=== PATIENT | female | born 1980 | race Caucasian/White ===

== ENCOUNTER 2017-03-10 15:05 | Emergency (ER) | payer OTHER ==
[~2017-03-10] VITALS: Ht 160 cm; Wt 50.1 kg
[~2017-03-10 15:05] MED LIST: BCPILLS PO; CLON0.5T3 PO; LMC100 PO; PRED20TA PO; PRLSR20 PO; VENL150C56 PO
[2017-03-10 15:12] VITALS: TEMP 36.8; Ht 160 cm; Wt 50.1 kg
[2017-03-10] MEDS ORDERED: SODIUM CHLORIDE 0.9% 1000ML 1,000 ML IV STA ×2 (15:46)
[2017-03-10 16:16] LABS: BASO % 0.8 %; BASO ABS # 0.05 K/uL (0-0.2); COMPLETE YES; EOS % 1.6 %; HEMATOCRIT 38.5 % (37-47); IG% 0.2 %; LYMPH % 46.5 %; LYMPH ABS # 2.97 K/uL (1.2-3.4); MEAN CELL VOLUME 86.3 fL (80-100); MEAN CORPUSCULAR HEMOGLOBIN 28.5 pg (25-34); MEAN PLATELET VOLUME 8.8 fL (7.4-10.4); MONO % 5.9 %; PLATELET COUNT 280 K/uL (130-400); RED BLOOD COUNT 4.46 M/uL (4.2-5.4); WHITE BLOOD COUNT 6.39 K/uL (4.8-10.8)
[2017-03-10 16:26] LABS: PARTIAL THROMBOPLASTIN RATIO 1.1; PROTHROMBIN TIME (PATIENT) 10.8 SECONDS (9.0-12.0)
--- NOTE | 2017-03-10 16:27 | DIAGNOSTIC IMAGING REPORT ---
CT HEAD WITHOUT CONTRAST (CT) CLINICAL HISTORY: SYNCOPAL EPISODE, DIZZY COMPARISON STUDY: 05/25/2015 TECHNIQUE: Axial CT of the brain is performed from the vertex to the skull base. IV contrast was not administered for this examination. CT DOSE: 788.63 mGycm FINDINGS: No intra or extra-axial mass lesions are visualized. There is no CT evidence of acute cortical infarction. There is no evidence of midline shift. There is no acute hemorrhage. No calvarial fractures are visualized. There is no evidence of pathologic ventricular dilatation. There is no evidence of acute sinusitis IMPRESSION: No acute intracranial findings Electronically signed by: Alex Velázquez M.D. 03/10/2017 4:26 PM Dictated Date/Time: 03/10/2017 4:25 PM
[2017-03-10 16:35] LABS: CALCIUM 8.6 mg/dl (8.5-10.1); CREATININE 0.76 mg/dl (0.60-1.20); MAGNESIUM 2.4 mg/dl (1.8-2.4); POTASSIUM 3.7 mmol/L (3.5-5.1)
[2017-03-10 16:46] LABS: ALB/GLOB RATIO 1.4 (0.9-2); THYROID STIMULATING HORMONE 1.62 uIu/ml (0.300-4.500)
--- NOTE | 2017-03-10 16:46 | DIAGNOSTIC IMAGING REPORT ---
CHEST 2 VIEWS ROUTINE CLINICAL HISTORY: SYNCOPE mental status change COMPARISON STUDY: 01/28/2014 FINDINGS: The bones soft tissues and hemidiaphragms are normal. The cardiomediastinal silhouette is normal. The lungs are clear. The pulmonary vasculature is normal. IMPRESSION: Negative chest. Electronically signed by: Johnny Riggins M.D. 03/10/2017 4:45 PM Dictated Date/Time: 03/10/2017 4:44 PM
[2017-03-10 17:05] VITALS: BP 106/70; PULSE 86; O2SAT 97
--- NOTE | 2017-03-10 17:07 | EMERGENCY ROOM VISIT NOTE ---
History First contact with patient: 15:18 Chief Complaint: SYNCOPE (NEAR SYNCOPE) Stated Complaint: PASSED OUT YESTERDAY, LINGERING SX, DIZZY History of Present Illness Patient is a 36-year-old white female who presents emergency department for evaluation of a syncopal episode yesterday. Patient reports that she has been feeling well and in her usual state of health. She woke up yesterday morning like she normally does to get ready for work. She did eat breakfast. She was driving to work around 0515 in the morning, when she acutely became very fatigued. She pulled the car over and put it in park. She apparently passed out. There is no tongue biting or incontinence. She states that she missed multiple phone calls from her employer, and states that she was "out of it" for about 30 minutes. She then proceeded to drive herself to work. She arrived late, reports she was fatigued and unable to perform her full duties as a [employer], so she left early. When she came home, she ate, rested and felt "okay." She states currently little "foggy" and "slow." She felt a little dizzy with head movements. She denied any headache. She continued to note dark spots and tunnel vision, and states that she was "zoning out." She states that she went to bed and woke up with the same symptoms. She again drove herself to work today. She called to see if she could get in with her primary care provider, and they directed her to the emergency department. She denies any chest pain, palpitations or shortness of breath. She is eating and drinking normally. She denies any nausea or vomiting. She reports normal bowel movements, no diarrhea , melena or hematochezia. She denies any urinary symptoms. She is on a continuous low dose oral contraceptive and does not menstruate. She denies that she could be . No other medication changes have been made recently. She denies any tobacco, alcohol or illicit drug use. Review of Systems Review of systems as per HPI. All other systems reviewed were negative. 10 systems reviewed. Past Medical/Surgical History Medical Problems: (1) Anxiety (2) Bipolar disorder (3) Chest pain (4) Depression (5) Depression (6) Dyslipidemia (7) Esophageal Reflux (8) Headache (9) HTN (hypertension) (10) Neck pain Surgical Problems: (1) Status post appendectomy (2) Status post delivery (3) Status post cholecystectomy (4) Status post LEEP (loop electrosurgical excision procedure) of cervix Electronic medical records are reviewed and summarized as above/below. See Problem List. Family History FH: hyperlipidemia MOTHER FH: hypertension MOTHER FH: lung cancer GRANDFATHER FH: stroke GRANDMOTHER Social History Smoking Status: Never Smoker Alcohol Use: none Marital Status: Housing Status: lives with family Occupation Status: employed Current/Historical Medications Scheduled Control Pills ( Control Pills), 1 TAB PO DAILY Lamotrigine (Lamotrigine), 150 MG PO QAM Omeprazole (Prilosec), 20 MG PO DAILY Venlafaxine Hcl (Effexor Extended Rel), 150 MG PO DAILY Scheduled PRN Clonazepam (Klonopin), 0.5 MG PO DAILY PRN for Anxiety/Agitation Allergies Coded Allergies: No Known Allergies (Verified , *, 03/10/17) Physical Exam Vital Signs Date Time Temp Pulse Resp B/P (MAP) Pulse Ox O2 Delivery O2 Flow Rate FiO2 03/10/17 17:05 86 18 106/70 97 Room Air 03/10/17 16:26 92 03/10/17 16:25 94 18 113/68 100 Room Air 03/10/17 15:20 86 127/67 92 115/78 100 110/81 03/10/17 15:12 36.8 93 16 119/74 100 Room Air Physical Exam CONSTITUTIONAL: Patient is a well-appearing 36-year-old white female who is awake and alert and in no acute distress. HEENT: Normocephalic, atraumatic. Pupils equal, round, reactive to light and accommodation. EOMs intact without nystagmus. Sclera are anicteric. Tympanic membranes intact, with normal landmarks. External canals are clear. Oral and nasopharynx are clear. No CSF rhinorrhea. Mucous membranes are moist. NECK: Supple, nontender, no lymphadenopathy. Full range of motion. HEART: Regular rate and rhythm, with normal S1 and S2, no murmur or gallop or rub is heard. LUNGS: Breath sounds equal and clear to auscultation without wheezes, rales, or rhonchi heard. ABDOMEN: Soft, non-tender, no organs or masses felt. Bowel sounds normo- active. No bruits. SKIN: No lesions or rash, normal skin turgor. EXTREMITIES: No cyanosis, edema, joint tenderness or swelling. No deformity. NEUROLOGICAL: Alert and oriented x4. Cranial nerves 2 through 12, sensation and strength grossly intact. Gait is normal. Negative Romberg, and pronator drift. Finger to nose, finger to finger and rapid alternating movements are intact. Immediate, recent and remote memories are intact. Concentration is normal. Medical Decision & Procedures ER Provider Diagnostic Interpretation: CT HEAD WITHOUT CONTRAST (CT) CLINICAL HISTORY: SYNCOPAL EPISODE, DIZZY COMPARISON STUDY: 05/25/2015 TECHNIQUE: Axial CT of the brain is performed from the vertex to the skull base. IV contrast was not administered for this examination. CT DOSE: 788.63 mGycm FINDINGS: No intra or extra-axial mass lesions are visualized. There is no CT evidence of acute cortical infarction. There is no evidence of midline shift. There is no acute hemorrhage. No calvarial fractures are visualized. There is no evidence of pathologic ventricular dilatation. There is no evidence of acute sinusitis IMPRESSION: No acute intracranial findings CHEST 2 VIEWS ROUTINE CLINICAL HISTORY: SYNCOPE mental status change COMPARISON STUDY: 01/28/2014 FINDINGS: The bones soft tissues and hemidiaphragms are normal. The cardiomediastinal silhouette is normal. The lungs are clear. The pulmonary vasculature is normal. IMPRESSION: Negative chest Laboratory Results 03/10/17 16:00 Red Blood Count 4.46, Mean Corpuscular Volume 86.3, Mean Corpuscular Hemoglobin 28.5, Mean Corpuscular Hemoglobin Concent 33.0, Mean Platelet Volume 8.8, Neutrophils (%) (Auto) 45.0, Lymphocytes (%) (Auto) 46.5, Monocytes (%) (Auto) 5.9, Eosinophils (%) (Auto) 1.6, Basophils (%) (Auto) 0.8, Neutrophils # (Auto) 2.88, Lymphocytes # (Auto) 2.97, Monocytes # (Auto) 0.38, Eosinophils # (Auto) 0.10, Basophils # (Auto) 0.05 03/10/17 16:00 Test 03/10/17 16:00 03/10/17 16:05 White Blood Count 6.39 K/uL (4.8-10.8) Red Blood Count 4.46 M/uL (4.2-5.4) Hemoglobin 12.7 g/dL (12.0-16.0) Hematocrit 38.5 % (37-47) Mean Corpuscular Volume 86.3 fL (80-100) Mean Corpuscular Hemoglobin 28.5 pg (25-34) Mean Corpuscular Hemoglobin Concent 33.0 g/dl (32-36) Platelet Count 280 K/uL (130-400) Mean Platelet Volume 8.8 fL (7.4-10.4) Neutrophils (%) (Auto) 45.0 % Lymphocytes (%) (Auto) 46.5 % Monocytes (%) (Auto) 5.9 % Eosinophils (%) (Auto) 1.6 % Basophils (%) (Auto) 0.8 % Neutrophils # (Auto) 2.88 K/uL (1.4-6.5) Lymphocytes # (Auto) 2.97 K/uL (1.2-3.4) Monocytes # (Auto) 0.38 K/uL (0.11-0.59) Eosinophils # (Auto) 0.10 K/uL (0-0.5) Basophils # (Auto) 0.05 K/uL (0-0.2) RDW Standard Deviation 42.0 fL (36.4-46.3) RDW Coefficient of Variation 13.2 % (11.5-14.5) Immature Granulocyte % (Auto) 0.2 % Immature Granulocyte # (Auto) 0.01 K/uL (0.00-0.02) Prothrombin Time 10.8 SECONDS (9.0-12.0) Prothromb Time International Ratio 1.0 (0.9-1.1) Activated Partial Thromboplast Time 27.8 SECONDS (21.0-31.0) Partial Thromboplastin Ratio 1.1 Anion Gap 9.0 mmol/L (3-11) Est Creatinine Clear Calc Drug Dose 79.4 ml/min Estimated GFR () 115.3 Estimated GFR (Non- 99.5 BUN/Creatinine Ratio 24.0 (10-20) Calcium Level 8.6 mg/dl (8.5-10.1) Magnesium Level 2.4 mg/dl (1.8-2.4) Total Bilirubin 0.7 mg/dl (0.2-1) Aspartate Amino Transf (AST/SGOT) 13 U/L (15-37) Alanine Aminotransferase (ALT/SGPT) 17 U/L (12-78) Alkaline Phosphatase 74 U/L (45-117) Total Protein 7.6 gm/dl (6.4-8.2) Albumin 4.4 gm/dl (3.4-5.0) Globulin 3.2 gm/dl (2.5-4.0) Albumin/Globulin Ratio 1.4 (0.9-2) Thyroid Stimulating Hormone (TSH) 1.620 uIu/ml (0.300-4.500) Urine Test NEG (NEG) Medications Administered Medications (Trade) Dose Ordered Sig/Kate Route Start Time Stop Time Status Last Admin Dose Admin Sodium Chloride 1,000 ml @ 999 mls/hr Q1H1M STAT IV 03/10/17 15:46 03/10/17 16:46 DC 03/10/17 16:11 999 MLS/HR Sodium Chloride 1,000 ml @ 250 mls/hr Q4H STAT IV 03/10/17 15:46 03/10/17 17:28 DC 03/10/17 16:12 250 MLS/HR ECG Indication: syncope Rate (beats per minute): 89 Rhythm: sinus with SA Findings: no acute ischemic change, no ectopy Change: no significant change ED Course The patient was seen and assessed as above. Her old records were reviewed. She was slightly orthostatic with vital signs, and was symptomatic with position changes. IV lock was initiated and she was hydrated with normal saline solution. Laboratory studies were collected including CBC with differential, CMP, coags, TSH, urine dip and urine test. Lamictal level was ordered and is pending. Laboratory studies noted a normal white count. H&H is normal. Coags and platelets are within normal limits. Electrolytes are without significant abnormality. Renal functions are normal. Liver functions are not elevated. TSH is indicative of a euthyroid state. Urine test was negative. Urine dip noted moderate ketones, otherwise no other indicators for infection. Chest x-ray was unremarkable, and head CT was negative. All laboratory and diagnostic imaging studies were reviewed with the patient. Differential includes acute coronary syndrome, seizure, syncope, arrhythmia, orthostasis, dehydration, electrolyte abnormalities, anemia, hypoglycemia, among others. Patient was initially tachycardic, this improved with the IV hydration. The patient was encouraged to rest and stay well hydrated, eat small , frequent meals, and to follow closely with her primary care provider for further care and evaluation of her symptoms. She was given a note to keep her out of work until she can be screened and cleared to return by her physician. The patient was discharged to home in stable condition. Medication reconciliation: I attest that I have personally reviewed the patient' s current medication list. Blood pressure screening : Patient was found to have normal blood pressure on screening and does not require follow-up. Medical Decision See emergency Department course. Impression Primary Impression: Syncope Departure Information Referrals Dom Lo M.D. (PCP) Patient Instructions My [facility] Additional Instructions DO NOT drive, drink alcohol, operate machinery, or perform dangerous activities today. Rest and drink plenty of fluids as tolerated. Continue current medications. Return to the ER immediately for passing out, headache, rapid heart rates, chest pains, difficulty breathing, black or bloody stools, slurred speech, numbness, weakness, visual changes, worsening of your condition, or as needed. Refrain from dangerous activities, operating machinery, drinking alcohol, and such until you are rechecked at a follow up appointment. No driving until cleared by your primary care physician. Follow up with your primary physician in 2-3 days for a recheck of your current condition.
== END 2017-03-10 17:14 | disposition home or self-care (01) ==
LOC: C.EDB 15:08 → C.EDA 17:14
DX: R55 Syncope and collapse (principal); F41.9 Anxiety disorder, unspecified; F31.9 Bipolar disorder, unspecified; F32.9 Major depressive disorder, single episode, unspecified; E78.5 Hyperlipidemia, unspecified; K21.9 Gastro-esophageal reflux disease without esophagitis; I10 Essential (primary) hypertension; Z82.49 Family history of ischemic heart disease and other diseases of the circulatory system; Z80.9 Family history of malignant neoplasm, unspecified; Z79.3 Long term (current) use of hormonal contraceptives; Z79.899 Other long term (current) drug therapy

== ENCOUNTER 2017-07-21 17:17 | Emergency (ER) | payer OTHER ==
[~2017-07-21] VITALS: Ht 160 cm; Wt 50.7 kg
[~2017-07-21 17:17] MED LIST changes: -PRED20TA PO
[2017-07-21 17:19] VITALS: TEMP 36.9; Ht 160 cm; Wt 50.7 kg
--- NOTE | 2017-07-21 18:40 | DIAGNOSTIC IMAGING REPORT ---
LEFT SHOULDER 3 VIEWS HISTORY: left shoulder pain COMPARISON: None. FINDINGS: There is no fracture or dislocation. Soft tissues are unremarkable. The left clavicle is intact. The AC joint is well aligned. IMPRESSION: No fracture or dislocation within the left shoulder. Electronically signed by: Justen Calvo M.D. 07/21/2017 6:39 PM Dictated Date/Time: 07/21/2017 6:38 PM
--- NOTE | 2017-07-21 18:43 | DIAGNOSTIC IMAGING REPORT ---
CERVICAL SPINE 5 VIEWS HISTORY: left sided neck pain COMPARISON: Cervical spine 11/18/2014. FINDINGS: The cervical spine is visualized from C1 through the superior endplate of T1. There is no fracture. No subluxation. Disc spaces are preserved. Prevertebral soft tissues and the atlantodens interval are intact. Straightening of the cervical spine. This remains unchanged. IMPRESSION: No fracture or subluxation within the cervical spine. Straightening of the cervical spine. Electronically signed by: Justen Calvo M.D. 07/21/2017 6:42 PM Dictated Date/Time: 07/21/2017 6:39 PM
[2017-07-21] MEDS ORDERED: IBUPROFEN 600 MG TAB PO STA (18:45)
--- NOTE | 2017-07-21 19:11 | EMERGENCY ROOM VISIT NOTE ---
History First contact with patient: 17:26 Chief Complaint: NECK PAIN Stated Complaint: LEFT SHOULDER/ARM PAIN, TINGLING, NECK PAIN History of Present Illness The patient is a 36 year old female who presents to the Emergency Room with complaints of left-sided neck/shoulder pain. 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 She has had pain from her left neck down into the left shoulder and arm and since then. She also reports some tingling into the left arm and hands. She rates her overall discomfort a 7/10. She states that the pain feels like a tightness. She reports a history of left shoulder problems and has had issues with her rotator cuff in the past. She states the pain is worsened with range of motion. She has taken Advil without relief. The patient denies any chest pain or shortness of breath. She denies any other injuries. Review of Systems A complete 10 point review of systems was reviewed with the patient with pertinent positives and negatives as per history of present illness. All else were negative. Past Medical/Surgical History Medical Problems: (1) Anxiety (2) Bipolar disorder (3) Chest pain (4) Depression (5) Depression (6) Dyslipidemia (7) Esophageal Reflux (8) Headache (9) HTN (hypertension) (10) Neck pain Surgical Problems: (1) Status post appendectomy (2) Status post delivery (3) Status post cholecystectomy (4) Status post LEEP (loop electrosurgical excision procedure) of cervix Family History FH: hyperlipidemia MOTHER FH: hypertension MOTHER FH: lung cancer GRANDFATHER FH: stroke GRANDMOTHER Social History Smoking Status: Never Smoker Alcohol Use: none Marital Status: Housing Status: lives with family Occupation Status: employed Current/Historical Medications Scheduled Control Pills ( Control Pills), 1 TAB PO DAILY Lamotrigine (Lamotrigine), 150 MG PO QAM Omeprazole (Prilosec), 20 MG PO DAILY Venlafaxine Hcl (Effexor Extended Rel), 150 MG PO DAILY Scheduled PRN Clonazepam (Klonopin), 0.5 MG PO DAILY PRN for Anxiety/Agitation Physical Exam Vital Signs Date Time Temp Pulse Resp B/P (MAP) Pulse Ox O2 Delivery O2 Flow Rate FiO2 07/21/17 19:19 79 17 118/81 98 07/21/17 18:46 78 18 108/68 99 Room Air 07/21/17 17:19 36.9 89 18 118/81 100 Physical Exam VITALS: Vitals are noted on the nurse's note and reviewed by myself. Vital signs stable. GENERAL: This is a 36-year-old female, in no acute distress, nondiaphoretic, well-developed well-nourished. HEART: Regular rate and rhythm without murmurs gallops or rubs. LUNGS: Clear to auscultation bilaterally without wheezes, rales or rhonchi. MUSCULOSKELETAL: There is tenderness to palpation over the left paraspinous muscles and left trapezius muscle. Full range of motion of bilateral upper extremities. Strength 5/5 in bilateral upper extremities. NEURO: Patient was alert and oriented to person place and time. Normal sensation to light and sharp touch. Medical Decision & Procedures ER Provider Diagnostic Interpretation: CERVICAL SPINE 5 VIEWS FINDINGS: The cervical spine is visualized from C1 through the superior endplate of T1. There is no fracture. No subluxation. Disc spaces are preserved. Prevertebral soft tissues and the atlantodens interval are intact. Straightening of the cervical spine. This remains unchanged. IMPRESSION: No fracture or subluxation within the cervical spine. Straightening of the cervical spine. LEFT SHOULDER 3 VIEWS FINDINGS: There is no fracture or dislocation. Soft tissues are unremarkable. The left clavicle is intact. The AC joint is well aligned. IMPRESSION: No fracture or dislocation within the left shoulder. Medications Administered Medications (Trade) Dose Ordered Sig/Kate Route Start Time Stop Time Status Last Admin Dose Admin Ibuprofen (Motrin Tab) 600 mg NOW STAT PO 07/21/17 18:45 07/21/17 18:46 DC 07/21/17 19:02 600 MG Medical Decision Differential diagnosis includes fracture, contusion, sprain, subluxation, dislocation, muscle spasm, among others. The patient was evaluated as above. X-rays of the cervical spine and left shoulder were obtained and read by radiology with no acute findings. She likely has a muscle strain. Patient was offered muscle relaxers, but declined as she states these have made her very drowsy in the past. Conservative measures were discussed with the patient and she will follow-up with her primary care provider as needed. She verbalized understanding of my assessment and treatment plan and was discharged home in good condition. Medication Reconcilliation Current Medication List: was personally reviewed by me Blood Pressure Screening Patient's blood pressure: Normal blood pressure Impression Primary Impression: Cervical muscle strain Departure Information Dispostion Home / Self-Care Condition GOOD Referrals No Doctor, Assigned (PCP) Patient Instructions My [facility] Additional Instructions You have been treated in the Emergency Department for Neck Pain. For pain control, you can use the following [id number] medicines (if >12 yo): - Regular strength (325mg/tab) Tylenol (acetaminophen) 2 tabs every 4-6 hours as needed. Do not exceed 12 tablets in a 24 hour period. Avoid taking more than 4 grams (4000 mg) of Tylenol per day. This includes any other sources of acetaminophen you may take on a regular basis. - Regular strength (200 mg/tab) Advil (ibuprofen) 1-2 tabs every 4-6 hours as needed. Do not exceed a dose of 3200 mg per day. A heating pad can be used over the area for soothing relief. Follow-up with Workmen's Compensation if you have persistent or worsening symptoms. Return to the Emergency Department if your current symptoms worsen despite treatment course outlined above or for any new/concerning symptoms. Problem Qualifiers Primary Impression: Cervical muscle strain Encounter type: initial encounter Qualified Codes: S16.1XXA - Strain of muscle, fascia and tendon at neck level, initial encounter
[2017-07-21 19:19] VITALS: BP 118/81; PULSE 79; O2SAT 98
== END 2017-07-21 19:19 | disposition home or self-care (01) ==
LOC: C.EDB 17:18 → C.EDD 19:19
DX: S16.1XXA Strain of muscle, fascia and tendon at neck level, initial encounter (principal); M25.512 Pain in left shoulder; F41.9 Anxiety disorder, unspecified; F31.9 Bipolar disorder, unspecified; E78.5 Hyperlipidemia, unspecified; K21.9 Gastro-esophageal reflux disease without esophagitis; I10 Essential (primary) hypertension; X58.XXXA Exposure to other specified factors, initial encounter; Z82.49 Family history of ischemic heart disease and other diseases of the circulatory system; Z80.1 Family history of malignant neoplasm of trachea, bronchus and lung; Z82.3 Family history of stroke

== ENCOUNTER → 2017-08-03 | Outpatient (CLI) | payer OTHER ==
--- NOTE | 2017-08-03 15:02 | DIAGNOSTIC IMAGING REPORT ---
MRI OF THE LEFT SHOULDER CLINICAL HISTORY: Fall with left shoulder pain. COMPARISON STUDY: Radiographs of the left shoulder dated 07/21/2017. TECHNIQUE: MRI of the left shoulder was performed utilizing various T1 and T2 weighted sequences in the axial, sagittal, coronal planes. IV contrast was not administered for this examination. FINDINGS: Rotator cuff: There is moderate tendinopathy of the supraspinatous tendon. There is partial thickness tearing seen along the bursal surface at the musculotendinous junction and also within 1.5 cm leading edge. The infraspinatus tendon is normal in appearance. The teres minor and subscapular tendons are preserved. There is no subacromial or subdeltoid bursal fluid. The acromioclavicular joint is unremarkable. Biceps tendon: The long head of the biceps tendon is normal in signal intensity and located within the bicipital groove. The anchor is maintained. Labrum: Grossly intact. Shoulder joint: There is no joint effusion. The articular cartilage over the glenoid is well maintained. Normal marrow signal intensity is preserved of the visualized osseous structures. Musculature and soft tissues: The musculature of the shoulder is normal in bulk and signal intensity. No atrophy is seen. IMPRESSION: 1. There is tendinopathy with partial-thickness tearing of the supraspinatous tendon as above. 2. The rotator cuff is otherwise intact, as is the long head of the biceps tendon. 3. There is no MRI evidence of occult fracture. Electronically signed by: Charlie Melgar M.D. 08/03/2017 3:00 PM Dictated Date/Time: 08/03/2017 2:51 PM
== END | disposition home or self-care (01) ==
LOC: C.MRI 14:08
PROVIDERS: ATTEND Nurse Practitioner Family
DX: M75.102 Unspecified rotator cuff tear or rupture of left shoulder, not specified as traumatic (principal); M75.92 Shoulder lesion, unspecified, left shoulder; W19.XXXA Unspecified fall, initial encounter; Y99.0 Civilian activity done for income or pay

== ENCOUNTER → 2017-08-06 | Outpatient (CLI) | payer OTHER | END | disposition home or self-care (01) | LOC: C.RDSM 10:14 | PROVIDERS: ATTEND Orthopaedic Surgery | DX: M25.512 Pain in left shoulder (principal) ==

== ENCOUNTER → 2017-09-16 | Day surgery (SDC) | payer OTHER ==
[2017-09-10 14:36] VITALS: Ht 160 cm; Wt 52.3 kg
[~2017-09-16] VITALS: Ht 160 cm; Wt 52.3 kg
[~2017-09-16] MED LIST changes: +BUPIVACAINE/EPINEPHRINE 0.5% MPF 1:200,000 30 ML VIAL ONE; +CEFAZOLIN 1000MG IV PUSH 5 ML IV SCH; +DEXAMETHASONE SOD INJ 4 MG/ML VIAL ONE; +LACTATED RINGER'S 1000ML 1,000 ML IV SCH; +LAMO150T PO; -LMC100 PO
== END | disposition home or self-care (01) ==
LOC: C.PAT 07:13 → EDSTATUS 14:30
PROVIDERS: ATTEND Orthopaedic Surgery
DX: M75.02 Adhesive capsulitis of left shoulder (principal)

== ENCOUNTER 2023-08-11 04:12 | Inpatient (IN) ==
[2023-08-11] MEDS ORDERED: ONDANSETRON INJ 2 MG/ML 2 ML VIAL IV STA ×2 (04:25→05:52)
[2023-08-11] MEDS ORDERED: KETOROLAC TROMETHAMINE 15 MG/ML VIAL IV ONE (04:43)
--- NOTE | 2023-08-11 04:43 | Emergency Department Note ---
Impression & Plan Abdominal pain, Small bowel obstruction ED Provider Note NAME: VICTORINO NAVAS AGE: 42 SEX: F : 1980 ARRIVES VIA: Walk-In INFORMANT: Patient ED PROVIDER(S): Chris Flores DO CHIEF COMPLAINT: abdominal pain HPI: Patient is a 42-year-old female with a past medical history of appendectomy, cholecystectomy and hysterectomy who presents to the ER for supraumbilical abdominal pain. She notes it has been present since yesterday. It comes and goes in waves if intensity. She admits to vomiting x2. She does have nausea. Does not change much with eating or drinking. Denies any headache or change in vision. No chest pain or shortness of breath. No dysuria, urgency, or frequency. Does not remember her last menstrual cycle as she had a hysterectomy. No fevers. ADDITIONAL HISTORY OBTAINED: Per HPI Chronic Medical/Social Conditions Affecting Care: Per HPI PAST MEDICAL HISTORY:See Below PAST SURGICAL HISTORY:See Below FAMILY HISTORY:See Below SOCIAL HISTORY:See Below HOME MEDICATIONS:See Below ALLERGIES:See Below VITALS:See Below PHYSICAL EXAMINATION: GENERAL: Sitting up in bed, alert, mild distress holding abdomen EYE EXAM: normal conjunctiva. OROPHARYNX:mucous membranes are moist NECK: supple, no nuchal rigidity, no adenopathy, non-tender LUNGS: Clear to auscultation. Normal chest wall mechanics HEART: no murmurs, S1 normal and S2 normal ABDOMEN: abdomen soft, mild tenderness in epigastric region, normo-active bowel sounds, no masses, no rebound or guarding. UPPER EXTREMITIES: upper extremities are grossly normal. LOWER EXTREMITIES: No pitting edema. NEURO EXAM: Normal sensorium, cranial nerves II-XII grossly intact, normal speech, no gross weakness of arms, no gross weakness of legs. MEDICAL DECISION MAKING: Patient is a 42-year-old female who presents ER for above-stated complaint. IV was established blood work was obtained. External records reviewed as described below. Patient has a history of cholecystectomy, appendectomy and complete hysterectomy. Labs show mild leukocytosis of 15,000. No significant anemia. BMP along with LFTs bilirubin was unremarkable. Lipase was normal. UA was clean. was negative. CT abdomen pelvis suggest ileus versus early small bowel obstruction. With the presentation, previous surgeries, leukocytosis did discuss with the hospitalist for further evaluation management treatment. Discussed the case with Dr. Burgos who for further evaluation management and treatment. External Records Reviewed: 02/2022 sleep study reviewed shows mild obstructive sleep apnea Consults/Care Managements Discussions: Per MDM Triage Nursing notes reviewed. Limited review of prior medical records performed Vital Signs: reviewed and remarkable for tachy Differential diagnosis: Differential diagnoses includes but is not limited to gastritis, peptic ulcer disease, GERD, gallbladder disease, pancreatitis, small bowel obstruction, appendicitis, diverticulitis, hernia, urinary tract infection, torsion, /ectopic (if female), perforation, trauma, infectious. ER treatment provided: See below Diagnostics interpreted by me include EKG and cardiac monitoring as listed below: -Cardiac Monitoring: An order was placed for continuous cardiac monitoring. The monitor shows a rate of 100 with sinus rhythm. -ECG: none -Laboratory studies:Interpreted by me as stated above in MDM and shown below. Imaging studies: Xrays: As interpreted by me:none CTs show: CT abdomen pelvis showed dilation of small bowel per my read CT abdomen pelvis per radiology showed questionable ileus versus early small bowel obstruction Procedures:none Critical Care: None Past Med/Surg History Medical History (Updated 08/11/23 @ 06:19 by Chris Flores DO) HTN (hypertension) Surgical History Hx of breast biopsy Family History Other Breast cancer Social History Smoking Status: Former smoker Hx Alcohol Use: No Preferred Language: Albanian marital status: Current Living Situation: Spouse current occupational status: employed Feels Safe at Home: Yes Allergies Allergies Allergy/AdvReac Type Severity Reaction Status Date / Time No Known Allergies Allergy Verified 10/11/21 20:25 Home Meds Home Medications Medication Instructions Recorded Confirmed lamotrigine 100 mg tablet 100 mg PO QAM 07/31/19 10/11/21 norethindrone (contraceptive) 0.35 0.35 mg PO QAM 07/31/19 10/11/21 mg tablet albuterol sulfate 90 mcg/actuation 1 - 2 puff inhalation DIRECTED 01/30/21 10/11/21 aerosol inhaler PRN Shortness Of Breath fluticasone furoate 200 1 inh inhalation QAM 01/30/21 10/11/21 mcg-vilanterol 25 mcg/dose inhalation powder (Breo Ellipta) lorazepam 0.5 mg tablet 0.5 mg PO DIRECTED PRN Anxiety 01/30/21 10/11/21 venlafaxine 225 mg tablet,extended 225 mg PO QAM 01/30/21 10/11/21 release 24 hr Results & Data (ED) Vital Signs Vital Signs - 24 hr 08/11/23 04:21 08/11/23 04:40 Temperature 36.6 C Temperature Source Temporal Artery Scan Pulse Rate 101 H Respiratory Rate 20 Blood Pressure 117/78 Blood Pressure Mean 91 Pulse Oximetry 99 99 Oxygen Delivery Method Room Air Room Air Sepsis Recent Fever Within 48 Hours No Sepsis New/Unexplained Change in Mental Status No Sepsis Action Taken by Nursing No Action Required Laboratory Data 08/11/23 04:36 08/11/23 04:36 Lab Results 08/11/23 08/11/23 Range/Units 04:30 04:36 WBC 15.63 H (4.8-10.8) K/ul RBC 5.26 (4.20-5.40) M/uL Hgb 15.3 (12.0-16.0) g/dl Hct 46.4 (37.0-47.0) % MCV 88.2 (80.0-100.0) fL MCH 29.1 (25.0-34.0) pg MCHC 33.0 (32.0-36.0) g/dL RDW Std Deviation 41.8 (36.4-46.3) fL RDW Coeff of Nils 12.8 (11.5-14.5) % Plt Count 417 H (130-400) K/uL MPV 9.0 L (9.4-12.4) fL Immature Gran % (Auto) 0.4 % Neut % (Auto) 75.4 % Lymph % (Auto) 17.1 % [place] % (Auto) 6.0 % Eos % (Auto) 0.5 % Baso % (Auto) 0.6 % Neut # (Auto) 11.78 H (1.40-6.50) K/uL Lymph # (Auto) 2.68 (1.20-3.40) K/uL [place] # (Auto) 0.94 H (0.11-0.59) K/uL Eos # (Auto) 0.08 (0.00-0.50) K/uL Baso # (Auto) 0.09 (0.00-0.20) K/uL Immature Gran # (Auto) 0.06 (0.01-0.20) K/uL Sodium 138 (136-145) mmol/L Potassium 3.5 (3.5-5.1) mmol/L Chloride 99 (98-107) mmol/L Carbon Dioxide 33 H (21-32) mmol/L Anion Gap 6 (3-11) BUN 17 (6-23) mg/dl Creatinine 0.83 (0.6-1.2) mg/dl Est Cr Clr Drug Dosing 71.5 ml/min Est GFR ( Amer) 99.4 ml/min Est GFR (Non-Af Amer) 85.8 ml/min BUN/Creatinine Ratio 20.5 H (10-20) Glucose 101 H (70-99(Fasting)) mg/dl Calcium 10.7 H (8.6-10.3) mg/dl Total Bilirubin 0.6 (0.2-1.0) mg/dl AST 19 (13-39) U/L ALT 20 (7-52) U/L Alkaline Phosphatase 86 (34-104) U/L Total Protein 8.3 (6.0-8.3) gm/dl Albumin 5.1 H (3.4-5.0) gm/dl Globulin 3.2 (2.5-4.0) gm/dl Albumin/Globulin Ratio 1.6 (0.9-2) Lipase 8 L (11-82) U/L Urine Color Yellow Urine Appearance Clear (Clear) Urine pH 6.0 (4.5-7.5) Ur Specific [place] 1.024 (1.000-1.030) Urine Protein Negative (Negative) Urine Glucose (UA) Negative (Negative) Urine Ketones 1+ H (Negative) Urine Blood Negative (Negative) Urine Nitrite Negative (Negative) Urine Bilirubin Negative (Negative) Urine Urobilinogen Negative (Negative) Ur Leukocyte Esterase Negative (Negative) POC Ur Test NEG (NEG) Administered Medications Sodium Chloride (Nss) 1,000 mls @ 999 mls/hr IV .Q1H1M DUSTIN Stop: 08/11/23 06:30 Last Admin: 11/15/23 05:25 Dose: 999 mls/hr Documented By: Infusion: 08/11/23 05:25 Dose: Infused Documented By: Admin: 08/11/23 04:44 Dose: 999 mls/hr Documented By: GAETANO Discontinued Medications Ioversol (Optiray 320 100ml) 100 ml IV ONCE ONE Stop: 08/11/23 04:55 Last Admin: 08/11/23 04:54 Dose: 91 ml Documented By: JESSICA Ketorolac Tromethamine (Ketorolac Tromethamine 15 Mg/Ml Vial) 15 mg IV NOW ONE Stop: 08/11/23 04:44 Last Admin: 08/11/23 05:25 Dose: 15 mg Documented By: GAETANO Ondansetron HCl (Ondansetron Inj 2 Mg/Ml 2 Ml Vial) 4 mg IV NOW STA Stop: 08/11/23 04:26 Last Admin: 08/11/23 04:43 Dose: 4 mg Documented By: GAETANO Imaging Data Radiologist's Impression: Abdomen/Pelvis CT 08/11/23 04:33 Exam(s): CT ABDOMEN + PELVIS With Contrast IV Amt: 91 ml optiray 320 EXAM: CT Abdomen and Pelvis With Intravenous Contrast CLINICAL HISTORY: Reason for exam: abd pain w/ jay and appy. TECHNIQUE: Axial computed tomography images of the abdomen and pelvis with intravenous contrast. Automated exposure control was utilized for the study. A dose lowering technique was utilized adhering to the principles of ALARA. CONTRAST: Patient received 91 ml optiray 320 of IV contrast COMPARISON: No relevant prior studies available. FINDINGS: Lung bases: Unremarkable. No mass. No consolidation. ABDOMEN: Liver: Unremarkable. No mass. Gallbladder and bile ducts: Cholecystectomy. No ductal dilation. Pancreas: Unremarkable. No mass. No ductal dilation. Spleen: Unremarkable. No splenomegaly. Adrenals: Unremarkable. No mass. Kidneys and ureters: Unremarkable. No solid mass. No hydronephrosis. Stomach and bowel: Generous amount of fluid seen in the small bowel loops seen in the abdomen, the caliber of which measures up to 2.6 cm in diameter. Moderate amount of fecal matter seen in the colonic lumen. No obstruction. No mucosal thickening. PELVIS: Appendix: No findings to suggest acute appendicitis. Bladder: Unremarkable. No mass. Reproductive: Unremarkable as visualized. ABDOMEN and PELVIS: Intraperitoneal space: Small volume of abdominal and pelvic ascites. No free air. Bones/joints: No acute fracture. No dislocation. Soft tissues: Unremarkable. Vasculature: Unremarkable. No abdominal aortic aneurysm. Lymph nodes: Unremarkable. No enlarged lymph nodes. IMPRESSION: 1. Generous amount of fluid in small bowel loops without any definite transition point. This could be due to ileus are could be related to low- grade bowel obstruction 2. Moderate amount of fecal matter in the colon can be correlated with history of constipation. 3. Small ascites Electronically signed by: Faizan Maria MD 08/11/23 05:50 AM Discharge Plan Visit Data Chief Complaint: Abdominal Pain Stated Complaint: ABD PAIN, N/V ED Provider: Chris Flores Discharge Problem: Abdominal pain, Small bowel obstruction Forms Stand Alone Forms: [facility] [place] [facility] Prescriptions Prescriptions: No Action norethindrone (contraceptive) 0.35 mg tablet 0.35 mg PO QAM lamotrigine 100 mg tablet 100 mg PO QAM lorazepam 0.5 mg tablet 0.5 mg PO DIRECTED PRN (Reason: Anxiety) albuterol sulfate 90 mcg/actuation HFA aerosol inhaler 1 - 2 puff INHALATION DIRECTED PRN (Reason: Shortness Of Breath) venlafaxine 225 mg tablet extended release 24hr 225 mg PO QAM Breo Ellipta 200-25 mcg/dose blister with device 1 inh INHALATION QAM Referrals Referrals: Dom Lo MD [Outside Practitioners] - Discharge Problem: Abdominal pain Qualifiers: Abdominal location: unspecified location Qualified Code(s): R10.9 - Unspecified abdominal pain
[2023-08-11] MEDS: SODIUM CHLORIDE 0.9% 1,000 ML IV SCH ×4 (04:44→21:53)
[2023-08-11 04:52] LABS: Appearance Urine Clear (Clear); Bilirubin Urine Negative (Negative); Blood Urine Negative (Negative); Color Urine Yellow; Glucose Urine UA Negative (Negative); Ketones Urine 1+ (Negative); Leukocyte Esterase Urine Negative (Negative); Nitrite Urine Negative (Negative); Protein Urine Negative (Negative); Specific Gravity Urine 1.024 (1.000-1.030); Urobilinogen Urine Negative (Negative)
[2023-08-11] MEDS ORDERED: OPTIRAY 320 100ml IV ONE (04:54)
[2023-08-11 05:09] LABS: Basophils # (auto) 0.09 K/uL (0.00-0.20); Basophils % (auto) 0.6 %; Eosinophils # (auto) 0.08 K/uL (0.00-0.50); Eosinophils % (auto) 0.5 %; Hematocrit (blood only) 46.4 % (37.0-47.0); Hemoglobin 15.3 g/dl (12.0-16.0); Immature Granulocytes # (auto) 0.06 K/uL (0.01-0.20); Immature Granulocytes % (auto) 0.4 %; Lymphocytes # (auto) 2.68 K/uL (1.20-3.40); Lymphocytes % (auto) 17.1 %; Mean Corpuscular Hemoglobin 29.1 pg (25.0-34.0); Mean Corpuscular Volume 88.2 fL (80.0-100.0); Monocytes # (auto) 0.94 K/uL (0.11-0.59); Neutrophils # (auto) 11.78 K/uL (1.40-6.50); Neutrophils % (auto) 75.4 %; Platelet Count 417 K/uL (130-400); RDW Coefficient of Variation 12.8 % (11.5-14.5); RDW Standard Deviation 41.8 fL (36.4-46.3); Red Blood Count 5.26 M/uL (4.20-5.40); White Blood Count 15.63 K/ul (4.8-10.8)
[2023-08-11 05:10] LABS: Albumin Globulin Ratio 1.6 (0.9-2); Albumin Level 5.1 gm/dl (3.4-5.0); BUN Creatinine Ratio 20.5 (10-20); Bilirubin,Total 0.6 mg/dl (0.2-1.0); Calcium 10.7 mg/dl (8.6-10.3); Creatinine Clr Calc Pharmacy 71.5 ml/min; Est GFR (African American) 99.4 ml/min; Est GFR (Non-African American) 85.8 ml/min; Globulin 3.2 gm/dl (2.5-4.0); Potassium 3.5 mmol/L (3.5-5.1); Total Protein 8.3 gm/dl (6.0-8.3)
--- NOTE | 2023-08-11 05:51 | CT Scan Report ---
Exam(s): CT ABDOMEN + PELVIS With Contrast IV Amt: 91 ml optiray 320 EXAM: CT Abdomen and Pelvis With Intravenous Contrast CLINICAL HISTORY: Reason for exam: abd pain w/ jay and appy. TECHNIQUE: Axial computed tomography images of the abdomen and pelvis with intravenous contrast. Automated exposure control was utilized for the study. A dose lowering technique was utilized adhering to the principles of ALARA. CONTRAST: Patient received 91 ml optiray 320 of IV contrast COMPARISON: No relevant prior studies available. FINDINGS: Lung bases: Unremarkable. No mass. No consolidation. ABDOMEN: Liver: Unremarkable. No mass. Gallbladder and bile ducts: Cholecystectomy. No ductal dilation. Pancreas: Unremarkable. No mass. No ductal dilation. Spleen: Unremarkable. No splenomegaly. Adrenals: Unremarkable. No mass. Kidneys and ureters: Unremarkable. No solid mass. No hydronephrosis. Stomach and bowel: Generous amount of fluid seen in the small bowel loops seen in the abdomen, the caliber of which measures up to 2.6 cm in diameter. Moderate amount of fecal matter seen in the colonic lumen. No obstruction. No mucosal thickening. PELVIS: Appendix: No findings to suggest acute appendicitis. Bladder: Unremarkable. No mass. Reproductive: Unremarkable as visualized. ABDOMEN and PELVIS: Intraperitoneal space: Small volume of abdominal and pelvic ascites. No free air. Bones/joints: No acute fracture. No dislocation. Soft tissues: Unremarkable. Vasculature: Unremarkable. No abdominal aortic aneurysm. Lymph nodes: Unremarkable. No enlarged lymph nodes. IMPRESSION: 1. Generous amount of fluid in small bowel loops without any definite transition point. This could be due to ileus are could be related to low- grade bowel obstruction 2. Moderate amount of fecal matter in the colon can be correlated with history of constipation. 3. Small ascites Electronically signed by: Faizan Maria MD 08/11/23 05:50 AM
[2023-08-11] MEDS ORDERED: MoRPHine SULFATE 4 MG/ML 1 ML CARP\\VIAL IV STA (05:52)
--- NOTE | 2023-08-11 06:28 | History & Physical Report ---
Date of Service August 11, 2023 Assessment & Plan (1) Small bowel obstruction: Plan: 42-year-old female past med significant for COPD, mild obstructive sleep apnea, patent foramen ovale, atrial septal defect, GERD, endometriosis of uterus, polymyalgia, peripheral neuropathy, bipolar 1 disorder, COVID-19 long-hauler, mild cognitive impairment presents with abdominal pain 7/10 in severity and found to have small bowel obstruction. Small bowel obstruction Abdominal pain History of bowel surgeries CAT scan showing ileus versus low-grade small bowel obstruction We will keep her n.p.o. IV fluids IV Dilaudid as needed IV Zofran as needed Consult surgery History of COPD Continue home inhalers History of bipolar disorder and depression Continue home medications DVT prophylaxis Lovenox Disposition Medical floor Full code History of Present Illness Chief Complaint: Abdominal pain Primary Care Provider: AARON Walker 42-year-old female past med history significant for COPD, mild obstructive sleep apnea, patent foramen ovale, atrial septal defect, GERD, endometriosis of uterus, polymyalgia, peripheral neuropathy, bipolar 1 disorder, COVID-19 long- hauler, mild cognitive impairment presents with abdominal pain 7/10 in severity and found to have small bowel obstruction. Patient states pain currently is 4/10 in severity. Had episodes of nausea and vomiting. Last bowel movement was yesterday. Denies any fevers. Currently no headache. Currently no earache or runny nose or sore throat. No cough. No chest pain or shortness of breath. Normal bladder movements. Resting comfortably. Hemodynamic stable. Past medical history. As mentioned above Past surgical history. induced by D&E. Left breast lesion excision, , colposcopy, cystoscopy, laparoscopic hysteroscopy, laparoscopic cholecystectomy, appendectomy, removal of cervix cone With loop electrode. Social history. Quit smoking in 2009. Smoked 1 pack a day for 10 years. Quit alcohol in 2000. No drug use. Family history. Mother had triple negative breast cancer. Hypertension. Depression. Father had cancer. Allergies Allergy/AdvReac Type Severity Reaction Status Date / Time No Known Allergies Allergy Verified 10/11/21 20:25 Home Medications Medication Instructions Recorded Confirmed Type lamotrigine 100 mg tablet 100 mg PO QAM 07/31/19 10/11/21 History norethindrone (contraceptive) 0.35 0.35 mg PO QAM 07/31/19 10/11/21 History mg tablet albuterol sulfate 90 mcg/actuation 1 - 2 puff inhalation DIRECTED 01/30/21 10/11/21 History aerosol inhaler PRN Shortness Of Breath fluticasone furoate 200 1 inh inhalation QAM 01/30/21 10/11/21 History mcg-vilanterol 25 mcg/dose inhalation powder (Breo Ellipta) lorazepam 0.5 mg tablet 0.5 mg PO DIRECTED PRN Anxiety 01/30/21 10/11/21 History venlafaxine 225 mg tablet,extended 225 mg PO QAM 01/30/21 10/11/21 History release 24 hr Past Med/Surg History Medical History HTN (hypertension) Surgical History Hx of breast biopsy Family History Other Breast cancer Social History Smoking Status: Former smoker Hx Alcohol Use: No Preferred Language: Romanian marital status: Current Living Situation: Spouse current occupational status: employed Feels Safe at Home: Yes Review of Systems Review of Systems: All systems reviewed & are unremarkable except as noted in HPI & below Physical Exam Physical Exam: General- Not in distress. Head- atraumatic Eyes- PERRL. ENT- oropharynx clear Neck- supple, no JVD. Lungs- clear to auscultation no wheezing or crackles. Heart- regular rhythm; no murmur, no gallop. Abdomen- sluggish bowel sounds, soft, nontender, no distension. Extremities- no pretibial edema, no erythema. Neuro- alert, oriented x 3; PERRL, no facial palsy; no dysarthria; moves extremities. Skin- warm & dry Results & Data Results & Data Vital Signs (Past 12 Hours) Vital Signs Temp Pulse Resp BP Pulse Ox O2 Del Method 08/11/23 04:40 99 Room Air 08/11/23 04:21 36.6 C 101 H 20 117/78 99 Room Air Diagnostic Findings Laboratory Results WBC 15.63 K/ul (4.8-10.8) H 08/11/23 04:36 RBC 5.26 M/uL (4.20-5.40) 08/11/23 04:36 Hgb 15.3 g/dl (12.0-16.0) 08/11/23 04:36 Hct 46.4 % (37.0-47.0) 08/11/23 04:36 MCV 88.2 fL (80.0-100.0) 08/11/23 04:36 MCH 29.1 pg (25.0-34.0) 08/11/23 04:36 MCHC 33.0 g/dL (32.0-36.0) 08/11/23 04:36 RDW Std Deviation 41.8 fL (36.4-46.3) 08/11/23 04:36 RDW Coeff of Nils 12.8 % (11.5-14.5) 08/11/23 04:36 Plt Count 417 K/uL (130-400) H 08/11/23 04:36 MPV 9.0 fL (9.4-12.4) L 08/11/23 04:36 Immature Gran % (Auto) 0.4 % 08/11/23 04:36 Neut % (Auto) 75.4 % 08/11/23 04:36 Lymph % (Auto) 17.1 % 08/11/23 04:36 [place] % (Auto) 6.0 % 08/11/23 04:36 Eos % (Auto) 0.5 % 08/11/23 04:36 Baso % (Auto) 0.6 % 08/11/23 04:36 Neut # (Auto) 11.78 K/uL (1.40-6.50) H 08/11/23 04:36 Lymph # (Auto) 2.68 K/uL (1.20-3.40) 08/11/23 04:36 [place] # (Auto) 0.94 K/uL (0.11-0.59) H 08/11/23 04:36 Eos # (Auto) 0.08 K/uL (0.00-0.50) 08/11/23 04:36 Baso # (Auto) 0.09 K/uL (0.00-0.20) 08/11/23 04:36 Immature Gran # (Auto) 0.06 K/uL (0.01-0.20) 08/11/23 04:36 Sodium 138 mmol/L (136-145) 08/11/23 04:36 Potassium 3.5 mmol/L (3.5-5.1) 08/11/23 04:36 Chloride 99 mmol/L (98-107) 08/11/23 04:36 Carbon Dioxide 33 mmol/L (21-32) H 08/11/23 04:36 Anion Gap 6 (3-11) 08/11/23 04:36 BUN 17 mg/dl (6-23) 08/11/23 04:36 Creatinine 0.83 mg/dl (0.6-1.2) 08/11/23 04:36 Est Cr Clr Drug Dosing 71.5 ml/min 08/11/23 04:36 Est GFR ( Amer) 99.4 ml/min 08/11/23 04:36 Est GFR (Non-Af Amer) 85.8 ml/min 08/11/23 04:36 BUN/Creatinine Ratio 20.5 (10-20) H 08/11/23 04:36 Glucose 101 mg/dl (70-99(Fasting)) H 08/11/23 04:36 Calcium 10.7 mg/dl (8.6-10.3) H 08/11/23 04:36 Total Bilirubin 0.6 mg/dl (0.2-1.0) 08/11/23 04:36 AST 19 U/L (13-39) 08/11/23 04:36 ALT 20 U/L (7-52) 08/11/23 04:36 Alkaline Phosphatase 86 U/L (34-104) 08/11/23 04:36 Total Protein 8.3 gm/dl (6.0-8.3) 08/11/23 04:36 Albumin 5.1 gm/dl (3.4-5.0) H 08/11/23 04:36 Globulin 3.2 gm/dl (2.5-4.0) 08/11/23 04:36 Albumin/Globulin Ratio 1.6 (0.9-2) 08/11/23 04:36 Lipase 8 U/L (11-82) L 08/11/23 04:36 Urine Color Yellow 08/11/23 04:30 Urine Appearance Clear (Clear) 08/11/23 04:30 Urine pH 6.0 (4.5-7.5) 08/11/23 04:30 Ur Specific [place] 1.024 (1.000-1.030) 08/11/23 04:30 Urine Protein Negative (Negative) 08/11/23 04:30 Urine Glucose (UA) Negative (Negative) 08/11/23 04:30 Urine Ketones 1+ (Negative) H 08/11/23 04:30 Urine Blood Negative (Negative) 08/11/23 04:30 Urine Nitrite Negative (Negative) 08/11/23 04:30 Urine Bilirubin Negative (Negative) 08/11/23 04:30 Urine Urobilinogen Negative (Negative) 08/11/23 04:30 Ur Leukocyte Esterase Negative (Negative) 08/11/23 04:30 POC Ur Test NEG (NEG) 08/11/23 04:30 Impressions Abdomen/Pelvis CT 08/11/23 04:33 Exam(s): CT ABDOMEN + PELVIS With Contrast IV Amt: 91 ml optiray 320 EXAM: CT Abdomen and Pelvis With Intravenous Contrast CLINICAL HISTORY: Reason for exam: abd pain w/ jay and appy. TECHNIQUE: Axial computed tomography images of the abdomen and pelvis with intravenous contrast. Automated exposure control was utilized for the study. A dose lowering technique was utilized adhering to the principles of ALARA. CONTRAST: Patient received 91 ml optiray 320 of IV contrast COMPARISON: No relevant prior studies available. FINDINGS: Lung bases: Unremarkable. No mass. No consolidation. ABDOMEN: Liver: Unremarkable. No mass. Gallbladder and bile ducts: Cholecystectomy. No ductal dilation. Pancreas: Unremarkable. No mass. No ductal dilation. Spleen: Unremarkable. No splenomegaly. Adrenals: Unremarkable. No mass. Kidneys and ureters: Unremarkable. No solid mass. No hydronephrosis. Stomach and bowel: Generous amount of fluid seen in the small bowel loops seen in the abdomen, the caliber of which measures up to 2.6 cm in diameter. Moderate amount of fecal matter seen in the colonic lumen. No obstruction. No mucosal thickening. PELVIS: Appendix: No findings to suggest acute appendicitis. Bladder: Unremarkable. No mass. Reproductive: Unremarkable as visualized. ABDOMEN and PELVIS: Intraperitoneal space: Small volume of abdominal and pelvic ascites. No free air. Bones/joints: No acute fracture. No dislocation. Soft tissues: Unremarkable. Vasculature: Unremarkable. No abdominal aortic aneurysm. Lymph nodes: Unremarkable. No enlarged lymph nodes. IMPRESSION: 1. Generous amount of fluid in small bowel loops without any definite transition point. This could be due to ileus are could be related to low- grade bowel obstruction 2. Moderate amount of fecal matter in the colon can be correlated with history of constipation. 3. Small ascites Electronically signed by: Faizan Maria MD 08/11/23 05:50 AM Code Status & VTE Plan VTE Prophylaxis Plan VTE Prophylaxis will be ordered: Yes
--- NOTE | 2023-08-11 06:34 | Surgery Consultation ---
Date of Consultation August 11, 2023 Assessment & Plan (1) Small bowel obstruction: I discussed with the treating emergency room physician and the patient is being admitted on the hospitalist service. From a surgical perspective we recommend the following: Provide analgesics Provide antiemetics Provide IV fluid for hydration Implement n.p.o. status Follow serial labs I discussed with the patient the possibility of utilizing the NG tube for gastric decompression. Currently the patient is resting comfortably in bed and she has not had any emesis in nearly 4 hours. I therefore feel it is reasonable to withhold on this modality but I did discuss with the patient that if her abdomen becomes more distended or if she has any further nausea or vomiting we will need to rethink the use of this modality. I did discuss with the patient that if she has a small bowel obstruction may be on the basis of adhesions due to her multiple previous abdominal surgeries. I discussed with her the conservative treatment plan outlined above and she expressed her understanding. I also did discuss with the patient that sometimes patients do require surgery if her small bowel obstruction does not open up within a reasonable time and this is yet to be determined if this will be needed. Additional recommendations be forthcoming based on her clinical course as unfolds As above. Patient seen. Currently feeling much better than yesterday. She did have a bowel movement couple hours ago. Currently no nausea. She does have some mild abdominal discomfort. Minimal distention. She does have bowel sounds. We will continue to monitor her and keep her n.p.o. for now. Repeat KUB tomorrow. If no clinical or radiographic improvement may consider small bowel follow-through tomorrow. Currently. no urgent indication for surgical intervention History of Present Illness Reason for Consultation: Small bowel obstruction History of Present Illness There is a 42-year-old female who presented to [facility] emergency department secondary to abdominal pain along with nausea and vomiting. The patient notes that she was feeling fine last evening when was in her usual state of health. She was able to eat her evening meal without difficulty. She does note the evening of 08/10/2023 she developed abdominal pain along with nausea and vomiting. She does not identify any mitigating factors to her radiation to her discomfort. She does note that she had a normal bowel movement yesterday which preceded her symptomatology beginning. Since her symptoms began she has not been passing any flatus. She does note that she has not had any emesis in approximately 4 hours. She does report she has had prior abdominal surgeries in the form of an appendectomy, cholecystectomy, and hysterectomy. She denies any fevers, shakes, or chills. Since arrival to the hospital the patient has had labs and imaging which independent reviewed. CT scan of the abdomen pelvis showed the patient had a large amount of fluid in the small bowel loops. There was no definitive transition point noted so the interpreting radiologist felt this could represent either an ileus or low-grade small bowel obstruction. There is a small amount of abdominal pelvic ascites but there is no intraperitoneal free air. Labs include a CBC her white blood cell count was elevated 15.6. Hemoglobin and hematocrit were normal. Platelet counts 4 and 17,000. Chemistry profile showed sodium and potassium, along with the BUN and creatinine were normal. There is no elevation of patient's LFTs or lipase. Urinalysis was not indicative of infection. test was negative. At the time of my interview the patient was not noted to be in any distress. Allergies Allergy/AdvReac Type Severity Reaction Status Date / Time No Known Allergies Allergy Verified 10/11/21 20:25 Home Medications Medication Instructions Recorded Confirmed Type lamotrigine 100 mg tablet 100 mg PO QAM 07/31/19 08/11/23 History albuterol sulfate 90 mcg/actuation 1 - 2 puff inhalation DIRECTED 01/30/21 08/11/23 History aerosol inhaler PRN Shortness Of Breath lorazepam 0.5 mg tablet 0.5 mg PO DIRECTED PRN Anxiety 01/30/21 08/11/23 History venlafaxine 225 mg tablet,extended 225 mg PO QAM 01/30/21 08/11/23 History release 24 hr Culturelle Women's 4-In-1 1 cap PO QAM 08/11/23 08/11/23 History Vitafusion Women's Multivitamin 2 ea PO QAM 08/11/23 08/11/23 History Gummies cholecalciferol (vitamin D3) 1,250 50,000 unit PO WK 08/11/23 08/11/23 History mcg (50,000 unit) capsule fluticasone fur. 200 mcg-umeclid 1 inh inhalation QAM 08/11/23 08/11/23 History 62.5 mcg-vilant 25 mcg inhalat.powder (Trelegy Ellipta) iron,carbonyl 65 mg-vitamin C 125 1 tab PO DAILY 08/11/23 08/11/23 History mg tablet,delayed release (Vitron-C) pregabalin 50 mg capsule 50 mg PO BID 08/11/23 08/11/23 History Patient History Medical History HTN (hypertension) Surgical History Hx of breast biopsy Family History Other Breast cancer Social History Smoking Status: Never smoker Hx Alcohol Use: No Hx Substance Use: No Preferred Language: Japanese Coverer Required: No marital status: Current Living Situation: Significant Other current occupational status: employed Feels Safe at Home: Yes Assistive Devices: None Review of Systems Constitutional: no fever and no chills Ear, Nose, Mouth, Throat: no ear pain Respiratory: no cough and no dyspnea Cardiovascular: no chest pain Gastrointestinal: as per Subjective / HPI Genitourinary: no dysuria Musculoskeletal: no back pain Integumentary: no rash Neurologic: no localized weakness Physical Exam Constitutional: WD/WN, vitals as above Eyes: no conjunctival abnormality ENMT: Ears: no hearing impairment and no external ear abnormality Mouth: no oropharynx abnormality Neck: trachea midline Respiratory: normal respiratory effort; no respiratory distress and no labored breathing Cardiovascular: Rate/Rhythm: regular rate and regular rhythm Vessels: dorsalis pedis pulses present and radial pulses present Gastrointestinal (Abdomen): Abdomen has mild to moderate distention but is overall not tympanic to percussion. Her abdomen is nonrigid. There is no rebound tenderness or guarding. The patient was noted to have some minor pain with palpation which appear to be greatest in the periumbilical region. Musculoskeletal: No calf tenderness Skin: no rashes Neurologic: moves all extremities Psychiatric: Orientation: alert and oriented x 3 Affect: + flat affect Results & Data Vital Signs (Past 12 Hours) Vital Signs Temp Pulse Resp BP Pulse Ox O2 Del Method 08/11/23 04:40 99 Room Air 08/11/23 04:21 36.6 C 101 H 20 117/78 99 Room Air PG Care Time/CCT Total # of Minutes Spent Total Time Spent with Patient: Total time spent is greater than 50% in coordination of care (as documented) at patient's floor/unit and/or counseling patient: Coding Level of Care Code 12104 IN/OBS CONSULT LVL 5,80M Diagnoses Small bowel obstruction K56.609
[2023-08-11] MEDS ORDERED: ONDANSETRON INJ 2 MG/ML 2 ML VIAL IV PRN (09:09)
[2023-08-11] MEDS ORDERED: HYDROmorphone INJ 0.5 MG/0.5 ML SYR IV PRN (09:09)
[2023-08-11] MEDS ORDERED: D5W AND 1/2NSS 1,000 ML IV SCH (09:09)
[2023-08-11] MEDS: ENOXAPARIN INJ 40 MG/0.4 ML SYR SQ SCH (10:52)
[2023-08-11] MEDS ORDERED: LORazepam 0.5 MG TAB PO PRN (14:15)
[2023-08-11] MEDS: lamoTRIgine 100 MG TAB PO SCH (14:51)
[2023-08-11] MEDS: VENLAFAXINE HCL XR 75 MG CAPXR PO SCH (14:51)
[2023-08-11] MEDS: PREGABALIN 50 MG CAP PO SCH ×2 (14:53→21:53)
--- NOTE | 2023-08-11 15:37 | Communication Note ---
Date of Service: August 11, 2023 Pt noted that she was having a small bowel movement in the AM, was in the bathroom. Requesting her home medications especially her Effexor. Continue IV fluids, antiemetics as needed Continue to monitor symptoms and advance diet as tolerated per surgery recs.
[2023-08-11] MEDS: ACETAMINOPHEN 500 MG TAB PO PRN (16:23)
[2023-08-12] MEDS: SODIUM CHLORIDE 0.9% 1,000 ML IV SCH (04:51)
[2023-08-12 07:22] LABS: Basophils # (auto) 0.06 K/uL (0.00-0.20); Basophils % (auto) 0.8 %; Eosinophils # (auto) 0.09 K/uL (0.00-0.50); Eosinophils % (auto) 1.2 %; Hematocrit (blood only) 39.4 % (37.0-47.0); Hemoglobin 12.6 g/dl (12.0-16.0); Immature Granulocytes # (auto) 0.02 K/uL (0.01-0.20); Immature Granulocytes % (auto) 0.3 %; Lymphocytes # (auto) 2.54 K/uL (1.20-3.40); Lymphocytes % (auto) 34.6 %; Mean Corpuscular Volume 90.8 fL (80.0-100.0); Mean Platelet Volume 8.9 fL (9.4-12.4); Monocytes # (auto) 0.54 K/uL (0.11-0.59); Monocytes % (auto) 7.4 %; Neutrophils # (auto) 4.09 K/uL (1.40-6.50); Neutrophils % (auto) 55.7 %; Platelet Count 322 K/uL (130-400); RDW Coefficient of Variation 12.8 % (11.5-14.5); RDW Standard Deviation 42.6 fL (36.4-46.3); Red Blood Count 4.34 M/uL (4.20-5.40); White Blood Count 7.34 K/ul (4.8-10.8)
[2023-08-12 07:37] LABS: Albumin Globulin Ratio 1.6 (0.9-2); Albumin Level 4.1 gm/dl (3.4-5.0); BUN Creatinine Ratio 9.8 (10-20); Bilirubin,Total 0.7 mg/dl (0.2-1.0); Calcium 8.5 mg/dl (8.6-10.3); Creatinine Clr Calc Pharmacy 97.4 ml/min; Est GFR (African American) 127.8 ml/min; Est GFR (Non-African American) 110.3 ml/min; Globulin 2.6 gm/dl (2.5-4.0); Magnesium 1.8 mg/dl (1.7-2.4); Phosphorus 2.8 mg/dl (2.5-4.9); Potassium 3.6 mmol/L (3.5-5.1); Total Protein 6.7 gm/dl (6.0-8.3)
[2023-08-12] MEDS: D5W AND NSS 1,000 ML IV SCH ×2 (09:06→19:42)
[2023-08-12] MEDS: PREGABALIN 50 MG CAP PO SCH ×2 (09:39→20:08)
[2023-08-12] MEDS: ENOXAPARIN INJ 40 MG/0.4 ML SYR SQ SCH (09:40)
[2023-08-12] MEDS: lamoTRIgine 100 MG TAB PO SCH (09:40)
[2023-08-12] MEDS: VENLAFAXINE HCL XR 75 MG CAPXR PO SCH (09:40)
[2023-08-12] MEDS: ACETAMINOPHEN 500 MG TAB PO PRN (09:42)
[2023-08-12] MEDS ORDERED: ALBUTEROL HFA 8 GM INHALER INH PRN ×2 (13:29→13:34)
[2023-08-12] MEDS ORDERED: ALBUTEROL HFA 8 GM INHALER INH SCH (13:30)
--- NOTE | 2023-08-12 13:34 | Surgery Progress Note ---
Date of Service August 12, 2023 Assessment & Plan (1) Small bowel obstruction: Plan: Patient seen at bedside diet was advanced per hospitalist to clears, tolerating so far Had some nausea early today but has not vomited reports feeling bloated and some abdominal discomfort Passing flatus abdomen mildly distended, and TTP in bilateral lower quadrants Encouraged ambulation Patient requested albuterol inhaler- order placed VSS WBC 7.34 KUB ordered for today Will continue to monitor Admission and Anticipated Discharge Date Admission Date: August 11, 2023 Subjective Patient seen at bedside Tolerating clear liquids Had some nausea early today but has not vomited reports feeling bloated and some abdominal discomfort Passing flatus Review of Systems Constitutional: no fever and no chills Respiratory: no dyspnea Cardiovascular: no chest pain Gastrointestinal: + abdominal pain, + bloating and + nause a; no vomiting Genitourinary: no problem reported Physical Exam Physical Exam: alert oriented Constitutional: well developed, cooperative and comfortable; no acute distress Respiratory: normal respiratory effort and able to speak in complete sentences; no respiratory distress Cardiovascular: Rate/Rhythm: regular rate Gastrointestinal (Abdomen): Inspection/Auscultation: + abdomen distended (mildly ) Percussion/Palpation: + abdomen tender Results & Data Vital Signs (Past 12 Hours) Vital Signs Temp Pulse Resp BP Pulse Ox O2 Del Method 08/12/23 07:14 98.4 F 89 19 108/70 100 Room Air PG Care Time/CCT Total # of Minutes Spent Total Time Spent with Patient: Total time spent is greater than 50% in coordination of care (as documented) at patient's floor/unit and/or counseling patient: Coding Diagnoses Small bowel obstruction K56.609
--- NOTE | 2023-08-12 15:42 | Hospitalist Progress Note ---
Date of Service August 12, 2023 Assessment & Plan (1) Small bowel obstruction: Plan: 42-year-old female past med significant for COPD, mild obstructive sleep apnea, patent foramen ovale, atrial septal defect, GERD, endometriosis of uterus, polymyalgia, peripheral neuropathy, bipolar 1 disorder, COVID-19 long-hauler, mild cognitive impairment presents with abdominal pain 7/10 in severity and found to have small bowel obstruction. Small bowel obstruction Abdominal pain History of bowel surgeries CT scan showing ileus versus low-grade small bowel obstruction IV fluids with dextrose IV Dilaudid as needed IV Zofran as needed Pt would like to try to eat- advanced to clears on 08/12 general surgery consulted- appreciate recs History of COPD Continue home inhalers History of bipolar disorder and depression Continue home medications CODE STATUS: Full code DVT prophylaxis: Lovenox Diet: Advanced to clears Dispo: Home once symptoms improve Admission and Anticipated Discharge Date Admission Date: August 11, 2023 Subjective Pt seen in the AM. States that she has been passing gas but physically has to open up her buttock cheeks for it to pass Notes she had a small BM yesterday. Would like to try to start eating clears. Review of Systems Review of Systems: All systems reviewed & are unremarkable except as noted in Subjective Physical Exam Physical Exam: General: Alert, oriented. No acute distress Skin: No noted rashes or bruises Psych: Appropriate mood and affect Neuro: No gross deficits HEENT: NC/AT Chest: Nontender to palpation. CV: RRR, Normal s1, s2. No murmurs appreciated Resp: Breath sounds clear bilaterally, no increased effort of breathing. Abdomen: BS present, Soft, tender Extremities: No edema in lower extremities bilaterally. Results & Data Results & Data Vital Signs (Past 12 Hours) Vital Signs Temp Pulse Resp BP Pulse Ox O2 Del Method 08/12/23 15:20 36.5 C 100 H 18 121/66 100 Room Air 08/12/23 07:14 36.9 C 89 19 108/70 100 Room Air
--- NOTE | 2023-08-12 16:04 | XRay Report ---
XR KUB/Abdomen 1 view CLINICAL HISTORY: sbo TECHNIQUE: 1 view of the abdomen was obtained. Comparison: Comparison is made to CT abdomen pelvis 08/11/2023 FINDINGS: Cholecystomy clips are seen in the right upper quadrant. The osseous structures are grossly unremarka ble. There is a paucity of bowel gas limiting evaluation for obstruction. Small stool burden is seen. IMPRESSION: Limited evaluation due to a paucity of small bowel gas, small bowel obstruction cannot be. ACT 112: Negative or not required by law. Electronically signed by: Deven Gabriel M.D. 08/12/2023 4:02 PM
[2023-08-12] MEDS ORDERED: POLYETHYLENE (MIRALAX) 17 GM PACK PO PRN (19:45)
[2023-08-12] MEDS: DOCUSATE SODIUM 100 MG CAP PO SCH (20:08)
--- OUTSIDE RECORDS SUMMARY | 2023-08-13 00:36 | External Medical Summary | Summary of Care ---
Author Name Unknown Organization [facility] Address [address] [facility] [place] [address] Phone [phone] Care Team Providers Care Ambulance Attendant Name Role Phone Elysia Hutchins Primary Care Provider Reason for Visit * Reason Onset Date Comments Test Results 06/22/2023 Encounter Details Date Type Department Care Team Description 06/22/[address] [facility] [address] [place] [id number] Elysia Hutchins CRNP [address] [place] [id number] Test Results Allergies No known active allergiesdocumented as of this encounter (statuses as of 06/22/2023) Medications Medication Sig Dispensed Refills Start Date End Date Status lamoTRIgine (LAMICTAL) 100 MG TabletIndications: Major depressive disorder, recurrent episode, moderate (HCC),SILVANO (generalized anxiety disorder),Bipolar disorder, unspecified (HCC) Take 1 Tablet by mouth in the morning. 0 03/16/2017 Active LORazepam 0.5 MG Oral Tablet (ATIVAN) Take 1 Tablet by mouth every 6 hours as needed. 0 Active Pregabalin 50 MG Oral Capsule (Lyrica) 2 times a day . 0 10/15/2021 Active Albuterol Sulfate HFA 108 (90 Base) MCG/ACT Inhalation Aerosol SolutionIndication s:Pneumonia due to COVID-19 virus,SOB (shortness of breath) Inhale by mouth 2 Puffs every 6 hours as needed for Cough, Shortness of Breath or Wheezing. 18 g 4 03/06/2022 Active Vitron-C 65-125 MG Oral Tablet (Iron-Vitamin C) Take 1 Tablet by mouth in the morning and 1 Tablet before bedtime. 60 Tablet 11 08/04/2022 Active Additional Information Patient taking differently:1 Tablet OralDaily(AM), Reported on 03/01/2023 Acetaminophen 325 MG Oral Tablet (Tylenol) Take 3 Tablets by mouth every 6 hours. 170 Tablet 0 10/26/2022 Active Ibuprofen 600 MG Oral Tablet (Motrin) Take 1 Tablet by mouth every 6 hours. With food. 55 Tablet 0 10/26/2022 Active Culturelle Digestive Health Oral Tablet Chewable Take 1 Tablet by mouth in the morning. 0 Active Venlafaxine HCl ER 225 MG Oral Tablet Extended Release 24 Hour Take 1 Tablet by mouth in the morning. 0 01/22/2023 Active Trelegy Ellipta 200-62.5-25 MCG/ACT Aerosol Powder Breath Activated (Fluticasone-Umecl idinium-Vilanterol ) Inhale 1 Puff by mouth daily. 180 Each 1 04/28/2023 Active predniSONE 20 MG Oral Tablet (Deltasone) Take 1 Tablet by mouth daily for 5 days, THEN 0.5 Tablets daily for 5 days. 8 Tablet 0 06/18/2023 06/28/2023 Active Levalbuterol Tartrate 45 MCG/ACT Inhalation Aerosol (Xopenex HFA) Inhale 2 Puffs by mouth every 4 hours as needed for Wheezing. 15 g 12 06/18/2023 Active Vitamin D3 1.25 MG (13706 UT) Oral Capsule Take 1 Capsule by mouth once a week. 12 Capsule 0 06/22/2023 09/20/2023 Active documented as of this encounter (statuses as of 06/22/2023) Active Problems Patient Care Coordination No te Formatting of this note migh t be different from the original. Cervical length 4.7cms with no funneling noted on US 09/15/10 Problem Noted Date Peripheral polyneuropathy 06/18/2023 ETD (Eustachian tube dysfunction), bilat eral 06/18/2023 Flu vaccine need 06/18/2023 COPD, group B, by GOLD 2017 classificati on 05/10/2023 Overview: Per COPD GOLD Classification Vaginal discharge 02/11/2023 Mild cognitive impairment 12/16/2022 Skin lesion 09/29/2022 Atrial septal defect 09/29/2022 Gastroesophageal reflux disease without esophagitis 09/29/2022 Endometriosis of uterus 09/29/2022 COPD exacerbation 09/07/2022 Overview: Per COPD GOLD Classification COVID-19 long hauler 08/25/2022 Bipolar 1 disorder 08/25/2022 TON (obstructive sleep apnea) 08/24/2022 Polymyalgia 06/25/2022 Patent foramen ovale 12/17/2021 Persistent insomnia 10/22/2021 Centrilobular emphysema 02/05/2021 documented as of this encounter (statuses as of 06/22/2023) Resolved Problems Problem Noted Date Resolved Date Bilateral hand pain 06/25/2022 08/24/2022 Chronic respiratory failure with hypoxia 021 08/25/2022 History of 2019 novel coronavirus disease (COVID -19) 02/05/2021 08/24/2022 SILVANO (generalized anxiety disorder) 03/16/2017 08/24/2022 Chronic rhinitis 03/16/2017 03/17/2017 Headache 03/16/2017 03/17/2017 Bipolar 2 disorder 03/16/2017 08/25/2022 Overview: ICD-10 update of inactive term Left shoulder pain 10/18/2014 03/16/2017 Spasm of muscle 10/18/2014 03/16/2017 Cervicalgia 10/18/2014 03/16/2017 Tendonitis of shoulder, left 10/18/2014 History of tobacco use 12/02/2011 7 Endolymphatic hydrops 12/02/2011 03/22/2013 Hearing loss 12/02/2011 03/22/2013 Objective tinnitus 12/02/2011 03/22/2013 Vertigo 12/02/2011 03/22/2013 Deviated nasal septum 12/02/2011 03/17/2017 History of section complicating pregnan cy 11/17/2011 03/16/2017 Overview: Desires repeat c/s Abdominal pain, epigastric 06/02/201103/16 Nausea 06/02/2011 03/22/2013 Overview: ICD-10 update of inactive term Dyslipidemia, goal LDL below 100 06/02/2011 03/22/2013 ADVANCE DIRECTIVE INFORMATION 12/22/2010 Overview: No, Advance Directive brochure offered , patient declined. Hx LEEP 12/22/2010 08/24/2022 Overview: Term since LEEP, but incompetent cervix prior to LEEP Supervision of other high-risk 011 11/17/2011 Overview: MFM 12/22: The growth is symmetric and concordant with the working KENY, placing the baby in the 76th EFW percentile for this gestational age. No further US f/u is necessary at this time. ICD-10 update of inactive term Encounter for supervision of other normal pregna ncy 07/09/2010 12/22/2010 Overview: Patient defers due to illness flu vaccine. 07/09/2010 Maria G Olson RN ICD-10 update of inactive term Dyslipidemia, goal to be determined 07/09/2010 03/22/2013 Overview: Taking Simvastatin at NOB visit-Cat X-pt to stop this med and restart PP Baseline EKG 07/09: normal with poor reproductive history 010 03/22/2013 Overview: 1999: delivered at 38w GA after being on bedrest due to "incompetent cervix" 09/2003: LEEP 11/2003: SAB <10wks 03/07- term , competent cervix. LTCS for prolapsed cord 07/07- SAB ICD-10 update of inactive term Major depressive disorder, recurrent episode, mo derate 04/22/2010 08/24/2022 Overview: Taking Effexor XR 225mg daily-pt desires to stay on this med Otogenic pain 08/05/2004 11/17/2011 DYSFUNCT EUSTACHIAN TUBE 08/05/2004 012 Chronic rhinitis 08/05/2004 12/22/2010 SPRAINS AND STRAINS, WRIST, UNSPECIFIED SITE 06/200211/17/2011 Major depressive disorder 02/15/20012000 Overview: ICD-10 update of inactive term ABN PAP SMEAR-CERVIX 10/25/2000 12/22/2010 Overview: LGSIL STREP SORE THROAT 09/28/2000 05/10/2001 ACUTE URI NOS 09/28/2000 05/10/2001 PREMENSTRUAL TENSION 05/06/2000 12/22/2010 Encounter for supervision of other normal pregna ncy 08/19/1999 05/10/2001 Overview: ICD-10 update of inactive term GENERALIZED ANXIETY DIS 07/31/1999 03/16/20 17 HISTORY OF TOBACCO USE 1 Overview: 1/2 ppd at NOB visit-desires to quit CONTRACEPTIVE MANGMT NOS 010 TEMPOROMANDIBULAR JOINT DISORDERS, UNSPECIFIED 08/24/2022 ADJ DISORDER W/DEPRES MOOD 07/09 ALCOHOL ABUSE-UNSPEC 08/24/2022 Major depressive disorder, s joyce episode, in partial remission 03/16/2017 documented as of this encounter (statuses as of 06/22/2023) Immunizations Name Administration Dates Next Due COVID-19 mRNA, LNP-s, No Pre serve, 2-Dose Series (Moderna) 12/11/2020,11/15/2020 PPD 06/24/2016,06/15/2016,07/30/2008 06/22/2016 Pneumococcal Conjugate Vacci ne, 20-valent ([id number]) 06/25/2022 Pneumococcal Polysaccharide PPV23 (Pneumovax) 05/21/2009 Seasonal Influenza, PF, 6 mo ns & Above, IM , (Flulaval) 06/18/2023,06/25/2022,07/17/2021,1002/2020,10/28/2018,08/09/2017 Seasonal Influenza, QUAD, wi th Preserv, 6 mons & Above, 0.5 mL, IM 07/11/2019 Seasonal Influenza, Quadriva lent, No Preserve, IM 11/09/2016 Seasonal Influenza, Split, I IV3, With Preserve, Inj 09/08/2012,06/16/2011,06/11/2009 TDAP (age 10 and older)(Boostrix) 12/26/2018 12/26/2028 documented as of this encounter Social History Tobacco Use Types Packs/Day Years Used Date Smoking Tobacco: Former Cigarettes 1 10 Q uit: 11/20/2009 Smokeless Tobacco: Never Alcohol Use Standard Drinks/Week Comments Not Currently 0 (1 standard drink = 0.6 oz pure alcohol) none- problems in past- quit 2000 Food Insecurity Answer Date Recorded Within the past 12 months, y ou worried that your food would run out before you got money to buy more. Never true 07/29/2020 Within the past 12 months, t he food you bought just didn't last and you didn't have money to get more. Never true 07/29/2020 Sex Assigned at Date Recorded Female 02/02/2022 8:35 AM E DT Job Start Date Occupation Industry Not on file Not on file Not on file documented as of this encounter Miscellaneous Notes * Telephone Encounter - AARON Barnes - 06/22/2023 1:01 PM EDT Patient aware of result showing the following: Vitamin D level is deficient Recommend vitamin D 50,000 units once weekly LFT borderline elevated- recommend recheck in 8 weeks. Rajesh, MSN, [facility] documented in this encounter Plan of Treatment Upcoming Encounters Date Type Specialty Care Team Description 07/22/2023 Imaging Cardiac Studies 07/26/2023 Office Visit Cardiology Kandace Villanueva PA-C [address] [place] [id number] 09/17/2023 Office Visit Family Medicine Elysia Hutchins CRNP [address] [place] [id number] Scheduled Orders Name Type Priority Associated Diagnoses Orde r Schedule HEPATIC FUNCTION PANEL Lab Routine Elevated LFTs Expected: 08/24/2023 (Approximate), Expires: 06/21/2024 Health Maintenance Due Date Last Done Comments Hepatitis B (1 of 3 - 3-dose series) 1980 COVID-19 Vaccine (3 - Moderna series) 02/05/2021 12/11/2020, 11/15/2020 Depression Screening 02/02/2023 02/02/2022 O2 ASSESSMENT COMPLETED IN PAST YEAR FOR COPD 10/26/2023 10/26/2022 Mammogram 12/24/2023 12/23/2022, 11/26, 12/18/2020, Additional history exists Lipid Panel 12/27/2023 12/26/2018, 10/28, 06/03/2011, Additional history exists PAP SMEAR-EVERY 3 YRS,AGES 18-100 02/02/2025 02/02/2022, 12/26/2018, 12/03/2014, Additional history exists DTaP,Tdap,and Td Vaccines (2 - Td or Tdap) 12/26/2028 12/26/2018, 07/21/2005 Hepatitis C Screening Completed 02/12/2012 Alpha-1 Antitrypsin Completed 10/22/2021, Pneumococcal Vaccine: Pediatrics (0 to 5 Years) and At-Risk Patients (6 to 64 Years) Completed 06/25/2022, 05/21/2009 Influenza Vaccine (FLU shot) Completed , 06/25/2022, 07/17/2021, Additional history exists GARDASIL-HPV IMMUNIZATION SERIES Aged Out No longer eligible based on patient's age to complete this topic MENINGOCOCCAL (MENACTRA/MENVEO) Aged Out No longer eligible based on patient's age to complete this topic documented as of this encounter Medical Devices Not on filedocumented as of this encounter Visit Diagnoses Diagnosis Elevated LFTs- Primary Other abnormal blood chemistry documented in this encounter Advance Directives Latest Code Status on File Code Status Date Activated Date Inactivated Comments Full Code 10/26/2022 2:09 PM 10/26/2022 7:54 PM This order reflects the patients wishes and were consensually agreed upon. Question Answer Comments Discussion of Advance Directives occurred with: Not Discussed due to patient's condition Code Status History Code Status Date Activated Date Inactivated Comments Full Code 02/28/2019 10:54 AM 02/28/2019 5:39 PM This o rder reflects the patients wishes and were consensually agreed upon. Full Code 01/19/2012 3:01 PM 01/19/2012 10:52 PM This order reflects the patients wishes and were consensually agreed upon. Care Teams Ambulance Attendant Relationship Specialty Start Date End Date Elysia Hutchins CRNP [address] [place] [id number] PCP - General Nurse Practitioner 06/25/22 documented as of this encounter
--- OUTSIDE RECORDS SUMMARY | 2023-08-13 00:37 | External Medical Summary ---
Author Name Unknown Address Unknown Organization [id number]:[facility] [place] - [address] [facility] [place] [address] Laboratory Report Ordering Provider Test Date Status FATEMEH HOLGUIN 06/18/2023 14:26:58 Final Observation Date Value Abnormality Reference (Units ) Status TSH 06/18/2023 14:26:58 1.55 0.27-4.20 (uIU/mL) Final Performing Location [facility] [place] - [address] [facility] [place] [id number]
--- OUTSIDE RECORDS SUMMARY | 2023-08-13 00:37 | External Medical Summary ---
Author Name Unknown Address Unknown Organization K0G:[facility] - [address] [place] [address] Laboratory Report Ordering Provider Test Date Status FATEMEH HOLGUIN 06/18/2023 14:26:58 Final Observation Date Value Abnormality Reference (Units ) Status BUN 06/18/2023 14:26:58 14 6-20 (mg/dL) Final Creatinine 06/18/2023 14:26:58 0.7 0.5-1.0 (mg/dL) Final Glomerular filtration rate/1.73 sq M.predicted [Volume Rate/Area] in Serum, Plasma or Blood by Creatinine-based formula (CKD-EPI) 06/18/2023 14:26:58 >90 >=60 (mL/min) Final eGFR is calculated based on the CKD-EPI 2020 equation SODIUM 06/18/2023 14:26:58 140 135-146 (m mol/L) Final Potassium 06/18/2023 14:26:58 4.3 3.5-5.1 (m mol/L) Final Cl 06/18/2023 14:26:58 102 98-107 (mm ol/L) Final CO2 06/18/2023 14:26:58 25 22-32 (mmo l/L) Final Anion gap 06/18/2023 14:26:58 13 7-15 (mmol /L) Final Glucose 06/18/2023 14:26:58 83 70-120 (mg /dL) Final Albumin 06/18/2023 14:26:58 4.8 3.8-5.0 (g /dL) Final AST (Aspartate aminotransferase) 06/18/2023 14:26:58 44 Above high normal 10-35 (U/L) Final Alk Phos 06/18/2023 14:26:58 80 35-130 (U/ L) Final Bilirubin, Total 06/18/2023 14:26:58 0.2 <=1 .2 (mg/dL) Final Calcium 06/18/2023 14:26:58 9.5 8.4-10.2 ( mg/dL) Final Protein 06/18/2023 14:26:58 7.2 6.0-8.3 (g /dL) Final ALT (Alanine aminotransferase) 06/18/2023 14:26:58 60 Above high normal 10-35 (U/L) Final Performing Location [facility] - [address] [facility] [address]
--- OUTSIDE RECORDS SUMMARY | 2023-08-13 00:37 | External Medical Summary ---
Author Name Unknown Address Unknown Organization K01:[facility] [place] - [address] [place] [address] Laboratory Report Ordering Provider Test Date Status FATEMEH HOLGUIN 06/18/2023 14:26:58 Final Deficient: <20 ng/mL
Ins ufficient: 20-29 ng/mL
Recommended/Optimum:30-50 ng/mL

Vitamin D intoxication is rare. If suspicious of Vitamin D toxicity, evaluation of serum Calcium and PTH is recommended. Observation Date Value Abnormality Reference (Units ) Status 25-OH Vitamin D total 06/18/2023 14:26:58 19 Below low normal >19 (ng/mL) Final Performing Location [facility] [place] - [address] [place] [address]
--- OUTSIDE RECORDS SUMMARY | 2023-08-13 00:37 | External Medical Summary | Summary of Care ---
Author Name Unknown Organization [facility] Address [address] [place] [address] Phone [phone] Care Team Providers Care Audience Development Manager Name Role Phone Elysia Hutchins Primary Care Provider Encounter Details Date Type Department Care Team Description 05/18/2023 Orders Only Outcomes Research Department [address] [place] [address] Darlin Daly CHRA [employer] Research Other*[id number] Allergies No known active allergiesdocumented as of this encounter (statuses as of 05/18/2023) Medications Medication Sig Dispensed Refills Start Date End Date Status lamoTRIgine (LAMICTAL) 100 MG TabletIndications:M ajor depressive disorder, recurrent episode, moderate (HCC),SILVANO (generalized [...] HFA 108 (90 Base) MCG/ACT Inhalation Aerosol SolutionIndications :Pneumonia due to COVID-19 virus,SOB (shortness of breath) [...] Ellipta 200-62.5-25 MCG/ACT Aerosol Powder Breath Activated (Fluticasone-Umecli dinium-Vilanterol) Inhale 1 Puff by mouth daily. 180 Each 1 04/28/2023 Active documented as of this encounter (statuses as of 05/18/2023) Active Problems Patient Care Coordination No te Formatting of this note migh t be different from the original. Cervical length 4.7cms with no funneling noted on US 09/15/10 Problem Noted Date COPD, group B, by GOLD 2017 classificati [...] as of this encounter (statuses as of 05/18/2023) Resolved Problems Problem Noted Date Resolved Date [...] 17 HISTORY OF TOBACCO USE 1 Overview: / ppd at [facility] visit-desires to quit CONTRACEPTIVE MANGMT NOS 010 TEMPOROMANDIBULAR JOINT DISORDERS, UNSPECIFIED 08/24/2022 ADJ DISORDER W/DEPRES MOOD 07/09 ALCOHOL ABUSE-UNSPEC 08/24/2022 Major depressive disorder, s joyce episode, in partial remission 03/16/2017 documented as of this encounter (statuses as of 05/18/2023) Immunizations Name Administration Dates Next Due COVID-19 mRNA, LNP-s, No Pre serve, 2-Dose Series (Moderna) 12/11/2020,11/15/2020 PPD 06/24/2016,06/15/2016,07/30/2008 06/22/2016 Pneumococcal Conjugate Vacci ne, 20-valent ([id number]) 06/25/2022 Pneumococcal Polysaccharide PPV23 (Pneumovax) 05/21/2009 Seasonal Influenza, PF, 6 mo ns & Above, IM , (Flulaval) 06/25/2022,07/17/2021,07/02/2020,02/09/2018,08/09/2017 Seasonal Influenza, QUAD, wi th Preserv, 6 [...] on file documented as of this encounter Plan of Treatment Upcoming Encounters Date Type Specialty Care Team Description 06/18/2023 Office Visit Family Medicine Elysia Hutchins CRNP [address] [place] [address] 07/22/2023 Imaging Cardiac Studies 07/26/2023 Office Visit Cardiology Kandace Villanueva PA-C [address] [place] [address] Scheduled Orders Name Type Priority Associated Diagnoses Orde r Schedule MYCODE SUBSEQUENT ADULT Lab Routine MyCode Research Other*[id number] Every 6 Months for 2 Occurrences starting 05/18/2023 until 06/06/2024 Health Maintenance Due Date Last Done Comments Hepatitis B (1 of 3 - 3-dose series) 1980 COVID-19 Vaccine (3 - Moderna series) 02/05/2021 12/11/2020, 11/15/2020 Depression Screening, Annual for Pts 12 and Over 02/02/2023 02/02/2022 Influenza Vaccine (FLU shot) (#1) 2023 06/25/2022, 07/17/2021, 07/02/2020, Additional history exists O2 ASSESSMENT COMPLETED IN PAST YEAR FOR [...] (6 to 64 Years) Completed 06/25/2022, 05/21/2009 GARDASIL-HPV IMMUNIZATION SERIES Aged Out No longer eligible based on patient's age to complete this topic MENINGOCOCCAL (MENACTRA/MENVEO) Aged Out No longer eligible based on patient's age to complete this topic documented as of this encounter Medical Devices Not on filedocumented as of this encounter Visit Diagnoses Diagnosis MyCode Research Other*[id number] documented in this encounter Advance Directives Latest [...] and were consensually agreed upon. Care Teams Audience Development Manager Relationship Specialty Start Date End Date Elysia Hutchins CRNP [address] [place] [address] PCP - General Nurse Practitioner 06/25/22 documented as of this encounter
--- OUTSIDE RECORDS SUMMARY | 2023-08-13 00:37 | External Medical Summary | Summary of Care ---
Author Name Unknown Organization [facility] Address [address] [facility] [place] [address] Phone [phone] Care Team Providers Care Hot Dip Plating Supervisor Name Role Phone Elysia Hutchins Primary Care Provider Reason for Visit * Reason Comments Follow Up Patient presents in office today for a 6m follow-up visit -- would like to discuss some things going on with her breathing, pain/tingling in extremities (ongoing a while, lately has been worse), and B/L ear pain -- mostly R side (ongoing past 3 weeks) Encounter Details Date Type Department Care Team Description 06/18/2023 Office Visit Family [facility] [address] [facility] [place] [address] Elysia Hutchins CRNP [address] [facility] [place] [id number] COPD exacerbation (HCC)*; COPD, group B, by GOLD 2017 classification (HCC); ETD (Eustachian tube dysfunction), bilateral; Polymyalgia (HCC); Peripheral polyneuropathy; Flu vaccine need Allergies No known active allergiesdocumented as of this encounter (statuses as of 06/18/2023) Medications Medication Sig Dispensed Refills Start Date [...] for Wheezing. 15 g 12 06/18/2023 Active documented as of this encounter (statuses as of 06/18/2023) Active Problems Patient Care Coordination No te [...] as of this encounter (statuses as of 06/18/2023) Resolved Problems Problem Noted Date Resolved Date [...] as of this encounter (statuses as of 06/18/2023) Immunizations Name Administration Dates Next Due COVID-19 mRNA, LNP-s, No Pre serve, 2-Dose Series (Moderna) 12/11/2020,11/15/2020 PPD 06/24/2016,06/15/2016,07/30/2008 06/22/2016 Pneumococcal Conjugate Vacci ne, 20-valent ([id number]) 06/25/2022 Pneumococcal Polysaccharide PPV23 (Pneumovax) 05/21/2009 Seasonal Influenza, PF, 6 mo ns & Above, IM , (Flulaval) 06/18/2023,06/25/2022,07/17/2021,10/0 02/2020,10/28/2018,08/09/2017 Seasonal Influenza, QUAD, wi th Preserv, 6 [...] on file documented as of this encounter Last Filed Vital Signs Vital Sign Reading Time Taken Comments Blood Pressure 106/70 06/18/2023 1:36 PM EDT Pulse 122 06/18/2023 1:36 PM EDT Temperature - - Respiratory Rate 20 06/18/2023 1:36 PM EDT Oxygen Saturation 99% 06/18/2023 1:36 PM EDT Inhaled Oxygen Concentration - - Weight 53.1 kg (117 lb) 06/18/2023 1:36 PM EDT Height 160 cm (5' 3") 06/18/2023 1:36 PM EDT Body Mass Index 20.73 06/18/2023 1:36 PM EDT documented in this encounter Progress Notes * Elsy Berrios, MED ASSIST - 06/18/2023 2:17 PM EDT Pre-Administration Time Out Procedure Performed: Yes Patient Identified (Ask Name/Date of ): Yes Does the patient have a fever greater than 101 degrees today? No Patient allergic to latex? No Has the patient ever fainted after receiving an injection? No VFC Stock: No Immunization(s) verified: Yes, Immunization Name: Flu, VIS Sheet(s) given: Yes Verified Side and Site: Yes Verified Shot(s) with Parent(s)/Patient: Yes * AARON Barnes - 06/18/2023 1:39 PM EDT FOLLOW UP NOTE History of Present Illness: Ana Hollingsworth is a 42 year old female presenting for follow up of copd. She feels like she is having more difficulty breathing the last 3-4 weeks. Complaints of pain that is kindof like squeezing/burning. This is of all extremities and feet. Worse the last month. She also feels numbness. Tried tylenol with minimal improvement. On lyrica. Interim History: Using rescue inhaler about 2 times daily On trelegy Respiratory Symptoms: Cough: increased the last 3-4 weeks Sputum: denies Dyspnea:increased Hemoptysis: denies Wheeze: denies Triggers: fall season Orthopnea: denies Oxygen: last use was 2 years ago CPAP/BIPAP use:DENIES GERD symptoms DENIES Sinus Symptoms: EAR PAIN-both sides, worse on right. Denies congestion. Denies pnd. Mild sore throat Tobacco use: Social History Tobacco Use Smoking Status Former Packs/day: 1.00 Years: 10.00 Pack years: 10.00 Types: Cigarettes Quit date: 11/20/2009 Years since quittin.5 Smokeless Tobacco Never PMH: Patient Active Problem List Diagnosis Code Centrilobular emphysema (HCC) J43.2 Persistent insomnia G47.00 Patent foramen ovale Q21.12 Polymyalgia ([facility]) M35.3 TON (obstructive sleep apnea) G47.33 COVID-19 long hauler U09.9 Bipolar 1 disorder ([facility]) F31.9 COPD exacerbation ([facility]) J44.1 Skin lesion L98.9 Atrial septal defect Q21.10 Gastroesophageal reflux disease without esophagitis K21.9 Endometriosis of uterus N80.00 Mild cognitive impairment G31.84 Vaginal discharge N89.8 COPD, group B, by GOLD 2017 classification ([facility]) J44.9 Current Outpatient Medications Medication Sig Dispense Refill lamoTRIgine (LAMICTAL) 100 MG Tablet Take 1 Tablet by mouth in the morning. LORazepam 0.5 MG Oral Tablet (ATIVAN) Take 1 Tablet by mouth every 6 hours as needed. Pregabalin 50 MG Oral Capsule (Lyrica) 2 times a day . Albuterol Sulfate HFA 108 (90 Base) MCG/ACT Inhalation Aerosol Solution Inhale by mouth 2 Puffs every 6 hours as needed for Cough, Shortness of Breath or Wheezing. 18 g 4 Vitron-C 65-125 MG Oral Tablet (Iron-Vitamin C) Take 1 Tablet by mouth in the morning and 1 Tablet before bedtime. (Patient taking differently: Take 1 Tablet by mouth in the morning.) 60 Tablet 11 Acetaminophen 325 MG Oral Tablet (Tylenol) Take 3 Tablets by mouth every 6 hours. 170 Tablet 0 Ibuprofen 600 MG Oral Tablet (Motrin) Take 1 Tablet by mouth every 6 hours. With food. 55 Tablet 0 [facility] Oral Tablet Chewable Take 1 Tablet by mouth in the morning. Venlafaxine HCl ER 225 MG Oral Tablet Extended Release 24 Hour Take 1 Tablet by mouth in the morning. Trelegy Ellipta 200-62.5-25 MCG/ACT Aerosol Powder Breath Activated (Oyxfxissfuq-Tjbuhayxgysd-Zlxzxfzwyh) Inhale 1 Puff by mouth daily. 180 Each 1 No current facility-administered medications for this visit. 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 DELIVERY 2010 COLPOSCPY CERVIX W/BX AND EC 08/27 CYSTOSCOPY N/A 10/26/2022 CYSTOURETHROSCOPY performed by Shawna Cerna MD at OR [facility] EXC BREAST LESION RADMARK Left 02/28/2019 EXCISION OF BREAST LESION RADIOLOGICAL MARKER performed by Johnny Arias MD at OR [facility] INCISION OF EARDRUM Tubes in ears at [employer] ([facility] LAPAROSCOPY TOTAL HYSTX, UTERUS 250GM OR LESS TUBE/OVARY Bilateral 10/26/2022 LAPAROSCOPIC HYSTERECTOMY REMOVAL TUBES AND/OR OVARIES FOR UTERUS 250GM OR LESS performed by Shawna Cerna MD at OR [facility] LAPAROSCOPY;GUIDE TRANSHEPATIC 08/17/09 laparoscopic cholecystectomy 08/17/09, [facility], Dr. Arias REMOVAL OF APPENDIX 1991 REMOVE CERVIX CONE W/LOOP ELECTRODE 10/08/03 Dr. Riley, HSIL free margins on LEEP, colpo with HGSIL Review of Systems: Review of Systems Constitutional: Positive for fatigue. Negative for diaphoresis and fever. Respiratory: Positive for cough, chest tightness, shortness of breath and wheezing. Cardiovascular: Negative for chest pain and leg swelling. Musculoskeletal: Positive for myalgias. Psychiatric/Behavioral: Positive for dysphoric mood. The patient is nervous/anxious. Feels mood is stable Physical Exam: BP 106/70 | Pulse 122 | Resp 20 | Ht 1.6 m (5' 3") | Wt 53.1 kg (117 lb) | LMP 09/07/2022 (Approximate) | SpO2 99% | BMI 20.73 kg/m | BSA 1.54 m Physical Exam HENT: Head: Normocephalic. Cardiovascular: Rate and Rhythm: Normal rate and regular rhythm. Pulmonary: Effort: Pulmonary effort is normal. Breath sounds: Decreased breath sounds present. Neurological: General: No focal deficit present. Mental Status: She is alert and oriented to person, place, and time. Psychiatric: Mood and Affect: Mood is anxious. Behavior: Behavior normal. Thought Content: Thought content normal. Judgment: Judgment normal. Assessment and Plan: 1. COPD exacerbation (HCC) Acute on chronic Flares with fall season Add prednisone taper Add xopenex 2 puffs every 4 hours 2. COPD, group B, by GOLD 2017 classification (HCC) Continue trelegy 3. ETD (Eustachian tube dysfunction), bilateral Right greater than left Suspected AR trigger Add claritin Add nasocort 4. Polymyalgia (HCC) Increased over the last several months Consider moving lyrica to bedtime and taking 100 mg once daily - CBC WITH WBC DIFFERENTIAL; Future - TSH WITH FREE T4 IF INDICATED; Future - VITAMIN B12; Future - VITAMIN B1 (THIAMINE), BLOOD, LC/MS/MS; Future - FOLIC ACID; Future - COMPREHENSIVE METABOLIC PANEL; Future - 25-HYDROXY VITAMIN D; Future - LYME DISEASE ANTIBODY SCREEN WITH REFLEX TO CONFIRMATION; Future 5. Peripheral polyneuropathy - CBC WITH WBC DIFFERENTIAL; Future - TSH WITH FREE T4 IF INDICATED; Future - VITAMIN B12; Future - VITAMIN B1 (THIAMINE), BLOOD, LC/MS/MS; Future - FOLIC ACID; Future - COMPREHENSIVE METABOLIC PANEL; Future - 25-HYDROXY VITAMIN D; Future 6. Flu vaccine need - INFLUENZA VACC, QUAD, PF, 6 MONTHS & UP, 0.5 ML, IM I have advised the patient to call our office incase of any worsening or new symptoms. I spent a total of 30-39 minutes (exact time 30 mins) on the date of service in preparation, delivery, and documentation of the care provided to Ana Hollingsworth excluding any time spent in the performance of separately billed services. Rajesh, ESTEE, AARON [facility] Pulmonary and Sleep Medicine documented in this encounter Nursing Notes * GILBERT Bae - 06/18/2023 1:35 PM EDT The patient has been properly identified by confirmation of name and date of . Chief Complaint Patient presents with Follow Up Patient presents in office today for a 6m follow-up visit -- would like to discuss some things going on with her breathing, pain/tingling in extremities (ongoing a while, lately has been worse), and B/L ear pain -- mostly R side (ongoing past 3 weeks) documented in this encounter Plan of Treatment Upcoming Encounters Date Type Specialty Care Team Description 07/22/2023 Imaging Cardiac Studies 07/26/2023 Office Visit Cardiology Kandace Villanueva PA-C [address] [facility] [place] [address] 09/17/2023 Office Visit Family Medicine Cuong, Elysia Song, AARON [address] [place] [phone] Pending Results Name Type Priority Associated Diagnoses Date /Time TSH WITH FREE T4 IF INDICATED Lab Routine Polymyalgia (HCC) Peripheral polyneuropathy 06/18/2023 2:26 PM EDT VITAMIN B12 Lab Routine Polymyalgia (HCC) Peripheral polyneuropathy 06/18/2023 2:26 PM EDT VITAMIN B1 (THIAMINE), BLOOD, LC/MS/MS Lab Routine Polymyalgia (HCC) Peripheral polyneuropathy 06/18/2023 2:26 PM EDT FOLIC ACID Lab Routine Polymyalgia (HCC) Peripheral polyneuropathy 06/18/2023 2:26 PM EDT 25-HYDROXY VITAMIN D Lab Routine Polymyalgia (HCC) Peripheral polyneuropathy 06/18/2023 2:26 PM EDT LYME DISEASE ANTIBODY SCREEN WITH REFLEX TO CONFIRMATION Lab Routine Polymyalgia (HCC) 06/18/2023 2:26 PM EDT Scheduled Orders Name Type Priority Associated Diagnoses Orde r Schedule TSH WITH FREE T4 IF INDICATED Lab Routine Polymyalgia (HCC) Peripheral polyneuropathy Expected: 06/18/2023 (Approximate), Expires: 06/17/2024 VITAMIN B12 Lab Routine Polymyalgia (HCC) Peripheral polyneuropathy Expected: 06/18/2023 (Approximate), Expires: 06/17/2024 VITAMIN B1 (THIAMINE), BLOOD, LC/MS/MS Lab Routine Polymyalgia (HCC) Peripheral polyneuropathy Expected: 06/18/2023, Expires: 06/18/2024 FOLIC ACID Lab Routine Polymyalgia (HCC) Peripheral polyneuropathy Expected: 06/18/2023 (Approximate), Expires: 06/17/2024 25-HYDROXY VITAMIN D Lab Routine Polymyalgia (HCC) Peripheral polyneuropathy Expected: 06/18/2023 (Approximate), Expires: 06/17/2024 LYME DISEASE ANTIBODY SCREEN WITH REFLEX TO CONFIRMATION Lab Routine Polymyalgia (HCC) Expected: 06/18/2023 (Approximate), Expires: 06/17/2024 Health Maintenance Due Date Last Done Comments [...] Not on filedocumented as of this encounter Results * (ABNORMAL) COMPREHENSIVE METABOLIC PANEL (06/18/2023 2:26 PM EDT) BUN 14 6 - 20 mg/dL 06/18/2023 3:47 PM EDT [facility] Creatinine 0.7 0.5 - 1.0 mg/dL 06/18/2023 3:47 PM EDT [facility] Estimated Glomerular Filtration Rate >90 >=60 mL/min 06/18/2023 3:47 PM EDT [facility] Comment:eGFR is calculated b ased on the CKD-EPI 2020 equation Sodium 140 135 - 146 mmol/L 06/18/2023 3:47 PM EDT [facility] Potassium 4.3 3.5 - 5.1 mmol/L 06/18/2023 3:47 PM EDT [facility] Chloride 102 98 - 107 mmol/L 06/18/2023 3:47 PM EDT [facility] CO2 25 22 - 32 mmol/L 06/18/2023 3:47 PM EDT [facility] Anion Gap 13 7 - 15 mmol/L 06/18/2023 3:47 PM EDT [facility] Glucose 83 70 - 120 mg/dL 06/18/2023 3:47 PM EDT [facility] Albumin 4.8 3.8 - 5.0 g/dL 06/18/2023 3:47 PM EDT [facility] AST 44(H) 10 - 35 U/L 06/18/2023 3:47 PM EDT [facility] Alkaline Phosphatase 80 35 - 130 U/L 06/18/2023 3:47 PM EDT [facility] Bilirubin, Total 0.2 <=1.2 mg/dL 06/18/2023 3:47 PM EDT [facility] Calcium 9.5 8.4 - 10.2 mg/dL 06/18/2023 3:47 PM EDT [facility] Protein 7.2 6.0 - 8.3 g/dL 06/18/2023 3:47 PM EDT [facility] ALT 60(H) 10 - 35 U/L 06/18/2023 3:47 PM EDT [facility] Blood Venous blood specimen / Unknown Venipuncture / Unknown 06/18/2023 2:26 PM EDT 06/18/2023 2:26 PM EDT Elysia [facility] BLOOD OR[facility] [place] [id number] documented in this encounter Visit Diagnoses Diagnosis COPD exacerbation (HCC)- Primary Obstructive chronic bronchitis with exacerbation COPD, group B, by GOLD 2017 classification (HCC) ETD (Eustachian tube dysfunction), bilateral Polymyalgia (HCC) Polymyalgia rheumatica Peripheral polyneuropathy Unspecified hereditary and idiopathic peripheral neuropathy Flu vaccine need Need for prophylactic vaccination and inoculation against influenza documented in this encounter Advance Directives Latest [...] and were consensually agreed upon. Care Teams Hot Dip Plating Supervisor Relationship Specialty Start Date End Date Elysia Hutchins CRNP [address] [place] [phone] PCP - General Nurse Practitioner 06/25/22 documented as of this encounter
--- OUTSIDE RECORDS SUMMARY | 2023-08-13 00:37 | External Medical Summary ---
Author Name Unknown Address Unknown Organization K0G:[facility] - [address] [place] [address] Laboratory Report Ordering Provider Test Date Status FATEMEH HOLGUIN 06/18/2023 14:26:58 Final Observation Date Value Abnormality Reference (Units ) Status WBC, Total 06/18/2023 14:26:58 8.14 4.00-10.8 0 (K/uL) Final RBC 06/18/2023 14:26:58 4.39 3.85-5.15 (M/uL) Final Hemoglobin 06/18/2023 14:26:58 12.7 12.0-15.3 (g/dL) Final HCT 06/18/2023 14:26:58 39.7 36.0-45.2 (%) Final MCV 06/18/2023 14:26:58 90.4 81.5-97.5 (fL) Final MCH 06/18/2023 14:26:58 28.9 27.0-34.0 (pg) Final MCHC 06/18/2023 14:26:58 32.0 32.0-36.0 (g/dL) Final RDW 06/18/2023 14:26:58 13.9 11.5-15.5 (%) Final Platelets 06/18/2023 14:26:58 373 140-400 (K /uL) Final MPV 06/18/2023 14:26:58 9.0 6.6-11.1 ( fL) Final Performing Location [facility] - [address] [place] [address]
--- OUTSIDE RECORDS SUMMARY | 2023-08-13 00:37 | External Medical Summary | Summary of Care ---
Author Name Unknown Organization [facility] Address [address] [facility] [address] Phone [phone] Care Team Providers Care Shipping Lead Person Name Role Phone Elysia Hutchins Primary Care Provider Reason for Visit * Reason Comments Outpatient Testing Encounter Details Date Type Department Care Team Description 06/18/2023 Laboratory Laboratory, [facility] [address] [facility] [place] [id number] [facility] [address] [facility] [place] [address] Polymyalgia (HCC); Peripheral polyneuropathy Allergies No known active allergiesdocumented as of [...] pain 08/05/2004 11/17/2011 DYSFUNCT EUSTACHIAN TUBE 08/05/2004 02/21/2 012 Chronic rhinitis 08/05/2004 12/22/2010 SPRAINS AND [...] 06/24/2016,06/15/2016,07/30/2008 06/22/2016 Pneumococcal Conjugate Vacci ne, 20-valent ([id number]) 06/25/2022 Pneumococcal Polysaccharide PPV23 (Pneumovax) 05/21/2009 Seasonal Influenza, PF, 6 mo ns & Above, IM , (Flulaval) 06/18/2023,06/25/2022,07/17/2021,10/02/2020,10/28/2018,08/09/2017 Seasonal Influenza, QUAD, wi th Preserv, 6 [...] Cardiology Kandace Villanueva PA-C [address] [place] [id number] 09/17/2023 Office Visit Family Medicine Elysia Hutchins CRNP [address] [place] [id number] Pending Results Name Type Priority Associated Diagnoses Date /Time CBC WITH WBC DIFFERENTIAL Lab Routine Polymyalgia (HCC) Peripheral polyneuropathy 06/18/2023 2:26 PM EDT TSH WITH FREE T4 IF INDICATED Lab Routine Polymyalgia (HCC) Peripheral polyneuropathy 06/18/2023 2:26 PM EDT VITAMIN B12 Lab Routine Polymyalgia (HCC) Peripheral polyneuropathy 06/18/2023 2:26 PM EDT VITAMIN B1 (THIAMINE), BLOOD, LC/MS/MS Lab Routine Polymyalgia (HCC) Peripheral polyneuropathy 06/18/2023 2:26 PM EDT FOLIC ACID Lab Routine Polymyalgia (HCC) Peripheral polyneuropathy 06/18/2023 2:26 PM EDT COMPREHENSIVE METABOLIC PANEL Lab Routine Polymyalgia (HCC) Peripheral polyneuropathy 06/18/2023 2:26 PM EDT 25-HYDROXY VITAMIN D Lab Routine Polymyalgia (HCC) Peripheral polyneuropathy 06/18/2023 2:26 PM EDT LYME DISEASE ANTIBODY SCREEN WITH REFLEX TO CONFIRMATION Lab Routine Polymyalgia (HCC) 06/18/2023 2:26 PM EDT CBC Lab Routine Polymyalgia (HCC) Peripheral polyneuropathy 06/18/2023 2:26 PM EDT DIFFERENTIAL, AUTOMATED Lab Routine Polymyalgia (HCC) Peripheral polyneuropathy 06/18/2023 2:26 PM EDT LYME DISEASE ANTIBODY SCREEN Lab Routine Polymyalgia (HCC) 06/18/2023 2:26 PM EDT Health Maintenance Due Date Last Done Comments [...] as of this encounter Visit Diagnoses Diagnosis Polymyalgia (HCC) Polymyalgia rheumatica Peripheral polyneuropathy Unspecified hereditary and idiopathic peripheral neuropathy documented in this encounter Advance Directives Latest [...] and were consensually agreed upon. Care Teams Shipping Lead Person Relationship Specialty Start Date End Date Elysia Hutchins CRNP [address] [place] [address] PCP - General Nurse Practitioner 06/25/22 documented as of this encounter
--- OUTSIDE RECORDS SUMMARY | 2023-08-13 00:37 | External Medical Summary ---
Author Name Unknown Address Unknown Organization [id number]:[facility] - [address] [place] [address] Laboratory Report Ordering Provider Test Date Status AFTEMEH HOLGUIN 06/18/2023 14:26:58 Final Observation Date Value Abnormality Reference (Units ) Status SYNC LEUKOCYTES IN BLOOD BY AUTOMATED COUNT 06/18/2023 14:26:58 8.14 4.00-10.80 (K/uL) Final Segs 06/18/2023 14:26:58 55.9 40.0-75.0 (%) Final Lymphs % 06/18/2023 14:26:58 35.5 18.0-42.0 (%) Final Monos 06/18/2023 14:26:58 7.4 1.0-11.0 (%) Final Eosinophils 06/18/2023 14:26:58 0.7 0.0-6.0 (%) Final Basos 06/18/2023 14:26:58 0.5 0.0-2.0 (%) Final Absolute Segs 06/18/2023 14:26:58 4.55 1.80-7.70 (K/uL) Final Lymphs, absolute 06/18/2023 14:26:58 2.89 1.00-4.80 (K/ul) Final Monos, Abs 06/18/2023 14:26:58 0.60 0.00-1.10 (K/uL) Final Eos, Abs 06/18/2023 14:26:58 0.06 0.00-0.70 (K/uL) Final Basos, Abs 06/18/2023 14:26:58 0.04 0.00-0.20 (K/uL) Final Performing Location [facility] - [address] [place] [address]
--- OUTSIDE RECORDS SUMMARY | 2023-08-13 00:37 | External Medical Summary ---
Author Name Unknown Address Unknown Organization [id number]:[facility] - [address] [place] [address] Laboratory Report Ordering Provider Test Date Status FATEMEH HOLGUIN 06/18/2023 14:26:58 Final Observation Date Value Abnormality Reference (Units ) Status Vitamin B12 06/18/2023 14:26:58 [id number] (pg/mL) Final Performing Location [facility] - [address] [place] [id number]
--- OUTSIDE RECORDS SUMMARY | 2023-08-13 00:37 | External Medical Summary | Summary of Care ---
Author Name Unknown Organization [facility] Address [address] [facility] [address] Phone [phone] Care Team Providers Care Duplicating Machine Servicer Name Role Phone Elysia Hutchins Primary Care Provider Encounter Details Date Type Department Care Team Description 02/12/2023 Telephone Family Practice [facility] [address] [place] [address] Elysia Hutchins CRNP [address] [place] [address] Allergies No known active allergiesdocumented as of this encounter (statuses as of 02/12/2023) Medications Medication Sig Dispensed Refills Start Date End Date Status lamoTRIgine (LAMICTAL) 100 MG TabletIndications: Major depressive disorder, recurrent episode, moderate (HCC),SILVANO (generalized anxiety disorder),Bipolar disorder, unspecified (HCC) Take 1 Tablet by mouth in the morning. 0 03/16/2017 Active venlafaxine XR (EFFEXOR XR) 150 MG [id number]:Ma eve depressive disorder, recurrent episode, moderate (HCC),SILVANO (generalized anxiety disorder),Bipolar disorder, unspecified (HCC) Take 225 mg by mouth daily. 0 03/16/2017 Active LORazepam 0.5 MG Oral [...] before bedtime. 60 Tablet 11 08/04/2022 Active Acetaminophen 325 MG Oral Tablet (Tylenol) Take 3 Tablets by mouth every 6 hours. 170 Tablet 0 10/26/2022 Active Ibuprofen 600 MG Oral Tablet (Motrin) Take 1 Tablet by mouth every 6 hours. With food. 55 Tablet 0 10/26/2022 Active Trelegy Ellipta 200-62.5-25 MCG/ACT Aerosol Powder Breath Activated (Fluticasone-Umecl idinium-Vilanterol ) Inhale 1 Puff by mouth daily. 180 Each 1 12/16/2022 Active metroNIDAZOLE 0.75 % Vaginal Gel (Metrogel-Vaginal) Administer 1 Applicator into the vagina at bedtime for 5 days. For 5 days. 70 g 0 02/12/2023 02/17/2023 Active documented as of this encounter (statuses as of 02/12/2023) Active Problems Patient Care Coordination No te Formatting of this note migh t be different from the original. Cervical length 4.7cms with no funneling noted on US 09/15/10 Problem Noted Date Vaginal discharge 02/11/2023 Mild cognitive impairment 12/16/2022 Skin lesion 09/29/2022 Atrial septal defect 09/29/2022 Gastroesophageal reflux disease without esophagitis 09/29/2022 Endometriosis of uterus 09/29/2022 COPD, group B, by GOLD 2017 classificati on 09/07/2022 Overview: Per COPD GOLD Classification COVID-19 long hauler 08/25/2022 Bipolar 1 disorder 08/25/2022 TON (obstructive sleep apnea) 08/24/2022 Polymyalgia 06/25/2022 Patent foramen ovale 12/17/2021 Persistent insomnia 10/22/2021 Centrilobular emphysema 02/05/2021 documented as of this encounter (statuses as of 02/12/2023) Resolved Problems Problem Noted Date Resolved Date [...] as of this encounter (statuses as of 02/12/2023) Immunizations Name Administration Dates Next Due COVID-19 mRNA, LNP-s, No Pre serve, 2-Dose Series (Moderna) 12/11/2020,11/15/2020 PPD 06/24/2016,06/15/2016,07/30/2008 06/22/2016 Pneumococcal Conjugate Vacci ne, 20-valent ([id number]) 06/25/2022 Pneumococcal Polysaccharide PPV23 (Pneumovax) 05/21/2009 Seasonal Influenza, QUAD, wi th Preserv, 6 mons & Above, 0.5 mL, IM 07/11/2019 Seasonal Influenza, Quadriva lent, No Preserve, 6 Mons & Above, IM 06/25/2022,07/17/2021,07/02/2020,02/0 09/2018,08/09/2017 Seasonal Influenza, Quadriva lent, No Preserve, IM [...] Encounters Date Type Specialty Care Team Description 03/01/2023 Office Visit Cardiology Kandace Villanueva PA-C [address] [place] [id number] 06/18/2023 Office Visit Family Medicine Elysia Hutchins CRNP [address] [place] [id number] Health Maintenance Due Date Last Done Comments Hepatitis B (1 of 3 - 3-dose series) 1980 COVID-19 Vaccine (3 - Booster for Moderna series) 02/05/2021 12/11/2020, 11/15/2020 Depression Screening, Annual for Pts 12 and Over 02/02/2023 02/02/2022 O2 ASSESSMENT COMPLETED IN PAST YEAR FOR COPD 10/26/2023 10/26/2022 Mammogram 12/24/2023 12/23/2022, 11/26, 12/18/2020, Additional history exists Lipid Panel 12/27/2023 12/26/2018, 10/28, 06/03/2011, Additional history exists PAP SMEAR-EVERY 3 YRS,AGES 18-100 02/02/2025 02/02/2022, 12/26/2018, 12/03/2014, Additional history exists DTaP,Tdap,and Td Vaccines (2 - Td or Tdap) 12/26/2028 12/26/2018, 07/21/2005 Hepatitis C Screening Completed 02/12/2012 Alpha-1 Antitrypsin Completed 10/22/2021, Influenza Vaccine (FLU shot) Completed , 07/17/2021, 07/02/2020, Additional history exists Pneumococcal Vaccine: Pediatrics (0 to 5 Years) and At-Risk Patients (6 to 64 Years) Completed 06/25/2022, 05/21/2009 GARDASIL-HPV IMMUNIZATION SERIES Aged Out No longer eligible based on patient's age to complete this topic MENINGOCOCCAL (MENACTRA/MENVEO) Aged Out No longer eligible based on patient's age to complete this topic documented as of this encounter Medical Devices Not on filedocumented as of this encounter Advance Directives Latest Code Status [...] and were consensually agreed upon. Care Teams Duplicating Machine Servicer Relationship Specialty Start Date End Date Elysia Hutchins CRNP [address] [place] [id number] PCP - General Nurse Practitioner 06/25/22 documented as of this encounter
--- OUTSIDE RECORDS SUMMARY | 2023-08-13 00:37 | External Medical Summary | Summary of Care ---
Author Name Unknown Organization [facility] Address [address] [facility] [place] [address] Phone [phone] Care Team Providers Care Cheese Sprayer Name Role Phone Elysia Hutchins Primary Care Provider Reason for Referral * Precert (Within 10 days (routine)) - Pending Review Specialty Diagnoses / Procedures Referred By Lydia orosco Referred To Contact Cardiac Studies Diagnoses Patent foramen ovale Heart palpitations Family history of premature CAD Chest pain, unspecified type Shortness of breath Decreased functional residual capacity Procedures ECHO, STRESS (EXERCISE) W/ PHYSICIAN Kandace Villanueva PA-C [address] [place] [address] Referral ID Status Reason Start Date Expiration Date Visits Requested Visits Authorized [id number] Pending Review Precert 03/01/2023 999 999 Reason for Visit * Reason Comments Follow Up Over year follow up. Elevated HR with any minor exertion. Flutter/skipped beats- once a week or so. Chest heaviness with exertion- has COPD. Rare dizziness. SOB with exertion. Denies chest pain and edema. Encounter Details Date Type Department Care Team Description 03/01/2023 Office Visit Cardiology, [facility] [address] [place] [place] [id number] Kandace Villanueva PA-C [address] [place] [address] Heart palpitations*; Patent foramen ovale; Family history of premature CAD; Chest pain, unspecified type; Shortness of breath; Decreased functional residual capacity Allergies No known active allergiesdocumented as of this encounter (statuses as of 03/02/2023) Medications Medication Sig Dispensed Refills Start Date End Date Status lamoTRIgine (LAMICTAL) 100 MG TabletIndications :Major depressive disorder, recurrent episode, moderate (HCC),SILVANO (generalized [...] HFA 108 (90 Base) MCG/ACT Inhalation Aerosol SolutionIndicatio ns:Pneumonia due to COVID-19 virus,SOB (shortness of breath) [...] Ellipta 200-62.5-25 MCG/ACT Aerosol Powder Breath Activated (Fluticasone-Umec lidinium-Vilanter ol) Inhale 1 Puff by mouth daily. 180 Each 1 12/16/2022 Active Culturelle Digestive Health Oral Tablet Chewable Take 1 Tablet by mouth in the morning. 0 Active Venlafaxine HCl ER 225 MG Oral Tablet Extended Release 24 Hour Take 1 Tablet by mouth in the morning. 0 01/22/2023 Active venlafaxine XR (EFFEXOR XR) 150 MG [id number]:M ajor depressive disorder, recurrent episode, moderate (HCC),SILVANO (generalized anxiety disorder),Bipolar disorder, unspecified (HCC) Take 225 mg by mouth daily. 0 03/16/2017 3 Discontinue d(Medicatio n/Dose Changed) documented as of this encounter (statuses as of 03/02/2023) Active Problems Patient Care Coordination No te [...] as of this encounter (statuses as of 03/02/2023) Resolved Problems Problem Noted Date Resolved Date [...] reproductive history 010 03/22/2013 Overview: 2001: delivered infant at 38w [place] after being on bedrest [...] as of this encounter (statuses as of 03/02/2023) Immunizations Name Administration Dates Next Due COVID-19 mRNA, LNP-s, No Pre serve, 2-Dose Series (Moderna) 12/11/2020,11/15/2020 PPD 06/24/2016,06/15/2016,07/30/2008 06/22/2016 Pneumococcal Conjugate Vacci ne, 20-valent (Kahctgn19) 06/25/2022 Pneumococcal Polysaccharide PPV23 (Pneumovax) 05/21/2009 Seasonal [...] Sign Reading Time Taken Comments Blood Pressure 106/72 03/01/2023 10:34 AM EDT Pulse 96 03/01/2023 10:34 AM EDT Temperature - - Respiratory Rate 16 03/01/2023 10:34 AM EDT Oxygen Saturation - - Inhaled Oxygen Concentration - - Weight 52.6 kg (116 lb) 03/01/2023 10:34 AM EDT Height - - Body Mass Index 20.55 10/26/2022 8:55 AM EST documented in this encounter Progress Notes * Kandace Villanueva PA-C - 03/01/2023 4:33 PM EDT 03/01/2023 Cardiology F/U: History of Present Illness: 42 year old female who presents today for routine cardiology follow-up.Last clinic evaluation approximately [address] Goodman. History includes: 1. Anxiety/bipolar on multiple psychiatric medications, follows with mental health 2. Palpitations 3. History of incidental PFO Patient presents today with multitude of complaints. She reports intermittent chest tightness at rest and with exertion. Last several minutes to an hourat a time. No radiation. She notes worsening shortness of breath with activity as well. This has been ongoing for several months. Increasing in frequency. Causing her anxiety. She feels her heart rate is chronically elevated. Heart rate increases with minimal activity. No syncope or near syncope No orthopnea, PND, or increased lower extremity edema. No fever, chills, cough, hematochezia, melena, or hemoptysis. Review of Systems: See HPI for pertinent positives. All others negative, other than those noted in HPI. Cardiac studies/labs: EKG performed today and reviewed personally: Sinus rhythm with short OK Otherwise normal ECG When compared with ECG of 14-OCT-2022 12:25, No significant change was found Limited 2D echo (images personally reviewed) December 26, 2021: Limited echocardiogram ordered therefore limited relevant views were obtained per physician request. There is small right to left shunt through the patent foramen ovale at rest by saline contrast injection. 2D echocardiogram report November 14, 2021: The left ventricular cavity size is normal. The LV wall thickness is normal. The left ventricular wall motion is normal. The qualitative LV ejection fraction is 55-59% (normal). The left ventricular diastolic function is normal. The left atrium is normal sized (< 35 ml/m^2). There is a possible patent foramen ovale. There is suggestion of djsq-xu-imfvx flow through the atrial septum by color flow Doppler. If clinically indicated, a limited focused study with micro cavitation injection could be performed. Normal IVC size and collapsability with inspiration indicates a normal right atrial pressure of 3 mmHg. The estimated pulmonary artery systolic pressure is 30 mm Hg. Exercise stress echo report October 03, 2020: STRESS STUDY: The stress echo is negative for inducible ischemia. There is no echocardiographic or EKG evidence of inducible ischemia. The patient's symptoms of exertional shortness of breath and chest tightness however were reproduced with exercise. Exercise capacity is below average for patient's age. Results suggest underlying etiology other than coronary heart disease. RESTING STUDY: The qualitative LV ejection fraction is 55-59% (normal). The right ventricular chamber size and systolic function are qualitatively normal. There is no significant valvular heart disease. No pericardial effusion is noted. There is no evidence of pulmonary hypertension. 7 Day ZIO monitor report February 19, 2021: Patient had a min HR of 59 bpm, max HR of 169 bpm, and avg HR of 99 bpm. Predominant underlying rhythm was Sinus Rhythm. Isolated SVEs were rare (<1.0%), SVE Couplets were rare (<1.0%), and no SVE Triplets were present. Isolated VEs were rare (<1.0%), and no VE Couplets or VE Triplets werepresent. Past Medical History: Patient Active Problem List Diagnosis Code Centrilobular emphysema ([facility]) J43.2 Persistent insomnia G47.00 Patent foramen ovale Q21.12 Polymyalgia ([facility]) M35.3 TON (obstructive sleep apnea) G47.33 COVID-19 long hauler U09.9 Bipolar 1 disorder ([facility]) F31.9 COPD, group B, by GOLD 2017 classification ([facility]) J44.9 Skin lesion L98.9 Atrial septal defect Q21.10 Gastroesophageal reflux disease without esophagitis K21.9 Endometriosis of uterus N80.00 Mild cognitive impairment G31.84 Vaginal discharge N89.8 Past Surgical History: Procedure Laterality Date , INDUCED BY D&E 01/19/2012 INDUCED BY DILATION AND EVACUATION performed by FREDDIE CROWLEY at OR [facility] [place] BREAST LESION,OTHER,EXCISION Left 06/13/2018 Fragments of Fibroadenoma BREAST LESION,OTHER,EXCISION Left 02/28/2019 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 DELIVERY 2010 COLPOSCPY CERVIX W/BX AND EC 08/27 CYSTOSCOPY N/A 10/26/2022 CYSTOURETHROSCOPY performed by Shawna Cerna MD at OR [facility] EXC BREAST LESION RADMARK Left 02/28/2019 EXCISION OF BREAST LESION RADIOLOGICAL MARKER performed by Johnny Arias MD at OR [facility] INCISION OF EARDRUM Tubes in ears at [facility] ([facility] LAPAROSCOPY TOTAL HYSTX, UTERUS 250GM OR LESS TUBE/OVARY Bilateral 10/26/2022 LAPAROSCOPIC HYSTERECTOMY REMOVAL TUBES AND/OR OVARIES FOR UTERUS 250GM OR LESS performed by Shawna Cerna MD at OR [facility] LAPAROSCOPY;GUIDE TRANSHEPATIC 08/17/09 laparoscopic cholecystectomy 08/17/09, [facility], Dr. Arias REMOVAL OF APPENDIX 1990 REMOVE CERVIX CONE W/LOOP ELECTRODE 10/08/03 Dr. Riley, HSIL free margins on LEEP, colpo with HGSIL Family History: Denies family history of premature coronary disease or sudden cardiac . Family History Problem Relation Age of Onset Hypertension Mother Mental Disorder Mother depression/anxiety Breast Cancer Mother 64 triple negative Cancer Father 64years when he No Known Problems Sister Hypertension Grandmother (Maternal) Mental Disorder Grandmother (Maternal) Stroke Grandmother (Maternal) Cancer Grandfather (Maternal) Lung Hypertension Grandfather (Maternal) Mental Disorder Grandfather (Maternal) Neurological Disorder Aunt (Unspecified) No Past Hx Aunt (Unspecified) breast/urogynecology physician/colon Heart Disorder Uncle (Unspecified) arrhythmia (maternal) Ovarian cancer Great-grandmother (Maternal) Social History: Former tobacco abuse Social History Socioeconomic History Marital status: Spouse name: Vince Number of children: 1 Years of education: Not on file Highest education level: Not on file Occupational History Comment: unemployed Occupation: unemployed Tobacco Use Smoking status: Former Packs/day: 1.00 Years: 10.00 Pack years: 10.00 Types: Cigarettes Quit date: 11/20/2009 Years since quittin.2 Smokeless tobacco: Never Vaping Use Vaping Use: Never used Substance and Sexual Activity Alcohol use: Not Currently Comment: none- problems in past- quit 2000 Drug use: No Sexual activity: Not on file Comment: pt's spouse had vasectomy Other Topics Concern Service Not Asked Blood Transfusions Not Asked Caffeine Concern Yes Comment: 2-3 sodas a day Occupational Exposure Not Asked Hobby Hazards Not Asked Sleep Concern Not Asked Stress Concern Not Asked Weight Concern Not Asked Special Diet Not Asked Back Care Not Asked Exercise Not Asked Bike Helmet Not Asked Seat Belt Not Asked Self-Exams Not Asked Social History Narrative Cat No mold Social Determinants of Health Financial Resource Strain: Not on file Food Insecurity: Not on file Transportation Needs: Not on file Physical Activity: Not on file Stress: Not on file Social Connections: Not on file Intimate Partner Violence: Not on file Housing Stability: Not on file Social History Social History Narrative Cat No mold Review of patient's allergies indicates: No Known Allergies Current Outpatient Medications Medication Sig Dispense Refill lamoTRIgine (LAMICTAL) 100 MG Tablet Take 1 Tablet by mouth in the morning. Pregabalin 50 MG Oral Capsule (Lyrica) 2 times a day . Albuterol Sulfate HFA 108 (90 Base) MCG/ACT Inhalation Aerosol Solution Inhale by mouth 2 Puffsevery 6 hours as needed for Cough, Shortness [...] mouth every 6 hours. 170 Tablet 0 Trelegy Ellipta 200-62.5-25 MCG/ACT Aerosol Powder Breath Activated (Ipubqnqcfqz-Rqrulmifhgnf-Gblpjoabqp) Inhale 1 Puff by mouth daily. 180 Each 1 Culturelle Digestive Health Oral Tablet Chewable Take 1 Tablet by mouth in the morning. Venlafaxine HCl ER 225 MG Oral Tablet Extended Release 24 Hour Take 1 Tablet by mouth in the morning. LORazepam 0.5 MG Oral Tablet (ATIVAN) Take 1 Tablet by mouth every 6 hours as needed. Ibuprofen 600 MG Oral Tablet (Motrin) Take 1 Tablet by mouth every 6 hours. With food. 55 Tablet 0 No current facility-administered medications for this visit. OBJECTIVE/PHYSICAL EXAMINATION: BP 106/72 | Pulse 96 | Resp 16 | Wt 52.6 kg (116 lb) | LMP 09/07/2022 (Approximate) | BMI 20.55 kg/m | BSA 1.53 m General: NAD, AAO x3, well nourished. HEENT: Normocephalic. Atraumatic. Conjunctiva pink, no scleral icterus. No carotid bruits, the carotid upstrokes are brisk. No JVD. No HJR Heart: Regular normal S-1 and S-2 no S-3 or S-4 gallop. No murmurs or rubs appreciated. PMI is not displaced. No RV heave.Lungs: Clear bilateral without rales , rhonchi, or wheeze. Abdomen: Normal bowel sounds. Soft. Nontender. No masses or organomegaly. No abdominal bruits. Extremities: No clubbing, cyanosis, or edema.Pulses: radial=2/4, Dorsalis pedis =2/4, posterior tibial=2/4. Neuro: No focal deficits. IMPRESSION: 42 year old female 1. Palpitations, tachypalpitations - currently NSR on EKG. 2. History of asymptomatic small PFO 3. Chest pain and dyspnea 4. History of anxiety RECOMMENDATIONS/PLAN: We reviewed her recent symptoms of CP/SOB, tachypalpitations. Etiology uncertain. Recommend proceeding with exercise stress echo to evaluate structural heart disease and R/O inducible ischemia. Will also be able to evaluate HR/BP response to activities/exercise. In regards to palpitations, recommend 7 ay ZIO monitor to assess arrhythmias. Could consider initiation of beta dipak based on results. I spent a total of 30 minutes on the date of service in preparation, delivery, and documentation ofthe care provided to Ana Hollingsworth excluding any time spent in the performance of separately billed services. The patient agrees to the above plan and will call with additional questions or concerns. ER with all emergencies advised. Follow-up: Return in about 8 weeks (around 04/26/2023). | Check-out note: 7 day ZIO placed today Schedule exercise stress echo > 7 days, after ZIO will be removed 8 week f/u (after testing is completed) Kandace Villanueva PA-C Department of Cardiology This chart was completed in part utilizing [employer] Speech Voice Recognition Software. Grammatical errors, random word insertions, prounoun errors, and incomplete sentences are an occasional consequence of this system due to software limitations, ambient noise, and hardware issues. Any formal questions or concerns about the content, text, or information contained within the body of this dictation should be directly addressed to the provider for clarification. documented in this encounter Procedure Notes * Jeremiah Morales DO - 03/01/2023 10:44 AM EDTAssociated Order(s): EKG COMPLETE (TRACING AND INTERP) REASON FOR STUDY: palpitations CONCLUSIONS: Sinus rhythm with short OK Otherwise normal ECG When compared with ECG of 14-OCT-2022 12:25, No significant change was found Ventricular Rate: 92 Atrial Rate: 92 OK Interval: 102 QRS Duration: 76 QT/QTc: 340/420 ms P-R-T [place]: 42 : 62 : 65 degrees documented in this encounter Nursing Notes * Virgil Montgomery LPN - 03/01/2023 10:34 AM EDT Patient identified by full name and date of Chief Complaint Patient presents with Follow Up Over year follow up. Elevated HR with any minor exertion. Flutter/skipped beats- once a week or so.Chest heaviness with exertion- has COPD. Rare dizziness. SOB with exertion. Denies chest pain and edema. Examination Room: 6 Name: Ana Hollingsworth Date of : (1980). Reason for Visit: Over year follow up Interim Hospitalization(s): Denies Problems/Concerns: See chief complaint Chest Pain/SOB: See chief complaint [facility] Discussed: Yes [facility] is a way you can talk to your provider online through e-mail. Would you like to sign up? I can activate it for you? ALREADY ACTIVE Patient was instructed to not get up on the exam table until directed and assisted by their provider; patient is to remain seated in the chair/ wheelchair/ exam table for fall prevention and safety reasons. Patient is aware to have assistance to step down off exam table with personnel. Patient voiced full comprehension of instructions. documented in this encounter Plan of Treatment Upcoming Encounters Date Type Specialty Care Team Description 05/12/2023 Imaging Cardiac Studies 05/25/2023 Office Visit Cardiology Kandace Villanueva PA-C [address] [place] [address] 06/18/2023 Office Visit Family Medicine Cu[place], Elysia Song, AARON [address] [place] [address] Scheduled Orders Name Type Priority Associated Diagnoses Orde r Schedule EXTERNAL EKG 2 TO 7 DAYS Holter Routine Patent foramen ovale Heart palpitations Family history of premature CAD Chest pain, unspecified type Expected: 03/01/2023 (Approximate), Expires: 03/01/2024 ECHO, STRESS (EXERCISE) W/ PHYSICIAN Echocardiology Routine Patent foramen ovale Heart palpitations Family history of premature CAD Chest pain, unspecified type Shortness of breath Decreased functional residual capacity Expected: 03/01/2023, Expires: 03/01/2024 Health Maintenance Due Date Last Done Comments [...] Not on filedocumented as of this encounter Procedures Procedure Name Priority Date/Time Associated Diagnosis Comments OK ECG ROUTINE ECG W/LEAST 12 LDS W/I&R Routine 03/01/2023 10:44 AM EDT Patent foramen ovale Heart palpitations documented in this encounter Results * EKG COMPLETE (TRACING AND INTERP) (03/01/2023 10:44 AM EDT) 03/01/2023 10:4 4 AM EDT Procedure Note Jeremiah Morales, - 03/01/2023 10:44 AM EDT REASON FOR STUDY: palpitations CONCLUSIONS: Sinus rhythm with short OK Otherwise normal ECG When compared with ECG of 14-OCT-2022 12:25, No significant change was found Ventricular Rate: 92 Atrial Rate: 92 OK Interval: 102 QRS Duration: 76 QT/QTc: 340/420 ms P-R-T [place]: 42 : 62 : 65 degrees Kandace Villanueva PA-C EKG Performing Organization Address City/State/ZIP Co me Phone Number [facility] documented in this encounter Visit Diagnoses Diagnosis Heart palpitations- Primary Palpitations Patent foramen ovale Ostium secundum type atrial septal defect Family history of premature CAD Family history of ischemic heart disease Chest pain, unspecified type Shortness of breath Decreased functional residual capacity documented in this encounter Advance Directives Latest [...] and were consensually agreed upon. Care Teams Cheese Sprayer Relationship Specialty Start Date End Date Elysia Hutchins CRNP [address] [place] [address] PCP - General Nurse Practitioner 06/25/22 documented as of this encounter
--- OUTSIDE RECORDS SUMMARY | 2023-08-13 00:37 | External Medical Summary ---
Author Name Unknown Address Unknown Organization [id number]:[facility] - [facility] [address] [place] [address] Laboratory Report Ordering Provider Test Date Status FATEMEH HOLGUIN 06/18/2023 14:26:58 Final Observation Date Value Abnormality Reference (Units ) Status Borrelia burgdorferi IgG and IgM [Interpretation] in Serum by Immunoassay 06/18/2023 14:26:58 Negative Negative Final Performing Location [facility] - [address] [place] [address]
--- OUTSIDE RECORDS SUMMARY | 2023-08-13 00:37 | External Medical Summary | Summary of Care ---
Author Name Unknown Organization [facility] Address [address] [address] Phone [phone] Care Team Providers Care Casino Investigator Name Role Phone Elysia Hutchins Primary Care Provider Reason for Visit * Reason Comments Follow Up COPD Emphysema Encounter Details Date Type Department Care Team Description 04/05/2023 Office Visit Pulmonary Medicine, [facility] [address] [place] [address] Elysia Hutchins CRNP [address] [place] [id number] COPD exacerbation (HCC)*; COPD, group B, by GOLD 2017 classification (HCC); Centrilobular emphysema (HCC) Allergies No known active allergiesdocumented as of this encounter (statuses as of 04/05/2023) Medications Medication Sig Dispensed Refills Start Date [...] mouth daily. 180 Each 1 12/16/2022 Active Culturee Digestive Health Oral Tablet Chewable Take 1 Tablet by mouth in the morning. 0 Active Venlafaxine HCl ER 225 MG Oral Tablet Extended Release 24 Hour Take 1 Tablet by mouth in the morning. 0 01/22/2023 Active predniSONE 20 MG Oral Tablet (Deltasone) Take 1 Tablet by mouth daily for 5 days, THEN 0.5 Tablets daily for 5 days. every morning with food, as instructed.. 8 Tablet 0 04/05/2023 04/15/2023 Active guaiFENesin ER 600 MG Oral Tablet Extended Release 12 Hour (Mucinex) Take 1 Tablet by mouth in the morning and 1 Tablet before bedtime. 60 Tablet 3 04/05/2023 05/05/2023 Active documented as of this encounter (statuses as of 04/05/2023) Active Problems Patient Care Coordination No te [...] as of this encounter (statuses as of 04/05/2023) Resolved Problems Problem Noted Date Resolved Date [...] with poor reproductive history 010 03/22/2013 Overview: 2000: delivered infant at 38w [place] after being [...] as of this encounter (statuses as of 04/05/2023) Immunizations Name Administration Dates Next Due COVID-19 mRNA, LNP-s, No Pre serve, 2-Dose Series (Moderna) 12/11/2020,11/15/2020 PPD 06/24/2016,06/15/2016,07/30/2008 06/22/2016 Pneumococcal Conjugate Vacci ne, 20-valent ([id number]) 06/25/2022 Pneumococcal Polysaccharide PPV23 (Pneumovax) 05/21/2009 Seasonal [...] 10 Q uit: 11/20/2009 Smokeless Tobacco: Never Tobacco Cessation:Counseling Given: Not Answered Alcohol Use Standard Drinks/Week Comments Not Currently [...] Sign Reading Time Taken Comments Blood Pressure 108/60 04/05/2023 1:11 PM EDT Pulse 116 04/05/2023 1:11 PM EDT Temperature 35.9 C (96.7 F) 04/05/2023 1:11 PM ED T Respiratory Rate 16 04/05/2023 1:11 PM EDT Oxygen Saturation 99% 04/05/2023 1:11 PM EDT Inhaled Oxygen Concentration - - Weight 51.3 kg (113 lb) 04/05/2023 1:11 PM EDT Height 160 cm (5' 3") 04/05/2023 1:11 PM EDT Body Mass Index 20.02 04/05/2023 1:11 PM EDT documented in this encounter Progress Notes * AARON Barnes - 04/05/2023 1:27 PM EDT FOLLOW UP PULMONARY OUTPATIENT CONSULTATION NOTE History of Present Illness: Ana Hollingsworth is a 42 year old female presenting for follow up of COPD. Interim History: Feels worse the last 2-3 weeks due to humidity. Got a migraine on Wednesday- feels tired. No recent Flares of lung disease. Can be ok fatigue and lung-feels ok for 2-3 days then crashes. Feels head is not right. Using albuterol 2-3 times Respiratory Symptoms: Cough: denies Sputum: denies Dyspnea:increased from baseline, Air quality trigger Hemoptysis: denies Wheeze: denies Triggers: humidity Orthopnea: denies Oxygen: denies CPAP/BIPAP use:denies GERD symptoms: denies Sinus Symptoms: denies Cat- Mmrc- Act- Tobacco use: Social History Tobacco Use Smoking Status Former Packs/day: 1.00 Years: 10.00 Pack years: 10.00 Types: Cigarettes Quit date: 11/20/2009 Years since quittin.3 Smokeless Tobacco Never PMH: Patient Active Problem List Diagnosis Code Centrilobular emphysema ([facility]) J43.2 Persistent insomnia G47.00 Patent foramen ovale Q21.12 Polymyalgia ([facility]) M35.3 TON (obstructive sleep apnea) G47.33 COVID-19 long hauler U09.9 Bipolar 1 disorder ([facility]) F31.9 COPD, group B, by GOLD 2017 classification ([facility]) J44.9 Skin lesion L98.9 Atrial septal defect Q21.10 Gastroesophageal reflux disease without esophagitis K21.9 Endometriosis of uterus N80.00 Mild cognitive impairment G31.84 Vaginal discharge N89.8 Current Outpatient Medications Medication Sig Dispense Refill [...] 6 hours. With food. 55 Tablet 0 Trelegy Ellipta 200-62.5-25 MCG/ACT Aerosol Powder Breath Activated (Pcjqfbwuyzq-Jopxjqwtzxcg-Utqibaadkw) Inhale 1 Puff by mouth daily. 180 Each 1 [employer]lle [employer] Oral Tablet Chewable Take 1 Tablet by mouth in the morning. Venlafaxine HCl ER 225 MG Oral Tablet Extended Release 24 Hour Take 1 Tablet by mouth in the morning. No current facility-administered medications for this visit. 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 DELIVERY 2010 COLPOSCPY CERVIX W/BX AND EC 08/27 CYSTOSCOPY N/A 10/26/2022 CYSTOURETHROSCOPY performed by Shawna Cerna MD at [facility] EXC BREAST LESION RADMARK Left 02/28/2019 EXCISION OF BREAST LESION RADIOLOGICAL MARKER performed by Johnny Arias MD at [facility] INCISION OF EARDRUM Tubes in ears at [facility] ([facility] LAPAROSCOPY TOTAL HYSTX, UTERUS 250GM OR LESS TUBE/OVARY Bilateral 10/26/2022 LAPAROSCOPIC HYSTERECTOMY REMOVAL TUBES AND/OR OVARIES FOR UTERUS 250GM OR LESS performed by Shawna Cerna MD at OR [facility] LAPAROSCOPY;GUIDE TRANSHEPATIC 08/17/09 laparoscopic cholecystectomy 08/17/09, [facility], Dr. Arias REMOVAL OF APPENDIX 1990 REMOVE CERVIX CONE W/LOOP ELECTRODE 10/08/03 Dr. Riley, HSIL free margins on LEEP, colpo with HGSIL Review of Systems: Review of Systems Constitutional: Positive for unexpected weight change. Respiratory: Positive for chest tightness and shortness of breath. Negative for cough and wheezing. Cardiovascular: Positive for palpitations. Negative for leg swelling. Gastrointestinal: Negative for abdominal pain. Neurological: Negative for dizziness. Feels increased brain fog Psychiatric/Behavioral: Positive for dysphoric mood. Negative for sleep disturbance. The patient isnervous/anxious. Mood is down lately, tries to be possible Physical Exam: BP 108/60 | Pulse 116 | Temp 35.9 C (96.7 F) (Tympanic) | Resp 16 | Ht 1.6 m (5' 3") | Wt 51.3 kg (113 lb) | LMP 09/07/2022 (Approximate) | SpO2 99% | BMI 20.02 kg/m | BSA 1.51 m Physical Exam HENT: Head: Normocephalic. Nose: Nose normal. Eyes: Conjunctiva/sclera: Conjunctivae normal. Pupils: Pupils are equal, round, and reactive to light. Cardiovascular: Rate and Rhythm: Normal rate and regular rhythm. Pulmonary: Effort: Pulmonary effort is normal. Breath sounds: Decreased breath sounds present. Musculoskeletal: General: Normal range of motion. Cervical back: Normal range of motion. Skin: General: Skin is warm and dry. Nails: There is no clubbing. Neurological: General: No focal deficit present. Mental Status: She is alert and oriented to person, place, and time. Psychiatric: Mood and Affect: Mood is anxious. Behavior: Behavior normal. Thought Content: Thought content normal. Judgment: Judgment normal. Assessment and Plan: 1. COPD exacerbation (HCC) Acute on chronic due to air quality and humidity Add prednisone taper 20 mg x 5 days --->10 mg Add mucinex 600 mg po bid 2. COPD, group B, by GOLD 2017 classification (HCC) Continue trelegy Continue albuterol Consider PFT if not improved Handicap temp placard for now Continue to remain active 3. Centrilobular emphysema (HCC) I have advised the patient to call our office incase of any worsening or new symptoms. I spent a total of 20-29 minutes (exact time 25 mins) on the date of service in preparation, delivery, and documentation of the care provided to Ana Hollingsworth excluding any time spent in the performance of separately billed services. Rajesh, ESTEE, AARON [facility] Pulmonary and Sleep Medicine documented in this encounter Nursing Notes * Hiral Santoro LPN - 04/05/2023 1:15 PM EDT Chief Complaint Patient presents with Follow Up COPD Emphysema Interm History/Respiratory Symptoms Cough: no Hemoptysis: no Sinus Symptoms: no Hospitalizations: no ED Trips: no Triggers: exertion Nocturnal: no CPAP/BiPAP/O2: no Travel Screening Question 04/05/2023 1:07 PM EDT - Filed by Patient Do you have any of the following new or worsening symptoms? None of these Have you recently been in contact with someone who was sick? No / Unsure Myc Visit Accident Related Question Question 04/05/2023 1:07 PM EDT - Filed by Patient Is this visit related to an accident? (i.e work, motor vehicle) No Mmrc Cat Question 04/05/2023 1:15 PM EDT - Filed by Hiral Santoro LPN When do you become breathless? (3) I stop for breath after walking about 100 yards or after a few minutes on level ground How frequently do you cough? (1) Do you have phlegm in your chest? (1) Is your chest tight? (2) How breathless do you become when walking up a hill or steps? (5) - When I walk up a hill or one flight of stairs I am very breathless How limited are you doing activities at home? (5) - I am very limited doing activities at home How confident are you leaving home with your lung condition? (4) How soundly do you sleep? (0) - I sleep soundly How much energy do you have? (3) Total MMRC Score (range: 0 - 4) 3 Total CAT Score (range: 0 - 40) 21 documented in this encounter Plan of Treatment Upcoming Encounters Date Type Specialty Care Team Description 05/12/2023 Imaging Cardiac Studies 05/25/2023 Office Visit Cardiology Kandace Villanueva PA-C [address] [place] [id number] 06/18/2023 Office Visit Family Medicine Elysia Hutchins CRNP [address] [place] [id number] Health Maintenance Due Date Last Done Comments [...] as of this encounter Visit Diagnoses Diagnosis COPD exacerbation (HCC)- Primary Obstructive chronic bronchitis with exacerbation COPD, group B, by GOLD 2017 classification (HCC) Centrilobular emphysema (HCC) Other emphysema documented in this encounter Advance Directives Latest [...] and were consensually agreed upon. Care Teams Casino Investigator Relationship Specialty Start Date End Date Elysia Hutchins CRNP [address] [place] [address] PCP - General Nurse Practitioner 06/25/22 documented as of this encounter
--- OUTSIDE RECORDS SUMMARY | 2023-08-13 00:37 | External Medical Summary ---
Author Name Unknown Address Unknown Organization : Laboratory Report Ordering Provider Test Date Status FATEMEH HOLGUIN 06/18/2023 14:26:58 Final Observation Date Value Abnormality Reference (Units ) Status Thiamine [Moles/volume] in Blood 06/18/2023 14:26:58 126 78-185 (nmol/L) Final Vitamin supplementation with in 24 hours prior to
blood draw may affect the accuracy of the results.
This test was developed and its analytical performance
characteristics have been determined by [facility] [place], [place]. It has
not been cleared or approved by the U.S. Food and Drug
Administration. This assay has been validated pursuant
to the CLIA regulations and is used for clinical
purposes.

Test Performed at:
[facility]
[address]
[place] [address]
Justen Day M.D., Ph.D.,Director of Laboratories Performing Location
--- OUTSIDE RECORDS SUMMARY | 2023-08-13 00:37 | External Medical Summary ---
Author Name Unknown Address Unknown Organization [id number]:[facility]ATORY [facility] - [address] [place] [address] Laboratory Report Ordering Provider Test Date Status FATEMEH HOLGUIN 06/18/2023 14:26:58 Final Observation Date Value Abnormality Reference (Units ) Status Folic Acid 06/18/2023 14:26:58 18.5 >4.5 (ng/ mL) Final Performing Location [facility]AT[facility] - [address] [place] [address]
--- OUTSIDE RECORDS SUMMARY | 2023-08-13 00:37 | External Medical Summary | Summary of Care ---
Author Name Unknown Organization [facility] Address [address] [place] [address] Phone [phone] Care Team Providers Care Information Writer Name Role Phone Elysia Weldon Primary Care Provider Reason for Visit * Reason Onset Date Comments Medication Refill 04/27/2023 Encounter Details Date Type Department Care Team Description 04/27/[address] [facility] [address] [place] [address] Elyisa Weldon CRNP [address] [place] [address] Allergies No known active allergiesdocumented as of this encounter (statuses as of 04/28/2023) Medications Medication Sig Dispensed Refills Start Date [...] mouth in the morning. 0 01/22/2023 Active guaiFENesin ER 600 MG Oral Tablet Extended Release 12 Hour (Mucinex) Take 1 Tablet by mouth in the morning and 1 Tablet before bedtime. 60 Tablet 3 04/05/2023 3 Active Trelegy Ellipta 200-62.5-25 MCG/ACT Aerosol Powder Breath Activated (Fluticasone-Umec lidinium-Vilanter ol) Inhale 1 Puff by mouth daily. 180 Each 1 04/28/2023 Active Trelegy Ellipta 200-62.5-25 MCG/ACT Aerosol Powder Breath Activated (Fluticasone-Umec lidinium-Vilanter ol) Inhale 1 Puff by mouth daily. 180 Each 1 12/16/2022 3 Discontinue d(Refill) documented as of this encounter (statuses as of 04/28/2023) Active Problems Patient Care Coordination No te [...] as of this encounter (statuses as of 04/28/2023) Resolved Problems Problem Noted Date Resolved Date [...] as of this encounter (statuses as of 04/28/2023) Immunizations Name Administration Dates Next Due COVID-19 mRNA, LNP-s, No Pre serve, 2-Dose Series (Moderna) 12/11/2020,11/15/2020 PPD 06/24/2016,06/15/2016,07/30/2008 06/22/2016 Pneumococcal Conjugate Vacci ne, 20-valent ([id number]) 06/25/2022 Pneumococcal Polysaccharide PPV23 (Pneumovax) 05/21/2009 Seasonal [...] encounter Miscellaneous Notes * Telephone Encounter - Saleem Moise RPh - 04/28/2023 3:00 PM EDTSigned Prescriptions: Disp Refills Trelegy Ellipta 200-62.5-25 MCG/ACT Aeroso*180 Ea*1 Sig: Inhale 1 Puff by mouth daily.Authorizing Provider: ELYSIA WELDON User: SALEEM MOISE--- documented in this encounter Plan of Treatment Upcoming Encounters Date Type Specialty Care Team Description 05/12/2023 Imaging Cardiac Studies 05/25/2023 Office Visit Cardiology Kandace Villanueva PA-C [address] [place] [address] 06/18/2023 Office Visit Family Medicine Elysia Weldon CRNP [address] [place] [address] Health Maintenance Due Date Last Done Comments [...] and were consensually agreed upon. Care Teams Information Writer Relationship Specialty Start Date End Date Elysia Weldon CRNP [address] [place] [address] PCP - General Nurse Practitioner 06/25/22 documented as of this encounter
[2023-08-13] MEDS: D5W AND NSS 1,000 ML IV SCH ×2 (05:33→17:35)
[2023-08-13] MEDS: PREGABALIN 50 MG CAP PO SCH ×2 (07:29→20:11)
[2023-08-13] MEDS: VENLAFAXINE HCL XR 75 MG CAPXR PO SCH (07:30)
[2023-08-13] MEDS: lamoTRIgine 100 MG TAB PO SCH (07:30)
[2023-08-13] MEDS: DOCUSATE SODIUM 100 MG CAP PO SCH ×2 (07:30→19:19)
[2023-08-13 08:06] LABS: Basophils # (auto) 0.05 K/uL (0.00-0.20); Hematocrit (blood only) 38.2 % (37.0-47.0); Immature Granulocytes # (auto) 0.01 K/uL (0.01-0.20); Immature Granulocytes % (auto) 0.2 %; Lymphocytes # (auto) 1.96 K/uL (1.20-3.40); Lymphocytes % (auto) 39.4 %; Mean Corpuscular Hemoglobin 28.4 pg (25.0-34.0); Mean Corpuscular Hgb Conc 31.4 g/dL (32.0-36.0); Mean Corpuscular Volume 90.3 fL (80.0-100.0); Mean Platelet Volume 9.1 fL (9.4-12.4); Monocytes # (auto) 0.47 K/uL (0.11-0.59); Monocytes % (auto) 9.4 %; Neutrophils # (auto) 2.39 K/uL (1.40-6.50); Platelet Count 315 K/uL (130-400); RDW Coefficient of Variation 12.9 % (11.5-14.5); RDW Standard Deviation 42.6 fL (36.4-46.3); Red Blood Count 4.23 M/uL (4.20-5.40); White Blood Count 4.98 K/ul (4.8-10.8)
[2023-08-13 08:28] LABS: Albumin Globulin Ratio 1.6 (0.9-2); BUN Creatinine Ratio 6.1 (10-20); Bilirubin,Total 0.5 mg/dl (0.2-1.0); Calcium 8.7 mg/dl (8.6-10.3); Est GFR (African American) 124.5 ml/min; Est GFR (Non-African American) 107.4 ml/min; Globulin 2.5 gm/dl (2.5-4.0); Magnesium 1.9 mg/dl (1.7-2.4); Phosphorus 2.8 mg/dl (2.5-4.9); Potassium 3.8 mmol/L (3.5-5.1); Total Protein 6.5 gm/dl (6.0-8.3)
--- NOTE | 2023-08-13 08:58 | Surgery Progress Note ---
Date of Service August 13, 2023 Assessment & Plan (1) Small bowel obstruction: Plan: Pt tolerating clears ,advance to full liquids, CRISTINA Denies n/v, fever, chills, CP passing flatus and had BM yesterday abdomen soft, nontender, nondistended, denies abdominal pain VSS CBC and BMP WNL From a surgical perspective if patient continues to have BMs, pass flatus and tolerate a diet she may be d/c home, will defer this to the hospitalist. At this point No need for pt to f/u with general surgery unless she has concerns, we will sign off at this time. call with questions Thank you for allowing us to participated in the care of the patient. Admission and Anticipated Discharge Date Admission Date: August 11, 2023 Subjective Pt tolerating clears Denies n/v, fever, chills, CP passing flatus and had BM yesterday Review of Systems Constitutional: no fever and no chills Cardiovascular: no chest pain Gastrointestinal: no abdominal pain, no bloating, no nausea and no vomiting Genitourinary: no problem reported Musculoskeletal: no muscle weakness Physical Exam Physical Exam: alert oriented, pleasant Constitutional: well developed, cooperative and comfortable; no acute distress Respiratory: normal respiratory effort and able to speak in complete sentences; no respiratory distress Cardiovascular: Rate/Rhythm: regular rate Gastrointestinal (Abdomen): Inspection/Auscultation: abdomen normal to inspection; abdomen not distended Percussion/Palpation: abdomen soft; abdomen nontender, no guarding and abdomen not rigid Psychiatric: A+Ox3, euthymic affect Results & Data Vital Signs (Past 12 Hours) Vital Signs Temp Pulse Resp BP BP Pulse Ox O2 Del Method 08/13/23 07:24 98.4 F 89 16 108/70 100 Room Air 08/12/23 22:31 98.6 F 90 18 112/71 98 Room Air PG Care Time/CCT Total # of Minutes Spent Total Time Spent with Patient: Total time spent is greater than 50% in coordination of care (as documented) at patient's floor/unit and/or counseling patient: Coding Level of Care Code 27986 SUB INP/OBS CARE 1/25MIN Diagnoses Small bowel obstruction K56.609
[2023-08-13] MEDS: ENOXAPARIN INJ 40 MG/0.4 ML SYR SQ SCH (09:32)
--- NOTE | 2023-08-13 11:49 | Hospitalist Progress Note ---
Date of Service August 13, 2023 Assessment & Plan (1) Small bowel obstruction: Plan: 42-year-old female past med significant for COPD, mild obstructive sleep apnea, patent foramen ovale, atrial septal defect, GERD, endometriosis of uterus, polymyalgia, peripheral neuropathy, bipolar 1 disorder, COVID-19 long-hauler, mild cognitive impairment presents with abdominal pain 7/10 in severity and found to have small bowel obstruction. Small bowel obstruction Abdominal pain History of bowel surgeries CT scan showing ileus versus low-grade small bowel obstruction IV fluids with dextrose IV Dilaudid as needed IV Zofran as needed Pt would like to try to eat- advanced to full liquids on 08/13 general surgery consulted- appreciate recs History of COPD Continue home inhalers History of bipolar disorder and depression Continue home medications CODE STATUS: Full code DVT prophylaxis: Lovenox Diet: Advanced to clears Dispo: Home once symptoms improve Admission and Anticipated Discharge Date Admission Date: August 11, 2023 Subjective Seen in AM. Requesting Rachel abbott. States abd pain less and tolerating the clears she is on. Passing gas and now having watery stools. Review of Systems Review of Systems: All systems reviewed & are unremarkable except as noted in Subjective Physical Exam Physical Exam: General: Alert, oriented. No acute distress Skin: No noted rashes or bruises Psych: Appropriate mood and affect Neuro: No gross deficits HEENT: NC/AT Chest: Nontender to palpation. CV: RRR, Normal s1, s2. No murmurs appreciated Resp: Breath sounds clear bilaterally, no increased effort of breathing. Abdomen: BS present, Soft, not as tender Extremities: No edema in lower extremities bilaterally. Results & Data Results & Data Vital Signs (Past 12 Hours) Vital Signs Temp Pulse Resp BP Pulse Ox O2 Del Method 08/13/23 07:24 36.9 C 89 16 108/70 100 Room Air
[2023-08-13] MEDS: UMECLIDINIUM/VILANTEROL 62.5/25MCG 7 PUFFS/INHALER INH SCH (15:07)
[2023-08-13] MEDS: FLUTICASONE FUROATE 200MCG 14 PUFFS/INHALER INH SCH (15:07)
[2023-08-14] MEDS: D5W AND NSS 1,000 ML IV SCH ×2 (05:07→19:26)
[2023-08-14 07:48] LABS: Basophils # (auto) 0.05 K/uL (0.00-0.20); Basophils % (auto) 0.9 %; Eosinophils # (auto) 0.12 K/uL (0.00-0.50); Eosinophils % (auto) 2.2 %; Hematocrit (blood only) 37.4 % (37.0-47.0); Hemoglobin 12.4 g/dl (12.0-16.0); Immature Granulocytes # (auto) 0.01 K/uL (0.01-0.20); Immature Granulocytes % (auto) 0.2 %; Lymphocytes # (auto) 1.99 K/uL (1.20-3.40); Lymphocytes % (auto) 36.5 %; Mean Corpuscular Hemoglobin 29.2 pg (25.0-34.0); Mean Corpuscular Hgb Conc 33.2 g/dL (32.0-36.0); Mean Platelet Volume 9.3 fL (9.4-12.4); Monocytes # (auto) 0.58 K/uL (0.11-0.59); Monocytes % (auto) 10.6 %; Neutrophils % (auto) 49.6 %; Platelet Count 313 K/uL (130-400); RDW Coefficient of Variation 13.2 % (11.5-14.5); RDW Standard Deviation 42.4 fL (36.4-46.3); Red Blood Count 4.25 M/uL (4.20-5.40); White Blood Count 5.45 K/ul (4.8-10.8)
[2023-08-14] MEDS: PREGABALIN 50 MG CAP PO SCH ×2 (08:17→20:00)
[2023-08-14] MEDS: VENLAFAXINE HCL XR 75 MG CAPXR PO SCH (08:18)
[2023-08-14] MEDS: lamoTRIgine 100 MG TAB PO SCH (08:19)
[2023-08-14] MEDS: DOCUSATE SODIUM 100 MG CAP PO SCH ×2 (08:19→19:26)
[2023-08-14] MEDS: UMECLIDINIUM/VILANTEROL 62.5/25MCG 7 PUFFS/INHALER INH SCH (08:20)
[2023-08-14] MEDS: FLUTICASONE FUROATE 200MCG 14 PUFFS/INHALER INH SCH (08:21)
[2023-08-14 08:27] LABS: Albumin Level 4.1 gm/dl (3.4-5.0); Bilirubin,Total 0.4 mg/dl (0.2-1.0)
[2023-08-14 08:33] LABS: Albumin Globulin Ratio 1.6 (0.9-2); BUN Creatinine Ratio 5.6 (10-20); Creatinine Clr Calc Pharmacy 83.6 ml/min; Est GFR (African American) 120.1 ml/min; Est GFR (Non-African American) 103.6 ml/min; Globulin 2.6 gm/dl (2.5-4.0); Phosphorus 3.4 mg/dl (2.5-4.9); Total Protein 6.7 gm/dl (6.0-8.3)
[2023-08-14] MEDS: ENOXAPARIN INJ 40 MG/0.4 ML SYR SQ SCH (11:33)
--- NOTE | 2023-08-14 14:49 | Hospitalist Progress Note ---
Date of Service August 14, 2023 Assessment & Plan (1) Small bowel obstruction: Plan: 42-year-old female past med significant for COPD, mild obstructive sleep apnea, patent foramen ovale, atrial septal defect, GERD, endometriosis of uterus, polymyalgia, peripheral neuropathy, bipolar 1 disorder, COVID-19 long-hauler, mild cognitive impairment presents with abdominal pain 7/10 in severity and found to have small bowel obstruction. Small bowel obstruction Abdominal pain History of bowel surgeries CT scan showing ileus versus low-grade small bowel obstruction IV fluids with dextrose IV Dilaudid as needed IV Zofran as needed Pt advanced to full liquids on 08/13- notes she is scared to advance to solids due to pain general surgery consulted- appreciate recs History of COPD Continue home inhalers History of bipolar disorder and depression Continue home medications CODE STATUS: Full code DVT prophylaxis: Lovenox Diet: Advanced to clears Dispo: Home once symptoms improve Admission and Anticipated Discharge Date Admission Date: August 11, 2023 Subjective Seen in AM. States that she feels like her symptoms are improving but is scared to advance her diet. No BM yet today but passing gas. Tolerating the full liquid diet. Review of Systems Review of Systems: All systems reviewed & are unremarkable except as noted in Subjective Physical Exam Physical Exam: General: Alert, oriented. No acute distress Skin: No noted rashes or bruises Psych: Appropriate mood and affect Neuro: No gross deficits HEENT: NC/AT Chest: Nontender to palpation. CV: RRR, Normal s1, s2. No murmurs appreciated Resp: Breath sounds clear bilaterally, no increased effort of breathing. Abdomen: BS present, Soft, not as tender Extremities: No edema in lower extremities bilaterally. Results & Data Results & Data Vital Signs (Past 12 Hours) Vital Signs Temp Pulse Resp BP Pulse Ox O2 Del Method 08/14/23 08:00 Room Air 08/14/23 07:22 36.7 C 85 16 107/70 100 Room Air
[2023-08-15] MEDS: D5W AND NSS 1,000 ML IV SCH (05:03)
[2023-08-15] MEDS: VENLAFAXINE HCL XR 75 MG CAPXR PO SCH (08:01)
[2023-08-15] MEDS: lamoTRIgine 100 MG TAB PO SCH (08:01)
[2023-08-15] MEDS: UMECLIDINIUM/VILANTEROL 62.5/25MCG 7 PUFFS/INHALER INH SCH (08:02)
[2023-08-15] MEDS: FLUTICASONE FUROATE 200MCG 14 PUFFS/INHALER INH SCH (08:03)
[2023-08-15] MEDS: ACETAMINOPHEN 500 MG TAB PO PRN (08:04)
[2023-08-15] MEDS: PREGABALIN 50 MG CAP PO SCH (08:05)
[2023-08-15] MEDS: DOCUSATE SODIUM 100 MG CAP PO SCH (08:06)
[2023-08-15 08:21] LABS: Basophils # (auto) 0.05 K/uL (0.00-0.20); Basophils % (auto) 0.5 %; Eosinophils # (auto) 0.13 K/uL (0.00-0.50); Eosinophils % (auto) 1.3 %; Hematocrit (blood only) 41.3 % (37.0-47.0); Immature Granulocytes # (auto) 0.03 K/uL (0.01-0.20); Immature Granulocytes % (auto) 0.3 %; Lymphocytes # (auto) 1.85 K/uL (1.20-3.40); Lymphocytes % (auto) 18.6 %; Mean Corpuscular Hemoglobin 28.4 pg (25.0-34.0); Mean Corpuscular Hgb Conc 31.5 g/dL (32.0-36.0); Mean Corpuscular Volume 90.2 fL (80.0-100.0); Mean Platelet Volume 9.4 fL (9.4-12.4); Monocytes # (auto) 0.86 K/uL (0.11-0.59); Monocytes % (auto) 8.6 %; Neutrophils # (auto) 7.03 K/uL (1.40-6.50); Neutrophils % (auto) 70.7 %; Platelet Count 361 K/uL (130-400); RDW Coefficient of Variation 12.9 % (11.5-14.5); RDW Standard Deviation 42.5 fL (36.4-46.3); Red Blood Count 4.58 M/uL (4.20-5.40); White Blood Count 9.95 K/ul (4.8-10.8)
[2023-08-15 08:31] LABS: Albumin Globulin Ratio 1.5 (0.9-2); Albumin Level 4.3 gm/dl (3.4-5.0); BUN Creatinine Ratio 6.1 (10-20); Bilirubin,Total 0.4 mg/dl (0.2-1.0); Calcium 9.3 mg/dl (8.6-10.3); Est GFR (African American) 124.5 ml/min; Est GFR (Non-African American) 107.4 ml/min; Globulin 2.9 gm/dl (2.5-4.0); Magnesium 1.9 mg/dl (1.7-2.4); Phosphorus 3.7 mg/dl (2.5-4.9); Potassium 4.1 mmol/L (3.5-5.1); Total Protein 7.2 gm/dl (6.0-8.3)
--- NOTE | 2023-08-15 09:47 | XRay Report ---
KUB HISTORY: Generalized abdominal pain. COMPARISON: KUB 08/12/2023. Abdomen and pelvis CT 08/11/2023. FINDINGS: No dilated loops of small bowel identified. There is mild fecal retention. Surgical clips w ithin the right upper quadrant and left side the abdomen again noted. The lung bases are clear. No r enal calculi. No ureteral calculi. No pneumoperitoneum or pneumatosis. IMPRESSION: No dilated loops of small bowel identified. ACT 112: Negative or not required by law. Electronically signed by: Justen Calvo M.D. 08/15/2023 9:46 AM
[2023-08-15] MEDS: ENOXAPARIN INJ 40 MG/0.4 ML SYR SQ SCH (11:05)
--- NOTE | 2023-08-15 13:09 | Discharge Summary ---
Discharge Summary Date of Service August 15, 2023 Notes For Next Care Provider Close follow up of abdominal symptoms Medication Changes From Visit None Admission HPI Per Admitting Provider 42-year-old female past med history significant for COPD, mild obstructive sleep apnea, patent foramen ovale, atrial septal defect, GERD, endometriosis of uterus, polymyalgia, peripheral neuropathy, bipolar 1 disorder, COVID-19 long- hauler, mild cognitive impairment presents with abdominal pain 7/10 in severity and found to have small bowel obstruction. Patient states pain currently is 4/10 in severity. Had episodes of nausea and vomiting. Last bowel movement was yesterday. Denies any fevers. Currently no headache. Currently no earache or runny nose or sore throat. No cough. No chest pain or shortness of breath. Normal bladder movements. Resting comfortably. Hemodynamic stable. Past medical history. As mentioned above Past surgical history. induced by D&E. Left breast lesion excision, , colposcopy, cystoscopy, laparoscopic hysteroscopy, laparoscopic cholecystectomy, appendectomy, removal of cervix cone With loop electrode. Social history. Quit smoking in 2009. Smoked 1 pack a day for 10 years. Quit alcohol in 2000. No drug use. Family history. Mother had triple negative breast cancer. Hypertension. Depre ssion. Father had cancer. Admission Exam Per Admitting Provider General- Not in distress. Head- atraumatic Eyes- PERRL. ENT- oropharynx clear Neck- supple, no JVD. Lungs- clear to auscultation no wheezing or crackles. Heart- regular rhythm; no murmur, no gallop. Abdomen- sluggish bowel sounds, soft, nontender, no distension. Extremities- no pretibial edema, no erythema. Neuro- alert, oriented x 3; PERRL, no facial palsy; no dysarthria; moves extremities. Skin- warm & dry Principal Dx & Hospital Course #1 = Principal Diagnosis (1) Small bowel obstruction: 42-year-old female with past med Hx significant for COPD, mild obstructive sleep apnea, patent foramen ovale, atrial septal defect, GERD, endometriosis of uterus, polymyalgia, peripheral neuropathy, bipolar 1 disorder, COVID-19 long- hauler, mild cognitive impairment who presented with abdominal pain and found to have a small bowel obstruction. Small bowel obstruction Presented with abdominal pain History of bowel surgeries CT scan showing ileus versus low-grade small bowel obstruction IV fluids with dextrose until diet was advanced IV Dilaudid as needed IV Zofran as needed Diet advanced, tolerating soft solids on discharge without pain, was having BMs and passing flatus general surgery consulted- appreciate recs recommending discharge since pt passing flatus, having BMs and tolerating diet. KUB on day of discharge with no noted SBO Close pcp follow up after discharge. History of COPD Continue home inhalers History of bipolar disorder and depression Continue home medications Discharge Exam General: Alert, oriented. No acute distress Skin: No noted rashes or bruises Psych: Appropriate mood and affect Neuro: No gross deficits HEENT: NC/AT Chest: Nontender to palpation. CV: RRR, Normal s1, s2. No murmurs appreciated Resp: Breath sounds clear bilaterally, no increased effort of breathing. Abdomen: BS present, Soft, nontender Extremities: No edema in lower extremities bilaterally. Updated Medication List Medication Instructions Recorded Confirmed Type lamotrigine 100 mg tablet 100 mg PO QAM 07/31/19 08/11/23 History albuterol sulfate 90 mcg/actuation 1 - 2 puff inhalation DIRECTED 01/30/21 08/11/23 History aerosol inhaler PRN Shortness Of Breath lorazepam 0.5 mg tablet 0.5 mg PO DIRECTED PRN Anxiety 01/30/21 08/11/23 History venlafaxine 225 mg tablet,extended 225 mg PO QAM 01/30/21 08/11/23 History release 24 hr Culturelle Women's 4-In-1 1 cap PO QAM 08/11/23 08/11/23 History Vitafusion Women's Multivitamin 2 ea PO QAM 08/11/23 08/11/23 History Gummies cholecalciferol (vitamin D3) 1,250 50,000 unit PO WK 08/11/23 08/11/23 History mcg (50,000 unit) capsule fluticasone fur. 200 mcg-umeclid 1 inh inhalation QAM 08/11/23 08/11/23 History 62.5 mcg-vilant 25 mcg inhalat.powder (Trelegy Ellipta) iron,carbonyl 65 mg-vitamin C 125 1 tab PO DAILY 08/11/23 08/11/23 History mg tablet,delayed release (Vitron-C) pregabalin 50 mg capsule 50 mg PO BID 08/11/23 08/11/23 History Hospital Stay Data Consultations 08/11/23 05:52 ED Decision to Admit Stat 08/11/23 06:19 Consult General Surgery Stat 08/11/23 09:09 Consult General Surgery Routine Diagnostic Imagining Performed 08/11/23 04:33 CT abd pelvis IV con only Stat Abdomen/Pelvis CT 08/11/23 04:33 Exam(s): CT ABDOMEN + PELVIS With Contrast IV Amt: 91 ml optiray 320 EXAM: CT Abdomen and Pelvis With Intravenous Contrast CLINICAL HISTORY: Reason for exam: abd pain w/ jay and appy. TECHNIQUE: Axial computed tomography images of the abdomen and pelvis with intravenous contrast. Automated exposure control was utilized for the study. A dose lowering technique was utilized adhering to the principles of ALARA. CONTRAST: Patient received 91 ml optiray 320 of IV contrast COMPARISON: No relevant prior studies available. FINDINGS: Lung bases: Unremarkable. No mass. No consolidation. ABDOMEN: Liver: Unremarkable. No mass. Gallbladder and bile ducts: Cholecystectomy. No ductal dilation. Pancreas: Unremarkable. No mass. No ductal dilation. Spleen: Unremarkable. No splenomegaly. Adrenals: Unremarkable. No mass. Kidneys and ureters: Unremarkable. No solid mass. No hydronephrosis. Stomach and bowel: Generous amount of fluid seen in the small bowel loops seen in the abdomen, the caliber of which measures up to 2.6 cm in diameter. Moderate amount of fecal matter seen in the colonic lumen. No obstruction. No mucosal thickening. PELVIS: Appendix: No findings to suggest acute appendicitis. Bladder: Unremarkable. No mass. Reproductive: Unremarkable as visualized. ABDOMEN and PELVIS: Intraperitoneal space: Small volume of abdominal and pelvic ascites. No free air. Bones/joints: No acute fracture. No dislocation. Soft tissues: Unremarkable. Vasculature: Unremarkable. No abdominal aortic aneurysm. Lymph nodes: Unremarkable. No enlarged lymph nodes. IMPRESSION: 1. Generous amount of fluid in small bowel loops without any definite transition point. This could be due to ileus are could be related to low- grade bowel obstruction 2. Moderate amount of fecal matter in the colon can be correlated with history of constipation. 3. Small ascites Electronically signed by: Faizan Maria MD 08/11/23 05:50 AM KUB X-Ray 08/12/23 13:30 XR KUB/Abdomen 1 view CLINICAL HISTORY: sbo TECHNIQUE: 1 view of the abdomen was obtained. Comparison: Comparison is made to CT abdomen pelvis 08/11/2023 FINDINGS: Cholecystomy clips are seen in the right upper quadrant. The osseous structures are grossly unremarkable. There is a paucity of bowel gas limiting evaluation for obstruction. Small stool burden is seen. IMPRESSION: Limited evaluation due to a paucity of small bowel gas, small bowel obstruction cannot be. ACT 112: Negative or not required by law. Electronically signed by: Deven Gabriel M.D. 08/12/2023 4:02 PM KUB X-Ray 08/15/23 08:34 KUB HISTORY: Generalized abdominal pain. COMPARISON: KUB 08/12/2023. Abdomen and pelvis CT 08/11/2023. FINDINGS: No dilated loops of small bowel identified. There is mild fecal retention. Surgical clips within the right upper quadrant and left side the abdomen again noted. The lung bases are clear. No renal calculi. No ureteral calculi. No pneumoperitoneum or pneumatosis. IMPRESSION: No dilated loops of small bowel identified. ACT 112: Negative or not required by law. Electronically signed by: Justen Calvo M.D. 08/15/2023 9:46 AM Discharge Instructions Given to Patient (Per Discharging Provider) Crystal, You were admitted with abdominal pain especially when you ate and there was some concern that you might have had a small bowel obstruction. Your symptoms gradually improved and we advanced your diet slowly which you seemed to tolerate well. You are passing gas and having bowel movements which are good signs that things are moving in your bowels. Please keep close follow up with your primary care provider after discharge for continued monitoring of your symptoms. Should your symptoms worsen or return, please do not hesitate to return to the emergency room. Total Time Total Time Spent Total Time Spent (In Minutes): > 30 minutes
== END 2023-08-15 14:33 | disposition home or self-care (01) | DRG 390 ==
LOC: ED 04:12 → 3E 06:19

== ENCOUNTER 2024-08-22 14:47 | Inpatient (IN) ==
--- NOTE | 2024-08-22 15:06 | Emergency Department Note ---
Impression & Plan Abdominal pain, Elevated AST (SGOT), S/P cholecystectomy ED Provider Note NAME: VICTORINO NAVAS AGE: 43 SEX: F : 1980 ARRIVES VIA: Ambulance INFORMANT: Patient ED PROVIDER(S): Osmar Latham MD CHIEF COMPLAINT: Abdominal pain PLAN: Disposition: Admit MEDICAL DECISION MAKING: The patient is a pleasant 43-year-old woman with a past medical history of partial small bowel obstruction in the past, history of cholecystectomy, history of appendectomy, anxiety, COVID-19 who presents emergency department via EMS for evaluation of acute onset upper abdominal pain that occurred approximately 2 hours prior to arrival. The patient reports that she was sitting in a chair when symptoms happened. She reports she had eaten over 2 hours prior to that. She reports feeling in her normal state of health this morning and denies any recent cough congestion, fevers. She has any shortness of breath. She reports she did move her bowels when the pain came on and this was formed but only a small amount. She has any urinary symptoms. On evaluation the patient is uncomfortable but no acute distress, with heart rate in the 110s and blood pressure 130s to 100s and vital signs otherwise stable. She appears clinically dry. She has mild epigastric discomfort without discrete tenderness. EKG without overt acute ischemia. CXR negative for acute cardiopulmonary process per my personal preliminary review/interpretation. WBC, H/H and platelets. Chemistry without metabolic acidosis. Potassium 3.4 and electrolytes otherwise unremarkable. AST is mildly elevated and is approximate 2 prior and LFTs are otherwise normal including normal total and direct bilirubin and alk phos. High senstivity troponin 2.5, within normal limits. Lipase is normal. hCG is negative. CT of the abd pelvis was performed and demonstrates status postcholecystectomy with description of choledocholithiasis with intra and extrahepatic biliary and pancreatic ductal dilatation the CBD is reported to be dilated to 1.5 cm and contains debris and small stones. Additional description is made of scattered stool throughout the colon without obstruction. Given the patient's unremarkable LFTs unclear if CBD findings are acute and related to the patient's symptoms at this time. However due to persistence of the patient's symptoms she does agree plan for admission for further management. Patient was treated with IV fluid hydration, IV APAP, famotidine and morphine. She did experience some improvement in the interval but then pain returned. Additional treatment with dicyclomine and Carafate provided. Case was discussed with Dr. Ryan, [facility] hospitalist, who will evaluate the patient for admission. Triage Nursing notes reviewed and agree them. Prior/external medical records reviewed Vital Signs: reviewed Differential diagnosis: Gastroenteritis, food borne illness, infections, appendicitis, diverticulitis, inflammatory bowel disease, obstruction, GI bleed, biliary pathology, volvulus, as well as other pathologies. ER treatment provided: See below. Diagnostics interpreted by me: ECG: None Cardiac Monitoring: An order for continuous cardiac monitoring was placed and demonstrated Laboratory studies: See below Imaging studies: See below Consultation(s): Case was discussed with Dr. Ryan, [facility] hospitalist, who will evaluate the patient for admission. HPI: The patient is a pleasant 43-year-old woman with a past medical history of partial small bowel obstruction in the past, history of cholecystectomy, history of appendectomy, anxiety, COVID-19 who presents emergency department via EMS for evaluation of acute onset upper abdominal pain that occurred approximately 2 hours prior to arrival. The patient reports that she was sitting in a chair when symptoms happened. She reports she had eaten over 2 hours prior to that. She reports feeling in her normal state of health this morning and denies any recent cough congestion, fevers. She has any shortness of breath. She reports she did move her bowels when the pain came on and this was formed but only a small amount. She has any urinary symptoms. ROS: See above HPI for pertinent positives & negatives. A total of 10 systems reviewed and were otherwise negative. VITALS:See Below PHYSICAL EXAMINATION: GENERAL: Awake, alert, well-appearing, in no distress HENT: Normocephalic, atraumatic. Oropharynx unremarkable. EYES: Normal conjunctiva. Sclera non-icteric. NECK: Supple. No nuchal rigidity. FROM. No JVD. RESPIRATORY: Clear to auscultation. CARDIAC: Regular rate, normal rhythm. Extremities warm and well perfused. Pulses equal. ABDOMEN: Soft, non-distended. No tenderness to palpation. No rebound or guarding. No masses. RECTAL: Deferred. MUSCULOSKELETAL: Chest examination reveals no tenderness. The back is symmetrical on inspection without obvious abnormality. There is no CVA tenderness to palpation. No joint edema. LOWER EXTREMITIES: Calves are equal size bilaterally and non-tender. No edema. No discoloration. NEURO: Normal sensorium. No sensory or motor deficits noted. SKIN: No rash or jaundice noted. ED COURSE: Times/Reassessments: Procedures: None PDMP: Reviewed and no issues Critical Care: None Osmar Latham MD Past Med/Surg History Problem List (Updated 08/22/24 @ 22:52 by Osmar Latham MD) S/P cholecystectomy (Acute) Elevated AST (SGOT) (Acute) Abdominal pain (Acute) Small bowel obstruction (Acute) Abdominal pain (Acute) Cervical muscle strain (Acute) Surgical History (Updated 08/22/24 @ 22:52 by Osmar Latham MD) Hx of breast biopsy Family History Other Breast cancer Social History Smoking Status: Never smoker Hx Alcohol Use: No Hx Substance Use: No Preferred Language: Sami Communication Ability: Effective Launch Steward Required: No Beliefs That Will Affect Care: None marital status: Current Living Situation: Significant Other current occupational status: employed Other Information That Helps Us Care for You: No Feels Safe at Home: Yes Safety Concerns: Feels Safe At This Time Assistive Devices: None Allergies Allergies Allergy/AdvReac Type Severity Reaction Status Date / Time No Known Allergies Allergy Verified 10/11/21 20:25 Home Meds Home Medications Medication Instructions Recorded Confirmed lamotrigine 100 mg tablet 150 mg PO QAM 07/31/19 08/22/24 albuterol sulfate 90 mcg/actuation 1 - 2 puff inhalation DIRECTED 01/30/21 08/22/24 aerosol inhaler PRN Shortness Of Breath venlafaxine 225 mg tablet,extended 225 mg PO QAM 01/30/21 08/22/24 release 24 hr Culturelle Women's 4-In-1 1 cap PO QAM 08/11/23 08/22/24 Vitafusion Women's Multivitamin 2 ea PO QAM 08/11/23 08/22/24 Gummies cholecalciferol (vitamin D3) 1,250 50,000 unit PO UD 08/11/23 08/22/24 mcg (50,000 unit) capsule iron,carbonyl 65 mg-vitamin C 125 1 tab PO DAILY 08/11/23 08/22/24 mg tablet,delayed release (Vitron-C) pregabalin 50 mg capsule 100 mg PO DAILY 08/11/23 08/22/24 rosuvastatin 20 mg tablet 20 mg PO DAILY 08/22/24 08/22/24 Results & Data (ED) Vital Signs Vital Signs - 24 hr 08/22/24 14:46 08/22/24 14:59 08/22/24 15:03 Temperature 36.5 C Temperature Source Oral Pulse Rate 112 H Pulse Rate [Finger] Pulse Rate from SpO2 Sensor Pulse Rhythm [Finger] Pulse Strength [Finger] Respiratory Rate 20 Respiratory Effort / Characteristics Non-Labored Spontaneous Respiratory Depth Normal Blood Pressure 135/108 H Blood Pressure [Left Arm] Blood Pressure Mean 117 Blood Pressure Mean [Left Arm] Pulse Oximetry 97 Oxygen Delivery Method Room Air Room Air Room Air Sepsis Recent Fever Within 48 Hours No Sepsis New/Unexplained Change in Mental Status No Sepsis Action Taken by Nursing No Action Required 08/22/24 15:12 08/22/24 16:00 08/22/24 16:21 Temperature Temperature Source Pulse Rate 107 H 100 H 103 H Pulse Rate [Finger] Pulse Rate from SpO2 Sensor 106 H 101 H 107 H Pulse Rhythm [Finger] Pulse Strength [Finger] Respiratory Rate 24 40 H 21 Respiratory Effort / Characteristics Respiratory Depth Blood Pressure 135/108 H 115/83 119/76 Blood Pressure [Left Arm] Blood Pressure Mean 117 93 90 Blood Pressure Mean [Left Arm] Pulse Oximetry 97 96 98 Oxygen Delivery Method Sepsis Recent Fever Within 48 Hours Sepsis New/Unexplained Change in Mental Status Sepsis Action Taken by Nursing 08/22/24 16:41 08/22/24 17:00 08/22/24 17:30 Temperature Temperature Source Pulse Rate 106 H 99 H 105 H Pulse Rate [Finger] Pulse Rate from SpO2 Sensor 98 H Pulse Rhythm [Finger] Pulse Strength [Finger] Respiratory Rate 22 16 Respiratory Effort / Characteristics Respiratory Depth Blood Pressure 120/72 108/68 Blood Pressure [Left Arm] Blood Pressure Mean 87 81 Blood Pressure Mean [Left Arm] Pulse Oximetry 95 98 Oxygen Delivery Method Sepsis Recent Fever Within 48 Hours Sepsis New/Unexplained Change in Mental Status Sepsis Action Taken by Nursing 08/22/24 18:00 08/22/24 18:33 08/22/24 19:00 Temperature Temperature Source Pulse Rate 93 H 83 86 Pulse Rate [Finger] Pulse Rate from SpO2 Sensor 95 H 84 89 Pulse Rhythm [Finger] Pulse Strength [Finger] Respiratory Rate 17 17 17 Respiratory Effort / Characteristics Respiratory Depth Blood Pressure 117/78 119/79 110/80 Blood Pressure [Left Arm] Blood Pressure Mean 91 92 90 Blood Pressure Mean [Left Arm] Pulse Oximetry 92 98 97 Oxygen Delivery Method Sepsis Recent Fever Within 48 Hours Sepsis New/Unexplained Change in Mental Status Sepsis Action Taken by Nursing 08/22/24 19:21 08/22/24 20:00 08/22/24 20:00 Temperature Temperature Source Pulse Rate 79 87 Pulse Rate [Finger] 89 Pulse Rate from SpO2 Sensor 79 86 Pulse Rhythm [Finger] Regular Pulse Strength [Finger] Normal Respiratory Rate 20 18 14 Respiratory Effort / Characteristics Non-Labored Spontaneous Respiratory Depth Normal Blood Pressure 109/73 109/75 Blood Pressure [Left Arm] 109/75 Blood Pressure Mean 85 86 Blood Pressure Mean [Left Arm] 86 Pulse Oximetry 99 97 95 Oxygen Delivery Method Room Air Sepsis Recent Fever Within 48 Hours Sepsis New/Unexplained Change in Mental Status Sepsis Action Taken by Nursing 08/22/24 20:30 08/22/24 20:37 08/22/24 21:00 Temperature Temperature Source Pulse Rate 77 77 82 Pulse Rate [Finger] Pulse Rate from SpO2 Sensor 78 81 Pulse Rhythm [Finger] Pulse Strength [Finger] Respiratory Rate 19 17 Respiratory Effort / Characteristics Respiratory Depth Blood Pressure 105/76 108/65 Blood Pressure [Left Arm] Blood Pressure Mean 85 79 Blood Pressure Mean [Left Arm] Pulse Oximetry 96 97 Oxygen Delivery Method Sepsis Recent Fever Within 48 Hours Sepsis New/Unexplained Change in Mental Status Sepsis Action Taken by Nursing 08/22/24 22:06 08/22/24 22:26 08/22/24 22:27 Temperature Temperature Source Pulse Rate 88 86 Pulse Rate [Finger] 84 Pulse Rate from SpO2 Sensor 84 88 Pulse Rhythm [Finger] Pulse Strength [Finger] Respiratory Rate 21 18 16 Respiratory Effort / Characteristics Respiratory Depth Blood Pressure 104/69 117/62 Blood Pressure [Left Arm] 117/62 Blood Pressure Mean 80 80 Blood Pressure Mean [Left Arm] 80 Pulse Oximetry 98 97 92 Oxygen Delivery Method Room Air Sepsis Recent Fever Within 48 Hours Sepsis New/Unexplained Change in Mental Status Sepsis Action Taken by Nursing Laboratory Data Attestation: I reviewed the patient's lab results. 08/22/24 14:53 08/22/24 14:53 Lab Results 08/22/24 Range/Units 14:53 WBC 5.99 (4.8-10.8) K/ul RBC 4.42 (4.20-5.40) M/uL Hgb 12.6 (12.0-16.0) g/dl Hct 38.5 (37.0-47.0) % MCV 87.1 (80.0-100.0) fL MCH 28.5 (25.0-34.0) pg MCHC 32.7 (32.0-36.0) g/dL RDW Std Deviation 42.9 (36.4-46.3) fL RDW Coeff of Nils 13.4 (11.5-14.5) % Plt Count 279 (130-400) K/uL MPV 9.4 (9.4-12.4) fL Immature Gran % (Auto) 0.3 % Neut % (Auto) 48.2 % Lymph % (Auto) 40.9 % [place] % (Auto) 8.3 % Eos % (Auto) 1.5 % Baso % (Auto) 0.8 % Neut # (Auto) 2.88 (1.40-6.50) K/uL Lymph # (Auto) 2.45 (1.20-3.40) K/uL [place] # (Auto) 0.50 (0.11-0.59) K/uL Eos # (Auto) 0.09 (0.00-0.50) K/uL Baso # (Auto) 0.05 (0.00-0.20) K/uL Immature Gran # (Auto) 0.02 (0.01-0.20) K/uL Sodium 139 (136-145) mmol/L Potassium 3.4 L (3.5-5.1) mmol/L Chloride 106 (98-107) mmol/L Carbon Dioxide 28 (21-32) mmol/L Anion Gap 5 (3-11) BUN 12 (6-23) mg/dl Creatinine 0.68 (0.6-1.2) mg/dl Est Cr Clr Drug Dosing 96.0 ml/min eGFR 109.38 BUN/Creatinine Ratio 17.6 (10-20) Glucose 95 (70-99(Fasting)) mg/dl Calcium 9.1 (8.6-10.3) mg/dl Total Bilirubin 0.5 (0.2-1.0) mg/dl Direct Bilirubin 0.1 (0-0.2) mg/dl AST 108 H (13-39) U/L ALT 43 (7-52) U/L Alkaline Phosphatase 77 (34-104) U/L Troponin I High Sens 2.5 (0-14) pg/ml Total Protein 7.1 (6.0-8.3) gm/dl Albumin 4.4 (3.4-5.0) gm/dl Globulin 2.7 (2.5-4.0) gm/dl Albumin/Globulin Ratio 1.6 (0.9-2) Lipase 58 (11-82) U/L HCG, Qual Negative (Negative) Administered Medications Discontinued Medications Dicyclomine HCl (Dicyclomine Hcl 10 Mg/Ml 2 Ml Amp/Vial) 20 mg IM NOW ONE Stop: 08/22/24 19:48 Last Admin: 08/22/24 20:19 Dose: 20 mg Documented By: GERONIMO Sodium Chloride (Nss) 1,000 mls @ 999 mls/hr IV .Q1H1M ONE Stop: 08/22/24 15:59 Last Infusion: 08/22/24 16:34 Dose: Infused Documented By: Admin: 08/22/24 15:15 Dose: 999 mls/hr Documented By: ALVA Famotidine (Pepcid 20mg Iv Push) 20 mg in 5 mls @ 2.5 mls/min IV NOW STA Stop: 08/22/24 15:00 Last Admin: 08/22/24 15:16 Dose: 2.5 mls/min Documented By: ALVA Acetaminophen (Ofirmev) 1,000 mg in 100 mls @ 400 mls/hr IV NOW STA Stop: 08/22/24 15:14 Last Infusion: 08/22/24 16:53 Dose: Infused Documented By: Admin: 08/22/24 15:16 Dose: 400 mls/hr Documented By: ALVA Ioversol (Optiray 320 100ml) 93 ml IV ONCE ONE Stop: 08/22/24 15:50 Last Admin: 08/22/24 15:50 Dose: 93 ml Documented By: BYRON Morphine Sulfate (Morphine Sulfate 4 Mg/Ml 1 Ml Carp\Vial) 4 mg IV NOW STA Stop: 08/22/24 15:01 Last Admin: 08/22/24 15:16 Dose: 4 mg Documented By: ALVA Ondansetron HCl (Ondansetron Inj 2 Mg/Ml 2 Ml Vial) 4 mg IV NOW STA Stop: 08/22/24 15:00 Last Admin: 08/22/24 15:16 Dose: 4 mg Documented By: ALVA Sucralfate (Sucralfate 1 Gm/10 Ml Udc) 1 gm PO NOW STA Stop: 08/22/24 19:26 Last Admin: 08/22/24 19:33 Dose: 1 gm Documented By: ALVA Imaging Data Radiologist's Impression: Chest X-Ray 08/22/24 14:59 XR chest 1V portable CLINICAL HISTORY: Chest pain, nonspecific COMPARISON STUDY: Chest CT January 30, 2021. Chest radiograph October 11, 2021. FINDINGS: Lung volumes are normal. Lungs are clear. There is no pneumothorax or pleural effusion. Cardiac size is normal. Mediastinal contours are normal. There is no evidence for pulmonary edema. IMPRESSION: No acute cardiopulmonary findings. ACT 112: Negative or not required by law. Electronically signed by: Gustabo Ramírez M.D. 08/22/2024 4:07 PM Abdomen/Pelvis CT 08/22/24 15:03 EXAM: CT Abdomen and Pelvis With Intravenous Contrast INDICATION: Sudden onset midepigastric pain. TECHNIQUE: Axial computed tomography images of the abdomen and pelvis with intravenous contrast. Sagittal and coronal reformatted images were created and reviewed. This CT exam was performed using one or more of the following dose reduction techniques: automated exposure control, adjustment of the mA and/or kV according to patient size, and/or use of iterative reconstruction technique. CONTRAST: 93ml of Optiray 320 was administered intravenously. COMPARISON: 08/11/2023 FINDINGS: Limitations: None. Lung bases: No abnormality noted. Pleural space: No visualized pleural effusion or pneumothorax. Heart: No abnormality noted. Mediastinum: No abnormality noted. ABDOMEN: Liver: There is now mild intrahepatic biliary dilatation. Smooth hepatic contour. No evident mass. Gallbladder and bile ducts: Cholecystectomy. The common bile duct is dilated to 1.5 cm and contains debris and small stones. Pancreas: There is mild pancreatic ductal dilatation. No surrounding inflammation. No enhancing pancreatic mass, gas or evident calcification. Spleen: No significant abnormality noted. Adrenals: No significant abnormality noted. Kidneys and ureters: Normal enhancement. No mass, hydronephrosis or visualized stone. Stomach and bowel: Scattered stool throughout the colon without obstruction. No intestinal thickening or inflammation. PELVIS: Appendix: Well seen and appears normal. Bladder: No filling defects to suggest mass or large stone. No inflammation. Reproductive: 3.2 x 2.6 x 3.7 cm benign-appearing left ovarian cyst noted. No further assessment required. Hysterectomy. Stable prominent cervix without evident mass. ABDOMEN and PELVIS: Intraperitoneal space: No free air. No significant fluid collection. Bones/joints: No acute changes. Soft tissues: Umbilical hernia containing fat. Vasculature: No abdominal aortic aneurysm. Lymph nodes: No pathologically enlarged lymph nodes. IMPRESSION: Choledocholithiasis with intra and extrahepatic biliary and pancreatic ductal dilatation. Electronically signed by Bessy Cuevas 08-22-2024 4:15 PM Discharge Plan Visit Data Chief Complaint: Chest Pain Stated Complaint: CHEST PAIN ED Provider: Osmar Latham Discharge Problem: Abdominal pain, Elevated AST (SGOT), S/P cholecystectomy Patient Disposition: Admitted As Inpatient Discharge Instructions Interventions: ED Discharge Assessment Last Done: 08/22/24 22:51 Forms Stand Alone Forms: My [facility] [place] [employer] Prescriptions Prescriptions: No Action lamotrigine 100 mg tablet 150 mg PO QAM albuterol sulfate 90 mcg/actuation HFA aerosol inhaler 1 - 2 puff INHALATION DIRECTED PRN (Reason: Shortness Of Breath) venlafaxine 225 mg tablet extended release 24hr 225 mg PO QAM pregabalin 50 mg capsule 100 mg PO DAILY cholecalciferol (vitamin D3) 1,250 mcg (50,000 unit) capsule 50,000 unit PO UD Rx Instructions: 2 chewables daily, pt is unsure of dose. Vitron-C 65 mg iron- 125 mg tablet,delayed release (DR/EC) 1 tab PO DAILY Culturelle Women's 4-In-1 1 cap PO QAM Vitafusion Women's Multivitamin Gummies 2 ea PO QAM rosuvastatin 20 mg tablet 20 mg PO DAILY Referrals Referrals: Elysia Hutchins CRNP [Primary Care Provider] - Discharge Problem: Abdominal pain Qualifiers: Abdominal location: epigastric Qualified Code(s): R10.13 - Epigastric pain
[2024-08-22] MEDS: SODIUM CHLORIDE 0.9% 1,000 ML IV ONE (15:15)
[2024-08-22 15:16] LABS: Basophils # (auto) 0.05 K/uL (0.00-0.20); Basophils % (auto) 0.8 %; Eosinophils # (auto) 0.09 K/uL (0.00-0.50); Eosinophils % (auto) 1.5 %; Hematocrit (blood only) 38.5 % (37.0-47.0); Hemoglobin 12.6 g/dl (12.0-16.0); Immature Granulocytes # (auto) 0.02 K/uL (0.01-0.20); Immature Granulocytes % (auto) 0.3 %; Lymphocytes # (auto) 2.45 K/uL (1.20-3.40); Lymphocytes % (auto) 40.9 %; Mean Corpuscular Hemoglobin 28.5 pg (25.0-34.0); Mean Corpuscular Hgb Conc 32.7 g/dL (32.0-36.0); Mean Corpuscular Volume 87.1 fL (80.0-100.0); Mean Platelet Volume 9.4 fL (9.4-12.4); Monocytes % (auto) 8.3 %; Neutrophils # (auto) 2.88 K/uL (1.40-6.50); Neutrophils % (auto) 48.2 %; Platelet Count 279 K/uL (130-400); RDW Coefficient of Variation 13.4 % (11.5-14.5); RDW Standard Deviation 42.9 fL (36.4-46.3); Red Blood Count 4.42 M/uL (4.20-5.40); White Blood Count 5.99 K/ul (4.8-10.8)
[2024-08-22] MEDS: ONDANSETRON INJ 2 MG/ML 2 ML VIAL IV STA (15:16)
[2024-08-22] MEDS: FAMOTIDINE 20MG IV PUSH 20 MG/5 ML SYR IV STA (15:16)
[2024-08-22] MEDS: MoRPHine SULFATE 4 MG/ML 1 ML CARP\\VIAL IV STA (15:16)
[2024-08-22] MEDS: ACETAMINOPHEN 1,000 MG/100 ML VIAL IV STA (15:16)
[2024-08-22 15:28] LABS: Pregnancy Test, Serum Negative (Negative)
[2024-08-22 15:32] LABS: Albumin Globulin Ratio 1.6 (0.9-2); Albumin Level 4.4 gm/dl (3.4-5.0); BUN Creatinine Ratio 17.6 (10-20); Bilirubin Direct 0.1 mg/dl (0-0.2); Bilirubin,Total 0.5 mg/dl (0.2-1.0); Calcium 9.1 mg/dl (8.6-10.3); Globulin 2.7 gm/dl (2.5-4.0); Potassium 3.4 mmol/L (3.5-5.1); Total Protein 7.1 gm/dl (6.0-8.3)
[2024-08-22 15:37] LABS: Troponin I High Sensitivity 2.5 pg/ml (0-14)
[2024-08-22] MEDS: OPTIRAY 320 100ml IV ONE (15:50)
--- NOTE | 2024-08-22 16:08 | XRay Report ---
XR chest 1V portable CLINICAL HISTORY: Chest pain, nonspecific COMPARISON STUDY: Chest CT January 30, 2021. Chest radiograph October 11, 2021. FINDINGS: Lung volumes are normal. Lungs are clear. There is no pneumothorax or pleural effusion. Car diac size is normal. Mediastinal contours are normal. There is no evidence for pulmonary edema. IMPRESSION: No acute cardiopulmonary findings. ACT 112: Negative or not required by law. Electronically signed by: Gustabo Ramírez M.D. 08/22/2024 4:07 PM
--- NOTE | 2024-08-22 16:29 | CT Scan Report ---
EXAM: CT Abdomen and Pelvis With Intravenous Contrast INDICATION: Sudden onset midepigastric pain. TECHNIQUE: Axial computed tomography images of the abdomen and pelvis with intravenous contrast. Sagittal and coronal reformatted images were created and reviewed. This CT exam was performed using one or more of the following dose reduction techniques: automated exposure control, adjustment of the mA and/or kV according to patient size, and/or use of iterative reconstruction technique. CONTRAST: 93ml of Optiray 320 was administered intravenously. COMPARISON: 08/11/2023 FINDINGS: Limitations: None. Lung bases: No abnormality noted. Pleural space: No visualized pleural effusion or pneumothorax. Heart: No abnormality noted. Mediastinum: No abnormality noted. ABDOMEN: Liver: There is now mild intrahepatic biliary dilatation. Smooth hepatic contour. No evident mass. Gallbladder and bile ducts: Cholecystectomy. The common bile duct is dilated to 1.5 cm and contains debris and small stones. Pancreas: There is mild pancreatic ductal dilatation. No surrounding inflammation. No enhancing pancreatic mass, gas or evident calcification. Spleen: No significant abnormality noted. Adrenals: No significant abnormality noted. Kidneys and ureters: Normal enhancement. No mass, hydronephrosis or visualized stone. Stomach and bowel: Scattered stool throughout the colon without obstruction. No intestinal thickening or inflammation. PELVIS: Appendix: Well seen and appears normal. Bladder: No filling defects to suggest mass or large stone. No inflammation. Reproductive: 3.2 x 2.6 x 3.7 cm benign-appearing left ovarian cyst noted. No further assessment required. Hysterectomy. Stable prominent cervix without evident mass. ABDOMEN and PELVIS: Intraperitoneal space: No free air. No significant fluid collection. Bones/joints: No acute changes. Soft tissues: Umbilical hernia containing fat. Vasculature: No abdominal aortic aneurysm. Lymph nodes: No pathologically enlarged lymph nodes. IMPRESSION: Choledocholithiasis with intra and extrahepatic biliary and pancreatic ductal dilatation. Electronically signed by Bessy Cuevas 08-22-2024 4:15 PM
--- NOTE | 2024-08-22 18:35 | Electrocardiogram Report ---
Test Reason : Blood Pressure : */* mmHG Vent. Rate : 91 BPM Atrial Rate : 91 BPM P-R Int : 124 ms QRS Dur : 64 ms QT Int : 346 ms P-R-T Axes : 71 61 64 degrees QTcB Int : 425 ms Normal sinus rhythm Nonspecific ST abnormality Confirmed by Eduardo Conway ([id number]) on 08/22/2024 6:35:11 PM Referred By: Confirmed By: Eduardo Conway
[2024-08-22] MEDS: SUCRALFATE 1 GM/10 ML UDC PO STA (19:33)
[2024-08-22] MEDS: DICYCLOMINE HCL 10 MG/ML 2 ML AMP/VIAL IM ONE (20:19)
--- NOTE | 2024-08-22 22:28 | History & Physical Report ---
Date of Service August 22, 2024 Assessment & Plan (1) Abdominal pain: Plan: 43-year-old female with past medical history significant for patent keenan ovale, atrial septal defect, small bowel obstruction due to adhesions, GERD, polymyalgia, peripheral neuropathy, bipolar 1 disorder, persistent insomnia, COVID-19 long-hauler, low ferritin, anxiety hyperventilation comes because of abdominal pain. Patient says around 1:30 PM she noticed severe pain in her epigastric region radiating to the lower chest and across the upper abdomen. With pain medicine currently pain is improved. Denies any nausea. No diarrhea or constipation. No blood in the stools. No fevers. No shortness of breath. No headache. No runny nose or sore throat. Has mild cough. No swelling the legs. Currently resting comfortably and hemodynamically stable. Abdominal pain CT scan showing:Choledocholithiasis with intra and extrahepatic biliary and pancreatic ductal dilatation. History of cholecystectomy LFTs okay Will keep her n.p.o. IV fluids, IV antiemetics as needed, IV pain meds as needed Empiric Zosyn Will follow MRCP Consult GI in a.m. Close monitor Hyperlipidemia On statin Anxiety Bipolar 1 disorder On Lamictal and venlafaxine DVT prophylaxis SCDs for now Disposition Medical floor Full code. History of Present Illness Chief Complaint: Abdominal pain Primary Care Provider: AARON Walker 43-year-old female with past medical history significant for patent keenan ovale, atrial septal defect, small bowel obstruction due to adhesions, GERD, polymyalgia, peripheral neuropathy, bipolar 1 disorder, persistent insomnia, COVID-19 long-hauler, low ferritin, anxiety hyperventilation comes because of abdominal pain. Patient says around 1:30 PM she noticed severe pain in her epigastric region radiating to the lower chest and across the upper abdomen. With pain medicine currently pain is improved. Denies any nausea. No diarrhea or constipation. No blood in the stools. No fevers. No shortness of breath. No headache. No runny nose or sore throat. Has mild cough. No swelling the legs. Currently resting comfortably and hemodynamically stable. Past medical history. As mentioned above Past surgical history. induced by TAD left breast lesion excision. . Colonoscopy. Cystoscopy. Colposcopy. Laparoscopic hysterectomy 1 of tubes laparoscopic cholecystectomy. Appendectomy. Removal of cervix cone. Social history. . Quit smoking 2009. Smoked 1 pack a day for 10 years. Quit alcohol in 2000. No drug use. Family history. Mother had triple negative breast cancer. Hypertension. Depression anxiety. Father had cancer. Maternal grandfather had lung cancer. Hypertension. Mental disorder. Maternal grandmother had hypertension. Stroke. Maternal great grandmother had ovarian cancer. Allergies Allergy/AdvReac Type Severity Reaction Status Date / Time No Known Allergies Allergy Verified 10/11/21 20:25 Home Medications Medication Instructions Recorded Confirmed Type lamotrigine 100 mg tablet 150 mg PO QAM 07/31/19 08/22/24 History albuterol sulfate 90 mcg/actuation 1 - 2 puff inhalation DIRECTED 01/30/21 08/22/24 History aerosol inhaler PRN Shortness Of Breath venlafaxine 225 mg tablet,extended 225 mg PO QAM 01/30/21 08/22/24 History release 24 hr Culturelle Women's 4-In-1 1 cap PO QAM 08/11/23 08/22/24 History Vitafusion Women's Multivitamin 2 ea PO QAM 08/11/23 08/22/24 History Gummies cholecalciferol (vitamin D3) 1,250 50,000 unit PO UD 08/11/23 08/22/24 History mcg (50,000 unit) capsule iron,carbonyl 65 mg-vitamin C 125 1 tab PO DAILY 08/11/23 08/22/24 History mg tablet,delayed release (Vitron-C) pregabalin 50 mg capsule 100 mg PO DAILY 08/11/23 08/22/24 History rosuvastatin 20 mg tablet 20 mg PO DAILY 08/22/24 08/22/24 History Past Med/Surg History Problem List (Updated 08/22/24 @ 22:52 by Osmar Latham MD) S/P cholecystectomy (Acute) Elevated AST (SGOT) (Acute) Abdominal pain (Acute) Small bowel obstruction (Acute) Abdominal pain (Acute) Cervical muscle strain (Acute) Surgical History (Updated 08/22/24 @ 22:52 by Osmar Latham MD) Hx of breast biopsy Family History Other Breast cancer Social History Smoking Status: Never smoker Hx Alcohol Use: No Hx Substance Use: No Preferred Language: [place] Communication Ability: Effective Pier Worker Required: No Beliefs That Will Affect Care: None marital status: Current Living Situation: Significant Other current occupational status: employed Other Information That Helps Us Care for You: No Feels Safe at Home: Yes Safety Concerns: Feels Safe At This Time Assistive Devices: None Review of Systems Review of Systems: All systems reviewed & are unremarkable except as noted in HPI & below Physical Exam Physical Exam: General- Not in distress Head- atraumatic Eyes- PERRL. ENT- oropharynx clear Neck- supple, no JVD. Lungs- clear to auscultation no wheezing or crackles. Heart- regular rate and rhythm; no murmur, no gallop. Abdomen- normal bowel sounds, soft, nontender, no distension. Extremities- no pretibial edema, no erythema seen Neuro- alert, oriented PERRL, no facial palsy; no dysarthria; moves extremities Results & Data Results & Data Vital Signs (Past 12 Hours) Vital Signs Temp Pulse Pulse Resp BP BP Pulse Ox 08/22/24 20:37 77 08/22/24 20:30 77 19 105/76 96 08/22/24 20:00 87 14 109/75 95 08/22/24 20:00 89 18 109/75 97 08/22/24 19:21 79 20 109/73 99 08/22/24 19:00 86 17 110/80 97 08/22/24 18:33 83 17 119/79 98 08/22/24 18:00 93 H 17 117/78 92 08/22/24 17:30 105 H 16 108/68 98 08/22/24 17:00 99 H 22 120/72 95 08/22/24 16:41 106 H 08/22/24 16:21 103 H 21 119/76 98 08/22/24 16:00 100 H 40 H 115/83 96 08/22/24 15:12 107 H 24 135/108 H 97 08/22/24 15:03 08/22/24 14:59 08/22/24 14:46 36.5 C 112 H 20 135/108 H 97 O2 Del Method 08/22/24 20:37 08/22/24 20:30 08/22/24 20:00 08/22/24 20:00 Room Air 08/22/24 19:21 08/22/24 19:00 08/22/24 18:33 08/22/24 18:00 08/22/24 17:30 08/22/24 17:00 08/22/24 16:41 08/22/24 16:21 08/22/24 16:00 08/22/24 15:12 08/22/24 15:03 Room Air 08/22/24 14:59 Room Air 08/22/24 14:46 Room Air Diagnostic Findings Laboratory Results WBC 5.99 K/ul (4.8-10.8) 08/22/24 14:53 RBC 4.42 M/uL (4.20-5.40) 08/22/24 14:53 Hgb 12.6 g/dl (12.0-16.0) 08/22/24 14:53 Hct 38.5 % (37.0-47.0) 08/22/24 14:53 MCV 87.1 fL (80.0-100.0) 08/22/24 14:53 MCH 28.5 pg (25.0-34.0) 08/22/24 14:53 MCHC 32.7 g/dL (32.0-36.0) 08/22/24 14:53 RDW Std Deviation 42.9 fL (36.4-46.3) 08/22/24 14:53 RDW Coeff of Nils 13.4 % (11.5-14.5) 08/22/24 14:53 Plt Count 279 K/uL (130-400) 08/22/24 14:53 MPV 9.4 fL (9.4-12.4) 08/22/24 14:53 Immature Gran % (Auto) 0.3 % 08/22/24 14:53 Neut % (Auto) 48.2 % 08/22/24 14:53 Lymph % (Auto) 40.9 % 08/22/24 14:53 Rabun % (Auto) 8.3 % 08/22/24 14:53 Eos % (Auto) 1.5 % 08/22/24 14:53 Baso % (Auto) 0.8 % 08/22/24 14:53 Neut # (Auto) 2.88 K/uL (1.40-6.50) 08/22/24 14:53 Lymph # (Auto) 2.45 K/uL (1.20-3.40) 08/22/24 14:53 Rabun # (Auto) 0.50 K/uL (0.11-0.59) 08/22/24 14:53 Eos # (Auto) 0.09 K/uL (0.00-0.50) 08/22/24 14:53 Baso # (Auto) 0.05 K/uL (0.00-0.20) 08/22/24 14:53 Immature Gran # (Auto) 0.02 K/uL (0.01-0.20) 08/22/24 14:53 Sodium 139 mmol/L (136-145) 08/22/24 14:53 Potassium 3.4 mmol/L (3.5-5.1) L 08/22/24 14:53 Chloride 106 mmol/L (98-107) 08/22/24 14:53 Carbon Dioxide 28 mmol/L (21-32) 08/22/24 14:53 Anion Gap 5 (3-11) 08/22/24 14:53 BUN 12 mg/dl (6-23) 08/22/24 14:53 Creatinine 0.68 mg/dl (0.6-1.2) 08/22/24 14:53 Est Cr Clr Drug Dosing 96.0 ml/min 08/22/24 14:53 eGFR 109.38 08/22/24 14:53 BUN/Creatinine Ratio 17.6 (10-20) 08/22/24 14:53 Glucose 95 mg/dl (70-99(Fasting)) 08/22/24 14:53 Calcium 9.1 mg/dl (8.6-10.3) 08/22/24 14:53 Total Bilirubin 0.5 mg/dl (0.2-1.0) 08/22/24 14:53 Direct Bilirubin 0.1 mg/dl (0-0.2) 08/22/24 14:53 AST 108 U/L (13-39) H 08/22/24 14:53 ALT 43 U/L (7-52) 08/22/24 14:53 Alkaline Phosphatase 77 U/L (34-104) 08/22/24 14:53 Troponin I High Sens 2.5 pg/ml (0-14) 08/22/24 14:53 Total Protein 7.1 gm/dl (6.0-8.3) 08/22/24 14:53 Albumin 4.4 gm/dl (3.4-5.0) 08/22/24 14:53 Globulin 2.7 gm/dl (2.5-4.0) 08/22/24 14:53 Albumin/Globulin Ratio 1.6 (0.9-2) 08/22/24 14:53 Lipase 58 U/L (11-82) 08/22/24 14:53 HCG, Qual Negative (Negative) 08/22/24 14:53 Impressions Chest X-Ray 08/22/24 14:59 XR chest 1V portable CLINICAL HISTORY: Chest pain, nonspecific COMPARISON STUDY: Chest CT January 30, 2021. Chest radiograph October 11, 2021. FINDINGS: Lung volumes are normal. Lungs are clear. There is no pneumothorax or pleural effusion. Cardiac size is normal. Mediastinal contours are normal. There is no evidence for pulmonary edema. IMPRESSION: No acute cardiopulmonary findings. ACT 112: Negative or not required by law. Electronically signed by: Gustabo Ramírez M.D. 08/22/2024 4:07 PM Abdomen/Pelvis CT 08/22/24 15:03 EXAM: CT Abdomen and Pelvis With Intravenous Contrast INDICATION: Sudden onset midepigastric pain. TECHNIQUE: Axial computed tomography images of the abdomen and pelvis with intravenous contrast. Sagittal and coronal reformatted images were created and reviewed. This CT exam was performed using one or more of the following dose reduction techniques: automated exposure control, adjustment of the mA and/or kV according to patient size, and/or use of iterative reconstruction technique. CONTRAST: 93ml of Optiray 320 was administered intravenously. COMPARISON: 08/11/2023 FINDINGS: Limitations: None. Lung bases: No abnormality noted. Pleural space: No visualized pleural effusion or pneumothorax. Heart: No abnormality noted. Mediastinum: No abnormality noted. ABDOMEN: Liver: There is now mild intrahepatic biliary dilatation. Smooth hepatic contour. No evident mass. Gallbladder and bile ducts: Cholecystectomy. The common bile duct is dilated to 1.5 cm and contains debris and small stones. Pancreas: There is mild pancreatic ductal dilatation. No surrounding inflammation. No enhancing pancreatic mass, gas or evident calcification. Spleen: No significant abnormality noted. Adrenals: No significant abnormality noted. Kidneys and ureters: Normal enhancement. No mass, hydronephrosis or visualized stone. Stomach and bowel: Scattered stool throughout the colon without obstruction. No intestinal thickening or inflammation. PELVIS: Appendix: Well seen and appears normal. Bladder: No filling defects to suggest mass or large stone. No inflammation. Reproductive: 3.2 x 2.6 x 3.7 cm benign-appearing left ovarian cyst noted. No further assessment required. Hysterectomy. Stable prominent cervix without evident mass. ABDOMEN and PELVIS: Intraperitoneal space: No free air. No significant fluid collection. Bones/joints: No acute changes. Soft tissues: Umbilical hernia containing fat. Vasculature: No abdominal aortic aneurysm. Lymph nodes: No pathologically enlarged lymph nodes. IMPRESSION: Choledocholithiasis with intra and extrahepatic biliary and pancreatic ductal dilatation. Electronically signed by Bessy Cuevas 08-22-2024 4:15 PM ECG Additional Comments: ECG. Normal sinus rhythm rate 91. Nonspecific ST abnormality. QTc 425 Code Status & VTE Plan VTE Prophylaxis Plan VTE Prophylaxis will be ordered: Yes
[2024-08-22] MEDS ORDERED: ALBUTEROL HFA 8 GM INHALER INH PRN (23:17)
[2024-08-22] MEDS ORDERED: HYDROmorphone INJ 0.5 MG/0.5 ML SYR IV PRN (23:17)
[2024-08-22] MEDS: D5W AND NSS 1,000 ML IV SCH (23:19)
[2024-08-23] MEDS: PIPERACILLIN/TAZOBACTAM 4.5 GM/100 ML BAG IV STA (00:20)
--- NOTE | 2024-08-23 01:06 | Magnetic Resonance Report ---
EXAM: MR MRCP CLINICAL HISTORY: sudden onset of abdomen pain radiating into chest. same symptoms on 08/11 and 08/15. CT abdomen and pelvis on 08/22 and 08/11. cholecystectomy years ago. room 356-1. 1014 images. TECHNIQUE: Multiplanar/multisequence magnetic resonance Cholangio-pancreaticography was performed without use of gadolinium. COMPARISON: CT scan dated 22 August 2024. FINDINGS: The liver is of normal signal intensity without evidence of a hepatic mass. Gallbladder is not visualized, cholecystectomy status. Multiple (approximately 4-6 in number) small calculi are noted within the common bile duct, average size measuring 3-6 mm. Mild dilatation of the common bile duct, common hepatic duct, central and few of the peripheral intrahepatic biliary radicals is noted. Smooth distal tapering of common bile duct is noted. Limited evaluation of the bowel secondary to peristalsis, however, demonstrates no definitive abnormality. The adrenal glands demonstrate no gross mass. The pancreas is unremarkable. The kidneys demonstrate no evidence of contour-deforming mass lesion. No evidence of upper abdominal ascites or mesenteric mass. IMPRESSION: 1. Choledocholithiasis as described above. Resultant mild dilatation of the intra and extrahepatic biliary system is noted. 2. Gallbladder is not visualized, cholecystectomy status. 3. Pancreatic parenchyma and peripancreatic fat planes appear normal. Electronically signed by Layo Hernandez 08-23-2024 01:06 AM
[2024-08-23] MEDS: HYDROmorphone INJ 0.5 MG/0.5 ML SYR IV PRN (02:46)
[2024-08-23] MEDS: PIPERACILLIN/TAZOBACTAM 4.5 GM/100 ML BAG IV SCH (05:21)
[2024-08-23 07:28] LABS: Basophils # (auto) 0.05 K/uL (0.00-0.20); Basophils % (auto) 0.6 %; Eosinophils # (auto) 0.11 K/uL (0.00-0.50); Eosinophils % (auto) 1.4 %; Hemoglobin 10.9 g/dl (12.0-16.0); Immature Granulocytes # (auto) 0.02 K/uL (0.01-0.20); Immature Granulocytes % (auto) 0.3 %; Lymphocytes % (auto) 28.3 %; Mean Corpuscular Hemoglobin 28.6 pg (25.0-34.0); Mean Corpuscular Hgb Conc 32.1 g/dL (32.0-36.0); Mean Corpuscular Volume 89.2 fL (80.0-100.0); Mean Platelet Volume 9.4 fL (9.4-12.4); Monocytes # (auto) 0.86 K/uL (0.11-0.59); Monocytes % (auto) 11.1 %; Neutrophils # (auto) 4.53 K/uL (1.40-6.50); Neutrophils % (auto) 58.3 %; Platelet Count 226 K/uL (130-400); RDW Coefficient of Variation 13.6 % (11.5-14.5); RDW Standard Deviation 44.5 fL (36.4-46.3); Red Blood Count 3.81 M/uL (4.20-5.40); White Blood Count 7.77 K/ul (4.8-10.8)
[2024-08-23 07:41] LABS: Albumin Level 3.6 gm/dl (3.4-5.0); BUN Creatinine Ratio 11.9 (10-20); Bilirubin Direct 0.1 mg/dl (0-0.2); Bilirubin,Total 0.6 mg/dl (0.2-1.0); Calcium 7.7 mg/dl (8.6-10.3); Creatinine Clr Calc Pharmacy 87.7 ml/min; Magnesium 1.9 mg/dl (1.7-2.4); Potassium 4.3 mmol/L (3.5-5.1); Total Protein 5.6 gm/dl (6.0-8.3)
[2024-08-23 07:43] VITALS: RESP 16; O2SAT 98
[2024-08-23 08:05] LABS: Troponin I High Sensitivity 2.4 pg/ml (0-14)
[2024-08-23] MEDS: VENLAFAXINE HCL XR 75 MG CAPXR PO SCH (08:05)
[2024-08-23] MEDS: lamoTRIgine 100 MG TAB PO SCH (08:06)
[2024-08-23] MEDS: ROSUVASTATIN CALCIUM 20 MG TAB PO SCH (08:06)
[2024-08-23] MEDS: FAMOTIDINE 20MG IV PUSH 20 MG/5 ML SYR IV SCH (08:10)
[2024-08-23] MEDS: PREGABALIN 100 MG CAP PO SCH (08:15)
--- NOTE | 2024-08-23 09:52 | Gastrointestinal Consultation ---
Date of Consultation August 23, 2024 I examined the patient and reviewed the medical record, laboratory data and imaging studies. I agree with the assessment and plan of care as suggested by the advanced practice provider. Patient with abdominal pain and multiple CBD stones she will require an ERCP she is already had her gallbladder removed there are plans to transfer her for an ERCP which should be done at the earliest possible time we will follow her with you if she till she gets transferred Assessment & Plan (1) Choledocholithiasis: 43 year old female s/p CCY years ago admitted through the ED w/ upper abd pain/discomfort, CT and MR imaging concerning for biliary dilation and retained stones. She is afebrile w/o leukocytosis w/ normal Tbili. As we do not have EUS/ERCP coverage, recommend transfer for biliary evaluation. Discussed procedures in details, reviewed risks/benefit/alternatives. She is in agreement with transfer for evaluation. Agree w/ ABX w/ biliary coverage - no current s/s for cholangitis. Maintain NPO status. IV anti-emetics PRN. IV analgesia PRN. Trend LFTs. CT raised the concern for PD dilation, however this was not appreciated on MR. Recommend EUS to evaluate for double duct sign. I spent a total of 60 minutes on the date of service in review of patient's rec ord, and previously obtained information in person and appropriate medical visit, discussion and education of plan, with patient and/or caregiver, placing orders for tests/referral/procedures as medically necessary and documentation of pertinent clinical information in patient's medical records for their visit today.Thank you for allowing us to participate in the care of this patient. Please call with any acute changes, questions or concerns. Please see addendum below with additional recommendation from my supervising physician. History of Present Illness Reason for Consultation: abdominal pain. dilated cbd. Requesting Physician: Carlyle Amos MD Attending Physician: Carlyle Amos MD History of Present Illness 43 year old male with history of HTN, patent keenan ovale, atrial septal defect, small bowel obstruction due to adhesions, GERD, polymyalgia, peripheral neuropathy, bipolar 1 disorder, persistent insomnia, COVID-19 long-hauler, low ferritin, anxiety and others below admitted through the ED w/ abd pain - GI was asked to evaluate for abd pain and dilated CBP. Endorses on Wednesday, had attack of upper abd pain, sharp/severe and resolved without intervention. Similar pain returned yesterday nad persisted prompting ED evaluation. Suggests pain was sharp, severe and midline radiating down her chest. No associated nausea/vomiting but has been having issues with abd fullness/bloating. Denies change in bowel habits. No fever, chills, CP, SOB. S/P CCY many years ago She tells me she had a recent breast MRI which showed abnormalities within the liver and was to have an outpatient liver ultrasound today. She is unsure of what the breast MRI findings revealed. WBC 7 TB 0.6 AST 60 ALT 46 ALKP 65 CTAP 2023: Liver: There is now mild intrahepatic biliary dilatation. Smooth hepatic contour. No evident mass. Gallbladder and bile ducts: Cholecystectomy. The common bile duct is dilated to 1.5 cm and contains debris and small stones. Pancreas: There is mild pancreatic ductal dilatation. No surrounding inflammation. No enhancing pancreatic mass, gas or evident calcification. MRCP 2023: Choledocholithiasis as described above. Resultant mild dilatation of the intra and extrahepatic biliary system is noted. . Gallbladder is not visualized, cholecystectomy status. Pancreatic parenchyma and peripancreatic fat planes appear normal. Allergies Allergy/AdvReac Type Severity Reaction Status Date / Time No Known Allergies Allergy Verified 10/11/21 20:25 Home Medications Medication Instructions Recorded Confirmed Type lamotrigine 100 mg tablet 150 mg PO QAM 07/31/19 08/22/24 History albuterol sulfate 90 mcg/actuation 1 - 2 puff inhalation DIRECTED 01/30/21 08/22/24 History aerosol inhaler PRN Shortness Of Breath venlafaxine 225 mg tablet,extended 225 mg PO QAM 01/30/21 08/22/24 History release 24 hr Culturelle Women's 4-In-1 1 cap PO QAM 08/11/23 08/22/24 History Vitafusion Women's Multivitamin 2 ea PO QAM 08/11/23 08/22/24 History Gummies cholecalciferol (vitamin D3) 1,250 50,000 unit PO UD 08/11/23 08/22/24 History mcg (50,000 unit) capsule iron,carbonyl 65 mg-vitamin C 125 1 tab PO DAILY 08/11/23 08/22/24 History mg tablet,delayed release (Vitron-C) pregabalin 50 mg capsule 100 mg PO DAILY 08/11/23 08/22/24 History rosuvastatin 20 mg tablet 20 mg PO DAILY 08/22/24 08/22/24 History Patient History Surgical History (Updated 08/22/24 @ 22:52 by Osmar Latham MD) Hx of breast biopsy Family History Other Breast cancer Social History Smoking Status: Never smoker Hx Alcohol Use: No Hx Substance Use: No Preferred Language: Urdu Communication Ability: Effective Glove Machine Operator Required: No Beliefs That Will Affect Care: None marital status: Current Living Situation: Significant Other current occupational status: employed Other Information That Helps Us Care for You: No Feels Safe at Home: Yes Safety Concerns: Feels Safe At This Time Assistive Devices: None Review of Systems Review of Systems: All other findings negative except as noted in HPI. Physical Exam Constitutional: WD/WN, vitals as above Respiratory: normal respiratory effort Cardiovascular: RRR, no murmur, no edema Gastrointestinal (Abdomen): Inspection/Auscultation: normal bowel sounds Percussion/Palpation: + abdomen tender and abdomen soft; no guarding and abdomen not rigid Skin: no rashes, warm and dry Results & Data Vital Signs (Past 12 Hours) Vital Signs Temp Pulse Pulse Resp BP BP Pulse Ox 08/23/24 07:41 36.5 C 87 16 92/55 L 98 08/22/24 23:17 36.4 C L 82 18 115/77 97 08/22/24 22:27 86 16 117/62 92 08/22/24 22:26 84 18 117/62 97 08/22/24 22:06 88 21 104/69 98 O2 Del Method 08/23/24 07:41 Room Air 08/22/24 23:17 Room Air 08/22/24 22:27 08/22/24 22:26 Room Air 08/22/24 22:06 Laboratory Results 08/23/24 08/22/24 Range/Units 06:40 14:53 WBC 7.77 5.99 (4.8-10.8) K/ul RBC 3.81 L 4.42 (4.20-5.40) M/uL Hgb 10.9 L 12.6 (12.0-16.0) g/dl Hct 34.0 L 38.5 (37.0-47.0) % MCV 89.2 87.1 (80.0-100.0) fL MCH 28.6 28.5 (25.0-34.0) pg MCHC 32.1 32.7 (32.0-36.0) g/dL RDW Std Deviation 44.5 42.9 (36.4-46.3) fL RDW Coeff of Nils 13.6 13.4 (11.5-14.5) % Plt Count 226 279 (130-400) K/uL MPV 9.4 9.4 (9.4-12.4) fL Immature Gran % (Auto) 0.3 0.3 % Neut % (Auto) 58.3 48.2 % Lymph % (Auto) 28.3 40.9 % Hitchcock % (Auto) 11.1 8.3 % Eos % (Auto) 1.4 1.5 % Baso % (Auto) 0.6 0.8 % Neut # (Auto) 4.53 2.88 (1.40-6.50) K/uL Lymph # (Auto) 2.20 2.45 (1.20-3.40) K/uL Hitchcock # (Auto) 0.86 H 0.50 (0.11-0.59) K/uL Eos # (Auto) 0.11 0.09 (0.00-0.50) K/uL Baso # (Auto) 0.05 0.05 (0.00-0.20) K/uL Immature Gran # (Auto) 0.02 0.02 (0.01-0.20) K/uL Sodium 145 139 (136-145) mmol/L Potassium 4.3 D 3.4 L (3.5-5.1) mmol/L Chloride 114 H 106 (98-107) mmol/L Carbon Dioxide 28 28 (21-32) mmol/L Anion Gap 3 5 (3-11) BUN 8 12 (6-23) mg/dl Creatinine 0.67 0.68 (0.6-1.2) mg/dl Est Cr Clr Drug Dosing 87.7 96.0 ml/min eGFR 109.78 109.38 BUN/Creatinine Ratio 11.9 17.6 (10-20) Glucose 107 H 95 (70-99(Fasting)) mg/dl Calcium 7.7 L 9.1 (8.6-10.3) mg/dl Magnesium 1.9 (1.7-2.4) mg/dl Total Bilirubin 0.6 0.5 (0.2-1.0) mg/dl Direct Bilirubin 0.1 0.1 (0-0.2) mg/dl AST 60 H 108 H (13-39) U/L ALT 46 43 (7-52) U/L Alkaline Phosphatase 65 77 (34-104) U/L Troponin I High Sens 2.4 2.5 (0-14) pg/ml Total Protein 5.6 L D 7.1 (6.0-8.3) gm/dl Albumin 3.6 4.4 (3.4-5.0) gm/dl Globulin 2.7 (2.5-4.0) gm/dl Albumin/Globulin Ratio 1.6 (0.9-2) Lipase 58 (11-82) U/L HCG, Qual Negative (Negative) PG Care Time/CCT Total # of Minutes Spent Total Time Spent with Patient: Total time spent is greater than 50% in coordination of care (as documented) at patient's floor/unit and/or counseling patient: Coding Level of Care Code 52828 INT INP/OBS CARE MIN Diagnoses Choledocholithiasis K80.50
[2024-08-23] MEDS: ONDANSETRON INJ 2 MG/ML 2 ML VIAL IV PRN (10:04)
--- NOTE | 2024-08-23 11:20 | Electrocardiogram Report ---
Test Reason : Blood Pressure : */* mmHG Vent. Rate : 81 BPM Atrial Rate : 81 BPM P-R Int : 130 ms QRS Dur : 70 ms QT Int : 346 ms P-R-T Axes : 65 42 51 degrees QTcB Int : 401 ms Normal sinus rhythm with sinus arrhythmia Normal ECG When compared with ECG of 22-Aug-2024 14:51, Nonspecific T wave abnormality now evident in Inferior leads Confirmed by Eduardo Conway ([id number]) on 08/23/2024 11:19:59 AM Referred By: REFERRED SELF Confirmed By: Eduardo Conway
--- NOTE | 2024-08-23 11:47 | Hospitalist Progress Note ---
Date of Service August 23, 2024 Assessment & Plan (1) Abdominal pain: Plan: per admitting service notes with addendum: 43-year-old female with past medical history significant for patent keenan ovale, atrial septal defect, small bowel obstruction due to adhesions, GERD, polymyalgia, peripheral neuropathy, bipolar 1 disorder, persistent insomnia, COVID-19 long-hauler, low ferritin, anxiety hyperventilation comes because of abdominal pain. Patient says around 1:30 PM she noticed severe pain in her epigastric region radiating to the lower chest and across the upper abdomen. With pain medicine currently pain is improved. Denies any nausea. No diarrhea or constipation. No blood in the stools. No fevers. No shortness of breath. No headache. No runny nose or sore throat. Has mild cough. No swelling the legs. Currently resting comfortably and hemodynamically stable. Abdominal pain, Choledocholithiasis CT scan showing:Choledocholithiasis with intra and extrahepatic biliary and pancreatic ductal dilatation. History of cholecystectomy LFTs okay MRCP: The liver is of normal signal intensity without evidence of a hepatic mass. Gallbladder is not visualized, cholecystectomy status. Multiple (approximately 4-6 in number) small calculi are noted within the common bile duct, average size measuring 3-6 mm. Mild dilatation of the common bile duct, common hepatic duct, central and few of the peripheral intrahepatic biliary radicals is noted. Smooth distal tapering of common bile duct is noted. Limited evaluation of the bowel secondary to peristalsis, however, demonstrates no definitive abnormality. The adrenal glands demonstrate no gross mass. The pancreas is unremarkable. The kidneys demonstrate no evidence of contour-deforming mass lesion. No evidence of upper abdominal ascites or mesenteric mass. IV Zosyn NPO IV fluids evaluated by GI- recommend transfer for ERCP discussed with [facility] Triage- Dr. Baig he will discuss with Emeterio Mendoza and will get back to us Hyperlipidemia On statin Anxiety Bipolar 1 disorder On Lamictal and venlafaxine DVT prophylaxis SCDs for now Disposition Medical floor Full code. Admission and Anticipated Discharge Date Admission Date: August 22, 2024 Subjective ff up for biliary stones, etc seen resting in bed, not in distress states abdominal pain is better, PRN Dilaudid relieving the pain no nausea/vomiting, fever/chills no other symptoms Review of Systems Review of Systems: all noted and negative except for above Physical Exam 2 Physical Exam: General- oriented x 3, not in distress, speaks in sentences with no effort or accessory muscle use Eyes- anicteric Neck- no JVD Lungs- clear breath sounds bilaterally, no rales/wheezes Heart- normal rate, regular rhythm; no murmurs Abdomen- normal bowel sounds, nondistended, soft, mild r quadrant tenderness Extremities- no pretibial edema, no calf tenderness Neuro- alert, oriented x 3; no gross focal neurologic deficits Skin- warm & dry Results & Data Results & Data Vital Signs (Past 12 Hours) Vital Signs Temp Pulse Resp BP Pulse Ox O2 Del Method 08/23/24 07:41 36.5 C 87 16 92/55 L 98 Room Air all noted and reviewed including below (1) Abdominal pain Abdominal location: epigastric Qualified Code(s): R10.13 - Epigastric pain
[2024-08-23] MEDS ORDERED: PROMETHAZINE 12.5 MG/50.5 ML BAG IV PRN (12:21)
[2024-08-23] MEDS ORDERED: LORazepam 2 MG/1 ML VIAL IV PRN (12:22)
[2024-08-23] MEDS: PROMETHAZINE 12.5 MG/50.5 ML BAG IV ONE (12:52)
--- OUTSIDE RECORDS SUMMARY | 2024-08-23 13:36 | External Medical Summary | Summary of Care ---
Author Name Unknown Organization [facility] Address [address] [facility] [place] [address] Phone [phone] Care Team Providers Care Perinatal Educator Name Role Phone Elysia Hutchins Primary Care Provider Reason for Referral * Precert (Within 10 days (routine)) - Pending Review Specialty Diagnoses / Procedures Referred By Lydia orosco Referred To Contact Radiology Diagnoses Increased risk of breast cancer Family history of breast cancer in mother Dense breasts Procedures MRI BREAST BILATERAL W WO CONTRAST Maria G Hui PA-C [address] [place] [id number] Referral ID Status Reason Start Date Expiration Date V isits Requested Visits Authorized [id number] Pending Review 07/28/2024 999 999 Reason for Visit * Reason Comments Follow Up Encounter Details Date Type Department Care Team (Late st Contact Info) Description 07/27/2024 1:15 PM EDT Office Visit General Surgery, [facility] [address] [place] [id number] Maria G Hui PA-C [address] [place] [id number] Increased risk of breast cancer*; Family history of breast cancer in mother; Dense breasts; Encounter for screening mammogram for malignant neoplasm of breast Allergies No known active allergiesdocumented as of this encounter (statuses as of 07/27/2024) Medications Medication Sig Dispensed Refills Start Date End Date Status lamoTRIgine (LAMICTAL) 100 MG TabletIndications:Cristine kat depressive disorder, recurrent episode, moderate (HCC),SILVANO (generalized anxiety disorder),Bipolar disorder, unspecified (HCC) Take 1 Tablet by mouth in the morning. 03/16/2017 Active Pregabalin 50 MG Oral Capsule (Lyrica) Take 2 Capsules by mouth in the morning. 10/15/2021 Active Albuterol Sulfate HFA 108 (90 [...] by mouth every 6 hours. 170 Tablet 10/26/2022 Active Ibuprofen 600 MG Oral Tablet (Motrin) Take 1 Tablet by mouth every 6 hours. With food. 55 Tablet 10/26/2022 Active Culturelle Digestive Health Oral Tablet Chewable Take 1 Tablet by mouth in the morning. Active Venlafaxine HCl ER 225 MG Oral Tablet Extended Release 24 Hour Take 1 Tablet by mouth in the morning. 01/22/2023 Active Rosuvastatin Calcium 20 MG Oral Tablet (Crestor) Take 1 Tablet by mouth daily. 90 Tablet 3 03/03/2024 Active Additional Information Patient taking differently:20 mg OralHS, Reported on 07/14/2024 Multi Vitamin Oral Tablet Take by mouth. Active Vitamin D 50 MCG (2000 UT) Oral Capsule Take 2,000 Units by mouth in the morning. Active Culturelle Womens 4 in 1 Oral Capsule Take by mouth. Act arpita documented as of this encounter (statuses as of 07/27/2024) Active Problems Patient Care Coordination No te Formatting of this note migh t be different from the original. Cervical length 4.7cms with no funneling noted on US 09/15/10 Problem Noted Date Diagnosed Date Heart palpitations 05/31/2024 Pelvic pressure in female 05/31/2024 Anxiety hyperventilation 04/05/2024 Air hunger 04/05/2024 Low ferritin 02/29/2024 Small bowel obstruction due to adhesions 023 Peripheral polyneuropathy 06/18/2023 Need for prophylactic vaccin ation and inoculation against influenza 06/18/2023 Vaginal discharge 02/11/2023 Brain fog 12/16/2022 Skin lesion 09/29/2022 Atrial septal defect 09/29/2022 Gastroesophageal reflux disease without esophagi tis 09/29/2022 COVID-19 long hauler 08/25/2022 Bipolar 1 disorder 08/25/2022 Polymyalgia 06/25/2022 Patent foramen ovale 12/17/2021 Persistent insomnia 10/22/2021 Screening for colon cancer documented as of this encounter (statuses as of 07/27/2024) Resolved Problems Problem Noted Date Diagnosed Date Resolved Date Essential (primary) hypertension 11/26/2023 02/29/2024 Hospital discharge follow-up 08/27/2023 11/26/2023 ETD (Eustachian tube dysfunction), bilateral 3 11/26/2023 Endometriosis of uterus 09/29/2022 12/0 09/2022 Bilateral hand pain 06/25/2022 08/24/20 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 (COVID-19) 02/05/2021 08/24/2022 SILVANO (generalized anxiety disorder) 03/16/2017 08/24/2022 Headache 03/16/2017 03/17/2017 Bipolar 2 disorder 03/16/2017 Overview: ICD-10 update of inactive term Left shoulder pain 10/18/2014 7 Spasm of muscle 10/18/2014 03/16/2017 Cervicalgia 10/18/2014 03/16/2017 Tendonitis of shoulder, left 10/18/2014 03/16/2017 History of tobacco use 12/02/201103/17 Endolymphatic hydrops 12/02/20112012 Hearing loss 12/02/2011 03/22/2013 Objective tinnitus 12/02/2011 3 Vertigo 12/02/2011 03/22/2013 History of section complicating 11/17/2011 03/16/2017 Overview: Desires repeat c/s Abdominal pain, epigastric 06/02/2011 0 03/16/2017 Nausea 06/02/2011 03/22/2013 Overview: ICD-10 update of inactive term Dyslipidemia, goal LDL below 100 06/02/2011 03/22/2013 ADVANCE DIRECTIVE INFORMATION 12/22/2010 12/22/2010 Overview: No, Advance Directive brochure offered , patient declined. Hx LEEP 12/22/2010 08/24/2022 Overview: Term since LEEP, but incompetent cervix prior to LEEP Supervision of other high-risk 12/22/2010 11/17/2011 Overview: MFM 12/22: The growth is symmetric and concordant with the working KENY, placing the baby in the 76th EFW percentile for this gestational age. No further US f/u is necessary at this time. ICD-10 update of inactive term Encounter for supervision of other normal 07/09/2010 12/22/2010 Overview: Patient defers due to illness flu vaccine. 07/09/2010 Maria G Olson RN ICD-10 update of inactive term Dyslipidemia, goal to be determined 07/09/2010 03/22/2013 Overview: Taking Simvastatin at NOB visit-Cat X-pt to stop this med and restart PP Baseline EKG 07/09: normal with poor reproductive history 07/09/2010 03/22/2013 Overview: 1999: delivered infant at 38w GA after being on bedrest due to "incompetent cervix" 09/2003: LEEP 11/2003: SAB <10wks 03/07- term , competent cervix. LTCS for prolapsed cord 07/07- SAB ICD-10 update of inactive term Major depressive disorder, r ecurrent episode, moderate 04/22/2010 08/24/2022 Overview: Taking Effexor XR 225mg daily-pt desires to stay on this med Otogenic pain 08/05/2004 11/17/2011 DYSFUNCT EUSTACHIAN TUBE 08/05/2004 SPRAINS AND STRAINS, WRIST, UNSPECIFIED SITE 2 11/17/2011 Major depressive disorder 02/15/2001 Overview: ICD-10 update of inactive term ABN PAP SMEAR-CERVIX 10/25/2000 011 Overview: LGSIL PREMENSTRUAL TENSION 05/06/2000 011 Encounter for supervision of other normal 08/19/1999 05/10/2001 Overview: ICD-10 update of inactive term GENERALIZED ANXIETY DIS 07/31/199902/26 HISTORY OF TOBACCO USE 12/22 Overview: 1/2 ppd at NOB visit-desires to quit TEMPOROMANDIBULAR JOINT DISO RDERS, UNSPECIFIED 08/24/2022 ADJ DISORDER W/DEPRES MOOD 1 ALCOHOL ABUSE-UNSPEC 022 Major depressive disorder, s joyce episode, in partial remission 03/16/2017 documented as of this encounter (statuses as of 07/27/2024) Immunizations Name Administration Dates Next Due COVID-19 mRNA, LNP-s, No Pre serve, 2-Dose Series (Moderna) 12/11/2020,11/15/2020 PPD 06/24/2016,06/15/2016,07/30/2008 06/22/2016 Pneumococcal Conjugate Vacci ne, 20-valent ([id number]) 06/25/2022 Pneumococcal Polysaccharide PPV23 (Pneumovax) 05/21/2009 Seasonal Influenza Vac., MDV , IM, 0.5 mL (Fluzone) 09/08/2012,06/16/2011,06/11/2009 Seasonal Influenza, PF, 6 M & above, IM , (FluLaval or Fluzone) 06/18/2023,06/25/2022,07/17/2021,10/0 02/2020,10/28/2018,08/09/2017 Seasonal Influenza, QUAD, wi th Preserv, 6 mons & Above, 0.5 mL, IM 07/11/2019 Seasonal Influenza, Quadriva lent, No Preserve, IM 11/09/2016 Seasonal Influenza, Trivalen t, (IIV3), PF, (Fluzone) 05/31/2024 TDAP (age 10 and older)(Boostrix) 12/26/2018 12/26/2028 documented as of this encounter Social History Tobacco Use Types Packs/Day Years Used Date Smoking Tobacco: Former Cigarettes 1 10 0 11/20/1999 - 11/20/2009 Smokeless Tobacco: Never Alcohol Use Standard Drinks/Week Comments Not Currently 0 (1 standard drink = 0.6 oz pure alcohol) none- problems in past- quit 2000 PHQ-2 Answer Date Recorded PHQ Adult Total Score 0 02/02/2022 Hunger Vital Sign Answer Date Recorded Worried About Running Out of Food in the Last Ye ar Never true 07/29/2020 Ran Out of Food in the Last Year Never true 07/29/2020 Sex and Gender Information Value Date Recorded Sex Assigned at Female 02/02/2022 8:35 AM EDT Gender Identity Female 02/02/2022 8:35 AM EDT Sexual Orientation Straight 07/29/2020 9: 12 AM EST Job Start Date Occupation Industry Not on file Not on file Not on file documented as of this encounter Last Filed Vital Signs Vital Sign Reading Time Taken Comments Blood Pressure 118/56 07/27/2024 1:29 PM EDT Pulse 105 07/27/2024 1:29 PM EDT Temperature 36.8 C (98.2 F) 07/27/2024 1:29 PM ED T Respiratory Rate - - Oxygen Saturation - - Inhaled Oxygen Concentration - - Weight 54.2 kg (119 lb 6.4 oz) 07/27/2024 1:29 P M EDT Height - - Body Mass Index 21.16 07/19/2024 2:00 PM EDT documented in this encounter Progress Notes * Maria G Hui PA-C - 07/27/2024 1:28 PM EDT [facility] GENERAL SURGERY BREAST EXAM CLINIC NOTES Chief Complaint Patient presents with Follow Up HISTORY: Ana Hollingsworth is a 43 year old female who is here for annual follow- up for an increasedrisk of breast cancer based on the following factors: Last office visit: 07/2022 RISK FACTORS FOR BREAST CANCER: Family history of breast cancer: Yes, Mother postmenopausal with triple negative breast cancer diagnosed age 63 Known or suspected genetic mutation: No Previous suspicious breast biopsies: No. left breast excisional biopsy with pathology showing Fibroadenoma with PASH. NO atypia Food Safety Field Specialist factors: Hysterectomy 09/2022 Other: extremely dense tissue on mammography Genetic Testing Completed 10/23/2022: Test Results: Negative Type of test: Stringer-cancer panel -- 84 genes Genes Included: AIP, ALK, APC, TRUDY, AXIN2, BAP1, BARD1, BLM, BMPR1A, BRCA1, BRCA2, BRIP1, CASR, CDC73, CDH1, CDK4, CDKN1B, CDKN1C, CDKN2A (p14ARF), CDKN2A ([id number]), CEBPA, CHEK2, CTNNA1, DICER1, DIS3L2, EGFR, EPCAM, FH, FLCN, GATA2, GPC3, GREM1, HOXB13, HRAS, KIT, MAX, MEN1, MET, MITF, MLH1, MSH2, MSH3, MSH6, MUTYH, NBN, NF1, NF2, NTHL1, PALB2, PDGFRA, PHOX2B, PMS2, POLD1, POLE, POT1, LMSZS0A, PTCH1, PTEN, RAD50, RAD51C, RAD51D, RB1, RECQL4, RET, RUNX1, SDHA, SDHAF2, SDHB, SDHC, SDHD, SMAD4, SMARCA4, SMARCB1, SMARCE1, STK11, SUFU, TERC, TERT, VAUX824, TP53, TSC1, TSC2, VHL, WRN, WT1 Laboratory: [facility] BREAST ROS: No new breast lumps or masses, No severe breast pain, No nipple discharge, No recent change in shape/color, Performs self breast exam. Bilateral breast pain and engorgement in last 2.5 weeks. No other breast changes. Possible some nipple discharge noticed on clothes but unsure of color . NO bloody nipple discharge. GYNECOLOGIC HISTORY: Menarche at age: 12 Menopause at age: n/a, currently on control for dysfunctional uterine bleeding Number of children: Patient's age at first live : 19 : No Oral Contraceptive Use: Yes; Currently, +5 Years of use Estrogen Use: No RADIOLOGIC INTERPRETATION: Bilateral screening mammogram 01/28/2024 Findings The breasts are extremely dense, which lowers the sensitivity of mammography. There is no evidence of suspicious masses, calcifications, or other abnormal findings. Impression Bilateral No mammographic evidence of malignancy. BI-RADS Category: 1 - Negative. Recommendation Screening mammogram in 1 year is recommended for both breasts. Bilateral breast MRI 08/10/2022 Findings There is extreme fibroglandular tissue and mild and symmetric background parenchymal enhancement, bilaterally. Left: No suspicious enhancing mass or non mass enhancement. No axillary or internal mammary lymphadenopathy. Right: No suspicious enhancing mass or non-mass enhancement. No axillary or internal mammary lymphadenopathy. Extramammary findings: None. Impression: Left: No MRI evidence of malignancy. BI-RADS 2. Right: No MRI evidence of malignancy. BI-RADS 2. BIRADS: Overall BI-RADS: 2. Recommendation: The patient will be due for annual mammography November 2022. Screening breast MRI in 1 year is recommended for both breasts. FAMILY HISTORY: Family history of breast cancer: Yes; mother: unilateral; postmenopausal, triple negative, diagnosed age 63. Lumpectomy, Chemo, and radiation treatment completed Family history of ovarian cancer: Maternal great grandmother Family history of other cancer: Maternal grandfather: Lung Family History Problem Relation Name Age of Onset Hypertension Mother Mental Disorder Mother depression/anxiety Breast Cancer Mother 64 triple negative Cancer Father 64years when he No Known Problems Sister maria g Hypertension Grandmother (Maternal) Mental Disorder Grandmother (Maternal) Stroke Grandmother (Maternal) Cancer Grandfather (Maternal) Lung Hypertension Grandfather (Maternal) Mental Disorder Grandfather (Maternal) Neurological Disorder Aunt (Unspecified) No Past Hx Aunt (Unspecified) breast/site safety representative/colon Heart Disorder Uncle (Unspecified) arrhythmia (maternal) Ovarian cancer Great-grandmother (Maternal) PAST MEDICAL HISTORY: Past Medical History: Diagnosis Date Abnormal Papanicolaou smear of cervix and cervical HPV LEEP Adjustment disorder with depressed mood Anxiety and depression Bipolar 1 disorder (HCC) 08/25/2022 Bipolar I disorder, most recent episode mixed, mild (HCC) Chronic headaches COVID-19 long hauler 08/25/2022 Dyslipidemia, goal LDL below 160 Hypercholesterolemia, does not require medication History of tobacco use Hx LEEP 12/22/2010 Term since LEEP, but incompetent cervix prior to LEEP Temporomandibular joint disorders, unspecified PAST SURGICAL HISTORY: Past Surgical History: Procedure Laterality Date , INDUCED BY D&E 01/19/2012 INDUCED BY DILATION AND EVACUATION performed by FREDDIE CROWLEY at OR [facility] BREAST LESION,OTHER,EXCISION Left 06/13/2018 Fragments of Fibroadenoma BREAST LESION,OTHER,EXCISION Left 02/28/2019 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 DELIVERY 2010 COLONOSCOPY, DIAGNOSTIC (RECTUM) 07/19/2024 COLONOSCOPY FLEXIBLE PROXIMAL DIAGNOSTIC performed by Batsheva Cohen DO at [facility] COLPOSCPY CERVIX W/BX AND EC 08/2001 CYSTOSCOPY N/A 10/26/2022 CYSTOURETHROSCOPY performed by Shawna Cerna MD at OR [facility] EXC BREAST LESION RADMARK Left 02/28/2019 EXCISION OF BREAST LESION RADIOLOGICAL MARKER performed by Johnny Arias MD at OR [facility] INCISION OF EARDRUM Tubes in ears at [facility] ([facility] LAPAROSCOPY TOTAL HYSTX, UTERUS 250GM OR LESS TUBE/OVARY Bilateral 10/26/2022 LAPAROSCOPIC HYSTERECTOMY REMOVAL TUBES AND/OR OVARIES FOR UTERUS 250GM OR LESS performed by Shawna Cerna MD at OR [facility] LAPAROSCOPY;GUIDE TRANSHEPATIC 08/17/2009 laparoscopic cholecystectomy 08/17/09, [facility], Dr. Arias REMOVAL OF APPENDIX 1990 REMOVE CERVIX CONE W/LOOP ELECTRODE 10/08/2003 Dr. Riley, HSIL free margins on LEEP, colpo with HGSIL CURRENT OUTPATIENT PRESCRIPTIONS: Current Outpatient Medications Medication Sig Dispense Refill lamoTRIgine (LAMICTAL) 100 MG Tablet Take 1 Tablet by mouth in the morning. Pregabalin 50 MG Oral Capsule (Lyrica) Take 2 Capsules by mouth in the morning. Albuterol Sulfate HFA 108 (90 Base) MCG/ACT [...] 6 hours. With food. 55 Tablet 0 Culturelle Digestive Health Oral Tablet Chewable Take 1 Tablet by mouth in the morning. (Patient not taking: Reported on 07/14/2024) Venlafaxine HCl ER 225 MG Oral Tablet Extended Release 24 Hour Take 1 Tablet by mouth in the morning. Rosuvastatin Calcium 20 MG Oral Tablet (Crestor) Take 1 Tablet by mouth daily. (Patient taking differently: Take 1 Tablet by mouth at bedtime.) 90 Tablet 3 Multi Vitamin Oral Tablet Take by mouth. Vitamin D 50 MCG (2000 UT) Oral Capsule Take 2,000 Units by mouth in the morning. Culturelle Womens 4 in 1 Oral Capsule Take by mouth. No current facility-administered medications for this visit. ALLERGIES: Patient has no known allergies. SOCIAL HISTORY: Social History Tobacco Use Smoking status: Former Smoker Years: 12.00 Types: Cigarettes Last attempt to quit: 11/20/2010 Years since quittin.9 Smokeless tobacco: Never Used Substance Use Topics Alcohol use: No Comment: none- problems in past- quit 2000 REVIEW OF SYSTEMS: CONSTITUTIONAL: No change in weight, No weakness, No fatigue and No fevers, sweats, or chills PULMONARY: No shortness of breath and No recent change in breathing CARDIOVASCULAR: No chest pain, No shortness of breath FEMALE: No dysuria, No frequency, No incontinence, No urgency and No vaginal discharge. + vaginal spotting almost daily. EXTREMITIES: No pain, redness or swelling on the joints SKIN/INTEGUMENTARY: No edema, No rash and No itching SLEEP: No sleep disorders PHYSICAL EXAMINATION: Last menstrual period 09/07/2022, not currently . Constitutional: alert, healthy, well nourished Head: normocephalic, atraumatic Eyes: conjunctiva non-injected, sclera white Neck: supple, no adenopathy Lungs: clear to auscultation, breath sounds are equal and symmetric Heart: regular rate & rhythm and no murmur, gallops or rubs Abdomen: soft, non-tender Back: normal curvature, normal ROM Extremities: no joint deformities, effusion, or inflammation, no edema, no skin discoloration Neuro: alert, gait normal, motor normal Skin: no obvious rashes or significant lesions BREAST EXAMINATION: Right Breast: Right Breast: Masses noted: No Post XRT edema: No Post XRT erythema: No Other palpable abnormality: No Skin: Skin retraction: No Peau d'orange: No Telangectasia: No Scar(s) present: No Other changes: No Right Nipple: Nipple inversion: No Pagets: No Nipple discharge: No Right Lymph Nodes: Arm edema: No Palpable axillary adenopathy: No Palpable supraclavicular adenopathy: No Previous axillary incision: No Left Breast: Left Breast: Masses noted: No Post XRT edema: No Post XRT erythema: No Other palpable abnormality: No Skin: Skin retraction: No Peau d'orange: No Telangectasia: No Scar(s) present: Yes, lower outer quadrant Other changes: No Left Nipple: Nipple inversion: No Pagets: No Nipple discharge: No Left Lymph Nodes: Arm edema: No Palpable axillary adenopathy: No Palpable supraclavicular adenopathy: No Previous axillary incision: No ASSESSMENT: 43 year-old female with increased risk of breast cancer based on family history (mother) and extremely dense breast tissue. Excisional biopsy of left breast with fibroadenoma and PASH without atypia. Patient doing well with no evidence of disease. Last imaging and current physical exam are negative. GROCERY STORE ASSOCIATE assessment completed (see results below) PLAN: Genetics: Negative testing Screening: Patient's lifetime risk is up to 33% factoring in breast density. Continue yearly breastMRI She just qualifies for chemoprevention however she is currently taking control pill for abnormal uterine bleeding. Hysterectomy planned in September. I would not recommend chemoprevention at thistime. In conclusion, our recommendation for this patient is: 1. Continue yearly screening mammography with tomosynthesis, due January 2025 2. Continue Supplemental breast MRI, due now, order placed 3. Continue self breast examination and breast awareness 4. F/u high risk clinic yearly for clinical breast examination 5. Conservative treatment for cyclical breast pain advised Maria G Hui PA-C 07/27/2024 1:47 PM documented in this encounter Nursing Notes * Lulu Quintanilla LPN - 07/27/2024 1:26 PM EDT Pt presents in office for follow up of HRBC C/o- bilateral breast sensation of engorgement, and sensitivity to touch-ongoing for 2.5 weeks. Comes and goes in waves Denied/n/v/f/c/fatigue documented in this encounter Plan of Treatment Upcoming Encounters Date Type Department Care Team (Late st Contact Info) Description 08/10/2024 1:00 PM EST Imaging Radiology [address] [place] [id number] 08/21/2024 3:40 PM EST Office Visit Pulmonary Medicine, [address] [place] [id number] Chau Proctor MD [address] [facility] [address] 08/30/2024 3:00 PM EST Office Visit Family Practice [facility] [address] [facility] [place] [id number] Elysia Hutchins CRNP [address] [facility] [place] [id number] 01/29/2025 12:30 PM EDT Imaging Radiology [address] [place] [id number] Scheduled Orders Name Type Priority Associated Diagnoses Orde r Schedule MRI BREAST BILATERAL W WO CONTRAST Medical Imaging Routine Increased risk of breast cancer Family history of breast cancer in mother Dense breasts Expected: 07/28/2024, Expires: 08/26/2025 MAMMOGRAM SCREENING PRAVIN BILATERAL Medical Imaging Routine Encounter for screening mammogram for malignant neoplasm of breast Expected: 01/28/2025, Expires: 08/26/2025 Health Maintenance Due Date Last Done Comments Hepatitis B Vaccine (1 of 3 - 19+ 3-dose series) 1997 Cologuard 2023 Fecal Occult Blood Test 2023 Sigmoidoscopy 2023 COVID-19 Vaccine ( season) 2024 12/11/2020, 11/15/2020 Mammogram 01/27/2025 01/28/2024, 11/26, 12/23/2021, Additional history exists PAP SMEAR-EVERY 3 YRS,AGES 18-100 02/02/2025 02/02/2022, 12/26/2018, 12/03/2014, Additional history exists DTap/Tdap Vaccines (2 - Td or Tdap) 12/26/2028 12/26/2018, 07/21/2005 Lipid Panel 04/19/2029 04/19/2024, 06/0 12/2023, 12/26/2018, Additional history exists Colonoscopy 07/19/2034 07/19/2024, 07/19/2024 Colorectal Cancer Screening 07/19/2034 Pneumococcal Vaccine: Pediatrics (0 to 5 Years) and At-Risk Patients (6 to 64 Years) Completed 06/25/2022, 05/21/2009 Influenza Vaccine (FLU shot) Completed 12/2023, 06/18/2023, 06/25/2022, Additional history exists HPV (Gardasil) Vaccine Aged Out No lo nger eligible based on patient's age to complete this topic MENINGOCOCCAL (MENACTRA/MENVEO) Aged Out No longer eligible based on patient's age to complete this topic documented as of this encounter Medical Devices Not on filedocumented as of this encounter Visit Diagnoses Diagnosis Increased risk of breast cancer- Primary Other specified personal history presenting hazards to health Family history of breast cancer in mother Family history of malignant neoplasm of breast Dense breasts Inconclusive mammogram Encounter for screening mammogram for malignant neoplasm of breast Other screening mammogram documented in this encounter Advance Directives * Full Code (Latest Code Status on File) Date Activated Date Inactivated Comments 10/26/2022 2:09 PM 10/26/2022 7:54 PM This order r eflects the patients wishes and were consensually agreed upon. Question Answer Comments Discussion of Advance Direct betzy occurred with: Not Discussed due to patient's condition * Full Code Date Activated Date Inactivated Comments 02/28/2019 10:54 AM 02/28/2019 5:39 PM This order re flects the patients wishes and were consensually agreed upon. * Full Code Date Activated Date Inactivated Comments 01/19/2012 3:01 PM 01/19/2012 10:52 PM This order reflects the patients wishes and were consensually agreed upon. Care Teams Perinatal Educator Relationship Specialty Start Date End Date Elysia Hutchins CRNP [address] [place] [id number] PCP - General Nurse Practitioner 07/05/24 documented as of this encounter
--- OUTSIDE RECORDS SUMMARY | 2024-08-23 13:36 | External Medical Summary | Summary of Care ---
Author Name Unknown Organization [facility] Address [address] [facility] [place] [address] Phone [phone] Care Team Providers Care Homeworker Name Role Phone Elysia Hutchins Primary Care Provider Reason for Visit * Reason Onset Date Comments Appointment 08/04/2024 Encounter Details Date Type Department Care Team (Late st Contact Info) Description 08/04/2024 Telephone Radiology [address] [facility] [place] [address] Agatha Curran, RT (R) Appointment Allergies No known active allergiesdocumented as of this encounter (statuses as of 08/04/2024) Medications lamoTRIgine (LAMICTAL) 100 MG TabletIndication s:Major depressive disorder, recurrent episode, moderate (HCC),SILVANO (generalized anxiety disorder),Bipola r disorder, unspecified (HCC) Take 1 Tablet by mouth in the morning. 7 Active Pregabalin 50 MG Oral Capsule (Lyrica) Take 2 Capsules by mouth in the morning. 2 Active Albuterol Sulfate HFA 108 (90 Base) MCG/ACT Inhalation Aerosol SolutionIndicati ons:Pneumonia due to COVID-19 virus,SOB (shortness of breath) Inhale by mouth 2 Puffs every 6 hours as needed for Cough, Shortness of Breath or Wheezing. 18 g 4 2 Active Vitron-C 65-125 MG Oral Tablet (Iron-Vitamin C) Take 1 Tablet by mouth in the morning and 1 Tablet before bedtime. 60 Tablet 11 2 Active Additional Information Patient taking differently:1 Tablet OralDaily(AM), Reported on 03/01/2023 Acetaminophen 325 MG Oral Tablet (Tylenol) Take 3 Tablets by mouth every 6 hours. 170 Tablet 10/26/2022 3:44 PM EST 3 Active Ibuprofen 600 MG Oral Tablet (Motrin) Take 1 Tablet by mouth every 6 hours. With food. 55 Tablet 10/26/2022 3:44 PM EST 3 Active Culturelle Digestive Health Oral Tablet Chewable Take 1 Tablet by mouth in the morning. Active Venlafaxine HCl ER 225 MG Oral Tablet Extended Release 24 Hour Take 1 Tablet by mouth in the morning. 3 Active Rosuvastatin Calcium 20 MG Oral Tablet (Crestor) Take 1 Tablet by mouth daily. 90 Tablet 3 4 Active Additional Information Patient taking differently:20 mg OralHS, Reported on 07/14/2024 Multi Vitamin Oral Tablet Take by mouth. Act arpita Vitamin D 50 MCG (1999) Oral Capsule Take 2,000 Units by mouth in the morning. Active Culturelle Womens 4 in 1 Oral Capsule Take by mouth. Ac tive documented as of this encounter (statuses as of 08/04/2024) Active Problems Patient Care Coordination No te [...] as of this encounter (statuses as of 08/04/2024) Resolved Problems Problem Noted Date Diagnosed Date Resolved Date Essential (primary) hypertension 11/26/2023 02/29/2024 Hospital discharge follow-up 08/27/2023 11/26/2023 ETD (Eustachian tube dysfunction), bilateral 3 11/26/2023 Endometriosis of uterus 09/29/2022 12/0 09/2022 Bilateral hand pain 06/25/2022 08/24/20 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 (COVID-19) 02/05/2021 08/24/2022 SILVANO (generalized anxiety disorder) 03/16/2017 08/24/2022 Headache 03/16/2017 03/17/2017 Bipolar 2 disorder 03/16/2017 Overview (06/28/2017): ICD-10 update of inactive term Left shoulder pain 10/18/2014 7 Spasm of muscle 10/18/2014 03/16/2017 Cervicalgia 10/18/2014 03/16/2017 Tendonitis of shoulder, left 10/18/2014 03/16/2017 History of tobacco use 12/02/201103/17 Endolymphatic hydrops 12/02/20112012 Hearing loss 12/02/2011 03/22/2013 Objective tinnitus 12/02/2011 3 Vertigo 12/02/2011 03/22/2013 History of section complicating 11/17/2011 03/16/2017 Overview (11/17/2011): Desires repeat c/s Abdominal pain, epigastric 06/02/2011 0 03/16/2017 Nausea 06/02/2011 03/22/2013 Overview (07/20/2017): ICD-10 update of inactive term Dyslipidemia, goal LDL below 100 06/02/2011 03/22/2013 ADVANCE DIRECTIVE INFORMATION 12/22/2010 12/22/2010 Overview (03/25/2005): No, Advance Directive brochure offered , patient declined. Hx LEEP 12/22/2010 08/24/2022 Overview (11/17/2011): Term since LEEP, but incompetent cervix prior to LEEP Supervision of other high-risk 12/22/2010 11/17/2011 Overview (12/31/2015): MFM 12/22: The growth is symmetric and concordant with the working KENY, placing the baby in the 76th EFW percentile for this gestational age. No further US f/u is necessary at this time. ICD-10 update of inactive term Encounter for supervision of other normal 07/09/2010 12/22/2010 Overview (01/28/2016): Patient defers due to illness flu vaccine. 07/09/2010 Maria G Olson RN ICD-10 update of inactive term Dyslipidemia, goal to be determined 07/09/2010 03/22/2013 Overview (09/01/2010): Taking Simvastatin at NOB visit-Cat X-pt to stop this med and restart PP Baseline EKG 07/09: normal with poor reproductive history 07/09/2010 03/22/2013 Overview (06/29/2019): 1999: delivered infant at 38w GA after being on bedrest due to "incompetent cervix" 09/2003: LEEP 11/2003: SAB <10wks 03/07- term , competent cervix. LTCS for prolapsed cord 07/07- SAB ICD-10 update of inactive term Major depressive disorder, r ecurrent episode, moderate 04/22/2010 08/24/2022 Overview (11/17/2011): Taking Effexor XR 225mg daily-pt desires to stay on this med Otogenic pain 08/05/2004 11/17/2011 DYSFUNCT EUSTACHIAN TUBE 08/05/2004 SPRAINS AND STRAINS, WRIST, UNSPECIFIED SITE 2 11/17/2011 Major depressive disorder 02/15/2001 Overview (07/20/2017): ICD-10 update of inactive term ABN PAP SMEAR-CERVIX 10/25/2000 011 Overview (08/04/2001): LGSIL PREMENSTRUAL TENSION 05/06/2000 011 Encounter for supervision of other normal 08/19/1999 05/10/2001 Overview (01/28/2016): ICD-10 update of inactive term GENERALIZED ANXIETY DIS 07/31/199902/26 HISTORY OF TOBACCO USE 12/22 Overview (07/09/2010): 1/2 ppd at NOB visit-desires to quit TEMPOROMANDIBULAR JOINT DISO RDERS, UNSPECIFIED 08/24/2022 ADJ DISORDER W/DEPRES MOOD 1 ALCOHOL ABUSE-UNSPEC 022 Major depressive disorder, s joyce episode, in partial remission 03/16/2017 documented as of this encounter (statuses as of 08/04/2024) Immunizations Name Administration Dates Next Due COVID-19 mRNA, LNP-s, No Pre serve, 2-Dose Series (Moderna) 12/11/2020,11/15/2020 PPD 06/24/2016,06/15/2016,07/30/2008 06/22/2016 Pneumococcal Conjugate Vacci ne, 20-valent ([id number]) 06/25/2022 Pneumococcal Polysaccharide PPV23 (Pneumovax) 05/21/2009 Seasonal [...] in the Last Year Never true 07/29/2020 Comments No Sex and Gender Information Value Date Recorded Sex Assigned at Female 02/02/2022 8:35 AM EDT Legal Sex Female 7:15 AM EST Gender Identity Female 02/02/2022 8:35 AM EDT Sexual Orientation Straight 07/29/2020 9: 12 AM EST Occupation Industry Job Start Date Job End Date Not on file Not on file Not on file Not on file unemployed Not on file Not on file Not on file documented as of this encounter Plan of Treatment Upcoming Encounters Date Type Department Care Team (Late st Contact Info) Description 08/10/2024 1:00 PM EST Imaging Radiology [facility] 1st Floor, [place] [address] [facility] [place] [id number] 08/21/2024 3:40 PM EST Office Visit Pulmonary Medicine, [facility] [address] [facility] [place] [address] Chau Proctor MD [address] [place] [address] 08/30/2024 3:00 PM EST Office Visit Family Practice [facility] [address] [facility] [place] [address] Elysia Hutchins CRNP [address] [place] [address] 01/29/2025 12:30 PM EDT Imaging Radiology [facility] 1st [facility], [place] [address] [place] [address] Health Maintenance Due Date Last Done Comments Hepatitis B Vaccine (1 of 3 - 19+ 3-dose series) 1997 Cologuard 2023 Fecal Occult Blood Test 2023 Sigmoidoscopy 2023 COVID-19 Vaccine (2023- season) 2024 12/11/2020, 11/15/2020 Mammogram 01/27/2025 01/28/2024, [...] filedocumented as of this encounter Advance Directives * Full Code [...] and were consensually agreed upon. Care Teams Homeworker Relationship Specialty Start Date End Date Elysia Hutchins CRNP [address] [place] [id number] PCP - General Nurse Practitioner 07/05/24 documented as of this encounter
--- OUTSIDE RECORDS SUMMARY | 2024-08-23 13:36 | External Medical Summary | Summary of Care ---
Author Name Unknown Organization [facility] Address [address] [facility] [place] [address] Phone [phone] Care Team Providers Care Pipe Fitter Soft Copper Name Role Phone Elysia Hutchins Primary Care Provider Reason for Visit * Reason Comments Follow Up Air Hunger Encounter Details Date Type Department Care Team (Late st Contact Info) Description 08/21/2024 3:40 PM EST Office Visit Pulmonary Medicine, [facility] [address] [facility] [place] [address] Chau Proctor MD [address] [facility] [place] [address] SILVANO (generalized anxiety disorder)*; Air hunger Allergies No known active allergiesdocumented as of this encounter (statuses as of 08/21/2024) Medications lamoTRIgine (LAMICTAL) 100 MG TabletIndication s:Major [...] Patient taking differently:1 Tablet OralDaily(AM), Reported on 08/21/2024 Acetaminophen 325 MG Oral Tablet (Tylenol) Take [...] Patient taking differently:20 mg OralHS, Reported on 08/21/2024 Multi Vitamin Oral Tablet Take by mouth. Act arpita Vitamin D 50 MCG (1999 [place]) Oral Capsule Take 2,000 Units by mouth in the morning. Active Culturelle Womens 4 in 1 Oral Capsule Take by mouth. Ac tive documented as of this encounter (statuses as of 08/21/2024) Active Problems Patient Care Coordination No te [...] as of this encounter (statuses as of 08/21/2024) Resolved Problems Problem Noted Date Diagnosed Date [...] history 07/09/2010 03/22/2013 Overview (06/29/2019): 1999: delivered at 38w GA after being [...] as of this encounter (statuses as of 08/21/2024) Immunizations Name Administration Dates Next Due COVID-19 mRNA, LNP-s, No Pre serve, 2-Dose Series (Moderna) 12/11/2020,11/15/2020 PPD 06/24/2016,06/15/2016,07/30/2008 06/22/2016 Pneumococcal Conjugate Vacci ne, 20-valent ([id number]) 06/25/2022 Pneumococcal Polysaccharide PPV23 (Pneumovax) 05/21/2009 Seasonal Influenza Vac., MDV , IM, 0.5 mL (Fluzone) 09/08/2012,06/16/2011,06/11/2009 Seasonal Influenza, PF, 6 M & above, IM , (FluLaval or Fluzone) 06/18/2023,06/25/2022,07/17/2021,02/2020,10/28/2018,08/09/2017 Seasonal Influenza, QUAD, wi th Preserv, 6 [...] Sign Reading Time Taken Comments Blood Pressure 118/60 08/21/2024 3:40 PM EST Pulse 105 08/21/2024 3:40 PM EST Temperature 36.4 C (97.6 F) 08/21/2024 3:40 PM ES T Respiratory Rate 16 08/21/2024 3:40 PM EST Oxygen Saturation 97% 08/21/2024 3:40 PM EST Inhaled Oxygen Concentration - - Weight 54 kg (119 lb) 08/21/2024 3:40 PM EST Height 157.5 cm (5' 2") 08/21/2024 3:40 PM EST Body Mass Index 21.77 08/21/2024 3:40 PM EST documented in this encounter Progress Notes * Hitesh, Chau Laureano, MD - 08/21/2024 4:10 PM EST 08/21/2024 Pulmonary Medicine, [facility] [address] [facility] [place] [id number] Ana Hollingsworth 1980 female 43 year old Attending Physician Documentation: 43-year-old female [employer] Ten pack-year smoker quit 14 years ago Depression Generalized anxiety disorder HX of covid viral illness 2019, Severe Homesick PFT within normal limits 06/2022 , except air trapping Chest x-ray 09/2022 WNL NL PFT 06/2022 NL 6 MWT 06/[address] chest 10/2020 Nl A1AT Level 10/22/2021 Physical Examination: Alert, awake, no distress Anxious affect Class 2 throat No JVD Adeq Air entry in all lung odonnell, No Wheezing, no rales no dullness S1, S2, no murmur Soft nontender abdomen No LE Edema Nonlateralizing Neuro Exam No response to Klonopin therapy No evidence of COPD/emphysema noted ? Air hunger secondary to long COVID syndrome without objective ventilatory limitations Trial of increasing Lyrica 50 mg QD to TID was discussed. F/u with Psychiatry/Mood Specialist Maintain Physical Activity status Call with Change in resp Symptoms F/u 12 months Follow Up: Return in about 1 year (around 08/21/2025) for Clinic Visit. | For: Clinic Visit | Check-out note: 43-year-old female [employer] Ten pack-year smoker quit 14 years ago Depression Generalized anxiety disorder PFT within normal limits 06/2022 , except air trapping Chest x-ray 09/2022 WNL NL PFT 06/2022 NL 6 MWT 06/[address] chest 10/2020 Nl A1AT Level 10/22/2021 No response to Klonopin therapy No evidence of COPD/emphysema noted Trial of increasing Lyrica 50 mg QD to TID was discussed. F/u with Psychiatry/Mood Specialist Maintain Physical Activity status F/u 12 months Chau Proctor MD Data review: Following reports, and data as outlined below was personally reviewed and interpreted by myself. PFT within normal limits 06/2022 , except air trapping Chest x-ray 09/2022 WNL NL PFT 06/2022 NL 6 MWT 06/[address] chest 10/2020 Nl A1AT Level 10/22/2021 Subjective CC: Chief Complaint Patient presents with Follow Up Air Hunger HPI: Nursing Notes: Hiral SouzaKATIE 08/21/24 1620 Signed Chief Complaint Patient presents with Follow Up Air Hunger MMRC Dyspnea Scale = 2 (On level ground, I walk slower than people of the same age because of breathlessness or have to stop for breath when walking at my own) Interm History/Respiratory Symptoms Cough: no Hemoptysis: no Sinus Symptoms: no Hospitalizations: no ED Trips: no Triggers: scents,cleaning products,smoke Nocturnal: no CPAP/BiPAP/O2: no Objective Filed Vitals: 08/21/24 1540 BP: 118/60 Pulse: 105 Resp: 16 Temp: 36.4 C (97.6 F) TempSrc: Tympanic SpO2: 97% Weight: 54 kg (119 lb) Height: 1.575 m (5' 2") Exam: Const: No signs of acute distress present. Head/Face: Normal on inspection. Eyes: Conjunctivae clear. Pupils equal round and reactive to light. ENMT: Oropharynx: No erythema, exudate or masses. Posterior pharynx is normal. Neck: Supple and symmetric. Resp: Respiratory examination as outlined above CV: Rate is regular. Rhythm is regular. No heart murmur appreciated. Extremities: No edema of the lower limbs bilaterally. Skin: Skin is warm and dry. Neuro: Coordination normal. No involuntary movement. Psych: Patient's attitude is cooperative. Mood is normal. Affect is normal. Tests reviewed with the patient: No imaging results in the last 6 months Available Radiologic data was reviewed by me in PACS. The images were shown to the patient and findings were discussed with the patient. HOME MEDICATIONS: Multi Vitamin Oral Tablet Vitamin D 50 MCG (1999 UT) Oral Capsule Rosuvastatin Calcium 20 MG Oral Tablet (Crestor) Venlafaxine HCl ER 225 MG Oral Tablet Extended Release 24 Hour Acetaminophen 325 MG Oral Tablet (Tylenol) Vitron-C 65-125 MG Oral Tablet (Iron-Vitamin C) Albuterol Sulfate HFA 108 (90 Base) MCG/ACT Inhalation Aerosol Solution Pregabalin 50 MG Oral Capsule (Lyrica) lamoTRIgine (LAMICTAL) 100 MG Tablet Culturelle Womens 4 in 1 Oral Capsule Culturelle Digestive Health Oral Tablet Chewable Ibuprofen 600 MG Oral Tablet (Motrin) ROS: No reported history of Hemoptysis, Hematemesis, Melena No reported history of Dysuria, Hematuria, Flank Pain No reported history of chronic headache, seizures No reported history of Fall or trauma . No reported history of recent change in weight or appetite. 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 DELIVERY 2010 COLONOSCOPY, DIAGNOSTIC (RECTUM) 07/19/2024 COLONOSCOPY FLEXIBLE PROXIMAL DIAGNOSTIC performed by Batsheva Cohen DO at ENDOSCOPY [facility] COLPOSCPY CERVIX W/BX AND EC 08/2001 CYSTOSCOPY N/A 10/26/2022 CYSTOURETHROSCOPY performed by Shawna Cerna MD at OR [facility] EXC BREAST LESION RADMARK Left 02/28/2019 EXCISION OF BREAST LESION RADIOLOGICAL MARKER performed by Johnny Arias MD at OR [facility] INCISION OF EARDRUM Tubes in ears at [facility] ([facility] LAPAROSCOPY TOTAL HYSTX, UTERUS 250GM OR LESS TUBE/OVARY Bilateral 10/26/2022 LAPAROSCOPIC HYSTERECTOMY REMOVAL TUBES AND/OR OVARIES FOR UTERUS 250GM OR LESS performed by Shawna Cerna MD at OR [facility] LAPAROSCOPY;GUIDE TRANSHEPATIC 08/17/2009 laparoscopic cholecystectomy 08/17/09, [facility], Dr. Arias REMOVAL OF APPENDIX 1990 REMOVE CERVIX CONE W/LOOP ELECTRODE 10/08/2003 Dr. Riley, HSIL free margins on LEEP, colpo with HGSIL Social History Socioeconomic History Marital status: Spouse name: Vince Number of children: 1 Occupational History Comment: unemployed Occupation: unemployed Tobacco Use Smoking status: Former Current packs/day: 0.00 Average packs/day: 1 pack/day for 10.0 years (10.0 ttl pk-yrs) Types: Cigarettes Start date: 11/20/1999 Quit date: 11/20/2009 Years since quittin.7 Smokeless tobacco: Never Vaping Use Vaping status: Never Used Substance and Sexual Activity Alcohol use: Not Currently Comment: none- problems in past- quit 2000 Drug use: No Other Topics Concern Caffeine Concern Yes Comment: 2-3 sodas a day Social History Narrative Cat No mold Social Needs Food Insecurity: No Food Insecurity (07/29/2020) Hunger Vital Sign Worried About Running Out of Food in the Last Year: Never true Ran Out of Food in the Last Year: Never true Family History Problem Relation Name Age of Onset Hypertension Mother Mental Disorder Mother depression/anxiety Breast Cancer Mother 64 triple negative Cancer Father 64years when he No Known Problems Sister maria g Hypertension Grandmother (Maternal) Mental Disorder Grandmother (Maternal) Stroke Grandmother (Maternal) Cancer Grandfather (Maternal) Lung Hypertension Grandfather (Maternal) Mental Disorder Grandfather (Maternal) Neurological Disorder Aunt (Unspecified) No Past Hx Aunt (Unspecified) breast/library serials assistant/colon Heart Disorder Uncle (Unspecified) arrhythmia (maternal) Ovarian cancer Great-grandmother (Maternal) Review of patient's allergies indicates: No Known Allergies documented in this encounter Nursing Notes * Hiral Souza LPN - 08/21/2024 3:43 PM EST Chief Complaint Patient presents with Follow Up Air Hunger MMRC Dyspnea Scale = 2 (On level ground, I walk slower than people of the same age because of breathlessness or have to stop for breath when walking at my own) Interm History/Respiratory Symptoms Cough: no Hemoptysis: no Sinus Symptoms: no Hospitalizations: no ED Trips: no Triggers: scents,cleaning products,smoke Nocturnal: no CPAP/BiPAP/O2: no documented in this encounter Plan of Treatment Upcoming Encounters Date Type Department Care Team (Late st Contact Info) Description 08/23/2024 1:15 PM EST Imaging Radiology [facility] 2nd [facility] [place] [address] [facility] [place] [id number] 08/31/2024 2:40 PM EST Office Visit Family Practice [facility] [address] [facility] [place] [address] Elysia Hutchins CRNP 132 [facility] [place] [address] 01/29/2025 12:30 PM EDT Imaging Radiology [facility] 1st [facility] [place] [address] [facility] [place] [id number] Health Maintenance Due Date Last Done Comments [...] as of this encounter Visit Diagnoses Diagnosis SILVANO (generalized anxiety disorder)- Primary Generalized anxiety disorder Air hunger Other dyspnea and respiratory abnormality documented in this encounter Advance Directives * [...] and were consensually agreed upon. Care Teams Pipe Fitter Soft Copper Relationship Specialty Start Date End Date Elysia Hutchins CRNP [address] [place] [address] PCP - General Nurse Practitioner 07/05/24 documented as of this encounter
--- OUTSIDE RECORDS SUMMARY | 2024-08-23 13:37 | External Medical Summary | Summary of Care ---
Author Name Unknown Organization [facility] Address [address] [facility] [place] [address] Phone [phone] Care Team Providers Care Compound Finisher Name Role Phone Elysia Hutchins Primary Care Provider Reason for Visit * Reason Onset Date Comments Appointment 02/29/2024 colon Encounter Details Date Type Department Care Team (Late st Contact Info) Description 02/29/2024 Telephone Family Practice [facility] [address] [place] [address] Elysia Hutchins CRNP [address] [place] [address] Appointment (colon) Allergies No known active allergiesdocumented as of this encounter (statuses as of 02/29/2024) Medications Medication Sig Dispensed Refills Start Date End Date Status lamoTRIgine (LAMICTAL) 100 MG TabletIndications: Major depressive disorder, recurrent episode, moderate (HCC),SILVANO (generalized anxiety disorder),Bipolar disorder, unspecified (HCC) Take 1 Tablet by mouth in the morning. 03/16/2017 Active LORazepam 0.5 MG Oral Tablet (ATIVAN) Take 1 Tablet by mouth every 6 hours as needed. Active Pregabalin 50 MG Oral Capsule (Lyrica) Take 2 Capsules by mouth in the morning and 2 Capsules before bedtime. Twice to three times a day.. 10/15/2021 Active Albuterol Sulfate HFA 108 (90 [...] by mouth in the morning. 01/22/2023 Active Levalbuterol Tartrate 45 MCG/ACT Inhalation Aerosol (Xopenex HFA) Inhale 2 Puffs by mouth every 4 hours as needed for Wheezing. 15 g 12 06/18/2023 Active Trelegy Ellipta 200-62.5-25 MCG/ACT Aerosol Powder Breath Activated (Fluticasone-Umecl idinium-Vilanterol ) Inhale 1 Puff by mouth every evening. 180 Blister Dosing Unit 1 02/29/2024 Active documented as of this encounter (statuses as of 02/29/2024) Active Problems Patient Care Coordination No te Formatting of this note migh t be different from the original. Cervical length 4.7cms with no funneling noted on US 09/15/10 Problem Noted Date Diagnosed Date Low ferritin 02/29/2024 COPD, group D, by GOLD 2017 classification 12/05 Overview: Per COPD GOLD Classification Small bowel obstruction due to adhesions 023 Peripheral polyneuropathy 06/18/2023 Flu vaccine need 06/18/2023 Vaginal discharge 02/11/2023 Brain fog 12/16/2022 Skin lesion 09/29/2022 Atrial septal defect 09/29/2022 Gastroesophageal reflux disease without esophagi tis 09/29/2022 COVID-19 long hauler 08/25/2022 Bipolar 1 disorder 08/25/2022 TON (obstructive sleep apnea) 08/24/2022 Polymyalgia 06/25/2022 Patent foramen ovale 12/17/2021 Persistent insomnia 10/22/2021 Centrilobular emphysema 02/05/2021 Screening for colon cancer documented as of this encounter (statuses as of 02/29/2024) Resolved Problems Problem Noted Date Diagnosed Date Resolved Date Essential (primary) hypertension 11/26/2023 02/29/2024 COPD, group D, by GOLD 2017 classification 09/06/2023 11/26/2023 Overview: Per COPD GOLD Classification Hospital discharge follow-up 08/27/2023 11/26/2023 ETD (Eustachian tube dysfunction), bilateral 11/26/2023 COPD, group B, by GOLD 2017 classification 05/10/2023 09/09/2023 Overview: Per COPD GOLD Classification Endometriosis of uterus 09/29/2022 12/0 09/2022 COPD exacerbation 09/07/2022 11/26/2023 Overview: Per COPD GOLD Classification Bilateral hand pain 06/25/2022 08/24/20 Chronic respiratory failure with hypoxia 02/05/2021 08/25/2022 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 [...] Objective tinnitus 12/02/2011 3 Vertigo 12/02/2011 03/22/2013 Deviated nasal septum 12/02/20112016 History of section complicating 11/17/2011 03/16/2017 Overview: [...] reproductive history 07/09/2010 03/22/2013 Overview: 1999: delivered at 38w GA [...] pain 08/05/2004 11/17/2011 DYSFUNCT EUSTACHIAN TUBE 08/05/2004 Chronic rhinitis 08/05/2004 12/22/2010 SPRAINS AND STRAINS, WRIST, UNSPECIFIED SITE 2 11/17/2011 Major depressive disorder 02/15/2001 Overview: ICD-10 update of inactive term ABN PAP SMEAR-CERVIX 10/25/2000 011 Overview: LGSIL STREP SORE THROAT 09/28/2000 05/10/2001 ACUTE URI NOS 09/28/2000 05/10/2001 PREMENSTRUAL TENSION 05/06/2000 011 Encounter for supervision [...] as of this encounter (statuses as of 02/29/2024) Immunizations Name Administration Dates Next Due COVID-19 mRNA, LNP-s, No Pre serve, 2-Dose Series (Moderna) 12/11/2020,11/15/2020 PPD 06/24/2016,06/15/2016,07/30/2008 06/22/2016 Pneumococcal Conjugate Vacci ne, 20-valent ([id number]) 06/25/2022 Pneumococcal Polysaccharide PPV23 (Pneumovax) 05/21/2009 Seasonal Influenza, PF, 6 M & above, IM , (FluLaval or Fluzone) 06/18/2023,06/25/2022,07/17/2021,10/0 02/2020,10/28/2018,08/09/2017 Seasonal Influenza, QUAD, wi th Preserv, 6 mons & Above, 0.5 mL, IM 07/11/2019 Seasonal Influenza, Quadriva lent, No Preserve, IM 11/09/2016 Seasonal Influenza, Split, I IV3, With Preserve, Inj 09/08/2012,06/16/2011,06/11/2009 TD - Tetanus/Diptheria (ADULT) 07/21/2005 TDAP (age 10 and older)(Boostrix) 12/26/2018 12/26/2028 [...] encounter Miscellaneous Notes * Telephone Encounter - Una Reid OSA - 02/29/2024 12:48 PM EDT Pt scheduled for 07/19/24 with Vicki * Telephone Encounter - Brittany Veronica OSA - 02/29/2024 10:28 AM EDT Screening colonoscopy documented in this encounter Plan of Treatment Upcoming Encounters Date Type Department Care Team (Latest Contact Info) Description 05/31/2024 3:00 PM EDT Office Visit [facility] ([place], [place]) [address] [place] [address] Elysia Hutchins CRNP [address] [place] [address] 07/19/2024 2:30 PM EDT Hospital Encounter ENDO [facility], Endoscopy Room [facility] [address] [place] [address] Batsheva Cohen DO [address] [place] [address] 07/19/2024 2:30 PM EDT - 07/19/2024 3:00 PM EDT Surgery ENDO [facility], Endoscopy Room [facility] [address] [place] [phone] Batsheva Cohen DO [address] [place] [address] COLONOSCOPY FLEXIBLE PROXIMAL DIAGNOSTIC Scheduled Procedures Name Priority Associated Diagnoses Date/Ti me COLONOSCOPY FLEXIBLE PROXIMAL DIAGNOSTIC Special screening for malignant neoplasms, colon 07/19/2024 2:30 PM EDT Health Maintenance Due Date Last Done Comments Hepatitis B (1 of 3 - 19+ 3-dose series) 1997 COVID-19 Vaccine ( season) 2023 12/11/2020, 11/15/2020 Cologuard 2023 Colonoscopy 2023 Colorectal Cancer Screening 2023 Fecal Occult Blood Test 2023 Sigmoidoscopy 2023 Lipid Panel 12/27/2023 12/26/2018, 10/28, 06/03/2011, Additional history exists O2 ASSESSMENT COMPLETED IN PAST YEAR FOR COPD 11/25/2024 11/26/2023 Mammogram 01/27/2025 01/28/2024, 11/26, 12/23/2022, Additional history exists PAP SMEAR-EVERY 3 YRS,AGES 18-100 02/02/2025 02/02/2022, 12/26/2018, 12/03/2014, Additional history exists DTaP,Tdap,and Td Vaccines (2 - Td or Tdap) 12/26/2028 12/26/2018, 07/21/2005 Alpha-1 Antitrypsin Completed 10/22/2021, Pneumococcal Vaccine: Pediatrics [...] and were consensually agreed upon. Care Teams Compound Finisher Relationship Specialty Start Date End Date Elysia Hutchins CRNP [address] [place] [address] PCP - General Nurse Practitioner 06/25/22 documented as of this encounter
--- OUTSIDE RECORDS SUMMARY | 2024-08-23 13:37 | External Medical Summary | Summary of Care ---
Author Name Unknown Organization [facility] Address [address] [facility] [place] [address] Phone [phone] Care Team Providers Care Head Of Commission Department Name Role Phone Elysia Hutchins Primary Care Provider Encounter Details Date Type Department Care Team (Late st Contact Info) Description 03/07/2024 Telephone Family Practice [facility] [address] [place] [address] Elysia Hutchins CRNP [address] [place] [address] Allergies No known active allergiesdocumented as of this encounter (statuses as of 03/07/2024) Medications Medication Sig Dispensed Refills Start Date [...] 180 Blister Dosing Unit 1 02/29/2024 Active Rosuvastatin Calcium 20 MG Oral Tablet (Crestor) Take 1 Tablet by mouth daily. 90 Tablet 3 03/03/2024 Active documented as of this encounter (statuses as of 03/07/2024) Active Problems Patient Care Coordination No te [...] as of this encounter (statuses as of 03/07/2024) Resolved Problems Problem Noted Date Diagnosed Date [...] with poor reproductive history 07/09/2010 03/22/2013 Overview: 2000: delivered at 38w GA after being on [...] as of this encounter (statuses as of 03/07/2024) Immunizations Name Administration Dates Next Due COVID-19 mRNA, LNP-s, No Pre serve, 2-Dose Series (Moderna) 12/11/2020,11/15/2020 PPD 06/24/2016,06/15/2016,07/30/2008 06/22/2016 Pneumococcal Conjugate Vacci ne, 20-valent ([id number]) 06/25/2022 Pneumococcal Polysaccharide PPV23 (Pneumovax) 05/21/2009 Seasonal Influenza, PF, 6 M & above, IM , (FluLaval or Fluzone) 06/18/2023,06/25/2022,07/17/2021,10/02/2020,10/28/2018,08/09/2017 Seasonal Influenza, QUAD, wi th Preserv, [...] encounter Miscellaneous Notes * Telephone Encounter - Arabella Carr LPN - 03/07/2024 1:58 PM EDT Pt read it today. * Telephone Encounter - Elysia Hutchins CRNP - 03/07/2024 6:57 AM EDT Please call patient with unread connie Mena, MSN, [facility] documented in this encounter Plan of Treatment Upcoming Encounters Date Type Department Care Team (Latest Contact Info) Description 05/31/2024 3:00 PM EDT Office Visit Family Practice [facility] [address] [place] [address] Elysia Hutchins CRNP [address] [place] [address] 07/19/2024 2:30 PM EDT Hospital Encounter ENDO [facility], Endoscopy Room [facility] [address] [place] [phone] Batsheva Cohen DO [address] [place] [address] 07/19/2024 2:30 PM EDT - 07/19/2024 3:00 PM EDT Surgery ENDO [facility], Endoscopy Room [facility] [address] [place] [phone] Batsheva Cohen DO [address] [place] [address] COLONOSCOPY FLEXIBLE PROXIMAL DIAGNOSTIC Scheduled Procedures Name Priority Associated Diagnoses Date/Ti me COLONOSCOPY FLEXIBLE PROXIMAL DIAGNOSTIC Special screening for malignant neoplasms, colon 07/19/2024 2:30 PM EDT Health Maintenance Due Date Last Done Comments Hepatitis B (1 of 3 - 19+ 3-dose series) 1997 COVID-19 Vaccine ( - 2022- season) 2023 12/11/2020, 11/15/2020 Cologuard 2023 Colonoscopy 2023 Colorectal Cancer Screening 2023 Fecal Occult Blood Test 2023 Sigmoidoscopy 2023 O2 ASSESSMENT COMPLETED IN PAST YEAR FOR COPD 11/25/2024 11/26/2023 Mammogram 01/27/2025 01/28/2024, 11/26, 12/23/2021, Additional history exists PAP SMEAR-EVERY 3 YRS,AGES 18-100 02/02/2025 02/02/2022, 12/26/2018, 12/03/2014, Additional history exists DTaP,Tdap,and Td Vaccines (2 - Td or Tdap) 12/26/2028 12/26/2018, 07/21/2005 Lipid Panel 02/28/2029 02/29/2024, 09/2018, 11/07/2012, Additional history exists Alpha-1 Antitrypsin Completed 10/22/2021, Pneumococcal Vaccine: Pediatrics [...] and were consensually agreed upon. Care Teams Head Of Commission Department Relationship Specialty Start Date End Date Elysia Hutchins CRNP [address] [place] [address] PCP - General Nurse Practitioner 06/25/22 documented as of this encounter
--- OUTSIDE RECORDS SUMMARY | 2024-08-23 13:37 | External Medical Summary | Summary of Care ---
Author Name Unknown Organization [facility] Address [address] [facility] [place] [address] Phone [phone] Care Team Providers Care Heater Installer Name Role Phone Elysia Hutchins Primary Care Provider Reason for Visit * Reason Onset Date Comments Test Results 03/03/2024 Encounter Details Date Type Department Care Team (Late st Contact Info) Description 03/03/2024 Telephone Cardiology, [facility] [address] [place] [address] Batsheva Hood CRNP [address] [facility] [address] Test Results Allergies No known active allergiesdocumented as of this encounter (statuses as of 03/06/2024) Medications Medication Sig Dispensed Refills Start Date [...] as of this encounter (statuses as of 03/06/2024) Active Problems Patient Care Coordination No te [...] as of this encounter (statuses as of 03/06/2024) Resolved Problems Problem Noted Date Diagnosed Date [...] reproductive history 07/09/2010 03/22/2013 Overview: 2000: delivered infant at 36w [...] as of this encounter (statuses as of 03/06/2024) Immunizations Name Administration Dates Next Due COVID-19 mRNA, LNP-s, No Pre serve, 2-Dose Series (Moderna) 12/11/2020,11/15/2020 PPD 06/24/2016,06/15/2016,07/30/2008 06/22/2016 Pneumococcal Conjugate Vacci ne, 20-valent ([id number]) 06/25/2022 Pneumococcal Polysaccharide PPV23 (Pneumovax) 05/21/2009 Seasonal [...] encounter Miscellaneous Notes * Telephone Encounter - Shaan Everett RN - 03/03/2024 2:25 PM EDT Pending Prescriptions: Disp Refills Rosuvastatin Calcium 20 MG Oral Tablet (C*90 Tab*3 Sig: Take 1 Tablet by mouth in the morning. Last Visit: 11/17/2023 (in office), Visit date not found (telemedicine) Next Visit: Visit date not found Last medication order date: new Have you choosen a preferred pharm?? yes Patient Active Problem List Diagnosis Screening for colon cancer Centrilobular emphysema (HCC) Persistent insomnia Patent foramen ovale Polymyalgia (HCC) TON (obstructive sleep apnea) COVID-19 long hauler Bipolar 1 disorder (HCC) Skin lesion Atrial septal defect Gastroesophageal reflux disease without esophagitis Brain fog Vaginal discharge Peripheral polyneuropathy Flu vaccine need Small bowel obstruction due to adhesions (HCC) COPD, group D, by GOLD 2017 classification (HCC) Low ferritin Labs: Lab Results Component Value Date/Time CREATININE - [facility] 0.7 06/18/2023 02:26 PM CREATININE - [facility] 0.8 09/30/2020 10:30 AM CREATININE-OUTSIDE LAB 0.76 03/10/2017 12:00 AM Lab Results Component Value Date/Time POTASSIUM - [facility] 4.3 06/18/2023 02:26 PM POTASSIUM - [facility] 4.3 09/30/2020 10:30 AM POTASSIUM-OUTSIDE LAB 3.7 03/10/2017 12:00 AM Lab Results Component Value Date/Time TSH - [facility] 1.33 02/29/2024 10:50 AM TSH - [facility] 1.89 09/30/2020 10:30 AM Lab Results Component Value Date/Time LDL CHOLESTEROL (CALCULATED) - [facility] 197 (H) 02/29/2024 10:50 AM LDL CHOLESTEROL (CALCULATED) - [facility] 127 11/07/2012 10:58 AM LDL CHOLESTEROL (CALCULATED) - [facility] 141 (H) 06/03/2011 11:25 AM LDL CHOLESTEROL (DIRECT MEASURE) - [facility] 124 12/26/2018 09:46 AM Lab Results Component Value Date/Time ALT - [facility] 10 02/29/2024 10:50 AM ALT - [facility] 8 (L) 09/30/2020 10:30 AM Hemoglobin AIC Results: No results found for: "HEMOGLOBIN A1C" * Telephone Encounter - Shaan Everett RN - 03/03/2024 2:21 PM EDT Called and spoke to the patient and reviewed the message with her from Batsheva Hood in regards to the patient's lab work. Patient states he understood. She is willing to start the medication. Scrip pended and lab orders placed. * Telephone Encounter - Shaan Everett RN - 03/03/2024 2:21 PM EDT ----- Message from Batsheva Hood sent at 03/01/2024 1:03 PM EDT ----- Results reviewed in coverage of [place] LDL markedly uncontrolled. Recommend starting rosuvastatin 20 mg daily. Repeat fasting cholesterol panel and LFTs in 4-6 weeks. Consider genetic testing to rule out familial hyperlipidemia. documented in this encounter Plan of Treatment Upcoming Encounters Date Type Department Care Team (Latest Contact Info) Description 05/31/2024 3:00 PM EDT Office Visit Family Practice [facility] [address] [place] [address] Elysia Hutchins CRNP [address] [place] [address] 07/19/2024 2:30 PM EDT Hospital Encounter ENDO [facility], Endoscopy Room [facility] [address] [place] [phone] Batsheva Cohen DO [address] [place] [address] 07/19/2024 2:30 PM EDT - 07/19/2024 3:00 PM EDT Surgery ENDO [facility], Endoscopy Room [facility] [address] [place] [phone] Batsheva Cohen DO [address] [place] [address] COLONOSCOPY FLEXIBLE PROXIMAL DIAGNOSTIC Scheduled Orders Name Type Priority Associated Diagnoses Orde r Schedule LIPID PANEL WITH DIRECT LDL IF TG IS HIGH Lab Routine Dyslipidemia, goal LDL below 70 Expected: 04/14/2024 (Approximate), Expires: 03/03/2025 Scheduled Procedures Name Priority Associated Diagnoses Date/Ti [...] 12/26/2028 12/26/2018, 07/21/2005 Lipid Panel 02/28/2029 02/29/2024, 04/09/2018, 11/07/2012, Additional history exists Alpha-1 Antitrypsin Completed [...] as of this encounter Visit Diagnoses Diagnosis Dyslipidemia, goal LDL below 70- Primary Other and unspecified hyperlipidemia Special screening for malignant neoplasms, colon documented in this encounter Advance Directives * [...] and were consensually agreed upon. Care Teams Heater Installer Relationship Specialty Start Date End Date Elysia Hutchins CRNP [address] [place] [address] PCP - General Nurse Practitioner 06/25/22 documented as of this encounter
--- OUTSIDE RECORDS SUMMARY | 2024-08-23 13:37 | External Medical Summary ---
Author Name Unknown Address Unknown Organization [id number]:[facility] - [address] [facility] [place] [address] Laboratory Report Ordering Provider Test Date Status FATEMEH HOLGUIN 05/31/2024 16:09:30 Final Observation Date Value Abnormality Reference (Units ) Status Color of Urine by Auto 05/31/2024 16:09:30 Yellow Colorless, Light Yellow, Yellow, Dark Yellow Final Clarity, Urine 05/31/2024 16:09:30 Clear Clear Final Glucose [Mass/volume] in Urine by Automated test strip 05/31/2024 16:09:30 Negative Negative (mg/dL) Final Bilirubin.total [Presence] in Urine by Automated test strip 05/31/2024 16:09:30 Negative Negative Final Ketones [Mass/volume] in Urine by Automated test strip 05/31/2024 16:09:30 Negative Negative (mg/dL) Final Specific gravity, Urine 05/31/2024 16:09:30 1.028 1.003-1.030 Final Hemoglobin [Presence] in Urine by Automated test strip 05/31/2024 16:09:30 Negative Negative Final pH, Urine 05/31/2024 16:09:30 6.5 5.0-7.5 (Units) Final Protein [Mass/volume] in Urine by Automated test strip 05/31/2024 16:09:30 Trace Abnormal Negative (mg/dL) Final Urobilinogen [Mass/volume] in Urine by Automated test strip 05/31/2024 16:09:30 Normal Normal (mg/dL) Final Nitrite [Presence] in Urine by Automated test strip 05/31/2024 16:09:30 Negative Negative Final Leukocyte esterase [Presence] in Urine by Automated test strip 05/31/2024 16:09:30 Large Abnormal Negative Final RBC, Urine 05/31/2024 16:09:30 0-2 0-2 (/HPF) Final WBC, Urine 05/31/2024 16:09:30 10-19 Abnormal 0-2 (/HPF) Final Bacteria [#/area] in Urine sediment by Microscopy high power field 05/31/2024 16:09:30 0-25 0-25 (/HPF) Final CULTURE, URINE - LUIS AER 05/31/2024 16:09:30 Final Quantitative urine culture t o be performed Performing Location [facility] - [facility] [address]. [facility] [address]
--- OUTSIDE RECORDS SUMMARY | 2024-08-23 13:37 | External Medical Summary | Summary of Care ---
Author Name Unknown Organization [facility] Address [address] [facility] [place] [address] Phone [phone] Care Team Providers Care Medical And Scientific Illustrator Name Role Phone Elysia Hutchins Primary Care Provider Encounter Details Date Type Department Care Team (Late st Contact Info) Description 06/30/2024 Telephone Gastroenterology, [facility] [address] [place] [address] Batsheva Cohen DO [address] [place] [address] Allergies No known active allergiesdocumented as of this encounter (statuses as of 06/30/2024) Medications Medication Sig Dispensed Refills Start Date [...] mouth daily. 90 Tablet 3 03/03/2024 Active Multi Vitamin Oral Tablet Take by mouth. Active Vitamin D 50 MCG (2000 UT) Oral Capsule Take 2,000 Units by mouth in the morning. Active documented as of this encounter (statuses as of 06/30/2024) Active Problems Patient Care Coordination No te [...] as of this encounter (statuses as of 06/30/2024) Resolved Problems Problem Noted Date Diagnosed Date [...] 07/31/199902/26 HISTORY OF TOBACCO USE 12/22 Overview: / ppd at [facility] visit-desires to quit TEMPOROMANDIBULAR JOINT DISO RDERS, UNSPECIFIED 08/24/2022 ADJ DISORDER W/DEPRES MOOD 1 ALCOHOL ABUSE-UNSPEC 022 Major depressive disorder, s joyce episode, in partial remission 03/16/2017 documented as of this encounter (statuses as of 06/30/2024) Immunizations Name Administration Dates Next Due COVID-19 mRNA, LNP-s, No Pre serve, 2-Dose Series (Moderna) 12/11/2020,11/15/2020 PPD 06/24/2016,06/15/2016,07/30/2008 06/22/2016 Pneumococcal Conjugate Vacci ne, 20-valent ([id number]) 06/25/2022 Pneumococcal Polysaccharide PPV23 (Pneumovax) 05/21/2009 Seasonal Influenza Vac., MDV , IM, 0.5 mL (Fluzone) 09/08/2012,06/16/2011,06/11/2009 Seasonal Influenza, PF, 6 M & above, IM , (FluLaval or Fluzone) 06/18/2023,06/25/2022,07/17/2021,1002/2020,10/28/2018,08/09/2017 Seasonal Influenza, QUAD, wi th Preserv, [...] Department Care Team (Latest Contact Info) Description 07/19/2024 2:30 PM EDT Hospital Encounter ENDO [facility], Endoscopy Room [facility] [address] [place] [phone] Batsheva Cohen DO [address] [place] [address] 07/19/2024 2:30 PM EDT - 07/19/2024 3:00 PM EDT Surgery ENDO [facility], Endoscopy Room [facility] [address] [place] [phone] Batsheva Cohen DO [address] [place] [address] COLONOSCOPY FLEXIBLE PROXIMAL DIAGNOSTIC 08/03/2024 3:40 PM EST Office Visit Pulmonary Medicine, [facility] [address] [place] [address] Chau Proctor MD [address] [place] [address] 08/30/2024 3:00 PM EST Office Visit Family Practice [facility] [address] [place] [address] Elysia Hutchins CRNP [address] [place] [address] Scheduled Procedures Name Priority Associated Diagnoses Date/Ti me COLONOSCOPY FLEXIBLE PROXIMAL DIAGNOSTIC Special screening for malignant neoplasms, colon 07/19/2024 2:30 PM EDT Health Maintenance Due Date Last Done Comments Hepatitis B Vaccine (1 of 3 - 19+ 3-dose series) 1997 Cologuard 2023 Colonoscopy 2023 Colorectal Cancer Screening 2023 Fecal Occult Blood Test 2023 Sigmoidoscopy 2023 COVID-19 Vaccine (2023- season) 2024 12/11/2020, 11/15/2020 Mammogram 01/27/2025 01/28/2024, 11/26, 12/23/2021, Additional history exists PAP SMEAR-EVERY 3 YRS,AGES 18-100 02/02/2025 02/02/2022, 12/26/2018, 12/03/2014, Additional history exists DTap/Tdap Vaccines (2 - Td or Tdap) 12/26/2028 12/26/2018, 07/21/2005 Lipid Panel 04/19/2029 04/19/2024, 06/0 12/2023, 12/26/2018, Additional history exists Pneumococcal Vaccine: Pediatrics (0 [...] and were consensually agreed upon. Care Teams Medical And Scientific Illustrator Relationship Specialty Start Date End Date Elysia Hutchins CRNP [address] [place] [address] PCP - General Nurse Practitioner 06/25/22 documented as of this encounter
--- OUTSIDE RECORDS SUMMARY | 2024-08-23 13:37 | External Medical Summary | Summary of Care ---
Author Name Unknown Organization [facility] Address [address] [place] [address] Phone [phone] Care Team Providers Care Pbx Wire Chief Name Role Phone Elysia Hutchins Primary Care Provider Reason for Visit * Reason Comments Outpatient Testing Encounter Details Date Type Department Care Team (Late st Contact Info) Description 04/19/2024 11:00 AM EDT Laboratory Laboratory, [place] [address] [place] [address] [place] [address] [place] [address] [employer] Other*[id number]; Dyslipidemia, goal LDL below 70 Allergies No known active allergiesdocumented as of this encounter (statuses as of 04/19/2024) Medications Medication Sig Dispensed Refills Start Date [...] lidinium-Vilanter ol) Inhale 1 Puff by mouth every evening. 180 Blister Dosing Unit 1 02/29/2024 Active Rosuvastatin Calcium 20 MG Oral Tablet (Crestor) Take 1 Tablet by mouth daily. 90 Tablet 3 03/03/2024 Active clonazePAM 0.5 MG Oral Tablet (KlonoPIN) Take 1 Tablet by mouth 2 times a day as needed for Anxiety or Other (Air Hunger). 30 to 60 minutes prior to sleep. 60 Tablet 04/05/2024 05/05/2024 Active documented as of this encounter (statuses as of 04/19/2024) Active Problems Patient Care Coordination No te Formatting of this note migh t be different from the original. Cervical length 4.7cms with no funneling noted on US 09/15/10 Problem Noted Date Diagnosed Date Anxiety hyperventilation 04/05/2024 Air hunger 04/05/2024 Low [...] as of this encounter (statuses as of 04/19/2024) Resolved Problems Problem Noted Date Diagnosed Date [...] as of this encounter (statuses as of 04/19/2024) Immunizations Name Administration Dates Next Due COVID-19 mRNA, LNP-s, No Pre serve, 2-Dose Series (Moderna) 12/11/2020,11/15/2020 PPD 06/24/2016,06/15/2016,07/30/2008 06/22/2016 Pneumococcal Conjugate Vacci ne, 20-valent ([id number]) 06/25/2022 Pneumococcal Polysaccharide PPV23 (Pneumovax) 05/21/2009 Seasonal [...] 3:00 PM EDT Office Visit [facility] [address] [place] [address] Elysia Hutchins CRNP [address] [place] [address] 07/19/2024 2:30 PM EDT Hospital Encounter ENDO [facility], Endoscopy Room [facility] [address] [place] [phone] Batsheva Cohen DO [address] [place] [address] 07/19/2024 2:30 PM EDT - 07/19/2024 3:00 PM EDT Surgery ENDO [facility], Endoscopy Room [facility] [address] [place] [phone] Batsheva Cohen DO [address] [place] [address] COLONOSCOPY FLEXIBLE PROXIMAL DIAGNOSTIC 08/03/2024 3:40 PM EST Office Visit Pulmonary Medicine, [facility] [address] [facility] [place] [address] Chau Proctor MD [address] [place] [address] Pending Results Name Type Priority Associated Diagnoses Date /Time MYCODE SUBSEQUENT ADULT Lab Routine [employer] Other*[id number] 04/19/2024 11:03 AM EDT LIPID PANEL WITH DIRECT LDL IF TG IS HIGH Lab Routine Dyslipidemia, goal LDL below 70 04/19/2024 11:03 AM EDT MYCODE SST1 Lab Routine [employer] Other*[id number] 04/19/2024 11:03 AM EDT MYCODE SST2 Lab Routine [employer] Other*[id number] 04/19/2024 11:03 AM EDT Scheduled Procedures Name Priority Associated Diagnoses Date/Ti me COLONOSCOPY FLEXIBLE PROXIMAL DIAGNOSTIC Special screening for malignant neoplasms, colon 07/19/2024 2:30 PM EDT Health Maintenance Due Date Last Done Comments Hepatitis B Vaccine (1 of - 19+ 3-dose series) 1997 COVID-19 Vaccine ( season) 2023 12/11/2020, 11/15/2020 Cologuard 2023 Colonoscopy 2023 Colorectal Cancer Screening 2023 Fecal Occult Blood Test 2023 Sigmoidoscopy 2023 Influenza Vaccine (FLU shot) (#1) 2024 06/18/2023, 06/25/2022, 07/17/2021, Additional history exists Mammogram 01/27/2025 01/28/2024, 11/26, 12/23/2021, Additional history exists PAP SMEAR-EVERY 3 YRS,AGES 18-100 02/02/2025 02/02/2022, 12/26/2018, 12/03/2014, Additional history exists DTaP,Tdap,and Td Vaccines (2 - Td or Tdap) 12/26/2028 12/26/2018, 07/21/2005 Lipid Panel 02/28/2029 02/29/2024, 04/0 09/2018, 11/07/2012, Additional history exists Pneumococcal Vaccine: Pediatrics (0 to 5 Years) and At-Risk Patients (6 to 64 Years) Completed 06/25/2022, 05/21/2009 HPV (Gardasil) Vaccine Aged Out No lo nger eligible based on patient's age to complete this topic MENINGOCOCCAL (MENACTRA/MENVEO) Aged Out No longer eligible based on patient's age to complete this topic documented as of this encounter Medical Devices Not on filedocumented as of this encounter Visit Diagnoses Diagnosis [employer] Other*[id number] Dyslipidemia, goal LDL below 70 Other and unspecified hyperlipidemia Special screening for [...] and were consensually agreed upon. Care Teams Pbx Wire Chief Relationship Specialty Start Date End Date Elysia Hutchins CRNP [address] [place] [id number] PCP - General Nurse Practitioner 06/25/22 documented as of this encounter
--- OUTSIDE RECORDS SUMMARY | 2024-08-23 13:37 | External Medical Summary ---
Author Name Unknown Address Unknown Organization [id number]:[facility] [place] [address] [place] [address] Laboratory Report Ordering Provider Test Date Status FATEMEH HOLGUIN 05/31/2024 16:09:30 Final Observation Date Value Abnormality Reference (Units) Status Bacteria identified in Specimen by Culture 05/31/2024 16:09:30 No significant growth Final Test: Culture, Urine, Quanti tative
Specimen Source: Urine, Clean Catch
Specimen Type: Urine
Specimen Date: 05/31/2024 1609
Result Date: 06/02/2024 0823
Result Status: Final result
Resulting Lab: [facility]
[address]
[place] [address]

CULTURE

No significant growth

null Performing Location [facility] [place] - [address] [facility] [address]
--- OUTSIDE RECORDS SUMMARY | 2024-08-23 13:37 | External Medical Summary ---
Author Name Unknown Address Unknown Organization [id number]:[facility] [place] - [address] [place] [id number] Laboratory Report Ordering Provider Test Date Status BA ARAUJO 04/19/2024 11:03:28 Final Observation Date Value Abnormality Reference (Units ) Status MYCODE SPECIMEN-SST 04/19/2024 11:03:28 Freezing of extracted DNA, whole blood and/or serum. Final Performing Location [facility] [place] - [address] [place] [address]
--- OUTSIDE RECORDS SUMMARY | 2024-08-23 13:37 | External Medical Summary ---
Author Name Unknown Address Unknown Organization K01:[facility] [place] [address] [place] [address] Laboratory Report Ordering Provider Test Date Status BA ARAUJO 04/19/2024 11:03:28 Final Observation Date Value Abnormality Reference (Units ) Status MYCODE SPECIMEN-SST 04/19/2024 11:03:28 Freezing of extracted DNA, whole blood and/or serum. Final Performing Location [facility] [place] [address] [place] [address]
--- OUTSIDE RECORDS SUMMARY | 2024-08-23 13:37 | External Medical Summary | Summary of Care ---
Author Name Unknown Organization [facility] Address [address] [address] Phone [phone] Care Team Providers Care Purifying Plant Operator Name Role Phone Elysia Hutchins Primary Care Provider Reason for Visit * Reason Comments Follow Up Encounter Details Date Type Department Care Team (Late st Contact Info) Description 04/05/2024 3:20 PM EDT Office Visit Pulmonary Medicine, [facility] [address] [facility] [place] [address] Chau Proctor MD [address] [facility] [place] [address] SILVANO (generalized anxiety disorder)*; Air hunger Allergies No known active allergiesdocumented as of this encounter (statuses as of 04/05/2024) Medications Medication Sig Dispensed Refills Start Date [...] minutes prior to sleep. 60 Tablet 04/05/2024 4 Active LORazepam 0.5 MG Oral Tablet (ATIVAN) Take 1 Tablet by mouth every 6 hours as needed. 4 Discontinue d(Medicatio n List Clean Up) documented as of this encounter (statuses as of 04/05/2024) Active Problems Patient Care Coordination No te [...] as of this encounter (statuses as of 04/05/2024) Resolved Problems Problem Noted Date Diagnosed Date [...] as of this encounter (statuses as of 04/05/2024) Immunizations Name Administration Dates Next Due COVID-19 mRNA, LNP-s, No Pre serve, 2-Dose Series (Moderna) 12/11/2020,11/15/2020 PPD 06/24/2016,06/15/2016,07/30/2008 06/22/2016 Pneumococcal Conjugate Vacci ne, 20-valent ([id number]) 06/25/2022 Pneumococcal Polysaccharide PPV23 (Pneumovax) 05/21/2009 Seasonal [...] Sign Reading Time Taken Comments Blood Pressure 118/62 04/05/2024 3:12 PM EDT Pulse 120 04/05/2024 3:12 PM EDT regul ar Temperature 36.9 C (98.4 F) 04/05/2024 3:12 PM ED T Respiratory Rate 20 04/05/2024 3:12 PM EDT Oxygen Saturation 98% 04/05/2024 3:13 PM EDT ra, amb Inhaled Oxygen Concentration - - Weight 49.9 kg (110 lb) 04/05/2024 3:12 PM EDT Height 160 cm (5' 3") 04/05/2024 3:12 PM EDT Body Mass Index 19.49 04/05/2024 3:12 PM EDT documented in this encounter Progress Notes * Chau Proctor MD - 04/05/2024 3:25 PM EDT 04/05/2024 Pulmonary Medicine, [address] [place] [id number] Ana Hollingsworth 1980 female 43 year old Attending Physician Documentation: 42-year-old female, 10 pack-year smoking history quit 14 years ago, significant past medical history of anxiety, depression, anxiety hyperventilation, remote history of home sick COVID viral illness,BMI 19, presenting for pulmonary medicine evaluation. Patient describes air hunger episodes, frequent subjective sensation of shortness of breath withoutwheezing. Maintains anxious affect. Using Trelegy and albuterol rescue inhaler without improvement.Patient has been prescribed Ativan for control of anxiety, but rarely using it for relief of her respiratory/air hunger symptoms. Patient had been historically labeled/diagnosed with COPD and hypoxic respiratory failure in the past. No corroborating data consistent with same diagnosis available at present. Multiple pulmonary function testing including 2021 and 2016 showed essentially normal ventilatory pattern. Normal gas transfer noted. FEV1 more than 90% of predicted. 6 minute walk test showed normal oxygen saturation on room air during ambulation. Chest x-ray September 2022 showed well- preserved lung parenchyma. CT scan chest October 2020 showed well-preserved lung parenchyma without evidence of any emphysema, scarring, effusions or lymphadenopathy. Alpha-1 antitrypsin screening on October 22, 2021 showed normal enzyme levels. Based on above-mentioned diagnostic workup, there is no evidence of COPD or hypoxic respiratory failure. Patient's problem list was updated to reflect the same. Physical examination significant for thin middle aged female, anxious affect, class 1 throat, clearlung odonnell, tachycardia, no murmur, no evidence of volume overload, nonlateralizing Neuro examination. Pulmonary diagnostic workup shows normal ventilatory parameters as outlined above. Clinical impression consistent with central hyperventilation/air hunger. No evidence of parenchymalventilatory limitation noted at present. Role of clonazepam therapy for management of air hunger respiratory symptoms was discussed. Treatment trial with 0.5 mg clonazepam twice daily to be used as ne eded will be initiated. Lorazepam prescription was discontinued. Patient will be followed up in 2 months to reassess respiratory symptoms status and discuss further management plan. Per patient request, and based on available diagnostic workup data, [facility] problem list was cleared to delete COPD, centrilobular emphysema and hypoxic respiratory failure related diagnostic entries. Data review: XR Chest Exam date and time: 10/14/2022 1:01 PM Age: 41 years old FINDINGS: Lungs: Lungs are well aerated without a focal area of consolidation. Pleural spaces: Unremarkable. No pleural effusion. No pneumothorax. Heart/Mediastinum: Unremarkable. No cardiomegaly. Bones/joints: Unremarkable. IMPRESSION IMPRESSION: Lungs are well aerated without a focal area of consolidation. Assessment 43-year-old female Ten pack-year smoker quit 14 years ago Depression Generalized anxiety disorder PFT within normal limits 06/2022 , except air trapping Chest x-ray 09/2022 WNL NL PFT 06/2022 NL 6 MWT 06/[address] chest 10/2020 Nl A1AT Level 10/22/2021 Follow-up: Return in about 2 months (around 06/06/2024). | Check-out note: 43-year-old female Ten pack-year smoker quit 14 years ago Depression Generalized anxiety disorder PFT within normal limits 06/2022 , except air trapping Chest x-ray 09/2022 WNL NL PFT 06/2022 NL 6 MWT 06/[address] chest 10/2020 Nl A1AT Level 10/22/2021 Clonazepam 0.5 BID PRN initiated No evidence of COPD/emphysema noted Epic problem list was cleared F/u 2 months Chau Proctor MD Subjective CC: Chief Complaint Patient presents with Follow Up HPI: Nursing Notes: Briana Burrell LPN 04/05/24 1517 Addendum Pt is here for f/u COPD. Interm History/Respiratory Symptoms Cough: occasional, clear-pale yellow phlegm Hemoptysis: no Sinus Symptoms: no Hospitalizations: no ED Trips: no Triggers: exertion, humidity, scents, smoke, bitter cold weather Nocturnal: no problems CPAP/BiPAP/O2: no DME Supplier: n/a Flu Vaccine: 2022 Pneumovax: 2008 Prevnar: 2021 COVID 19: x2 Mmrc Cat Question 04/05/2024 3:15 PM EDT - Filed by Briana Burrell LPN When do you become breathless? (4) I am too breathless to leave the house or I am breathless when dressing How frequently do you cough? (1) Do you have phlegm in your chest? (1) Is your chest tight? (2) How breathless do you become when walking up a hill or steps? (5) - When I walk up a hill or one flight of stairs I am very breathless How limited are you doing activities at home? (2) How confident are you leaving home with your lung condition? (0) - I am confident leaving my home despite my condition How soundly do you sleep? (0) - I sleep soundly How much energy do you have? (4) Total MMRC Score (range: 0 - 4) 4 Total CAT Score (range: 0 - 40) 15 Objective Filed Vitals: 04/05/24 1512 04/05/24 1513 BP: 118/62 Pulse: 120 Resp: 20 Temp: 36.9 C (98.4 F) TempSrc: Tympanic SpO2: 98% 98% Weight: 49.9 kg (110 lb) Height: 1.6 m (5' 3") Exam: Const: No signs of acute distress [...] were discussed with the patient. HOME MEDICATIONS: clonazePAM 0.5 MG Oral Tablet (KlonoPIN) Rosuvastatin Calcium 20 MG Oral Tablet (Crestor) Trelegy Ellipta 200-62.5-25 MCG/ACT Aerosol Powder Breath Activated (Gtvgafesahe-Vaxkofhzneob-Jisntyadia) Levalbuterol Tartrate 45 MCG/ACT Inhalation Aerosol (Xopenex HFA) [facility] Oral Tablet Chewable Venlafaxine HCl ER 225 MG Oral Tablet Extended Release 24 Hour Acetaminophen 325 MG Oral Tablet (Tylenol) Ibuprofen 600 MG Oral Tablet (Motrin) Vitron-C 65-125 MG Oral Tablet (Iron-Vitamin C) Albuterol Sulfate HFA 108 (90 Base) MCG/ACT Inhalation Aerosol Solution Pregabalin 50 MG Oral Capsule (Lyrica) lamoTRIgine (LAMICTAL) 100 MG Tablet ROS: No reported history of Hemoptysis, Hematemesis, [...] AND EVACUATION performed by FREDDIE CROWLEY at 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 DELIVERY 2010 COLPOSCPY CERVIX W/BX AND EC 08/2001 CYSTOSCOPY N/A 10/26/2022 CYSTOURETHROSCOPY performed by Shawna Cerna MD at OR [facility] EXC BREAST LESION RADMARK Left 02/28/2019 EXCISION OF BREAST LESION RADIOLOGICAL MARKER performed by Johnny Arias MD at OR [facility] INCISION OF EARDRUM Tubes in ears at [facility] LAPAROSCOPY TOTAL HYSTX, UTERUS 250GM OR LESS TUBE/OVARY Bilateral 10/26/2022 LAPAROSCOPIC HYSTERECTOMY REMOVAL TUBES AND/OR OVARIES FOR UTERUS 250GM OR LESS performed by Shawna Cerna MD at OR [facility] LAPAROSCOPY;GUIDE TRANSHEPATIC 08/17/2009 laparoscopic cholecystectomy 08/17/09, [facility], Dr. Arias REMOVAL OF APPENDIX 1990 [...] date: 11/20/1999 Quit date: 11/20/2009 Years since quittin.3 Smokeless tobacco: Never Vaping Use Vaping status: Never Used Substance and Sexual Activity Alcohol use: Not Currently Comment: none- problems in past- quit 2000 Drug use: No Other Topics Concern Caffeine Concern Yes Comment: 2-3 sodas a day Social History Narrative Cat No mold Social Determinants of Health Food Insecurity: No Food Insecurity (07/29/2020) Hunger Vital Sign Worried About Running Out of Food in the Last Year: Never true Ran Out of Food in the Last Year: Never true Social Connections Family History Problem Relation Name Age of Onset Hypertension Mother Mental Disorder Mother depression/anxiety Breast Cancer Mother 64 triple negative Cancer Father 64years when he No Known Problems Sister maria g Hypertension Grandmother (Maternal) Mental Disorder Grandmother (Maternal) Stroke Grandmother (Maternal) Cancer Grandfather (Maternal) Lung Hypertension Grandfather (Maternal) Mental Disorder Grandfather (Maternal) Neurological Disorder Aunt (Unspecified) No Past Hx Aunt (Unspecified) breast/scratcher tender/colon Heart Disorder Uncle (Unspecified) arrhythmia (maternal) Ovarian cancer Great-grandmother (Maternal) Review of patient's allergies indicates: No Known Allergies documented in this encounter Nursing Notes * Briana Burrell LPN - 04/05/2024 3:05 PM EDT Pt is here for f/u COPD. Interm History/Respiratory Symptoms Cough: occasional, clear-pale yellow phlegm Hemoptysis: no Sinus Symptoms: no Hospitalizations: no ED Trips: no Triggers: exertion, humidity, scents, smoke, bitter cold weather Nocturnal: no problems CPAP/BiPAP/O2: no DME Supplier: n/a Flu Vaccine: 2022 Pneumovax: 2008 Prevnar: 2021 COVID 19: x2 Mmrc Cat Question 04/05/2024 3:15 PM EDT - Filed by Briana Burrell LPN When do you become breathless? (4) I am too breathless to leave the house or I am breathless when dressing How frequently do you cough? (1) Do you have phlegm in your chest? (1) Is your chest tight? (2) How breathless do you become when walking up a hill or steps? (5) - When I walk up a hill or one flight of stairs I am very breathless How limited are you doing activities at home? (2) How confident are you leaving home with your lung condition? (0) - I am confident leaving my home despite my condition How soundly do you sleep? (0) - I sleep soundly How much energy do you have? (4) Total MMRC Score (range: 0 - 4) 4 Total CAT Score (range: 0 - 40) 15 documented in this encounter Plan of Treatment Upcoming Encounters Date Type Department Care Team (Latest Contact Info) Description 05/31/2024 3:00 PM EDT Office Visit Family Practice [facility] [address] [place] [address] Elysia Hutchins CRNP [address] [place] [address] 07/19/2024 2:30 PM EDT Hospital Encounter ENDO OSSC, Endoscopy Room [facility] [address] [place] [phone] Batsheva Cohen DO [address] [place] [address] 07/19/2024 2:30 PM EDT - 07/19/2024 3:00 PM EDT Surgery ENDO O[facility], Endoscopy Room [facility] [address] [phone] Batsheva Cohen DO [address] [place] [address] COLONOSCOPY FLEXIBLE PROXIMAL DIAGNOSTIC 08/03/2024 3:40 PM EST Office Visit Pulmonary Medicine, [facility] [address] [place] [address] Chau Proctor MD [address] [place] [address] Scheduled Procedures Name Priority Associated Diagnoses Date/Ti me COLONOSCOPY FLEXIBLE PROXIMAL DIAGNOSTIC Special screening for malignant neoplasms, colon 07/19/2024 2:30 PM EDT Health Maintenance Due Date Last Done Comments Hepatitis B Vaccine (1 of - 19+ 3-dose series) 1997 COVID-19 Vaccine (2022- season) 2023 12/11/2020, 11/15/2020 Cologuard 2023 Colonoscopy [...] Air hunger Other dyspnea and respiratory abnormality Special screening for malignant neoplasms, colon documented [...] and were consensually agreed upon. Care Teams Purifying Plant Operator Relationship Specialty Start Date End Date Elysia Hutchins CRNP [address] [address] PCP - General Nurse Practitioner 06/25/22 documented as of this encounter
--- OUTSIDE RECORDS SUMMARY | 2024-08-23 13:37 | External Medical Summary | Summary of Care ---
Author Name Unknown Organization [facility] Address [address] [facility] [place] [address] Phone [phone] Care Team Providers Care Victim Witness Administrator Name Role Phone Elysia Hutchins Primary Care Provider Reason for Visit * Auth/Cert Specialty Diagnoses / Procedures Referred By Lydia orosco Referred To Contact Diagnoses Special screening for malignant neoplasms, colon Special screening for malignant neoplasms, colon [Z12.11] Procedures COLONOSCOPY, DIAGNOSTIC (RECTUM) COLONOSCOPY FLEXIBLE PROXIMAL DIAGNOSTIC Batsheva Cohen DO [address] [place] [address] End[facility] [id number] [place] [address] Referral ID Status Reason Start Date Expiration Date Visits Re quested Visits Authorized [id number] [phone] Encounter Details Date Type Department Care Team (Latest Contact Info) Description 07/19/2024 1:06 PM EDT - 07/19/2024 3:36 PM EDT Hospital Encounter [facility], Endoscopy Room [facility] [address] [place] [phone] Batsheva Cohen DO [address] [place] [address] Colonoscopy Discharge Disposition: Home - Self Care Allergies No known active allergiesdocumented as of this encounter (statuses as of 07/20/2024) Medications Medication Sig Dispensed Refills Start Date End Date Status lamoTRIgine (LAMICTAL) 100 MG TabletIndications:M ajmendy depressive disorder, recurrent episode, moderate (HCC),SILVANO (generalized [...] as of this encounter (statuses as of 07/20/2024) Active Problems Patient Care Coordination No te [...] as of this encounter (statuses as of 07/20/2024) Resolved Problems Problem Noted Date Diagnosed Date [...] as of this encounter (statuses as of 07/20/2024) Immunizations Name Administration Dates Next Due COVID-19 mRNA, LNP-s, No Pre serve, 2-Dose Series (Moderna) 12/11/2020,11/15/2020 PPD 06/24/2016,06/15/2016,07/30/2008 06/22/2016 Pneumococcal Conjugate Vacci ne, 20-valent ([id number]) 06/25/2022 Pneumococcal Polysaccharide PPV23 (Pneumovax) 05/21/2009 Seasonal [...] Sign Reading Time Taken Comments Blood Pressure 104/57 07/19/2024 3:16 PM EDT Pulse 89 07/19/2024 3:16 PM EDT Temperature 36.2 C (97.2 F) 07/19/2024 3:01 PM ED T Respiratory Rate 14 07/19/2024 3:16 PM EDT Oxygen Saturation 98% 07/19/2024 3:16 PM EDT Inhaled Oxygen Concentration - - Weight 52.3 kg (115 lb 4.8 oz) 07/19/2024 2:00 P M EDT Height 160 cm (5' 2.99") 07/19/2024 2:00 PM EDT Body Mass Index 20.43 07/19/2024 2:00 PM EDT documented in this encounter H&P Notes * Batsheva Cohen, DO - 07/19/2024 2:25 PM EDT Endoscopy Pre-Procedure Assessment Name: Ana Hollingsworth Date: 07/19/2024 Time: 2:25 PM Procedure: Colonoscopy; with Indication(s) of average risk screening Endoscopy Pre-Procedure Assessment: Prior to the procedure, the patient was identified. The patient's history, medications and allergies were reviewed as per the Anesthesia Assessment. The patient is competent. The risks and benefits of the proposed procedure and the planned sedation were discussed with the patient. All questions were answered and informed consent for the procedure was obtained. This patient has undergone a preprocedural evaluation. A determination has been made to proceed with the planned procedure under [facility] procedural guidelines and the [facility] Non-Emergent, Elective Medical Services and Treatment Recommendations (published on 01-02-20). The community and hospital prevalence of COVID-19 has been discussed as well as this patient's specific risks associated with SARS-CoV-19 infection. Based upon the clinical acuity and patient-specific care considerations, this procedure is deemed a Tier II - Intermediate acuity treatment or service with either progression or the threat of progressive disease related to the delay in treatment. Not providing the service has the potential for increasing morbidity or mortality. BP 82/64 | Pulse 90 | Temp 36.4 C (97.6 F) (Tympanic) | Resp 16 | Ht 1.6 m (5' 2.99") | Wt 52.3kg (115 lb 4.8 oz) | LMP 09/07/2022 (Approximate) | SpO2 99% | BMI 20.43 kg/m | BSA 1.52 m Prior to Admission medications Medication Sig Last Dose Discont. Culturelle Womens 4 in 1 Oral Capsule Take by mouth. 07/14/2024 Multi Vitamin Oral Tablet Take by mouth. 07/14/2024 Vitamin D 50 MCG (2000 UT) Oral Capsule Take 2,000 Units by mouth in the morning. 07/14/2024 Rosuvastatin Calcium 20 MG Oral Tablet (Crestor) Take 1 Tablet by mouth daily. Patient taking differently: Take 1 Tablet by mouth at bedtime. 07/18/2024 Venlafaxine HCl ER 225 MG Oral Tablet Extended Release 24 Hour Take 1 Tablet by mouth in the morning. 07/19/2024 Acetaminophen 325 MG Oral Tablet (Tylenol) Take 3 Tablets by mouth every 6 hours. Past Week Pregabalin 50 MG Oral Capsule (Lyrica) Take 2 Capsules by mouth in the morning. 07/19/2024 lamoTRIgine (LAMICTAL) 100 MG Tablet Take 1 Tablet by mouth in the morning. 07/19/2024 clonazePAM 0.5 MG Oral Tablet (KlonoPIN) Take 1 Tablet by mouth 2 times a day as needed for Anxietyor Other (Air Hunger). 30 to 60 minutes prior to sleep. MUBIe Digestive Health Oral Tablet Chewable Take 1 Tablet by mouth in the morning. Patient not taking: Reported on 07/14/2024 Not Taking Ibuprofen 600 MG Oral Tablet (Motrin) Take 1 Tablet by mouth every 6 hours. With food. Over 30 Days Vitron-C 65-125 MG Oral Tablet (Iron-Vitamin C) Take 1 Tablet by mouth in the morning and 1 Tablet before bedtime. Patient taking differently: Take 1 Tablet by mouth in the morning. 07/14/2024 Albuterol Sulfate HFA 108 (90 Base) MCG/ACT Inhalation Aerosol Solution Inhale by mouth 2 Puffs every 6 hours as needed for Cough, Shortness of Breath or Wheezing. Over 30 Days Review of patient's allergies indicates: No Known Allergies Physical Exam: Mental Status Examination: alert and oriented. General: nad, calm Airway Examination: normal oropharyngeal airway and neck mobility. Respiratory Examination: symmetrical excursion Cardiac: RRR, no murmurs Abd:soft/ntd ASA Grade: II - A patient with mild systemic disease. After reviewing the risks and benefits, the patient was deemed in satisfactory condition to undergothe procedure. The anesthesia plan was to use general anesthesia. Batsheva Cohen DO Gastroenterology and Hepatology 07/19/2024 documented in this encounter Procedure Notes * Elysia Hutchins CRNP - 07/19/2024 2:39 PM EDTAssociated Order(s): COLONOSCOPY [facility] Patient Name: Ana Hollingsworth Procedure Date: 07/19/2024 2:39 PM Date of : 1980 Admit Type: Outpatient Note Status: Finalized Date of : 1980 Admit Type: Outpatient Age: 43 Room: Endo 3 Gender: Female Note Status: Finalized Procedure: Colonoscopy Indications: Screening for colorectal malignant neoplasm Providers: Batsheva Cohen DO (Doctor) Patient Profile: This is a 43 year old female. Refer to note in patient chart for documentation of history and physical. Referring MD: Elysia Hutchins MD (Referring MD) Medicines: General Anesthesia Complications: No immediate complications. Procedure: Pre-Anesthesia Assessment: - Prior to the procedure, a History and Physical was performed, and patient medications and allergies were reviewed. The risks and benefits of the procedure and the sedation options and risks were discussed with the patient. All questions were answered and informed consent was obtained. Patient identification and proposed procedure were verified by the physician, the nurse and the seaman in the procedure room. Mental Status Examination: alert and oriented. Airway Examination: Mallampati Class II (the uvula but not tonsillar pillars visualized). Respiratory Examination: clear to auscultation. CV Examination: RRR, no murmurs, no S3 or S4. Prophylactic Antibiotics: The patient does not require prophylactic antibiotics. Prior Anticoagulants: The patient has taken no anticoagulant or antiplatelet agents. ASA Grade Assessment: II - A patient with mild systemic disease. After reviewing the risks and benefits, the patient was deemed in satisfactory condition to undergo the procedure. The anesthesia plan was to use general anesthesia. Immediately prior to administration of medications, the patient was re-assessed for adequacy to receive sedatives. The physical status of the patient was re-assessed after the procedure. After I obtained informed consent, the scope was passed under direct vision. All instruments were visually inspected immediately before and after removal from the patient to ensure they are fully intact. Throughout the procedure, the patient's blood pressure, pulse, and oxygen saturations were monitored continuously. The colonoscopy was performed without difficulty. The patient tolerated the procedure well. The quality of the bowel preparation was poor. The PCF-H190DL Colonoscope ([id number]) was introduced through the anus and advanced to the cecum, identified by appendiceal orifice and ileocecal valve. Findings & Specimens: The perianal and digital rectal examinations were normal. Internal hemorrhoids were found during retroflexion. A moderate amount of stool was found in the entire colon, interfering with visualization. Impression: - Preparation of the colon was poor. - Internal hemorrhoids. - No specimens collected. Recommendation: - Patient has a contact number available for emergencies. The signs and symptoms of potential delayed complications were discussed with the patient. Return to normal activities tomorrow. Written discharge instructions were provided to the patient. - The patient will be observed post-procedure, until all discharge criteria are met. - Discharge patient to home (with escort). - Resume previous diet. - Continue present medications. - Repeat colonoscopy in 1 year for screening purposes given poor prep today with a 2 day bowel prep as today's colonoscopy was insufficient for screening purposes. Batsheva Cohen DO 07/19/2024 3:00:52 PM This report has been signed electronically. documented in this encounter Nursing Notes * Sally Guzman RN - 07/19/2024 3:35 PM EDT Patient is alert, pain free and tolerating po fluids prior to discharge. Patient has been visited by Dr. Cohen. Patient has received and demonstrates understanding of discharge instructions. Patient ambulated to private auto accompanied by endo staff. * Sally Guzman RN - 07/19/2024 3:01 PM EDT Patient transferred to post endo s/p colonoscopy. Patient awakened easily Respirations are even and unlabored on room air. ST in the 100's on the monitor. Abdomen soft and non distended. Vital signs stable. * Levi Santana RN - 07/19/2024 2:58 PM EDT See anesthesia record for medication administered during procedure. Levi Santana, ALIDA Pre cleaning of scope at the bedside started by vending machine technician. Mid abdominal pressure given per Dr. Cohen to assist with scope advancement. Pt tolerated well * Layla Rodrigues, RN - 07/19/2024 2:01 PM EDT The following pt discharge instructions reviewed with pt prior to prodedure: No driving today. No alcohol today. No signing of legal documents. Rest as much as possible today and can return to normal activities tomorrow. No operating any heavy equipment today. Diet as tolerated. Pt verbalized understanding. documented in this encounter Plan of Treatment Upcoming Encounters Date Type Department Care Team (Late st Contact Info) Description 07/27/2024 1:15 PM EDT Office Visit General Surgery, [facility] [address] [facility] [place] [address] Maria G Hui PA-C [address] [facility] [place] [address] 08/03/2024 3:40 PM EST Office Visit Pulmonary Medicine, [facility] [address] [facility] [place] [address] Chau Proctor MD [address] [place] [address] 08/30/2024 3:00 PM EST Office Visit Family Practice [facility] [address] [place] [address] Elysia Hutchins CRNP [address] [place] [address] Health Maintenance Due Date Last Done Comments [...] 12/2023, 12/26/2018, Additional history exists Colonoscopy 07/19/2034 07/19/2024 Colorectal Cancer Screening 07/19/2034 Pneumococcal Vaccine: [...] Procedure Name Priority Date/Time Associated Diagnosis Comments COLONOSCOPY 07/19/2024 2:39 PM EDT documented in this encounter Results * COLONOSCOPY (07/19/2024 2:39 PM EDT) 07/19/2024 2:39 PM EDT Narrative Procedure Note Elysia Hutchins CRNP - 07/19/2024 2:39 PM EDT [facility] Patient Name: Ana Hollingsworth Procedure Date: 07/19/2024 2:39 PM Date of : 1980 Admit Type: Outpatient Note Status:Finalized Date of : 1980 Admit Type: Outpatient Age: 43 Room: [facility] 3 Gender: Female Note Status: Finalized Procedure: Colonoscopy Indications: Screening for colorectal malignant neoplasm Providers: Batsheva Cohen DO (Doctor) Patient Profile: This is a 43 year old female. Refer to note inpatient chart for documentation of history and physical. Referring MD: Elysia Hutchins MD (Referring MD) Medicines: General Anesthesia Complications: No immediate complications. Procedure: Pre-Anesthesia Assessment: - Prior to the procedure, a History and Physicalwas performed, and patient medications and allergies were reviewed. The risksand benefits of the procedure and the sedation options and risks were discussed withthe patient. All questions were answered and informed consent was obtained. Patientidentification and proposed procedure were verified by the physician, the nurseand the seaman in the procedure room. Mental Status Examination: alertand oriented. Airway Examination: Mallampati Class II (the uvula but not tonsillarpillars visualized). Respiratory Examination: clear to auscultation. CV Examination:RRR, no murmurs, no S3 or S4. Prophylactic Antibiotics: The patient does notrequire prophylactic antibiotics. Prior Anticoagulants: The patient has taken noanticoagulant or antiplatelet agents. ASA Grade Assessment: II - A patient with mildsystemic disease. After reviewing the risks and benefits, the patient was deemed insatisfactory condition to undergo the procedure. The anesthesia plan was to use generalanesthesia. Immediately prior to administration of medications, the patient wasre-assessed for adequacy to receive sedatives. The physical status of the patient wasre-assessed after the procedure. After I obtained informed consent, the scope waspassed under direct vision. All instruments were visually inspected immediatelybefore and after removal from the patient to ensure they are fully intact. Throughout the procedure, the patient's bloodpressure, pulse, and oxygen saturations were monitored continuously. The colonoscopy wasperformed without difficulty. The patient tolerated the procedure well. The qualityof the bowel preparation was poor. The PCF-H190DL Colonoscope ([id number]) was introducedthrough the anus and advanced to the cecum, identified by appendiceal orifice andileocecal valve. Findings & Specimens: The perianal and digital rectal examinations were normal. Internal hemorrhoids were found during retroflexion. A moderate amount of stool was found in the entire colon, interferingwith visualization. Impression: - Preparation of the colon was poor. - Internal hemorrhoids. - No specimens collected. Recommendation: - Patient has a contact number available foremergenes. The signs and symptoms of potential delayed complications were discussed withthe patient. Return to normal activities tomorrow. Written discharge instructionswere provided to the patient. - The patient will be observed post-procedure,until all discharge criteria are met. - Discharge patient to home (with escort). - Resume previous diet. - Continue present medications. - Repeat colonoscopy in 1 year for screeningpurposes given poor prep today with a 2 day bowel prep as today's colonoscopy wasinsufficient for screening purposes. Batsheva Cohen DO 07/19/2024 3:00:52 PM This report has been signed electronically. Elysia [facility] documented in this encounter Administered Medications Inactive Administered Medications - up to 3 most recent administrations Medication Order MAR Action Action Date Dose Rate Site isolyte-S pH 7.4 infusion Intravenous, at 100 mL/hr, Plasma-LYTE 148, isolyte-S, and isolyte-S pH 7.4 are considered equivalent - including for MAR barcode scanning., CONTINUOUS, Starting on Wed07/19/24 at 1415, Until Wed07/19/24 at 1936, Pre-Op documented in this encounter Active and Recently Administered Medications Times are shown in EDT. Continuous Medication Order 07/17/2024 07/18/2024 07/19/2024 isolyte-S pH 7.4 infusion Intravenous, at 100 mL/hr, Plasma-LYTE 148, isolyte-S, and isolyte-S pH 7.4 are considered equivalent - including for MAR barcode scanning., CONTINUOUS, Starting on Wed07/19/24 at 1415, Until Wed07/19/24 at 1936, Pre-Op 1415 (Due)1457 (Anes Intra-Op Fluid - Provider: Guille Severino CRNA) documented in this encounter Advance Directives * [...] and were consensually agreed upon. Care Teams Victim Witness Administrator Relationship Specialty Start Date End Date Elysia Hutchins CRNP [address] [place] [address] PCP - General Nurse Practitioner 07/05/24 documented as of this encounter
--- OUTSIDE RECORDS SUMMARY | 2024-08-23 13:37 | External Medical Summary | Summary of Care ---
Author Name Unknown Organization [facility] Address [address] [place] [address] Phone [phone] Care Team Providers Care Over Short And Damage Clerk Name Role Phone Elysia Hutchins Primary Care Provider Encounter Details Date Type Department Care Team (Late st Contact Info) Description 06/13/2024 Orders Only Outcomes Research Department [address] [place] [address] Darlin Daly CHRA [employer] Research Other*[id number] Allergies No known active allergiesdocumented as of this encounter (statuses as of 06/13/2024) Medications Medication Sig Dispensed Refills Start Date [...] as of this encounter (statuses as of 06/13/2024) Active Problems Patient Care Coordination No te [...] as of this encounter (statuses as of 06/13/2024) Resolved Problems Problem Noted Date Diagnosed Date [...] 07/31/199902/26 HISTORY OF TOBACCO USE 12/22 Overview: /2 ppd at [facility] visit-desires to quit TEMPOROMANDIBULAR JOINT DISO RDERS, UNSPECIFIED 08/24/2022 ADJ DISORDER W/DEPRES MOOD 1 ALCOHOL ABUSE-UNSPEC 022 Major depressive disorder, s joyce episode, in partial remission 03/16/2017 documented as of this encounter (statuses as of 06/13/2024) Immunizations Name Administration Dates Next Due COVID-19 mRNA, LNP-s, No Pre serve, 2-Dose Series (Moderna) 12/11/2020,11/15/2020 PPD 06/24/2016,06/15/2016,07/30/2008 06/22/2016 Pneumococcal Conjugate Vacci ne, 20-valent ([id number]) 06/25/2022 Pneumococcal Polysaccharide PPV23 (Pneumovax) 05/21/2009 Seasonal Influenza, PF, 6 M & above, IM , (FluLaval or Fluzone) 06/18/2023,06/25/2022,07/17/2021,10/0 02/2020,10/28/2018,08/09/2017 Seasonal Influenza, QUAD, wi th Preserv, 6 mons & Above, 0.5 mL, IM 07/11/2019 Seasonal Influenza, Quadriva lent, No Preserve, IM 11/09/2016 Seasonal Influenza, Trivalen t, (IIV3), PF, (Fluzone) 05/31/2024 Seasonal Influenza, Trivalen t, (IIV3), with Preserv, (Fluzone) 09/08/2012,06/16/2011,06/11/2009 TDAP (age 10 and older)(Boostrix) 12/26/2018 [...] EDT Hospital Encounter [facility], Endoscopy Room [facility] [address] [place] [phone] Batsheva Cohen DO [address] [place] [address] 07/19/2024 2:30 PM EDT - 07/19/2024 3:00 PM EDT Surgery [facility], Endoscopy Room [facility] [address] [place] [phone] Batsheva Cohen DO [address] [place] [address] COLONOSCOPY FLEXIBLE PROXIMAL DIAGNOSTIC 08/03/2024 3:40 PM EST Office Visit Pulmonary Medicine, [facility] [address] [place] [address] Chau Proctor MD [address] [place] [address] 08/30/2024 3:00 PM EST Office Visit Family Practice [facility] [address] [place] [address] Elysia Hutchins CRNP [address] [place] [address] Scheduled Orders Name Type Priority Associated Diagnoses Orde r Schedule MYCODE SUBSEQUENT ADULT Lab Routine [employer] Other*[id number] Every 6 Months for 2 Occurrences starting 06/13/2024 until 07/03/2025 Scheduled Procedures Name Priority Associated Diagnoses Date/Ti [...] 12/26/2028 12/26/2018, 07/21/2005 Lipid Panel 04/19/2029 04/19/2024, 0612/2023, 12/26/2018, Additional history exists Pneumococcal Vaccine: Pediatrics [...] this encounter Visit Diagnoses Diagnosis [employer] [facility] Other*[id number] Special screening for malignant neoplasms, colon documented [...] and were consensually agreed upon. Care Teams Over Short And Damage Clerk Relationship Specialty Start Date End Date Elysia Hutchins CRNP [address] [place] [address] PCP - General Nurse Practitioner 06/25/22 documented as of this encounter
--- OUTSIDE RECORDS SUMMARY | 2024-08-23 13:37 | External Medical Summary | Summary of Care ---
Author Name Unknown Organization [facility] Address [address] [place] [address] Phone [phone] Care Team Providers Care Director Public Policy Name Role Phone Elysia Hutchins Primary Care Provider Reason for Referral * Evaluate & Treat - Unlimited Visits (Within 10 days (routine)) - Pending Review Specialty Diagnoses / Procedures Referred By Lydia orosco Referred To Contact Psychiatry / Psychology Diagnoses Brain fog Elysia Hutchins CRNP [address] [place] [address] Referral ID Status Reason Start Date Expiration Date Visits Requested Visits Authorized [id number] Pending Review Specialty Services Required 05/31/[phone] Question Answer Referral Priority Within 10 days (routine) Where should this appointment be scheduled? [facility] Is this referral for medication management? No What condition is this patient being seen for? Mild Cognitive Impairment/Mild Neurocognitive Disorder Does the patient have SEVERE cognitive impairment on bedside screeners? (MoCA/MMSE <= 10) No Comments Neuropsychological evaluations are INTERACTIVE and use materials that require a patient to SEE, HEAR, and often WRITE. If a patient is unable to engage in this way, neurocognitive assessment may be abbreviated or deemed inappropriate. Please use caution in establishing expectations with your patient, and note any limitations in the comments section of the referral order. Reason for Visit * Reason Onset Date Comments Re-Check "LONG COVID DROP RIGHT NOW". Medication Administration 05/31/2024 Flu an d/or Pneumo Inj Encounter Details Date Type Department Care Team (Late st Contact Info) Description 05/31/2024 3:00 PM EDT Office Visit [facility] [address] [place] [id number] Elysia Hutchins CRNP [address] [place] [id number] Heart palpitations*; Air hunger; Pelvic pressure in female; Need for prophylactic vaccination and inoculation against influenza; Rectal bleeding; Brain fog Allergies No known active allergiesdocumented as of this encounter (statuses as of 06/01/2024) Medications Medication Sig Dispensed Refills Start Date End Date Status lamoTRIgine (LAMICTAL) 100 MG TabletIndication s:Major depressive [...] Units by mouth in the morning. Active Levalbuterol Tartrate 45 MCG/ACT Inhalation Aerosol (Xopenex HFA) Inhale 2 Puffs by mouth every 4 hours as needed for Wheezing. 15 g 12 06/18/2023 05/31/20 24 Discontinued Trelegy Ellipta 200-62.5-25 MCG/ACT Aerosol Powder Breath Activated (Fluticasone-Ume clidinium-Vilant clayton) Inhale 1 Puff by mouth every evening. 180 Blister Dosing Unit 1 02/29/2024 05/31/20 24 Discontinued clonazePAM 0.5 MG Oral Tablet (KlonoPIN) Take 1 Tablet by mouth 2 times a day as needed for Anxiety or Other (Air Hunger). 30 to 60 minutes prior to sleep. 60 Tablet 04/05/2024 05/31/20 24 documented as of this encounter (statuses as of 06/01/2024) Active Problems Patient Care Coordination No te [...] as of this encounter (statuses as of 06/01/2024) Resolved Problems Problem Noted Date Diagnosed Date [...] as of this encounter (statuses as of 06/01/2024) Immunizations Name Administration Dates Next Due COVID-19 mRNA, LNP-s, No Pre serve, 2-Dose Series (Moderna) 12/11/2020,11/15/2020 PPD 06/24/2016,06/15/2016,07/30/2008 06/22/2016 Pneumococcal Conjugate Vacci ne, 20-valent ([id number]) 06/25/2022 Pneumococcal Polysaccharide PPV23 (Pneumovax) 05/21/2009 Seasonal [...] 8:35 AM EDT Sexual Orientation Straight 07/29/2020 9 :12 AM EST Job Start Date Occupation Industry Not on file Not on file Not on file documented as of this encounter Last Filed Vital Signs Vital Sign Reading Time Taken Comments Blood Pressure 104/70 05/31/2024 2:46 PM EDT Pulse 104 05/31/2024 2:46 PM EDT Temperature - - Respiratory Rate - - Oxygen Saturation 99% 05/31/2024 2:46 PM EDT Inhaled Oxygen Concentration - - Weight 52.3 kg (115 lb 4 oz) 05/31/2024 2:46 PM EDT Height - - Body Mass Index 20.42 04/05/2024 3:12 PM EDT documented in this encounter Progress Notes * Arabella Carr LPN - 05/31/2024 4:14 PM EDT 05/31/24 4:14 PM Date to Remove: 06/14/24 Time to Remove: 400 pm Serial Number: [id number] Ordering Provider: Cuong MENDEZ Results: Jia Carr LPN Zio patch applied in clinic, as per provider orders. * Elysia Hutchins CRNP - 05/31/2024 2:57 PM EDT Follow up Family Medicine Visit CC: Chief Complaint Patient presents with Re-Check "LONG COVID DROP RIGHT NOW". Medication Administration Flu and/or Pneumo Inj History of Present Illness: Ana Hollingsworth is a 43 year old female presenting for followup. She has been having low energy and fatigue. Sleeping a lot the last 6 days. Present for the last 6 weeks. Feels mood is depressed. Everything hurts Still having nightmares. She is coughing more. Saw pulm recently noted not to have COPD. Noted to have air hunger. She stopped all inhalers and did not note much difference. Pulm diagnostics normal. Still gets sob with activities. Recently tried to drive.Lost what she was doing. [place] foggy. She started clonazepam for air hunger but noted no much difference. She talked to Pyschiatry about this. She will discuss possible med changes. Notes that she felt like butterfly in lect to central chest. Worse the last 7-8 days. It continued for some time. Denies chest pain, nausea, upper back pain or jaw pain. She did notice that she had neck pain. [place] like flutter. No heartburn. [place] pain with urinating. Took UTI test and negative. [place] like everything was falling out. She didhave tinge of blood on tp. LMP hysterectomy Social History Socioeconomic History Marital status: Spouse name: Vince Number of children: 1 Years of education: Not on file Highest education level: Not on file Occupational History Comment: unemployed Occupation: unemployed Tobacco Use Smoking status: Former Current packs/day: 0.00 Average packs/day: 1 pack/day for 10.0 years (10.0 ttl pk-yrs) Types: Cigarettes Start date: 11/20/1999 Quit date: 11/20/2009 Years since quittin.5 Smokeless tobacco: Never Vaping Use Vaping status: [...] Resource Strain: Not on file Food Insecurity: No Food Insecurity (07/29/2020) Hunger Vital Sign Worried About Running Out of Food in the Last Year: Never true Ran Out of Food in the Last Year: Never true Transportation Needs: Not on file Social Connections: Unknown (05/31/2024) Social Connections How often do you feel lonely or isolated from those around you? 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 DELIVERY 2010 COLPOSCPY CERVIX W/BX AND EC 08/2001 CYSTOSCOPY N/A 10/26/2022 CYSTOURETHROSCOPY performed by Shawna Cerna MD at OR [facility] EXC BREAST LESION RADMARK Left 02/28/2019 EXCISION OF BREAST LESION RADIOLOGICAL MARKER performed by Johnny Arias MD at OR [facility] INCISION OF EARDRUM Tubes in ears at [facility] LAPAROSCOPY TOTAL HYSTX, UTERUS 250GM OR LESS TUBE/OVARY Bilateral 10/26/2022 LAPAROSCOPIC HYSTERECTOMY REMOVAL TUBES AND/OR OVARIES FOR UTERUS 250GM OR LESS performed by Shawna Cerna MD at [facility] LAPAROSCOPY;GUIDE TRANSHEPATIC 08/17/2009 laparoscopic cholecystectomy 08/17/09, [facility], Dr. Arias REMOVAL OF APPENDIX 1990 REMOVE CERVIX CONE W/LOOP ELECTRODE 10/08/2003 Dr. Riley, HSIL free margins on LEEP, colpo with HGSIL Current Outpatient Medications Medication Sig Dispense Refill Multi Vitamin Oral Tablet Take by mouth. Vitamin D 50 MCG (1999 UT) Oral Capsule Take 2,000 Units by mouth in the morning. clonazePAM 0.5 MG Oral Tablet (KlonoPIN) Take 1 Tablet by mouth 2 times a day as needed for Anxietyor Other (Air Hunger). 30 to 60 minutes prior to sleep. 60 Tablet 0 Rosuvastatin Calcium 20 MG Oral Tablet (Crestor) Take 1 Tablet by mouth daily. 90 Tablet 3 Culturelle Digestive Health Oral Tablet Chewable Take 1 Tablet by mouth in the morning. Venlafaxine HCl ER 225 MG Oral Tablet Extended Release 24 Hour Take 1 Tablet by mouth in the morning. Acetaminophen 325 MG Oral Tablet (Tylenol) Take 3 Tablets by mouth every 6 hours. 170 Tablet 0 Ibuprofen 600 MG Oral Tablet (Motrin) Take 1 Tablet by mouth every 6 hours. With food. 55 Tablet 0 Vitron-C 65-125 MG Oral Tablet (Iron-Vitamin C) Take 1 Tablet by mouth in the morning and 1 Tablet before bedtime. (Patient taking differently: Take 1 Tablet by mouth in the morning.) 60 Tablet 11 Albuterol Sulfate HFA 108 (90 Base) MCG/ACT Inhalation Aerosol Solution Inhale by mouth 2 Puffs every 6 hours as needed for Cough, Shortness of Breath or Wheezing. 18 g 4 Pregabalin 50 MG Oral Capsule (Lyrica) Take 2 Capsules by mouth in the morning and 2 Capsules before bedtime. Twice to three times a day.. lamoTRIgine (LAMICTAL) 100 MG Tablet Take 1 Tablet by mouth in the morning. Trelegy Ellipta 200-62.5-25 MCG/ACT Aerosol Powder Breath Activated (Uftvoptwglf-Xinbubhmtzzl-Dmfltnejep) Inhale 1 Puff by mouth every evening. (Patient not taking: Reported on 05/31/2024) 180 Blister Dosing Unit 1 Levalbuterol Tartrate 45 MCG/ACT Inhalation Aerosol (Xopenex HFA) Inhale 2 Puffs by mouth every 4 hours as needed for Wheezing. (Patient not taking: Reported on 05/31/2024) 15 g 12 No current facility-administered medications for this visit. Review of patient's allergies indicates: No Known Allergies Most Recent Immunizations Administered Date(s) Administered COVID-19 mRNA, LNP-s, No Preserve, 2-Dose Series (Moderna) 12/11/2020 PPD 06/24/2016 Pneumococcal Conjugate Vaccine, 20-valent ([id number]) 06/25/2022 Pneumococcal Polysaccharide PPV23 (Pneumovax) 05/21/2009 Seasonal Influenza, PF, 6 M & above, IM , (FluLaval or Fluzone) 06/18/2023 Seasonal Influenza, QUAD, with Preserv, 6 mons & Above, 0.5 mL, IM 07/11/2019 Seasonal Influenza, Quadrivalent, No Preserve, IM 11/09/2016 Seasonal Influenza, Trivalent, (IIV3), with Preserv, (Fluzone) 09/08/2012 TD - Tetanus/Diptheria (ADULT) 07/21/2005 TDAP (age 10 and older)(Boostrix) 12/26/2018 Review of Systems: Physical Exam: BP 104/70 | Pulse 104 | Wt 52.3 kg (115 lb 4 oz) | LMP 09/07/2022 (Approximate) | SpO2 99% | BMI 20.42 kg/m | BSA 1.52 m Physical Exam HENT: Head: Normocephalic. Eyes: Pupils: Pupils are equal, round, and reactive to light. Cardiovascular: Rate and Rhythm: Normal rate and regular rhythm. Pulmonary: Effort: Pulmonary effort is normal. Breath sounds: Normal breath sounds. Abdominal: General: Bowel sounds are normal. Palpations: Abdomen is soft. Tenderness: There is no abdominal tenderness. Musculoskeletal: General: Normal range of motion. Cervical back: Normal range of motion. Neurological: General: No focal deficit present. Mental Status: She is alert and oriented to person, place, and time. Psychiatric: Mood and Affect: Mood normal. Behavior: Behavior normal. Thought Content: Thought content normal. Judgment: Judgment normal. Assessment and Plan: 1. Heart palpitations Feels like fluttering There is no chest pain - EKG; Future - EXTERNAL EKG 8 TO 15 DAYS; Future 2. Air hunger NOTED BY PULM SHE STOPPED ALL INHALERS OF NOTE- ct IN 2020 CONFIRMED EMPHYSEMA AND BI APICAL SCARRING AFTER COVID 3. Pelvic pressure in female X 2 THEN RESOLVED - URINALYSIS, REFLEX TO CULTURE (NOT FOR NEUTROPENIC PATIENTS); Future 4. Need for prophylactic vaccination and inoculation against influenza - INFLUENZA VAC, TRIVALENT, (IIV3), PF, 0.5 ML (FLUZONE) 5. Rectal bleeding Blood on tp SCHEDULED FOR COLONOSCOPY 6. Brain fog - ADULT/PEDS NEUROPSYCHOLOGY REFERRAL OP I have advised the patient to call our office incase of any worsening or new symptoms. I spent a total of 40-54 minutes (exact time 40 mins) on the date of service in preparation, delivery, and documentation of the care provided to Ana Hollingsworth excluding any time spent in the performance of separately billed services. Rajesh, ESTEE, AARON [facility] * Arabella Carr LPN - 05/31/2024 2:49 PM EDT PRE - ADMINISTRATION DOCUMENTATION Are you experiencing any cold symptoms or fever? No Have you had Guillain-[place] Syndrome (an illness that causes paralysis) within the last 6 weeks? No Have you had the flu shot in the past? YES Have you ever had a reaction to the flu shot? No Arabella Carr LPN, 05/31/2024 2:49 PM Immunization Administration Documentation Time Out Procedure Performed: Yes Patient Identified (Ask Name/Date of ): Yes Does the patient have a fever greater than 101 degrees today? No Patient allergic to latex? No VFC Stock: No Injection(s) verified: Yes, Injection Name: Fluzone Verified Side and Site: Yes Verified Shot(s) with Parent(s)/Patient: Yes documented in this encounter Plan of Treatment Upcoming Encounters Date Type Department Care Team (Latest Contact Info) Description 07/19/2024 2:30 PM EDT Hospital Encounter ENDO [facility], Endoscopy Room [facility] [address] [place] [phone] Batsheva Cohen DO [address] [place] [address] 07/19/2024 2:30 PM EDT - 07/19/2024 3:00 PM EDT Surgery ENDO [facility], Endoscopy Room [facility] [address] [place] [phone] Batsheva Cohen DO [address] [place] [address] COLONOSCOPY FLEXIBLE PROXIMAL DIAGNOSTIC 08/03/2024 3:40 PM EST Office Visit Pulmonary Medicine, [facility] [address] [facility] [place] [address] [facility] Proctor [facility] [address] [facility] [address] 08/30/2024 3:00 PM EST Office Visit Family Practice [facility] [address] [facility] [place] [address] Elysia Hutchins CRNP [address] [place] [address] Pending Results Name Type Priority Associated Diagnoses Date /Time CULTURE, URINE, QUANTITATIVE Lab Routine Pelvic pressure in female 05/31/2024 4:09 PM EDT Scheduled Orders Name Type Priority Associated Diagnoses Orde r Schedule EKG EKG Routine Heart palpitations Expected: 05/31/2024 (Approximate), Expires: 06/30/2025 EXTERNAL EKG 8 TO 15 DAYS Holter Routine Heart palpitations Expected: 06/01/2024 (Approximate), Expires: 05/31/2025 Scheduled Procedures Name Priority Associated Diagnoses Date/Ti me COLONOSCOPY FLEXIBLE PROXIMAL DIAGNOSTIC Special screening for malignant neoplasms, colon 07/19/2024 2:30 PM EDT Scheduled Referrals Name Type Priority Associated Diagnoses Order Schedule ADULT/PEDS NEUROPSYCHOLOGY REFERRAL OP Referral Within 10 days (routine) Brain fog Ordered: 05/31/2024 Health Maintenance Due Date Last Done Comments Hepatitis B Vaccine (1 of 3 - 19+ 3-dose series) 1997 Cologuard 2023 Colonoscopy 2023 Colorectal Cancer Screening 2023 Fecal Occult Blood Test 2023 Sigmoidoscopy 2023 COVID-19 Vaccine ( season) 2024 12/11/2020, 11/15/2020 Mammogram 01/27/2025 01/28/2024, /05/2023, 12/23/2021, Additional history exists PAP SMEAR-EVERY 3 [...] Procedure Name Priority Date/Time Associated Diagnosis Comments URINALYSIS, REFLEX TO CULTURE Routine 05/31/2024 4:09 PM EDT Pelvic pressure in female URINALYSIS, REFLEX TO CULTURE (CUP ONLY) Routine 05/31/2024 4:09 PM EDT Pelvic pressure in female URINALYSIS, REFLEX TO CULTURE (NOT FOR NEUTROPENIC PATIENTS) Routine 05/31/2024 4:09 PM EDT Pelvic pressure in female documented in this encounter Results * (ABNORMAL) URINALYSIS, REFLEX TO CULTURE (05/31/2024 4:09 PM EDT) Color, Urine Yellow Colorless, Light Yellow, Yellow, Dark Yellow 06/01/2024 1:09 AM EDT [facility] Clarity, Urine Clear Clear 06/01/2024 1:09 AM EDT [facility] Glucose, Urine Negative Negative mg/dL 06/01/2024 1:09 AM EDT [facility] Bilirubin, Urine Negative Negative 06/01/2024 1:09 AM EDT [facility] Ketone, Urine Negative Negative mg/dL 06/01/2024 1:09 AM EDT [facility] Specific [place], Urine 1.028 1.003 - 1.030 06/01/2024 1:09 AM EDT [facility] Blood, Urine Negative Negative 06/01/2024 1:09 AM EDT [facility] pH, Urine 6.5 5.0 - 7.5 Units 06/01/2024 1:09 AM EDT [facility] Protein, Urine Trace(A) Negative mg/dL 06/01/2024 1:09 AM EDT [facility] Urobilinogen, Urine Normal Normal mg/dL 06/01/2024 1:09 AM EDT [facility] Nitrite, Urine Negative Negative 06/01/2024 1:09 AM EDT [facility] Esterase, Urine Large(A) Negative 06/01/2024 1:09 AM EDT [facility] RBC, Urine 0-2 0 - 2 /HPF 06/01/2024 1:09 AM EDT [facility] WBC, Urine 10-19(A) 0 - 2 /HPF 06/01/2024 1:09 AM EDT [facility] Bacteria, Urine 0-25 0 - 25 /HPF 06/01/2024 1:09 AM EDT [facility] Culture, Urine 06/01/2024 1:09 AM EDT [facility] Comment:Quantitative urine c ulture to be performed Urine Urine specimen obtained by clean catch procedure / Unknown Non-blood Collection / Unknown 05/31/2024 4:09 PM EDT 05/31/2024 4:51 PM EDT Elysia [facility] [address] [place] [address] * URINALYSIS, REFLEX TO CULTURE (CUP ONLY) (05/31/2024 4:09 PM EDT) Urinalysis, Reflex to Culture Specimen Specimen collected and received 05/31/2024 6:01 PM EDT [id number] Urine Urine specimen obtained by clean catch procedure / Unknown Non-blood Collection / Unknown 05/31/2024 4:09 PM EDT 05/31/2024 4:51 PM EDT Elysia [facility] Organization Address City/State/ZIP Co de Phone Number [id number] [place] [phone] documented in this encounter Visit Diagnoses Diagnosis Heart palpitations- Primary Palpitations Air hunger Other dyspnea and respiratory abnormality Pelvic pressure in female Other specified symptom associated with female genital organs Need for prophylactic vaccination and inoculation against influenza Rectal bleeding Hemorrhage of rectum and anus Brain fog Special screening for malignant neoplasms, colon documented [...] and were consensually agreed upon. Care Teams Director Public Policy Relationship Specialty Start Date End Date Elysia Hutchins CRNP [address] [place] [id number] PCP - General Nurse Practitioner 06/25/22 documented as of this encounter
--- OUTSIDE RECORDS SUMMARY | 2024-08-23 13:37 | External Medical Summary ---
Author Name Unknown Address Unknown Organization K01:[facility] [address] [facility] [place] [address] Laboratory Report Ordering Provider Test Date Status KRYSTAL RIOS 04/19/2024 11:03:28 Final Observation Date Value Abnormality Reference (Units ) Status Triglyceride 04/19/2024 11:03:28 59 <=174 ( mg/dL) Final Triglyceride Reference Range s (mg/dL):
<150 Acceptable
150-174 Borderline high
175-499 High
>=500 Very high Cholesterol 04/19/2024 11:03:28 161 <200 (mg /dL) Final Total Cholesterol Reference Ranges (mg/dL):
<200 Desirable
200-239 Borderline high
>=240 High HDL 04/19/2024 11:03:28 74 >49 (mg/dL ) Final HDL Cholesterol Reference Ra nges (mg/dL):
>=60 High (Desirable)
<50 Low (Undesirable) For Females
<40 Low (Undesirable) For Males NON-HDL CHOLESTEROL 04/19/2024 11:03:28 87 <=159 (mg/dL) Final Non-HDL Cholesterol Referenc e Range (mg/dL):
<100 Target level for high risk ASCVD patient
<130 Optimal for general population
130-159 Near optimal for general population
160-189 Borderline High
190-219 High
>=220 Very High LDL, (calculated) 04/19/2024 11:03:28 75 <= 129 (mg/dL) Final LDL Cholesterol Reference Ra nges (mg/dL):
<70 Target level for high risk ASCVD patient
<100 Optimal for general population
100-129 Near optimal for general population
130-159 Borderline high
160-189 High
>=190 Very high Performing Location LAB[facility]ATORY [facility] [place] - [address] [facility] [address]
--- OUTSIDE RECORDS SUMMARY | 2024-08-23 13:38 | External Medical Summary | Summary of Care ---
Author Name Unknown Organization [facility] [address] [facility] [address] Phone [phone] Care Team Providers Care Knitter Operator Name Role Phone Elysia Hutchins Primary Care Provider Reason for Visit * Reason Comments Outpatient Testing Encounter Details Date Type Department Care Team (Late st Contact Info) Description 02/29/2024 11:10 AM EDT Laboratory Laboratory, [facility] [address] [place] [address] [facility] [address] [place] [address] Elevated LFTs; Lipid screening; Low ferritin; Brain fog; Screening for lipid disorders Allergies No known active allergiesdocumented as of [...] 06/24/2016,06/15/2016,07/30/2008 06/22/2016 Pneumococcal Conjugate Vacci ne, 20-valent ([id number]) 06/25/2022 Pneumococcal Polysaccharide PPV23 (Pneumovax) 05/21/2009 Seasonal [...] 3:00 PM EDT Office Visit [facility] [address] [facility] [place] [address] Elysia Hutchins CRNP [address] [place] [address] Pending Results Name Type Priority Associated Diagnoses Date /Time HEPATIC FUNCTION PANEL Lab Routine Elevated LFTs 02/29/2024 10:50 AM EDT LIPID PANEL WITH DIRECT LDL IF TG IS HIGH Lab Routine Lipid screening 02/29/2024 10:50 AM EDT CBC WITH WBC DIFFERENTIAL AND ANEMIA REFLEX WORKUP Lab Routine Low ferritin 02/29/2024 10:50 AM EDT TSH WITH FREE T4 IF INDICATED Lab Routine Brain fog 02/29/2024 10:50 AM EDT ANEMIA CBC Lab Routine Low ferritin 02/29/2024 10:50 AM EDT DIFFERENTIAL, AUTOMATED Lab Routine Low ferritin 02/29/2024 10:50 AM EDT ANEMIA REFLEX CHEMISTRY HOLD Lab Routine Low ferritin 02/29/2024 10:50 AM EDT Health Maintenance Due Date Last Done Comments Albumin/Creatinine Ratio 1996 Hepatitis B (1 of 3 - 19+ 3-dose series) 1997 COVID-19 Vaccine (2022- season) 2023 12/11/2020, 11/15/2020 Cologuard 2023 Colonoscopy 2023 Colorectal Cancer Screening 2023 Fecal Occult Blood Test 2023 Sigmoidoscopy 2023 Lipid Panel 12/27/2023 12/26/2018, 10/28, 06/03/2011, Additional history exists GFR 06/18/2024 06/18/2023, 09/27, 05/27/2021, Additional history exists O2 ASSESSMENT COMPLETED IN [...] of this encounter Visit Diagnoses Diagnosis Elevated LFTs Other abnormal blood chemistry Lipid screening Screening for lipoid disorders Low ferritin Other nonspecific findings on examination of blood Brain fog Screening for lipid disorders documented in this encounter Advance Directives * [...] and were consensually agreed upon. Care Teams Knitter Operator Relationship Specialty Start Date End Date Elysia Hutchins CRNP [address] [place] [address] PCP - General Nurse Practitioner 06/25/22 documented as of this encounter
--- OUTSIDE RECORDS SUMMARY | 2024-08-23 13:38 | External Medical Summary ---
Author Name Unknown Address Unknown Organization K0G:[facility] - [address] [place] [address] Laboratory Report Ordering Provider Test Date Status FATEMEH HOLGUIN 02/29/2024 10:50:34 Final Observation Date Value Abnormality Reference (Units ) Status Albumin 02/29/2024 10:50:34 4.6 3.8-5.0 (g/dL) Final AST (Aspartate aminotransferase) 02/29/2024 10:50:34 15 10-35 (U/L) Final Alk Phos 02/29/2024 10:50:34 71 35-130 (U/L) Final ALT (Alanine aminotransferase) 02/29/2024 10:50:34 10 10-35 (U/L) Final Bilirubin, Total 02/29/2024 10:50:34 0.4 <=1.2 (mg/dL) Final Bilirubin, Direct 02/29/2024 10:50:34 <0.2 0.0-0.3 (mg/dL) Final Protein 02/29/2024 10:50:34 6.9 6.0-8.3 (g/dL) Final Performing Location [facility] - [address] [place] [address]
--- OUTSIDE RECORDS SUMMARY | 2024-08-23 13:38 | External Medical Summary ---
Author Name Unknown Address Unknown Organization K01[facility] [address] [facility] [place] [address] Laboratory Report Ordering Provider Test Date Status KAYDEN MARIE 02/29/2024 10:50:34 Final Observation Date Value Abnormality Reference (Units ) Status Triglyceride 02/29/2024 10:50:34 86 <=174 ( mg/dL) Final Triglyceride Reference Range s (mg/dL):
<150 Acceptable
150-174 Borderline high
175-499 High
>=500 Very high Cholesterol 02/29/2024 10:50:34 290 Above high normal <200 (mg/dL) Final Total Cholesterol Reference Ranges (mg/dL):
<200 Desirable
200-239 Borderline high
>=240 High HDL 02/29/2024 10:50:34 76 >49 (mg/dL ) Final HDL Cholesterol Reference Ra nges (mg/dL):
>=60 High (Desirable)
<50 Low (Undesirable) For Females
<40 Low (Undesirable) For Males NON-HDL CHOLESTEROL 02/29/2024 10:50:34 214 Above high normal <=159 (mg/dL) Final Non-HDL Cholesterol Referenc e Range (mg/dL):
<100 Target level for high risk ASCVD patient
<130 Optimal for general population
130-159 Near optimal for general population
160-189 Borderline High
190-219 High
>=220 Very High LDL, (calculated) 02/29/2024 10:50:34 197 Above high n ormal <=129 (mg/dL) Final LDL Cholesterol Reference Ra nges (mg/dL):
<70 Target level for high risk ASCVD patient
<100 Optimal for general population
100-129 Near optimal for general population
130-159 Borderline high
160-189 High
>=190 Very high Performing Location LABORATORY [facility] - [address] [facility] [address]
--- OUTSIDE RECORDS SUMMARY | 2024-08-23 13:38 | External Medical Summary ---
Author Name Unknown Address Unknown Organization K01:LABORATORY [facility] [place] - [address] [facility] [address] Laboratory Report Ordering Provider Test Date Status DEVON HOLGUINTony 02/29/2024 10:50:34 Final Observation Date Value Abnormality Reference (Units ) Status TSH 02/29/2024 10:50:34 1.33 0.27-4.20 (uIU/mL) Final Performing Location LABORATORY [facility] - [address] [facility] [address]
--- OUTSIDE RECORDS SUMMARY | 2024-08-23 13:38 | External Medical Summary | Summary of Care ---
Author Name Unknown Organization [facility] Address [address] [place] [address] Phone [phone] Care Team Providers Care Fiberglass Fabricator Name Role Phone Elysia Hutchins Primary Care Provider Reason for Referral * Ancillary Services (Within 30 days (routine)) - Pending Review Specialty Diagnoses / Procedures Referred By Lydia orosco Referred To Contact Gastroenterology Diagnoses Screening for colon cancer Elysia Hutchins CRNP [address] [place] [address] Referral ID Status Reason Start Date Expiration Date Visits Requested Visits Authorized [id number] Pending Review Ancillary Services Required 02/29/[phone] Question Answer Referral Priority Within 30 days (routine) Where should this appointment be scheduled? [facility] Comments ALERT: Do not order for pediatric patients (18 years or younger). Cancel off screen and order PEDS GASTROENTEROLOGY CONSULT (Type: 1 visit only-Evaluate and Treat) The following Pt. Instructions are available: - Gastro Colonoscopy Prep Instructions [21823] - Gastro Colonoscopy Prep Instructions (Martiniquais Version) [[id number]] Go to the Pt. Instructions section within the Visit Navigator to access. Colonoscopy ASGE Guidelines: Average risk screening (begin at age 50, 10 year intervals) ADDITIONAL INFORMATION 1. Is the patient on Coumadin? No 2. Is the patient on Pradaxa? No Reason for Visit * Reason Comments Re-Check Could not tolerate t he Baclofen. Stopped it. Encounter Details Date Type Department Care Team (Latest Contact Info) Description 02/29/2024 10:00 AM EDT Office Visit Family Practice [facility] [address] [place] [address] Elysia Hutchins CRNP [address] [place] [address] COPD, group D, by GOLD 2017 classification (HCC)*; Centrilobular emphysema (HCC); Brain fog; Low ferritin; Screening for colon cancer; Peripheral polyneuropathy; Screening for lipid disorders Allergies No known active allergiesdocumented as of this encounter (statuses as of 02/29/2024) Medications Medication Sig Dispensed Refills Start Date End Date Status lamoTRIgine (LAMICTAL) 100 MG TabletIndication s:Major depressive disorder, recurrent episode, moderate (HCC),SILVANO (generalized anxiety disorder),Bipola r disorder, unspecified (HCC) Take 1 Tablet by mouth in the morning. 7 Active LORazepam 0.5 MG Oral Tablet (ATIVAN) Take 1 Tablet by mouth every 6 hours as needed. Active Pregabalin 50 MG Oral Capsule (Lyrica) Take 2 Capsules by mouth in the morning and 2 Capsules before bedtime. Twice to three times a day.. 2 Active Albuterol Sulfate HFA 108 (90 [...] by mouth every 6 hours. 170 Tablet 3 Active Ibuprofen 600 MG Oral Tablet (Motrin) Take 1 Tablet by mouth every 6 hours. With food. 55 Tablet 3 Active Culturelle Digestive Health Oral Tablet Chewable Take 1 Tablet by mouth in the morning. Active Venlafaxine HCl ER 225 MG Oral Tablet Extended Release 24 Hour Take 1 Tablet by mouth in the morning. 3 Active Levalbuterol Tartrate 45 MCG/ACT Inhalation Aerosol (Xopenex HFA) Inhale 2 Puffs by mouth every 4 hours as needed for Wheezing. 15 g 12 3 Active Trelegy Ellipta 200-62.5-25 MCG/ACT Aerosol Powder Breath Activated (Fluticasone-Ume clidinium-Vilant clayton) Inhale 1 Puff by mouth every evening. 180 Blister Dosing Unit 1 4 Active Trelegy Ellipta 200-62.5-25 MCG/ACT Aerosol Powder Breath Activated (Fluticasone-Ume clidinium-Vilant clayton) INHALE 1 PUFF BY MOUTH ONCE DAILY 180 Blister Dosing Unit 1 4 02/29/20 24 Discontinued(Ref ill) Baclofen 20 MG Oral Tablet Take 1 Tablet by mouth in the morning and 1 Tablet before bedtime. 60 Tablet 3 4 02/29/20 24 Discontinued documented as of this encounter (statuses as [...] 06/24/2016,06/15/2016,07/30/2008 06/22/2016 Pneumococcal Conjugate Vacci ne, 20-valent ([id number]) 06/25/2022 Pneumococcal Polysaccharide PPV23 (Pneumovax) 05/21/2009 Seasonal [...] Reading Time Taken Comments Blood Pressure 104/70 02/29/2024 10:04 AM EDT Pulse 108 02/29/2024 10:04 AM EDT Temperature - - Respiratory Rate - - Oxygen Saturation - - Inhaled Oxygen Concentration - - Weight 50.1 kg (110 lb 8 oz) 02/29/2024 10:04 AM EDT Height - - Body Mass Index 19.57 11/26/2023 2:04 PM EST documented in this encounter Progress Notes * Elysia Hutchins CRNP - 02/29/2024 10:06 AM EDT Follow up Family Medicine Visit CC: Chief Complaint Patient presents with Re-Check Could not tolerate the Baclofen. Stopped it. History of Present Illness: Ana Hollingsworth is a 43 year old female presenting for folow up. She is pushing herself to be moreactive. She has been trying to do that for about 1.5 months. Tries to stay up and not take a nap. COPD: SOB is about the same. No wheezing. Occ. Cough- in the am and productive. With exertion-albuterol helps. Brain fog: off and on. Unchanged. Waiting on neuropsych testing.On higher dose of lyrica now for body pain. Not worsening brain fog. Mood- lyrica higher dose now. Stable and managed by psychiatry. Scheduled for appt upcoming in March. Body pain feels like squeezing and numbness. Moves around. Lyrica helps. Feels tingly. Social History Socioeconomic History Marital status: Spouse name: Vince Number of children: 1 Years of education: Not on file Highest education level: Not on file Occupational History Comment: unemployed Occupation: unemployed Tobacco Use Smoking status: Former Current packs/day: 0.00 Average packs/day: 1 pack/day for 10.0 years (10.0 ttl pk-yrs) Types: Cigarettes Start date: 11/20/1999 Quit date: 11/20/2009 Years since quittin.2 Smokeless tobacco: Never Vaping Use Vaping status: [...] Never true Transportation Needs: Not on file Physical Activity: [...] recent episode mixed, mild (HCC) Chronic headaches COPD (chronic obstructive pulmonary disease) (HCC) COVID-19 long hauler 08/25/2022 Dyslipidemia, goal LDL below 160 Hypercholesterolemia, does not require medication History of tobacco use Hx LEEP 12/22/2010 Term since LEEP, but incompetent cervix prior to LEEP TON (obstructive sleep apnea) 08/24/2022 Pneumonia Temporomandibular joint disorders, unspecified Past Surgical History: Procedure Laterality Date , INDUCED BY D&E 01/19/2012 INDUCED BY DILATION AND EVACUATION performed by FREDDIE CROWLEY at [facility] BREAST LESION,OTHER,EXCISION Left 06/13/2018 Fragments of Fibroadenoma BREAST LESION,OTHER,EXCISION Left 02/28/2019 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 DELIVERY 2010 COLPOSCPY CERVIX W/BX AND EC 08/2001 CYSTOSCOPY N/A 10/26/2022 CYSTOURETHROSCOPY performed by Shawna Cerna MD at OR [facility] EXC BREAST LESION RADMARK Left 02/28/2019 EXCISION OF BREAST LESION RADIOLOGICAL MARKER performed by Johnny Arias MD at OR [facility] INCISION OF EARDRUM Tubes in ears at [facility] LAPAROSCOPY TOTAL HYSTX, UTERUS 250GM OR LESS TUBE/OVARY Bilateral 10/26/2022 LAPAROSCOPIC HYSTERECTOMY REMOVAL TUBES AND/OR OVARIES FOR UTERUS 250GM OR LESS performed by Shawna Cerna MD at OR [facility] LAPAROSCOPY;GUIDE TRANSHEPATIC 08/17/2009 laparoscopic cholecystectomy 08/17/09, [facility], Dr. Arias REMOVAL OF APPENDIX 1990 REMOVE CERVIX CONE W/LOOP ELECTRODE 10/08/2003 Dr. Riley, HSIL free margins on LEEP, colpo with HGSIL Current Outpatient Medications Medication Sig Dispense Refill Trelegy Ellipta 200-62.5-25 MCG/ACT Aerosol Powder Breath Activated (Jdagkdxqzbc-Mbqflhjnxbbr-Qyhuqrsjpa) INHALE 1 PUFF BY MOUTH ONCE DAILY 180 Blister Dosing Unit 1 Levalbuterol Tartrate 45 MCG/ACT Inhalation Aerosol (Xopenex HFA) Inhale 2 Puffs by mouth every 4 hours as needed for Wheezing. 15 g 12 Culturee Digestive Health Oral Tablet Chewable Take [...] of Breath or Wheezing. 18 g 4 LORazepam 0.5 MG Oral Tablet (ATIVAN) Take 1 Tablet by mouth every 6 hours as needed. lamoTRIgine (LAMICTAL) 100 MG Tablet Take 1 Tablet by mouth in the morning. Baclofen 20 MG Oral Tablet Take 1 Tablet by mouth in the morning and 1 Tablet before bedtime. (Patient not taking: Reported on 02/29/2024) 60 Tablet 3 Pregabalin 50 MG Oral Capsule (Lyrica) Take 2 Capsules by mouth in the morning and 2 Capsules before bedtime. Twice to three times a day.. No current facility-administered medications for this visit. Review of patient's allergies indicates: No Known Allergies Most Recent Immunizations Administered Date(s) Administered COVID-19 mRNA, LNP-s, No Preserve, 2-Dose Series (Moderna) 12/11/2020 PPD 06/24/2016 Pneumococcal Conjugate Vaccine, 20-valent ([id number]) 06/25/2022 Pneumococcal Polysaccharide PPV23 (Pneumovax) 05/21/2009 Seasonal Influenza, PF, 6 M & above, IM , (FluLaval or Fluzone) 06/18/2023 Seasonal Influenza, QUAD, with Preserv, 6 mons & Above, 0.5 mL, IM 07/11/2019 Seasonal Influenza, Quadrivalent, No Preserve, IM 11/09/2016 Seasonal Influenza, Split, IIV3, With Preserve, Inj 09/08/2012 TD - Tetanus/Diptheria (ADULT) 07/21/2005 TDAP (age 10 and older)(Boostrix) 12/26/2018 Review of Systems: Review of Systems Constitutional: Positive for fatigue. Negative for diaphoresis and fever. Respiratory: Positive for shortness of breath. Negative for cough, chest tightness and wheezing. Cardiovascular: Negative for chest pain, palpitations and leg swelling. Gastrointestinal: Negative for abdominal pain. Neurological: Positive for numbness. Psychiatric/Behavioral: Positive for dysphoric mood. The patient is nervous/anxious. Mood is stable Physical Exam: BP 104/70 | Pulse 108 | Wt 50.1 kg (110 lb 8 oz) | LMP 09/07/2022 (Approximate) | BMI 19.57 kg/m | BSA 1.49 m Physical Exam HENT: Head: Normocephalic. Cardiovascular: Rate and Rhythm: Normal rate and regular rhythm. Pulmonary: Effort: Pulmonary effort is normal. Breath sounds: Examination of the right-lower field reveals decreased breath sounds. Examination ofthe left-lower field reveals decreased breath sounds. Decreased breath sounds present. Neurological: Mental Status: She is alert and oriented to person, place, and time. Psychiatric: Attention and Perception: Attention normal. Mood and Affect: Mood normal. Behavior: Behavior is cooperative. Cognition and Memory: Cognition normal. Assessment and Plan: 1. COPD, group D, by GOLD 2017 classification (HCC) Stable on trelegy Uses albuterol 2. Centrilobular emphysema (HCC) Noted on previous imaging 3. Brain fog ONGOING Neuropsych testing pending - TSH WITH FREE T4 IF INDICATED; Future 4. Low ferritin - CBC WITH WBC DIFFERENTIAL AND ANEMIA REFLEX WORKUP; Future 5. Screening for colon cancer - COLONOSCOPY, GI REFERRAL OP 6. Peripheral polyneuropathy LEGS AND ARMS UNCHANGED ON LYRICA 7. Screening for lipid disorders - LIPID PANEL WITH DIRECT LDL IF TG IS HIGH; Future I have advised the patient to call our office incase of any worsening or new symptoms. I spent a total of 20-29 minutes (exact time 25 mins) on the date of service in preparation, delivery, and documentation of the care provided to Ana Hollingsworth excluding any time spent in the performance of separately billed services. Rajesh, ESTEE, AARON [facility] documented in this encounter Plan of Treatment Upcoming Encounters Date Type Department Care Team (Late st Contact Info) Description 02/29/2024 11:10 AM EDT Laboratory Laboratory, [facility] [address] [place] [address] [facility] [address] [place] [address] Elevated LFTs; Lipid screening; Low ferritin; Brain fog; Screening for lipid disorders 05/31/2024 3:00 PM EDT [facility] [place] [address] Elysia Hutchins CRNP [address] [place] [address] Pending Results Name Type Priority Associated Diagnoses Date /Time CBC WITH WBC DIFFERENTIAL AND ANEMIA REFLEX WORKUP Lab Routine Low ferritin 02/29/2024 10:50 AM EDT TSH WITH FREE T4 IF INDICATED Lab Routine Brain fog 02/29/2024 10:50 AM EDT Scheduled Orders Name Type Priority Associated Diagnoses Orde r Schedule CBC WITH WBC DIFFERENTIAL AND ANEMIA REFLEX WORKUP Lab Routine Low ferritin Expected: 02/29/2024 (Approximate), Expires: 02/28/2025 TSH WITH FREE T4 IF INDICATED Lab Routine Brain fog Expected: 02/29/2024 (Approximate), Expires: 02/28/2025 Scheduled Referrals Name Type Priority Associated Diagnoses Orde r Schedule COLONOSCOPY, GI REFERRAL OP Referral Within 30 days (routine) Screening for colon cancer Ordered: 02/29/2024 Health Maintenance Due Date Last Done Comments [...] as of this encounter Visit Diagnoses Diagnosis COPD, group D, by GOLD 2017 classification (HCC)- Primary Centrilobular emphysema (HCC) Other emphysema Brain fog Low ferritin Other nonspecific findings on examination of blood Screening for colon cancer Special screening for malignant neoplasms, colon Peripheral polyneuropathy Unspecified hereditary and idiopathic peripheral neuropathy Screening for lipid disorders Elevated LFTs Other abnormal blood chemistry Lipid [...] and were consensually agreed upon. Care Teams Fiberglass Fabricator Relationship Specialty Start Date End Date Elysia Hutchins CRNP [address] [place] [address] PCP - General Nurse Practitioner 06/25/22 documented as of this encounter
--- OUTSIDE RECORDS SUMMARY | 2024-08-23 13:38 | External Medical Summary ---
Author Name Unknown Address Unknown Organization K01:[facility] - [address] [place] [address] Laboratory Report Ordering Provider Test Date Status FATEMEH HOLGUIN 02/29/2024 10:50:34 Final Observation Date Value Abnormality Reference (Units ) Status WBC, Total 02/29/2024 10:50:34 7.46 4.00-10.8 0 (K/uL) Final RBC 02/29/2024 10:50:34 4.50 3.85-5.15 (M/uL) Final Hemoglobin 02/29/2024 10:50:34 12.9 12.0-15.3 (g/dL) Final Anemia reflex testing trigge rs on a HGB < 12.0 for Females and HGB < 13.0 for Males in accordance with the WHO Anemia Guidelines
Anemia reflex testing triggers on a HGB < 12.0 for Females and HGB < 13.0 for Males in accordance with the WHO Anemia Guidelines HCT 02/29/2024 10:50:34 41.6 36.0-45.2 (%) Final MCV 02/29/2024 10:50:34 92.4 81.5-97.5 (fL) Final MCH 02/29/2024 10:50:34 28.7 27.0-34.0 (pg) Final MCHC 02/29/2024 10:50:34 31.0 32.0-36.0 (g/dL) Final RDW 02/29/2024 10:50:34 13.8 11.5-15.5 (%) Final Platelets 02/29/2024 10:50:34 352 140-400 (K /uL) Final MPV 02/29/2024 10:50:34 9.7 6.6-11.1 ( fL) Final Nucleated erythrocytes/100 leukocytes [Ratio] in Blood by Automated count 02/29/2024 10:50:34 0 <=0 (/100 WBCs) Fi [facility] Performing Location [facility] - [address] [facility] [address]
--- OUTSIDE RECORDS SUMMARY | 2024-08-23 13:38 | External Medical Summary ---
Author Name Unknown Address Unknown Organization K01:[facility] - [address] [facility] [place] [address] Laboratory Report Ordering Provider Test Date Status FATEMEH HOLGUIN 02/29/2024 10:50:34 Final Observation Date Value Abnormality Reference (Units ) Status SYNC LEUKOCYTES IN BLOOD BY AUTOMATED COUNT 02/29/2024 10:50:34 7.46 4.00-10.80 (K/uL) Final Segs 02/29/2024 10:50:34 60.1 40.0-75.0 (%) Final Lymphs % 02/29/2024 10:50:34 30.6 18.0-42.0 (%) Final Monos 02/29/2024 10:50:34 7.4 1.0-11.0 (%) Final Eosinophils 02/29/2024 10:50:34 0.9 0.0-6.0 (%) Final Basos 02/29/2024 10:50:34 0.7 0.0-2.0 (%) Final Immature Granulocyte, Percent 02/29/2024 10:50:34 0.3 0.0-2.0 (%) Final Absolute Segs 02/29/2024 10:50:34 4.49 1.80-7.70 (K/uL) Final Lymphs, absolute 02/29/2024 10:50:34 2.28 1.00-4.80 (K/ul) Final Monos, Abs 02/29/2024 10:50:34 0.55 0.00-1.10 (K/uL) Final Eos, Abs 02/29/2024 10:50:34 0.07 0.00-0.70 (K/uL) Final Basos, Abs 02/29/2024 10:50:34 0.05 0.00-0.20 (K/uL) Final Immature Granulocytes, Number 02/29/2024 10:50:34 0.02 0.00-0.20 (K/uL) Final Performing Location LABORATORY [facility] - [address] [facility] [address]
--- OUTSIDE RECORDS SUMMARY | 2024-08-23 13:38 | External Medical Summary | Summary of Care ---
Author Name Unknown Organization [facility] Address [address] [facility] [place] [address] Phone [phone] Care Team Providers Care Auto Dismantler Name Role Phone Elysia Hutchins Primary Care Provider Reason for Visit * Reason Onset Date Comments Appointment 02/29/2024 colon Encounter Details Date Type Department Care Team (Late st Contact Info) Description 02/29/2024 Telephone Family Practice [facility] [address] [place] [address] Elysia Hutchins CRNP [address] [place] [...] 06/24/2016,06/15/2016,07/30/2008 06/22/2016 Pneumococcal Conjugate Vacci ne, 20-valent ([id number]) 06/25/2022 Pneumococcal Polysaccharide PPV23 (Pneumovax) 05/21/2009 Seasonal [...] encounter Miscellaneous Notes * Telephone Encounter - Brittany Veronica OSA - 02/29/2024 10:28 AM EDT Screening colonoscopy documented in this encounter Plan of Treatment Upcoming Encounters Date Type Department Care Team (Late st Contact Info) Description 05/31/2024 3:00 PM EDT Office Visit Family [facility] [address] [place] [address] Elysia Htuchins CRNP [address] [place] [address] Health Maintenance Due Date Last Done Comments Albumin/Creatinine Ratio 1996 Hepatitis B (1 of 3 - 19+ 3-dose series) 1997 COVID-19 Vaccine ( - 2022-24 season) 2023 12/11/2020, 11/15/2020 Cologuard 2023 Colonoscopy [...] and were consensually agreed upon. Care Teams Auto Dismantler Relationship Specialty Start Date End Date Elysia Hutchins CRNP [address] [place] [address] PCP - General Nurse Practitioner 06/25/22 documented as of this encounter
--- NOTE | 2024-08-23 13:59 | Discharge Summary ---
Discharge Summary Date of Service August 23, 2024 Principal Dx & Hospital Course #1 = Principal Diagnosis (1) Abdominal pain: per admitting service notes with addendum: 43-year-old female with past medical history significant for patent keenan ovale, atrial septal defect, small bowel obstruction due to adhesions, GERD, polymyalgia, peripheral neuropathy, bipolar 1 disorder, persistent insomnia, COVID-19 long-hauler, low ferritin, anxiety hyperventilation comes because of abdominal pain. Patient says around 1:30 PM she noticed severe pain in her epigastric region radiating to the lower chest and across the upper abdomen. With pain medicine currently pain is improved. Denies any nausea. No diarrhea or constipation. No blood in the stools. No fevers. No shortness of breath. No headache. No runny nose or sore throat. Has mild cough. No swelling the legs. Currently resting comfortably and hemodynamically stable. Abdominal pain, Choledocholithiasis CT scan showing:Choledocholithiasis with intra and extrahepatic biliary and pancreatic ductal dilatation. History of cholecystectomy LFTs okay MRCP: The liver is of normal signal intensity without evidence of a hepatic mass. Gallbladder is not visualized, cholecystectomy status. Multiple (approximately 4-6 in number) small calculi are noted within the common bile duct, average size measuring 3-6 mm. Mild dilatation of the common bile duct, common hepatic duct, central and few of the peripheral intrahepatic biliary radicals is noted. Smooth distal tapering of common bile duct is noted. Limited evaluation of the bowel secondary to peristalsis, however, demonstrates no definitive abnormality. The adrenal glands demonstrate no gross mass. The pancreas is unremarkable. The kidneys demonstrate no evidence of contour-deforming mass lesion. No evidence of upper abdominal ascites or mesenteric mass. IV Zosyn NPO IV fluids evaluated by GI- recommend transfer for ERCP discussed with [facility] Triage- Dr. Baig he will discuss with lynn Mendoza and will get back to us Hyperlipidemia On statin Anxiety Bipolar 1 disorder On Lamictal and venlafaxine DVT prophylaxis SCDs for now Disposition Medical floor Full code. Notes For Next Care Provider Medication Changes From Visit IV Zosyn Admission HPI Per Admitting Provider 43-year-old female with past medical history significant for patent keenan ovale, atrial septal defect, small bowel obstruction due to adhesions, GERD, polymyalgia, peripheral neuropathy, bipolar 1 disorder, persistent insomnia, COVID-19 long-hauler, low ferritin, anxiety hyperventilation comes because of abdominal pain. Patient says around 1:30 PM she noticed severe pain in her epigastric region radiating to the lower chest and across the upper abdomen. With pain medicine currently pain is improved. Denies any nausea. No diarrhea or constipation. No blood in the stools. No fevers. No shortness of breath. No headache. No runny nose or sore throat. Has mild cough. No swelling the legs. Currently resting comfortably and hemodynamically stable. Past medical history. As mentioned above Past surgical history. induced by TAD left breast lesion excision. C- section. Colonoscopy. Cystoscopy. Colposcopy. Laparoscopic hysterectomy 1 of tubes laparoscopic cholecystectomy. Appendectomy. Removal of cervix cone. Social history. . Quit smoking 2009. Smoked 1 pack a day for 10 yea rs. Quit alcohol in 2000. No drug use. Family history. Mother had triple negative breast cancer. Hypertension. Depression anxiety. Father had cancer. Maternal grandfather had lung cancer. Hypertension. Mental disorder. Maternal grandmother had hypertension. Stroke. Maternal great grandmother had ovarian cancer. Admission Exam Per Admitting Provider General- Not in distress Head- atraumatic Eyes- PERRL. ENT- oropharynx clear Neck- supple, no JVD. Lungs- clear to auscultation no wheezing or crackles. Heart- regular rate and rhythm; no murmur, no gallop. Abdomen- normal bowel sounds, soft, nontender, no distension. Extremities- no pretibial edema, no erythema seen Neuro- alert, oriented PERRL, no facial palsy; no dysarthria; moves extremities Discharge Exam General- oriented x 3, not in distress, speaks in sentences with no effort or accessory muscle use Eyes- anicteric Neck- no JVD Lungs- clear breath sounds bilaterally, no rales/wheezes Heart- normal rate, regular rhythm; no murmurs Abdomen- normal bowel sounds, nondistended, soft, mild r quadrant tenderness Extremities- no pretibial edema, no calf tenderness Neuro- alert, oriented x 3; no gross focal neurologic deficits Skin- warm & dry Updated Medication List Medication Instructions Recorded Confirmed Type lamotrigine 100 mg tablet 150 mg PO QAM 07/31/19 08/22/24 History albuterol sulfate 90 mcg/actuation 1 - 2 puff inhalation DIRECTED 01/30/21 08/22/24 History aerosol inhaler PRN Shortness Of Breath venlafaxine 225 mg tablet,extended 225 mg PO QAM 01/30/21 08/22/24 History release 24 hr Culturelle Women's 4-In-1 1 cap PO QAM 08/11/23 08/22/24 History Vitafusion Women's Multivitamin 2 ea PO QAM 08/11/23 08/22/24 History Gummies cholecalciferol (vitamin D3) 1,250 50,000 unit PO UD 08/11/23 08/22/24 History mcg (50,000 unit) capsule iron,carbonyl 65 mg-vitamin C 125 1 tab PO DAILY 08/11/23 08/22/24 History mg tablet,delayed release (Vitron-C) pregabalin 50 mg capsule 100 mg PO DAILY 08/11/23 08/22/24 History rosuvastatin 20 mg tablet 20 mg PO DAILY 08/22/24 08/22/24 History Hospital Stay Data Consultations 08/22/24 19:47 ED Decision to Admit Stat 08/23/24 08:00 Consult Gastroenterology Routine Diagnostic Imagining Performed 08/22/24 15:03 CT abd pelvis IV con only Stat EXAM: CT Abdomen and Pelvis With Intravenous Contrast INDICATION: Sudden onset midepigastric pain. TECHNIQUE: Axial computed tomography images of the abdomen and pelvis with intravenous contrast. Sagittal and coronal reformatted images were created and reviewed. This CT exam was performed using one or more of the following dose reduction techniques: automated exposure control, adjustment of the mA and/or kV according to patient size, and/or use of iterative reconstruction technique. CONTRAST: 93ml of Optiray 320 was administered intravenously. COMPARISON: 08/11/2023 FINDINGS: Limitations: None. Lung bases: No abnormality noted. Pleural space: No visualized pleural effusion or pneumothorax. Heart: No abnormality noted. Mediastinum: No abnormality noted. ABDOMEN: Liver: There is now mild intrahepatic biliary dilatation. Smooth hepatic contour. No evident mass. Gallbladder and bile ducts: Cholecystectomy. The common bile duct is dilated to 1.5 cm and contains debris and small stones. Pancreas: There is mild pancreatic ductal dilatation. No surrounding inflammation. No enhancing pancreatic mass, gas or evident calcification. Spleen: No significant abnormality noted. Adrenals: No significant abnormality noted. Kidneys and ureters: Normal enhancement. No mass, hydronephrosis or visualized stone. Stomach and bowel: Scattered stool throughout the colon without obstruction. No intestinal thickening or inflammation. PELVIS: Appendix: Well seen and appears normal. Bladder: No filling defects to suggest mass or large stone. No inflammation. Reproductive: 3.2 x 2.6 x 3.7 cm benign-appearing left ovarian cyst noted. No further assessment required. Hysterectomy. Stable prominent cervix without evident mass. ABDOMEN and PELVIS: Intraperitoneal space: No free air. No significant fluid collection. Bones/joints: No acute changes. Soft tissues: Umbilical hernia containing fat. Vasculature: No abdominal aortic aneurysm. Lymph nodes: No pathologically enlarged lymph nodes. IMPRESSION: Choledocholithiasis with intra and extrahepatic biliary and pancreatic ductal dilatation. Electronically signed by Bessy Cuevas 08-22-2024 4:15 PM Dictated: 08/22/24 [id number] Transcribed: 08/22/24 23:17 MR MRCP Urgent MR MRCP CLINICAL HISTORY: sudden onset of abdomen pain radiating into chest. same symptoms on 08/11 and 08/15. CT abdomen and pelvis on 08/22 and 08/11. cholecystectomy years ago. room 356. 1014 images. TECHNIQUE: Multiplanar/multisequence magnetic resonance Cholangio-pancreaticography was performed without use of gadolinium. COMPARISON: CT scan dated 22 August 2024. FINDINGS: The liver is of normal signal intensity without evidence of a hepatic mass. Gallbladder is not visualized, cholecystectomy status. Multiple (approximately 4-6 in number) small calculi are noted within the common bile duct, average size measuring 3-6 mm. Mild dilatation of the common bile duct, common hepatic duct, central and few of the peripheral intrahepatic biliary radicals is noted. Smooth distal tapering of common bile duct is noted. Limited evaluation of the bowel secondary to peristalsis, however, demonstrates no definitive abnormality. The adrenal glands demonstrate no gross mass. The pancreas is unremarkable. The kidneys demonstrate no evidence of contour-deforming mass lesion. No evidence of upper abdominal ascites or mesenteric mass. IMPRESSION: 1. Choledocholithiasis as described above. Resultant mild dilatation of the intra and extrahepatic biliary system is noted. 2. Gallbladder is not visualized, cholecystectomy status. 3. Pancreatic parenchyma and peripancreatic fat planes appear normal. Electronically signed by Layo Hernandez 08-23-2024 01:06 AM Dictated: 08/22/24 [id number] Transcribed: Pending Results Patient Have Any Pending Studies at Discharge: No Discharge Instructions Given to Patient (Per Discharging Provider) Please refer to accompanying hospital discharge summary. Total Time Total Time Spent Total Time Spent (In Minutes): 60 minutes
[2024-08-23 14:35] VITALS: BP 94/53; PULSE 104; TEMP 98.2
--- NOTE | 2024-08-23 16:50 | Electrocardiogram Report ---
Test Reason : Blood Pressure : */* mmHG Vent. Rate : 87 BPM Atrial Rate : 87 BPM P-R Int : 132 ms QRS Dur : 78 ms QT Int : 362 ms P-R-T Axes : 76 68 75 degrees QTcB Int : 435 ms Sinus rhythm with occasional Premature ventricular complexes Otherwise normal ECG When compared with ECG of 23-Aug-2024 04:26, Premature ventricular complexes are now Present Nonspecific T wave abnormality no longer evident in Inferior leads Confirmed by Eduardo Conway ([id number]) on 08/23/2024 4:50:28 PM Referred By: REFERRED SELF Confirmed By: Eduardo Conway
== END 2024-08-23 15:02 | disposition short-term general hospital (02) | DRG 445 ==
LOC: ED 14:47 → 3W 21:53